=== PATIENT | female | born 1970 | race Caucasian/White ===

== ENCOUNTER → 2017-08-25 17:11 | Outpatient (CLI) | payer BC, SELFPAY ==
--- NOTE | 2017-08-25 17:19 | XR_ITS ---
XR chest 2V HISTORY: Chest pain ITS.REASON: CHEST PAIN ORDERING PHYSICIAN: Eric Tyler MD PATIENT AGE: 47 years COMPARISON: 12/02/2015 FINDINGS: The cardiomediastinal silhouette and pulmonary vascularity are within normal limits. The lungs are clear without infiltrates, suspicious nodules, or pleural effusions. No acute bony abnormalities. Mild thoracic kyphosis unchanged IMPRESSION: No change with no acute finding
== END ==
PROVIDERS: PCP Family Medicine; Visit Provider Family Medicine
DX: R07.89 Other chest pain (principal)
CPT/HCPCS: 71046

== ENCOUNTER → 2017-08-31 16:39 | Outpatient (CLI) | payer BC, SELFPAY ==
--- NOTE | 2017-08-31 | MM_ITS ---
MM Dig screening mamm BI w/CAD CAD Screening COMPARISON: Digital mammograms 02/01/2012 and 10/08/2013 INDICATION: There is a history of breast cancer in patient's cousin diagnosed before menopause. TECHNIQUE: Standard CC and MLO images were obtained. R2 CAD reviewed. FINDINGS: There is a markedly dense and heterogenic parenchymal pattern definitely lessening the sensitivity of mammography. There are 2 possible new nodular densities right breast best seen on the CC projection. These likely are summation shadows due to the dense heterogenic parenchymal pattern. However recommend the patient return for spot compression MLO and CC views and possibly ultrasound as well. There are no suspicious microcalcifications. IMPRESSION: Dense parenchymal pattern with possible new developing densities right breast BI-RADS Category: 0 Need Additional Imaging Evaluation RECOMMENDED FOLLOW-UP: IMM - IMMEDIATE FOLLOW-UP RECOMMENDED (A letter has been sent to the patient regarding results of the study.)
== END ==
PROVIDERS: Family Provider Family Medicine; PCP Family Medicine; Visit Provider Family Medicine
DX: N64.4 Mastodynia (principal); Z12.31 Encounter for screening mammogram for malignant neoplasm of breast
CPT/HCPCS: 77067

== ENCOUNTER → 2017-09-13 14:40 | Outpatient (CLI) | payer BC, SELFPAY ==
--- NOTE | 2017-09-13 14:45 | MM_ITS ---
MM Dig mamm DX unilat RT CAD, US breast RT complete COMPARISON: 08/31/2017, 10/08/2013 INDICATION: Follow-up abnormal mammogram ORDERING PHYSICIAN: Eric Tyler MD PATIENT AGE: 47 years TECHNIQUE: Problem solving views of the right breast along with right breast ultrasound FINDINGS: There is dense fibroglandular tissue which decreases the sensitivity of mammography. The areas of asymmetric density in the central aspect of the right breast seen on the previous screening mammogram appear to compress out. Asymmetric density is present in the retroareolar region probably related to fibroglandular tissue less apparent on the nipple profile view. This has been a constant feature compared to the previous mammograms only slightly more apparent on today's study which may be technical in nature. Right breast ultrasound: 4 mm cyst at 10:00. No other abnormalities are apparent. Small nodes are present in the axilla. IMPRESSION: No convincing evidence of malignancy. Asymmetric densities on the mammogram are felt to percent areas of asymmetric fibroglandular tissue. Asymmetric density is present in the right retroareolar region also felt to represent fibroglandular tissue only slightly more prominent. BI-RADS Category: 3 Benign Finding Short Term Follow-up RECOMMENDED FOLLOW-UP: 6M - 6 MONTH FOLLOW-UP Recommend follow-up right mammogram in 6 months. Also recommend correlation with physical exam in this patient with dense breast tissue. (A letter has been sent to the patient regarding results of the study.)
== END ==
PROVIDERS: Family Provider Family Medicine; PCP Family Medicine; Visit Provider Family Medicine
DX: R92.8 Other abnormal and inconclusive findings on diagnostic imaging of breast (principal); N64.4 Mastodynia
CPT/HCPCS: 76641; 77065

== ENCOUNTER → 2017-10-13 14:52 | Outpatient (CLI) | payer BC, SELFPAY ==
--- NOTE | 2017-10-13 15:01 | CT_ITS ---
CT chest w con HISTORY: ITS.REASON: LEFT SIDED CHEST PAIN ORDERING PHYSICIAN: Eric Tyler MD PATIENT AGE: 47 years TECHNIQUE: Axial images obtained following the administration of 75 mL of Isovue 370 . Sagittal, and coronal reformatted images are also generated and reviewed. All CT scans at the facility use one or more dose reduction, viz: automated exposure control; ma/kV adjustment per patient size (including targeted exams where dose is matched to indication; i.e. head); or iterative reconstruction technique. FINDINGS: No mediastinal or hilar mass or adenopathy. Normal heart size. No evidence of pericardial effusion. Scattered small nodes present in the axilla on both sides but no obvious axillary adenopathy or mass. No evidence of aortic aneurysm or central pulmonary embolus No areas of consolidation or suspicious nodules or effusions. There are mild atelectatic or fibrotic changes in the left lung base with dependent changes posteriorly. There is mild thoracic kyphosis with degenerative disc disease in the midthoracic spine. Upper abdominal images are unremarkable IMPRESSION: 1. No acute finding. 2. Minimal left basilar atelectasis or fibrosis. 3. Thoracic spine spondylosis
== END ==
PROVIDERS: Family Provider Family Medicine; PCP Family Medicine; Visit Provider Family Medicine
DX: R07.9 Chest pain, unspecified (principal); N64.4 Mastodynia
CPT/HCPCS: 71260; Q9967

== ENCOUNTER → 2018-04-10 15:32 | Outpatient (CLI) | payer BC, SELFPAY ==
--- NOTE | 2018-04-10 15:37 | CT_ITS ---
CT angio chest HISTORY: Mid chest pressure, history of colon cancer ITS.REASON: SUSPECTED PULMONARY EMBOLISM ORDERING PHYSICIAN: Jacqueline Vo MD PATIENT AGE: 47 years COMPARISON: 10/13/2017 TECHNIQUE: Axial images obtained following the administration of 75 mL of Isovue 370 . Sagittal, and coronal reformatted images are also generated and reviewed. All CT scans at the facility use one or more dose reduction, viz: automated exposure control, ma/kV adjustment per patient size (including targeted exams where dose is matched to indication, i.e. head), or iterative reconstruction technique. FINDINGS: No evidence of aortic aneurysm or dissection. No evidence of pulmonary embolus. No mediastinal or hilar mass or adenopathy. Normal heart size without evidence of pericardial effusion There are atelectatic changes in the right middle lobe. Mild fibrotic changes are present in the left lung base and minimal atelectasis noted in the right posterior costophrenic sulcus. No lobar consolidation or collapse. No effusions or infiltrates. There are degenerative changes in the thoracic spine with mild kyphosis and small endplate osteophytes anteriorly. Upper abdominal images show mild prominence of the inferior vena cava. This is nonspecific and may be seen with right heart strain. There is very minimal bowing of the intraventricular septum toward the left ventricle which may also be seen with right heart strain. There is slight increased density within the retroperitoneal fat around the aorta nonspecific. There is borderline splenomegaly at 13 cm. IMPRESSION: 1. No evidence of pulmonary embolus, aortic aneurysm, or aortic dissection. 2. Mild atelectatic and fibrotic changes in the lower lung zones 3. Prominent inferior vena cava with minimal bowing of the intraventricular septum toward the left which may be seen with right heart strain
== END ==
PROVIDERS: PCP Family Medicine; Visit Provider Emergency Medicine
DX: R09.89 Other specified symptoms and signs involving the circulatory and respiratory systems (principal)
CPT/HCPCS: 71275; Q9967

== ENCOUNTER → 2018-04-14 07:54 | Outpatient (CLI) | payer BC, SELFPAY ==
--- NOTE | 2018-04-14 | CA_ITS ---
PROCEDURE: 2-D M-mode and color Doppler study INDICATIONS FOR THE TEST: Chest pain COPD Heart Murmur Tobacco Smoking Palpitationshx Fatigue Syncope Edema Hypertension Diabetes Mellitus Rheumatic Fever SOB PATEL Obesity Hyperlipidemia Family History HD+ Additional History chest pressure, father had history of CABG and aortic aneurysm, Mother had CAD PATIENT INFORMATION HEIGHT: 70 WEIGHT: 189 GENDER: Female B/P: 110/78 2-D/M-MODE INTERPRETATION: 2-D MEASUREMENTS OBSERVED VALUES IN CMS Right Ventricular Dimension (RVDd) 2.7 Interventricular Septum (Thickness)(IVsd) 0.6 Left Ventricular Internal Dimensions(LVIDd) 4.9 Left Ventricular Posterior Wall (Thickness)(LVPWd) 0.7 Aortic Root 3.0 Aortic Cusp Separation 2.0 Left Atrial Dimensions (LAD) 3.9 2D 1. Left atrium is upper limit of the normal size, left ventricle is normal size, there is no concentric left ventricular hypertrophy, visually estimated ejection fraction of 55% with no regional wall motion abnormality. 2. The right atrium and I ventricular normal size and contractility. 3. The aortic valve is minimally thickened and fibrosed. 4. The mitral and tricuspid valvular grossly normal. 5. The pulmonic valve is poorly visualized. 6. No significant pericardial effusion noted. DOPPLER INTERROGATION: Doppler interrogation of the aortic, mitral and tricuspid valvular presence of mild mitral and tricuspid regurgitation, tricuspid regurgitation jet velocity is inadequate for calculation of the right ventricular systolic pressure, diastolic parameters are inconclusive. CONCLUSION: 1. Normal left ventricular size, preserved left ventricular systolic function, visually estimated ejection fraction 55% with no regional wall motion abnormality, diastolic parameters are inconclusive. 2. Mild mitral and tricuspid regurgitation 3. No significant pericardial effusion noted.
== END ==
PROVIDERS: Family Provider Family Medicine; PCP Family Medicine; Visit Provider Emergency Medicine
DX: R06.02 Shortness of breath (principal)
CPT/HCPCS: 93306

== ENCOUNTER → 2018-04-25 14:11 | Outpatient (CLI) | payer BC, SELFPAY ==
--- NOTE | 2018-04-25 14:20 | CA_ITS ---
PROCEDURE: Limited saline contrast study is to identify intracardiac shunt INDICATIONS FOR THE TEST: Chest pain COPD Heart Murmur Tobacco Smoking Palpitations Fatigue Syncope Edema Hypertension Diabetes Mellitus Rheumatic Fever SOB PATEL Obesity Hyperlipidemia Family History HD Additional History BUBBLE STUDY ONLY F/U FROM CT RECENT ECHO DONE PATIENT INFORMATION HEIGHT: WEIGHT: GENDER: Female B/P: 2-D/M-MODE INTERPRETATION: 2-D MEASUREMENTS OBSERVED VALUES IN CMS Right Ventricular Dimension (RVDd) Interventricular Septum (Thickness)(IVsd) Left Ventricular Internal Dimensions(LVIDd) Left Ventricular Posterior Wall (Thickness)(LVPWd) Aortic Root Aortic Cusp Separation Left Atrial Dimensions (LAD) 2D DOPPLER INTERROGATION: CONCLUSION: Agitated saline contrast study fails to identify intracardiac shunt.
== END ==
PROVIDERS: Family Provider Family Medicine; PCP Family Medicine; Visit Provider Emergency Medicine
DX: N64.4 Mastodynia (principal); R06.02 Shortness of breath
CPT/HCPCS: 93308

== ENCOUNTER → 2018-05-27 08:42 | Outpatient (CLI) | payer BC, SELFPAY ==
[2018-05-27 09:00] LABS: Basophils % 0.6 % (0.1-2.0); Eosinophils # 0.2 K/mm3 (0.0-0.4); Eosinophils % 3.4 % (0.1-12.0); Hematocrit 38.6 % (37.0-47.0); Hemoglobin 12.8 g/dL (12.2-16.2); Lymphocytes # 1.4 K/mm3 (0.7-4.5); Lymphocytes % 28.5 % (10-50); Mean Corpuscular HGB Conc 33.1 g/dL (31.8-35.4); Mean Corpuscular Hemoglobin 30.2 pg (27.0-31.2); Mean Corpuscular Volume 91.2 fl (81-99); Monocytes # 0.3 K/mm3 (0.1-1.0); Monocytes % 5.5 % (1.7-9.3); Platelet Count 220 K/mm3 (142-424); Red Blood Count 4.23 M/mm3 (4.20-5.40); Red Cell Distribution Width 13.1 % (11.5-17.5); White Blood Count 4.8 K/mm3 (4.8-10.8)
[2018-05-27 10:28] LABS: Erythrocyte Sedimentation Rate 16 mm/hr (0-20)
[2018-05-27 10:29] LABS: Alanine Aminotransferase 18 U/L (12-78); Albumin Level 3.6 gm/dL (3.4-5.0); Albumin/Globulin Ratio 1.1 (1.1-1.8); Alkaline Phosphatase 58 U/L (46-116); Anion Gap 10.4 mEq/L (5-15); Aspartate Amino Transferase 12 U/L (15-37); Bilirubin,Total 0.7 mg/dL (0.2-1.0); Blood Urea Nitrogen 10 mg/dL (7-18); C-Reactive Protein < 0.2 mg/L (0.0-0.9); Calcium 8.3 mg/dL (8.5-10.1); Carbon Dioxide 30 mmol/L (21.0-32.0); Chloride 105 mmol/L (98-107); Chol/HDL Ratio 2.2 (1-3.5); Cholesterol 148 mg/dL (140-200); Creatinine,Serum 0.59 mg/dL (0.55-1.02); Estimated Glomerular Filt Rate 109 ml/min (>60); GFR (African American) 132 ML/MIN (>60); Globulin 3.2 gm/dl (1.3-3.2); Glucose 90 mg/dL (74-106); HDL Cholesterol 67 mg/dL (29-89); LDL Cholesterol 66 mg/dL (0-130); Potassium 4.4 mmoL/L (3.5-5.1); Sodium 141 mmol/L (136-145); Thyroid Stimulating Hormone 1.87 uIU/ml (0.358-3.740); Total Protein,Serum 6.8 gm/dL (6.4-8.2); Triglycerides 77 mg/dL (30-200); Uric Acid 4.5 mg/dL (2.6-7.2); VLDL Cholesterol 15 mg/dL (0-40)
[2018-05-29 16:15] LABS: RA Latex Turbid. <10.0 IU/mL (0.0-13.9)
[2018-05-30 06:08] LABS: Antinuclear Antibodies, IFA Positive (.)
== END ==
PROVIDERS: Visit Provider Family Medicine
DX: M79.10 Myalgia, unspecified site (principal); Z85.038 Personal history of other malignant neoplasm of large intestine
CPT/HCPCS: 36415; 80053; 80061; 84443; 84550; 85025; 85651; 86038; 86140; 86431

== ENCOUNTER → 2018-10-23 16:16 | Outpatient (CLI) | payer BC, SELFPAY ==
--- NOTE | 2018-10-23 16:20 | MM_ITS ---
MM Dig screening mamm BI w/CAD CAD Screening COMPARISON: Digital mammograms with CAD 08/31/2017 and additional views right breast 09/13/2017 INDICATION: There is a history of breast cancer patient maternal cousin diagnosed at age 40 TECHNIQUE: Standard CC and MLO images were obtained. R2 CAD reviewed. FINDINGS: Prominent diffuse heterogenic fibroglandular densities are seen in both breasts somewhat lessening the sensitivity of mammography. Possible asymmetric density seen in the right breast on the previous study in August 2017 are not appreciated on today's study and were likely areas of asymmetric glandular tissue. There is a stable benign-appearing nodular density deep within the right breast. There is no suspicious lesion and there are no suspicious microcalcifications. IMPRESSION: Diffusely dense parenchymal pattern with no suspicious lesion seen BI-RADS Category: 2 Benign Finding(s) RECOMMENDED FOLLOW-UP: 1YR - 1 YEAR FOLLOW-UP (A letter has been sent to the patient regarding results of the study.)
== END ==
PROVIDERS: PCP Family Medicine; Visit Provider Family Medicine
DX: Z12.31 Encounter for screening mammogram for malignant neoplasm of breast (principal)
CPT/HCPCS: 77067

== ENCOUNTER → 2018-12-04 13:44 | Outpatient (CLI) | payer BC, SELFPAY ==
--- NOTE | 2018-12-04 13:44 | US_ITS ---
US transvaginal HISTORY: ITS.REASON: US T/V- f/u on ovarian cyst irregular periods ORDERING PHYSICIAN: Klever Medellin MD PATIENT AGE: 48 years Comparison: None FINDINGS: There are no previous exams available for comparison. The uterus measures 6 x 4 x 4 cm with a combined endometrial thickness of 3 mm. No obvious uterine mass. Right ovary is 2 x 2 cm. Left ovary is 2 x 1.3 cm. No adnexal mass. No cul-de-sac fluid. IMPRESSION: Unremarkable pelvic ultrasound
== END ==
PROVIDERS: PCP Family Medicine; Visit Provider Nurse Practitioner Obstetrics & Gynecology
DX: N83.209 Unspecified ovarian cyst, unspecified side (principal); N92.6 Irregular menstruation, unspecified
CPT/HCPCS: 76830

== ENCOUNTER → 2020-02-29 10:52 | Outpatient (CLI) | payer BC, SELFPAY ==
[2020-02-29 11:07] LABS: Basophils % 0.7 % (0.1-2.0); Eosinophils # 0.3 K/mm3 (0.0-0.4); Hematocrit 39.8 % (37.0-47.0); Hemoglobin 13.6 g/dL (12.2-16.2); Lymphocytes # 1.8 K/mm3 (0.7-4.5); Lymphocytes % 29.1 % (10-50); Mean Corpuscular HGB Conc 34.1 g/dL (31.8-35.4); Mean Corpuscular Hemoglobin 31.3 pg (27.0-31.2); Mean Corpuscular Volume 91.6 fl (81-99); Monocytes # 0.3 K/mm3 (0.1-1.0); Monocytes % 4.7 % (1.7-9.3); Neutrophils # 3.8 K/mm3 (1.8-7.8); Neutrophils % 61.5 % (37.0-80.0); Platelet Count 274 K/mm3 (142-424); Red Blood Count 4.34 M/mm3 (4.20-5.40); Red Cell Distribution Width 13.1 % (11.5-17.5); White Blood Count 6.2 K/mm3 (4.8-10.8)
[2020-02-29 11:46] LABS: Chloride 102 mmol/L (98-107); Potassium 4.5 mmoL/L (3.5-5.1); Sodium 139 mmol/L (136-145)
[2020-02-29 11:48] LABS: Blood Urea Nitrogen 13 mg/dl (7-17); Estimated Glomerular Filt Rate 106 ml/min (>60); GFR (African American) 129 ML/MIN (>60)
[2020-02-29 11:49] LABS: Alanine Aminotransferase 10 U/L (12-78); Albumin Level 4.5 g/dl (3.5-5.0); Albumin/Globulin Ratio 1.5 (1.1-1.8); Alkaline Phosphatase 73 U/L (38-126); Anion Gap 10.5 mEq/L (5-15); Aspartate Amino Transferase 21 U/L (14-36); Bilirubin,Total 0.8 mg/dl (0.2-1.3); Calcium 9.3 mg/dl (8.4-10.2); Carbon Dioxide 31 mmol/L (22.0-30.0); Chol/HDL Ratio 2.7 (1-3.5); Cholesterol 202 mg/dl (140-200); Glucose 94 mg/dl (74-100); HDL Cholesterol 76 mg/dl (40-60); Total Protein,Serum 7.5 g/dl (6.3-8.2); Triglycerides 106 mg/dl (30-150); VLDL Cholesterol 21 mg/dL (0-40)
[2020-02-29 12:00] LABS: Direct LDL Cholesterol 95.24 mg/dL (100-129)
[2020-02-29 12:20] LABS: Thyroid Stimulating Hormone 1.52 uIU/mL (0.465-4.68)
== END ==
PROVIDERS: Visit Provider Family Medicine
DX: R63.8 Other symptoms and signs concerning food and fluid intake (principal); F41.8 Other specified anxiety disorders; Z85.038 Personal history of other malignant neoplasm of large intestine
CPT/HCPCS: 36415; 80053; 80061; 84443; 85025

== ENCOUNTER → 2020-03-11 16:10 | Outpatient (CLI) | payer BC, SELFPAY ==
--- NOTE | 2020-03-11 16:24 | MM_ITS ---
PROCEDURE: MM DIG SCREENING MAMM BI W/CAD Digital Breast Tomosynthesis Included CLINICAL INDICATION: Routine Screening Mammogram There is a history of breast cancer in the patient's maternal cousin diagnosed before menopause. COMPARISON: MG [facility] MM Dig screening mamm BI w/CAD from 08/31/2017 MG DXRT MM Dig mamm DX unilat RT CAD from 09/13/2017 MG [facility] MM Dig screening mamm BI w/CAD from 10/23/2018 TECHNIQUE: Standard CC and MLO images and 3D Tomosynthesis was obtained. R2 CAD reviewed. FINDINGS: Prominent diffuse fibroglandular densities are seen in both breasts somewhat more diffuse right breast than left. There has been some fatty involution of the glandular elements since the previous exam. There is no suspicious lesion and no suspicious microcalcifications. IMPRESSION: Moderate diffuse breast density with no suspicious lesions seen BI-RAD Category: 1 Negative FOLLOW-UP: 1YR 1 Year Follow-up (A letter has been sent to the patient regarding results of the study.) Dictated by: Dr. Hay Andrade MD 03/14/2020 15:14 Dr. Hay Andrade MD in [place] 03/14/2020 15:14
== END ==
PROVIDERS: PCP Family Medicine; Visit Provider Nurse Practitioner Obstetrics & Gynecology
DX: Z12.31 Encounter for screening mammogram for malignant neoplasm of breast (principal)
CPT/HCPCS: 77063; 77067

== ENCOUNTER → 2020-06-11 07:25 | Outpatient (CLI) | payer SELFPAY ==
--- NOTE | 2020-06-11 07:34 | CT_ITS ---
PROCEDURE: CT HEART W CALCIUM SCORE CLINICAL HISTORY: DYSLIPIDEMIA,FAMILY HISTORY OF HEART DISEASE COMPARISON: No exams were available for comparison TECHNIQUE: Axial images obtained with sagittal and coronal reformats. All CT scans at the facility use one or more dose reduction, viz: automated exposure control, ma/kV adjustment per patient size (including targeted exams where dose is matched to indication, i.e. head), or iterative reconstruction technique. FINDINGS: Coronary artery calcium score is 0. No identifiable calcific atherosclerotic plaque with very low cardiovascular disease risk. Atelectatic or fibrotic changes are present in the lower lobes IMPRESSION: No identifiable calcific atherosclerotic plaque with very low cardiovascular disease risk Dictated by: Galileo Awan MD 06/11/2020 19:07 Galileo Awan MD in [place] 06/11/2020 19:07
== END ==
PROVIDERS: PCP Family Medicine; Visit Provider Family Medicine
DX: Z13.6 Encounter for screening for cardiovascular disorders (principal); E78.5 Hyperlipidemia, unspecified; Z82.49 Family history of ischemic heart disease and other diseases of the circulatory system
CPT/HCPCS: 75571

== ENCOUNTER → 2021-01-13 12:55 | Outpatient (POV) | payer SELFPAY | PROVIDERS: Visit Provider Dermatology | DX: Z00.00 Encounter for general adult medical examination without abnormal findings (principal) ==

== ENCOUNTER → 2021-02-10 14:54 | Outpatient (CLI) | payer BC, SELFPAY ==
--- NOTE | 2021-02-10 15:00 | XR_ITS ---
PROCEDURE: XR RIBS RT 2V CLINICAL INDICATION: Cough, right rib pain COMPARISON: No exams were available for comparison FINDINGS: Three views of the right ribs show no obvious fracture or dislocation. No lytic or blastic change. IMPRESSION: Negative right ribs. If pain persists, consider follow-up exam in 7-[address] with 3D reformats Dictated by: Galileo Awan MD 02/10/2021 17:29 Galileo Awan MD in [place] 02/10/2021 17:29
--- NOTE | 2021-02-10 15:00 | XR_ITS ---
PROCEDURE: XR CHEST 2V CLINICAL HISTORY: Cough,Pleurodynia COMPARISON: CR CXR CHEST(2 VIEWS-NOT PORTABLE) from 12/02/2015 CR CXR2V XR chest 2V from 08/25/[address] angio chest from 04/10/2018 FINDINGS: The cardiomediastinal silhouette and pulmonary vascularity are within normal limits. The lungs are clear without infiltrates, suspicious nodules, or pleural effusions. Mild thoracic kyphosis not significantly changed. There is wedging anteriorly T6-T7 and T8 unchanged with resultant kyphosis. IMPRESSION: No acute findings. Dictated by: Galileo Awan MD 02/10/2021 17:30 Galileo Awan MD in [place] 02/10/2021 17:30
== END ==
PROVIDERS: PCP Family Medicine; Visit Provider Family Medicine
DX: R05 Cough (principal); R07.81 Pleurodynia
CPT/HCPCS: 71046; 71100

== ENCOUNTER → 2021-07-03 15:56 | Outpatient (CLI) | payer BC, SELFPAY ==
--- NOTE | 2021-07-03 15:56 | MM_ITS ---
PROCEDURE INFORMATION: Exam: MG Bilateral Screening 3D Mammography Exam date and time: 07/03/2021 3:56 PM Age: 51 years old Clinical indication: Encounter for screening mammogram for malignant neoplasm of breast TECHNIQUE: Imaging protocol: Bilateral screening tomosynthesis and 2D mammography including computer-aided detection (CAD) when performed. COMPARISON: 1. MG MM DIG SCREENING MAMM BI W/CAD 03/11/2020 4:22 PM 2. MG [facility] MM Dig screening mamm BI w/CAD 10/23/2018 4:23 PM FINDINGS: MAMMOGRAPHY: Breast composition: The breast tissue is heterogeneously dense, which may obscure small masses. Mass: None. Architectural distortion: None. Calcifications: No suspicious calcifications. Asymmetric density: None. Skin thickening: None. Axillary adenopathy: None. IMPRESSION: No mammographic evidence of malignancy. Annual screening is recommended unless otherwise clinically indicated. ASSESSMENT: BI-RADS Category 1: Negative
== END ==
PROVIDERS: PCP Family Medicine; Visit Provider Nurse Practitioner Obstetrics & Gynecology
DX: Z12.31 Encounter for screening mammogram for malignant neoplasm of breast (principal)
CPT/HCPCS: 77063; 77067

== ENCOUNTER → 2021-07-30 15:23 | Outpatient (CLI) | payer BC, SELFPAY ==
[2021-07-30 16:44] LABS: Chloride 103 mmol/L (98-107); Potassium 4.3 mmoL/L (3.5-5.1); Sodium 141 mmol/L (136-145)
[2021-07-30 16:47] LABS: Alanine Aminotransferase 15 U/L (12-78); Albumin Level 4.8 g/dl (3.5-5.0); Albumin/Globulin Ratio 1.8 (1.1-1.8); Alkaline Phosphatase 73 U/L (38-126); Anion Gap 11.3 mEq/L (5-15); Aspartate Amino Transferase 25 U/L (14-36); Blood Urea Nitrogen 16 mg/dl (7-17); Calcium 9.3 mg/dl (8.4-10.2); Carbon Dioxide 31 mmol/L (22.0-30.0); Cholesterol 175 mg/dl (140-200); Estimated Glomerular Filt Rate 105 ml/min (>60); GFR (African American) 128 ML/MIN (>60); Globulin 2.7 g/dL (1.3-3.2); Glucose 95 mg/dl (74-100); Total Protein,Serum 7.5 g/dl (6.3-8.2); Triglycerides 104 mg/dl (30-150); VLDL Cholesterol 21 mg/dL (0-40)
[2021-07-30 16:48] LABS: Chol/HDL Ratio 2.9 (1-3.5); HDL Cholesterol 61 mg/dl (40-60)
[2021-07-30 17:17] LABS: Thyroid Stimulating Hormone 1.03 uIU/mL (0.465-4.68)
[2021-08-01 08:18] LABS: FSH 46.8 mIU/mL (.); LH 26.3 mIU/mL (.)
== END ==
PROVIDERS: Visit Provider Family Medicine
DX: F41.8 Other specified anxiety disorders (principal); E78.5 Hyperlipidemia, unspecified; N95.9 Unspecified menopausal and perimenopausal disorder
CPT/HCPCS: 36415; 80053; 80061; 83001; 83002; 84443

== ENCOUNTER → 2022-06-15 16:28 | Outpatient (CLI) | payer BC, SELFPAY ==
--- NOTE | 2022-06-15 16:35 | XR_ITS ---
PROCEDURE INFORMATION: Exam: XR Chest Exam date and time: 06/15/2022 4:37 PM Age: 52 years old Clinical indication: Pain; Right-sided; Additional info: Pain in chest down patients right side under armpit and down x 1 week, no known injury, no SOA, TECHNIQUE: Imaging protocol: Radiologic exam of the chest. Views: 2 views. COMPARISON: CR XR CHEST 2V 02/10/2021 3:04 PM FINDINGS: Lungs: Atelectasis within the left lung base. Pleural spaces: Unremarkable. No pleural effusion. No pneumothorax. Heart/Mediastinum: Unremarkable. No cardiomegaly. Bones/joints: Degenerative spondylosis and increased kyphosis of thoracic spine. IMPRESSION: Atelectasis in the left lung base.
== END ==
PROVIDERS: PCP Family Medicine; Visit Provider Family Medicine
DX: R09.1 Pleurisy (principal)
CPT/HCPCS: 71046

== ENCOUNTER → 2022-10-12 16:45 | Outpatient (CLI) | payer BC, SELFPAY ==
--- NOTE | 2022-10-12 16:48 | XR_ITS ---
FINAL REPORT CLINICAL HISTORY: PAIN, no known injury FINDINGS: Three views of the left knee reveal no evidence of fracture or dislocation. The bony alignment is normal. There is mild degenerative change. There is a small joint effusion. No localized soft tissue abnormality is seen. IMPRESSION: Mild degenerative change with a small joint effusion. Reviewed, Interpreted and Dictated by Dariel Canseco III, MD Transcribed by Elisa Morales Authenticated and [facility]
== END ==
PROVIDERS: PCP Family Medicine; Visit Provider Family Medicine
DX: M79.605 Pain in left leg (principal); M25.562 Pain in left knee
CPT/HCPCS: 73562

== ENCOUNTER 2023-11-30 10:47 | Outpatient (CLI) | payer BC, SELFPAY ==
[2023-11-30 12:32] LABS: Alanine Aminotransferase 17 U/L (12-78); Albumin Level 4.3 g/dl (3.5-5.0); Albumin/Globulin Ratio 1.7 (1.1-1.8); Alkaline Phosphatase 69 U/L (38-126); Anion Gap 12.4 mEq/L (5-15); Aspartate Amino Transferase 28 U/L (14-36); Bilirubin,Total 0.8 mg/dl (0.2-1.3); Blood Urea Nitrogen 15 mg/dl (7-17); Carbon Dioxide 30 mmol/L (22.0-30.0); Chloride 103 mmol/L (98-107); Chol/HDL Ratio 2.9 (1-3.5); Cholesterol 179 mg/dl (140-200); Estimated Glomerular Filt Rate 88 ml/min (>60); GFR (African American) 106 ML/MIN (>60); Globulin 2.6 g/dL (1.3-3.2); Glucose 91 mg/dl (74-100); HDL Cholesterol 62 mg/dl (40-60); Potassium 4.4 mmoL/L (3.5-5.1); Sodium 141 mmol/L (136-145); Total Protein,Serum 6.9 g/dl (6.3-8.2); Triglycerides 130 mg/dl (30-150); VLDL Cholesterol 26 mg/dL (0-40)
[2023-11-30 12:43] LABS: Direct LDL Cholesterol 90.43 mg/dL (100-129)
[2023-11-30 13:01] LABS: Thyroid Stimulating Hormone 1.42 uIU/mL (0.465-4.68)
== END 2023-11-30 23:59 | disposition home or self-care (01) ==
LOC: LAB 10:49
PROVIDERS: PCP Family Medicine; Visit Provider Family Medicine
DX: F41.9 Anxiety disorder, unspecified (principal); N95.9 Unspecified menopausal and perimenopausal disorder; Z13.220 Encounter for screening for lipoid disorders
CPT/HCPCS: 36415; 80053; 80061; 84443

== ENCOUNTER 2023-12-21 08:39 | Outpatient (CLI) | payer BC, SELFPAY ==
--- NOTE | 2023-12-21 08:44 | XR_ITS ---
FINAL REPORT CLINICAL HISTORY: POST MENOPAUSAL COMPARISON: None FINDINGS: Using L1-4, the bone mineral density of the spine is 0.979 g/cm2, corresponding to T-score of -0.6 which is within normal limits. Using the left hip, the bone mineral density of the femoral neck is 0.735 g/cm2, corresponding to a T-score of -1.0 which is within normal limits. Using the right hip, the bone mineral density of the femoral neck is 0.767 g/cm2, corresponding to a T-score of -0.7 which is within normal limits. FRAX 10 year fracture risk is 0.2% for a hip fracture and 4.9% for a major osteoporotic fracture. NOTE: T-score: Standard deviation compared with peak bone mass of young adult mean. *Following the recommendations of the International Society of Bone densitometry, classification of hip BMD is based on the lower of two T-scores; total hip or femoral neck. IMPRESSION: Normal bone mineral density of the lumbar spine and hips. Reviewed, Interpreted and Dictated by Supriya Vieira MD Transcribed by Izzy Betancourt Authenticated and [facility]
== END 2023-12-21 23:59 | disposition home or self-care (01) ==
LOC: RAD 08:40
PROVIDERS: PCP Family Medicine; Visit Provider Family Medicine
DX: Z78.0 Asymptomatic menopausal state (principal)
CPT/HCPCS: 77080

== ENCOUNTER 2024-12-06 09:13 | Outpatient (CLI) | payer BC, SELFPAY ==
[2024-12-06 10:00] LABS: Basophils # 0.1 K/mm3 (0-0.2); Basophils % 0.9 % (0.1-2.0); Eosinophils # 0.3 Kmm3 (0.0-0.4); Hematocrit 38.6 % (37.0-47.0); Hemoglobin 13.1 g/dL (12.2-16.2); Immature Granulocytes # 0.02 10^3uL; Immature Granulocytes % 0.3 %; Lymphocytes % 34.7 % (10-50); Mean Corpuscular HGB Conc 33.9 g/dL (31.8-35.4); Mean Corpuscular Hemoglobin 30.2 pg (27.0-31.2); Mean Corpuscular Volume 88.9 fl (81-99); Monocytes # 0.4 K/mm3 (0.1-1.0); Monocytes % 7.6 % (1.7-9.3); Neutrophils % 51.5 % (37.0-80.0); Nucleated Red Blood Cells # 0 10^3/uL; Nucleated Red Blood Cells % 0 %; Platelet Count 283 K/mm3 (142-424); Red Blood Count 4.34 M/mm3 (4.20-5.40); Red Cell Distribution Width 12.9 % (11.5-17.5); Red Cell Distribution Width-SD 42.5 fL; White Blood Count 5.8 K/mm3 (4.8-10.8)
[2024-12-06 10:18] LABS: Albumin Level 4.5 g/dl (3.5-5.0); Chloride 105 mmol/L (98-107); Potassium 4.5 mmoL/L (3.5-5.1); Sodium 139 mmol/L (136-145)
[2024-12-06 10:20] LABS: Alanine Aminotransferase 18 U/L (12-78); Blood Urea Nitrogen 18 mg/dl (7-17); Estimated Glomerular Filt Rate 87 ml/min (>60); GFR (African American) 106 ML/MIN (>60)
[2024-12-06 10:21] LABS: Albumin/Globulin Ratio 1.7 (1.1-1.8); Alkaline Phosphatase 75 U/L (38-126); Anion Gap 9.5 mEq/L (5-15); Aspartate Amino Transferase 25 U/L (14-36); Bilirubin,Total 1.1 mg/dl (0.2-1.3); Calcium 9.2 mg/dl (8.4-10.2); Carbon Dioxide 29 mmol/L (22.0-30.0); Chol/HDL Ratio 3.8 (1-3.5); Cholesterol 198 mg/dl (140-200); Globulin 2.7 g/dL (1.3-3.2); Glucose 94 mg/dl (74-100); HDL Cholesterol 52 mg/dl (40-60); Total Protein,Serum 7.2 g/dl (6.3-8.2); Triglycerides 175 mg/dl (30-150); VLDL Cholesterol 35 mg/dL (0-40)
[2024-12-06 10:33] LABS: Direct LDL Cholesterol 93.37 mg/dL (100-129)
== END 2024-12-06 23:59 | disposition home or self-care (01) ==
LOC: LAB 09:16
PROVIDERS: PCP Family Medicine; Visit Provider Family Medicine
DX: F41.9 Anxiety disorder, unspecified (principal); Z85.038 Personal history of other malignant neoplasm of large intestine; E78.5 Hyperlipidemia, unspecified
CPT/HCPCS: 36415; 80053; 80061; 85025

== ENCOUNTER 2024-12-13 15:40 | Outpatient (CLI) | payer BC, SELFPAY ==
--- OUTSIDE RECORDS SUMMARY | 2024-07-17 12:45 | XMS_ITS ---
Author Organization [facility] Address [address] [facility] [address] [id number] Care Team Providers Care Sheet [facility]anger Name Role Phone Anju Tyler Primary Care Provider Allergies Allergen (clinical drug ingredient) Drug/Non Drug Allergy documented on EMR Reaction Allergy Type Onset Date Status Substance with penicillin structure and antibacterial mechanism of action (substance) Penicillins Unknown Drug Allergy Active REASON FOR VISIT sciatic nerve Medications Medication SIG (Take, Route, Frequency, Duration) Notes Start Date End Date Status Famotidine 20 MG 1 tablet at bedtime as needed Orally Once a day Active Hyoscyamine Sulfate SL 0.125 MG 1 tablet under the tongue and allow to dissolve as needed Sublingual Three times a day, prn 02/25/2023 Not-Taking Celecoxib 200 MG 1 capsule with food Orally Once a day for 30 day(s) 07/17/2024 Active Indomethacin 50 MG 1 capsule with food or milk Orally Twice a day with food 01/18/2023 Not-Taking Meloxicam 15 MG 1 tablet Orally Once a day for 30 day(s) Not-Taking Lexapro 20 MG 1 tab(s) orally once a day Active Probiotic Formula 1-250 BILLION-MG 1 cap(s) orally once a day Active Problems Problem Type SNOMED Code ICD Code Onset Dates Problem Status W/U Status Risk Notes Problem 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) Active confirmed Vital Signs Blood pressure systolic 132 mm Hg 07/17/19 25 Blood pressure diastolic 82 mm Hg 025 Heart Rate 70 /min 07/17/2024 Height 72 in 07/17/2024 Weight 233.6 lbs 07/17/2024 BMI 31.68 kg/m2 07/17/2024 Encounters Encounter Location Date Provider Diagnosis [facility] [address] [place] [phone] 07/17/2024 Anju Tyler Sacroiliac inflammat ion M46.1 and GERD (gastroesophageal reflux disease) K21.9 Assessments Encounter Date Diagnosis (ICD Code) Assessment Notes Treatment Notes Treatment Clinical Notes Section Notes 07/17/2024 Sacroiliac inflammation (ICD-10 - M46.1) Provided written instructions for stretching exercises of low back and hamstrings 07/17/2024 GERD (gastroesophageal reflux disease) (ICD-10 - K21.9) Plan Of Treatment Medication Medication Name Sig Start Date Stop Date Notes Famotidine 20 MG 1 tablet at bedtime as needed Orally Once a day Celecoxib 200 MG 1 capsule with food Orally Once a day for 30 day(s) 07/17/2024 Treatment Notes Assessment Notes Sacroiliac inflammation Provided written instructions for stretching exercises of low back and hamstrings Next Appt Details Follow Up: 2 Weeks, 3 Weeks, prn, Reason: Progress Notes * CARLEEN HEATHERALMA DELIAOB:1970 (54 yo F)Acc No.[id number]:07/17/2024 Progress Notes Patient: MARIUM CALL Provider: Anju Tyler M.D. :1970 A ge:54 Y S ex:Female Date:07/17/2024 Address:[address] [place], [place] [id number] Subjective: * Chief Complaints: * 1 . Sciatic nerve. * HPI: L ower back: She presents with a 2 to 3-month history of intermittent dull aching right low back pain that radiates to the right buttock. She recalls no recent or remote injury. It is not related to any particular activity. It sometimes bothers her at night. No urinary complaints. G astroenterology: Acid Reflux P t sts that her GI doctor told her that she does not need to be seen by them any longer and that Dr. Tyler could take over filling her Rx of Famotidine if he is agreeable. * ROS: C ARDIOLOGY: no C hest pain. n o S hortness of breath. ? D ERMATOLOGY: no R nilsa. n o H trisha. U ROLOGY: no D ifficulty urinating. n o B lood in urine. * Medical History: C olon cancer - 2015, Clostridium difficile 2016, Anxiety disorder , GERD. * Surgical History: n one , laparoscopic resection of right and transvers colon - Dr Goldstein @ [facility] 02/17/16, C-scope/ Dr. Lyman/ normal 03/13/2019, C-scope/ Dr. Lyman/ normal 06/07/22. * Hospitalization/Major Diagno stic Procedure: C olon resection 02/2016. * Family History: F ather: , diagnosed with Cancer. M other: alive. P aternal Grand Father: . P aternal Grand Mother: alive. M aternal Grand Father: . M aternal Grand Mother: . 1 brother(s) , 1 sister(s) . . * Social History: C URRENT TOBACCO USE S moking Status: Patient does NOT smoke. C affeine: yes, frequency:. Exercise: no. Home smoke detector use: yes. Marital Status: . Occupation: yes. Past smoking status: no. Recreational drug use: no. Alcohol: no. Sexually active: yes. * Medications: T aking Famotidine 20 MG Tablet 1 tablet at bedtime as needed Orally Once a day , Taking Probiotic Formula 1-250 BILLION-MG Capsule 1 cap(s) orally once a day , Taking Lexapro 20 MG Tablet 1 tab(s) orally once a day , Not-Taking Meloxicam 15 MG Tablet 1 tablet Orally Once a day , Not-Taking Indomethacin 50 MG Capsule 1 capsule with food or milk Orally Twice a day with food , Not-Taking Hyoscyamine Sulfate SL 0.125 MG Tablet Sublingual 1 tablet under the tongue and allow to dissolve as needed Sublingual Three times a day, prn , Medication List reviewed and reconciled with the patient * Allergies: P enicillins. Objective: * Vitals: W t:233.6, Temp:98.4, BP:132/82, HR:70, Nurse:FAB, Ht: 72, BMI:31.68. * Examination: G eneral Examination: General Appearance: N AD. Back: S he moves easily from the chair to standing position. Back shows no obvious deformity. No bony tenderness of the lumbar spine. Slight increased pain with lateral bending to the right. Lumbar flexion is limited due to muscle tightness. Strength in the lower extremities is normal. Gait is normal.. ? Assessment: * Assessment: 1. S acroiliac inflammation - M46.1 (Primary) 2 . G ERD (gastroesophageal reflux disease) - K21.9 Plan: * Treatment: 2. G ERD (gastroesophageal reflux disease) Refill Famotidine Tablet, 20 MG, 1 tablet at bedtime as needed, Orally, Once a day, 90, Refills 3.? * Follow Up: 2 Weeks, 3 Weeks, prn * Billing Information: * Visit Code: 99373 Office Visit, Est Pt., Level 3. * Procedure Codes: * Electronic signature of Anju Tyler MD on 12/13/2024 at 03:43 PM EDT Sign off status: Pending * Provider: Anju Tyler M.D. Date: 0 07/17/2024 Generated for Efra devlin/Yosef/Ileanaitting on: 0 12/13/2024 03:43 PM EDT History and Physical Notes * HPI (History of Present Illness) Category Sub-Category Detail Notes Category Not es Gastroenterology Acid Reflux Pt sts that her GI doctor told her that she does not need to be seen by them any longer and that Dr. Tyler could take over filling her Rx of Famotidine if he is agreeable Examination Category Sub-Category Detail Notes Category Not es General Examination General Appearance: NAD Back: She moves easily fro m the chair to standing position. Back shows no obvious deformity. No bony tenderness of the lumbar spine. Slight increased pain with lateral bending to the right. Lumbar flexion is limited due to muscle tightness. Strength in the lower extremities is normal. Gait is normal.
--- OUTSIDE RECORDS SUMMARY | 2024-11-08 12:15 | XMS_ITS ---
Author Organization [facility] Address [address] [facility] [address] [id number] Care Team Providers Care Clerical Adjuster Name Role Phone Anju Tyler Primary Care Provider [phone] Allergies Allergen (clinical drug ingredient) Drug/Non Drug Allergy documented on EMR Reaction Allergy Type Onset Date Status Substance with penicillin structure and antibacterial mechanism of action (substance) Penicillins Unknown Drug Allergy Active REASON FOR VISIT med ckup, wart Medications Medication SIG (Take, Route, Frequency, Duration) Notes Start Date End Date Status Lexapro 20 MG 1 tab(s) orally once a day Active Probiotic Formula 1-250 BILLION-MG 1 cap(s) orally once a day Active Hyoscyamine Sulfate SL 0.125 MG 1 tablet under the tongue and allow to dissolve as needed Sublingual Three times a day, prn 02/25/2023 Not-Taking Meloxicam 15 MG 1 tablet Orally Once a day for 30 day(s) Not-Taking Indomethacin 50 MG 1 capsule with food or milk Orally Twice a day with food 01/18/2023 Not-Taking Celecoxib 200 MG 1 capsule with food Orally Once a day for 30 day(s) 07/17/2024 Active Famotidine 20 MG 1 tablet at bedtime as needed Orally Once a day Active Problems Problem Type SNOMED Code ICD Code Onset Dates Problem Status W/U Status Risk Notes Problem [id number] BMI 31.0-31.9,ad ult (Z68.31) Active confirmed Vital Signs Blood pressure systolic 120 mm Hg 11/09/19 25 Blood pressure diastolic 80 mm Hg 025 Heart Rate 88 /min 11/08/2024 Height 72 in 11/08/2024 Weight 232.6 lbs 11/08/2024 BMI 31.54 kg/m2 11/08/2024 Encounters Encounter Location Date Provider Diagnosis [facility] [address] [facility] [address] [place] [phone] 11/08/2024 Anju Tyler Anxiety F41.9 ; Wart of hand B07.9 ; Screening for lipid disorders Z13.220 and BMI 31.0-31.9,adult Z68.31 Assessments Encounter Date Diagnosis (ICD Code) Assessment Notes Treatment Notes Treatment Clinical Notes Section Notes 11/08/2024 Anxiety (ICD-10 - F41.9) 11/08/2024 Wart of hand (ICD-10 - B07.9) The wart is treated with two 30 second cycles of cryotherapy which she tolerated well. Aftercare instructions given. 11/08/2024 Screening for lipid disorders (ICD-10 - Z13.220) 11/08/2024 BMI 31.0-31.9,adul t (ICD-10 - Z68.31) Plan Of Treatment Medication Medication Name Sig Start Date Stop Date Notes Lexapro 20 MG 1 tab(s) orally once a day Treatment Notes Assessment Notes Wart of hand The wart is treated with two 30 second cycles of cryotherapy which she tolerated well. Aftercare instructions given. Pending Test Test Name Order Date H-Lipid Panel 11/08/2024 H-CMP 11/08/2024 Next Appt Details Follow Up: 6 Months, Reason: Progress Notes * HEATHER MARINRADOB:1970 (54 yo F)Acc No.[id number]:11/08/2024 Progress Notes Patient: MARIUM CALL Provider: Anju Tyler M.D. :1970 A ge:54 Y S ex:Female Date:11/08/2024 Address:[address] [place], [place] [id number] Subjective: * Chief Complaints: * 1 . Med ckup, wart. * HPI: P sychology: She comes in for follow-up on her anxiety disorder and refill of Lexapro. She reports today that Lexapro is working well and symptoms are well-controlled. She would like to continue the medication. D ermatology: She also noticed a wart on the dorsum of her right hand a few weeks ago. She has tried OTC remedies with no results. * ROS: C ARDIOLOGY: no C hest pain. n o S hortness of breath. ? D ERMATOLOGY: no R nilsa. n o H trisha. U ROLOGY: no D ifficulty urinating. n o B lood in urine. * Medical History: C olon cancer - 2015, Clostridium difficile 2015, Anxiety disorder , GERD. * Surgical History: n one , laparoscopic resection of right and transvers colon - Dr Goldstein @ [facility] 02/17/16, C-scope/ Dr. Lyman/ normal 03/13/2019, C-scope/ [...] Sexually active: yes. * Medications: T aking Probiotic Formula 1-250 BILLION-MG Capsule 1 cap(s) orally once a day , Taking Lexapro 20 MG Tablet 1 tab(s) orally once a day , Taking Celecoxib 200 MG Capsule 1 capsule with food Orally Once a day , Taking Famotidine 20 MG Tablet 1 tablet at bedtime as needed Orally Once a day , Not-Taking Meloxicam 15 MG [...] Allergies: P enicillins. Objective: * Vitals: W t: 232.6, Temp: 98.4, BP: 120/80, HR: 88, Nurse: santhosh, Ht: 72, BMI:31.54. * Examination: G eneral Examination: General Appearance: NAD. Affect is good. Heart: R SR. Lungs: c lear to auscultation. Skin: T here is a 3 mm verrucous wart on the dorsum of her right fifth MP joint.. Assessment: * Assessment: 1. A nxiety - F41.9 (Primary) 2 . W art of hand - B07.9 3 .?Screening for lipid disorders - Z13.220 4 . B NE 31.0-31.9,adult - Z68.31? Plan: * Treatment: 2. W art of hand Notes: The wart is treated with two 30 second cycles of cryotherapy which she tolerated well. Aftercare instructions given. * Labs: * L ab: H-Lipid Panel L ab: H-CMP * Procedure Codes: 1 7000 DESTRUCTION BENIGN LESION, CRYOSURGERY,ELECTROSURGERY FIRST LESION, 3074F SYST BP LT 130 MM HG, 3079F DIAST BP 80-89 MM HG * Follow Up: 6 Months * Billing Information: * Visit Code: 66629 Office Visit, Est Pt., Level 3. Modifiers: 25 * Procedure Codes: 29748 DESTRUCTION BENIGN LESION, CRYOSURGERY,ELECTROSURGERY FIRST LESION. 3074F SYST BP LT 130 MM HG. 3079F DIAST BP 80-89 MM HG. * Electronic signature of Anju Tyler MD on 12/13/2024 at 03:42 PM EDT Sign off status: Pending * Provider: Anju Tyler M.D. Date: 0 11/08/2024 Generated for Efra devlin/Yosef/Ileanaitting on: 0 12/13/2024 03:42 PM EDT History and Physical Notes * Examination Category Sub-Category Detail Notes Category Not es General Examination Heart: RSR Lungs: clear to auscultatio n General Appearance: NAD. Affect is good Skin: There is a 3 mm verr ucous wart on the dorsum of her right fifth MP joint.
--- OUTSIDE RECORDS SUMMARY | 2024-12-06 06:00 | XMS_ITS ---
Author Organization [facility] Address [facility] [facility] [address] [id number] Care Team Providers Care Caddy Master Name Role Phone Anju Tyler Primary Care Provider [phone] Allergies Allergen (clinical drug ingredient) Drug/Non Drug Allergy documented on EMR Reaction Allergy Type Onset Date Status Substance with penicillin structure and antibacterial mechanism of action (substance) Penicillins Unknown Drug Allergy Active REASON FOR VISIT look at wart Medications Medication SIG (Take, Route, Frequency, Duration) Notes Start Date End Date Status Probiotic Formula 1-250 BILLION-MG 1 cap(s) orally once a day Active Indomethacin 50 MG 1 capsule with food or milk Orally Twice a day with food 01/18/2023 Not-Taking Hyoscyamine Sulfate SL 0.125 MG 1 tablet under the tongue and allow to dissolve as needed Sublingual Three times a day, prn 02/25/2023 Not-Taking Lexapro 20 MG 1 tab(s) orally once a day Active Meloxicam 15 MG 1 tablet Orally Once a day for 30 day(s) Not-Taking Famotidine 20 MG 1 tablet at bedtime as needed Orally Once a day Active Celecoxib 200 MG 1 capsule with food Orally Once a day for 30 day(s) 07/17/2024 Active Vital Signs Blood pressure systolic 126 mm Hg 12/07/19 25 Blood pressure diastolic 82 mm Hg 025 Heart Rate 81 /min 12/06/2024 Height 72 in 12/06/2024 Weight 231.4 lbs 12/06/2024 BMI 31.38 kg/m2 12/06/2024 Encounters Encounter Location Date Provider Diagnosis [facility] [address] [facility] [address] [place] [phone] 12/06/2024 Anju Tyler Wart of hand B07.9 Assessments Encounter Date Diagnosis (ICD Code) Assessment Notes Treatment Notes Treatment Clinical Notes Section Notes 12/06/2024 Wart of hand (ICD-10 - B07.9) Wart appears to be resolved but continue to observe for recurrence Plan Of Treatment Treatment Notes Assessment Notes Wart of hand Wart appears to be r esolved but continue to observe for recurrence Next Appt Details Follow Up: prn, Reason: Progress Notes * CONNER MARINOB:1970 (54 yo F)Acc No.[id number]:12/06/2024 Progress Notes Patient: MARIUM CALL Provider: Anju Tyler M.D. :1970 A ge:54 Y S ex:Female Date:12/06/2024 Address:[address] [place], [place] [id number] Subjective: * Chief Complaints: * 1 . Look at wart. * HPI: D ermatology: She had cryotherapy on a wart last month and is not sure if it is completely gone. * ROS: C ARDIOLOGY: no C hest [...] and transvers colon - Dr Goldstein @ [facility] 02/17/16, C-scope/ Dr. Lyman/ normal [...] cap(s) orally once a day , Taking Celecoxib 200 MG Capsule 1 capsule with food Orally Once a day , Taking Famotidine 20 MG Tablet 1 tablet at bedtime as needed Orally Once a day , Taking Lexapro 20 MG [...] P enicillins. Objective: * Vitals: W t: 231.4, Temp: 98.4, BP: 126/82, HR: 81, Nurse: [facility], Ht: 72, BMI:31.38. * Examination: G eneral Examination: Skin: T here is a slight scabbed area at the site of the previous wart but no obvious wart tissue noted.. Assessment: * Assessment: 1. W art of hand - B07.9 (Primary) Plan: * Treatment: * Follow Up: p rn * Billing Information: * Visit Code: 98996 Office Visit, Est Pt., Level 2. * Procedure Codes: * Electronic signature of Anju Tyler MD on 12/13/2024 at 03:42 PM EDT Sign off status: Pending * Provider: Anju Tyler M.D. Date: 12/06/2024 Generated for Efra devlin/Yosef/David on: 12/13/2024 03:42 PM EDT History and Physical Notes * HPI (History of Present Illness) Category Sub-Category Detail Notes Category Not es Dermatology She had cryothe rapy on a wart last month and is not sure if it is completely gone. Examination Category Sub-Category Detail Notes Category Not es General Examination Skin: There is a s light scabbed area at the site of the previous wart but no obvious wart tissue noted.
--- OUTSIDE RECORDS SUMMARY | 2024-12-13 15:42 | XMS_ITS | CCD ---
Author Name Interface, [email or web address] lity Address [facility] [place] [address] Organization [facility] Address [address] [place] [address] Care Team Providers Care Leacher Name Role Phone Buddy Arguello Unavailable Unavailable Care Plan Reason for Visit Encounters Functional Status Diagnostic Results Medications Problems Procedures Social History Vital Signs
--- OUTSIDE RECORDS SUMMARY | 2024-12-13 15:42 | XMS_ITS ---
Author Name Interface, [id number] lity Address [address] [place] [address] Organization [facility] Address [address] [place] [address] Care Team Providers Care Business Unit Controller Name Role Phone Buddy Arguello Unavailable Unavailable Allergies and Adverse Reactions Medication/Group Name Reaction Severity Date Penicillins 06/07/2024 Plan Date Type Value 06/06/2025 APPOINTMENT LAB 15 MIN 06/06/2025 APPOINTMENT OV 15 MIN 06/07/2024 APPOINTMENT LAB 15 MIN 06/07/2024 APPOINTMENT OV 15 MIN 06/07/2024 APPOINTMENT CEA panel 06/07/2024 LABORDER CBC w/ auto diff 06/07/2024 LABORDER CMP - Core Lab 06/07/2024 LABORDER CEA panel 06/06/2025 LABORDER CBC w/ auto diff 06/06/2025 LABORDER CEA panel 06/06/2025 LABORDER CMP - Core Lab Reason for Visit CEA panel Encounters Date Name 06/07/2024 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) 06/07/2024 Solitary pulmonary n odule Diagnostic Results Date Type Test Units Lower Limit Upper Limit Result Flag Comments Status Ordered By Specimen Source Lab Address 06/07 CEA panel CEA ng/mL 0.53 FINAL [facility]), [address] [facility] [address] 06/07 CBC w/ auto diff WBC 10*3/u L 4.0 10.0 7.3 FINAL [facility] [address], [address] [facility] [address] 06/07 CBC w/ auto diff Ashok # (ANC) 10*3/u L 1.56 6.13 4.07 FINAL [facility] ([facility]), [address], [address] [place] [address] 06/07 CBC w/ auto diff LY # 10*3/u L 1.18 3.74 2.30 [facility]AL [facility] ([facility]), [address], [address] [place] [address] 06/07 CBC w/ auto diff MO # 10*3/u L 0.24 0.86 0.54 FINAL Buddy [facility] (T), [address], [address] [place] [address] 06/07 CBC w/ auto diff EO # 10*3/u lL 0.04 0.36 0.29 FINAL Buddy [facility] (T), [address], [address] [place] [address] 06/07 CBC w/ auto diff BA # 10*3/u L 0.01 0.08 0.05 FINAL Buddy [facility] (T), [address], [address] [place] [address] 06/07 CBC w/ auto diff Ashok % % 34.0 71.1 56.2 FINAL Buddy [facility] (T), [address], [address] [place] [address] 06/07 CBC w/ auto diff LY % % 19.3 51.7 31.7 FINAL Buddy [facility] (T), [address], [address] [place] [address] 06/07 CBC w/ auto diff MO % % 4.7 12.5 7.4 FINAL Buddy [facility] (T), [address], [address] [place] [address] 06/07 CBC w/ auto diff EO % % 0.7 5.8 4.0 FINAL Buddy [facility] (T), [address], [address] [place], [place] [id number] 06/07 CBC w/ auto diff BA % % 0.1 1.2 0.7 FINAL Buddy [facility] (T), [address], [address] [place] [address] 06/07 CBC w/ auto diff RBC 10*6/u L 3.93 5.22 4.32 FINAL [facility] (T), [address], [address] [place] [address] 06/07 CBC w/ auto diff HGB g/dL 11.2 15.7 12.8 FINAL [facility] (T), [address], [address] [place] [address] 06/07 CBC w/ auto diff HCT % 34.1 44.9 39.0 FINAL [facility] ([facility]), [address], [address] [place] [address] 06/07 CBC w/ auto diff MCV fL 79.4 94.8 90.3 FINAL [facility] ([facility]), [address], [address] [place] [address] 06/07 CBC w/ auto diff MCH pg 25.6 32.2 29.6 FINAL [facility] (T), [address], [address] [place] [address] 06/07 CBC w/ auto diff MCHC g/dL 32.2 35.5 32.8 FINAL [facility] ([facility]), [address], [address] [place] [address] 06/07 CBC w/ auto diff RDW-C V, % % 11.7 14.4 13.0 FINAL [facility] (T), [address], [address] [place] [address] 06/07 CBC w/ auto diff PLT 10*3/u L 182.0 369.0 282.0 FINAL [facility] ([facility]), [address], [address] [place] [address] 06/07 CMP - Core Lab Sodiu m mmol/L 136.0 145.0 142 FINAL [facility] ([facility]), [address] [place] [address] 06/07 CMP - Core Lab Potas sium mmol/L 3.5 5.1 4.8 FINAL [facility] ([facility]), [address] [place] [address] 06/07 CMP - Core Lab Chlor nahed mmol/L 98.0 107.0 105 FINAL [facility] ([facility]), [address] [place] [address] 06/07 CMP - Core Lab CO2 mmol/L 20.0 31.0 29.3 FINAL [facility] ([facility]), [address] [place] [address] 06/07 CMP - Core Lab Anion gap, mmol/ L mmol/L 4.0 15.0 7.7 FINAL [facility] ([facility]), [address] [place] [address] 06/07 CMP - Core Lab BUN mg/dL 9.0 23.0 18 FINAL [facility] ([facility]), [address] [place] [address] 06/07 CMP - Core Lab BUN/C reati nine ratio 0.0 25.0 24.0 FINAL [facility] ([facility]), [address] [place] [address] 06/07 CMP - Core Lab Creat inine mg/dL 0.55 1.02 0.75 FINAL [facility] ([facility]), [address] [address] 06/07 CMP - Core Lab eGFR, mL/mi n/1.7 3 mL/min /1.73m 60.0 0.0 >60.0 FINAL [facility] ([facility]), [address] [place] [address] 06/07 CMP - Core Lab Gluco se mg/dL 74.0 106.0 92 FINAL [facility] ([facility]), [address] [place] [address] 06/07 CMP - Core Lab Calci um mg/dL 8.7 10.6 10.0 FINAL [facility] ([facility]), [address] [place] [address] 06/07 CMP - Core Lab Album in g/dL 3.4 5.0 4.2 FINAL [facility] ([facility]), [address] [place] [address] [place] [address] 06/07 CMP - Core Lab Total prote in g/dL 5.7 8.2 7.6 FINAL [facility]), [address] [place] [address] 06/07 CMP - Core Lab A/G ratio 1.0 2.0 1.2 FINAL [facility]), [address] [place] [address] 06/07 CMP - Core Lab Alkal ine phosp hatas e U/L 46.0 116.0 87 FINAL [facility]), [address] [place] [address] [place] [address] 06/07 CMP - Core Lab ALT/S GPT U/L 10.0 49.0 17 FINAL [facility] ([facility]), [address] [place] [address] [place] [address] 06/07 CMP - Core Lab AST/S GOT U/L 0.0 34.0 20 FINAL [facility]), [address] [place] [address] [place] [address] 06/07 CMP - Core Lab Bilir ubin, total mg/dL 0.3 1.2 0.5 FINAL [facility]), [address] [place] [address] Medications Date Name Route Dose Frequency Instructions Start Date End Date Status Probiotics Oral orally 1.0 every day active Escitalopram Oral orally 20.0 mg daily active Famotidine Oral 20.0 mg active Problems Diagnosis Status Date of Diagnosi s Solitary pulmonary nodule Active 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 Gastroesophageal reflux dise ase without esophagitis (disorder) Active Vital Signs Date Type Value 06/07/2024 Body Temperature 98.20 06/07/2024 Heart Beat 64.00 06/07/2024 Respiratory Rate 12.00 06/07/2024 Intravascular Systolic 140 06/07/2024 Intravascular Diastolic 100 06/07/2024 Intravascular Systolic 142 06/07/2024 Intravascular Diastolic 96 06/07/2024 Weight 229.40 06/07/2024 Height 69.00 06/07/2024 BMI 33.88 06/07/2024 BSA 2.25 06/07/2024 Pain Scale 0.00 Notes Section * [facility] Follow Up Patient Name: MARIUM DURANT Patient : 1970 Patient Primary Oncologist: Buddy Arguello (Medical Oncology) Referring Physician: JAROD EMMANUEL Date of Service: 06/07/2024 Chief Complaint ? Problem List * Gastroesophageal reflux disease without esophagitis (disorder) * Malignant tumor of transverse colon (disorder) ( Stage Date: 04/13/2016, Stage IIA (Transverse colon, T3, N0, cM0)-Pathological Extent of Disease: Evidence of local disease; Disease State: Initial diagnosis; Histopathologic Type: Adenocarcinoma; Residual Tumor: R0; Completed Treatments: Subtotal colectomy; Localized Perforation at Diagnosis: Absent; Ordinal: Primary; ) * Solitary pulmonary nodule HPI Malignant neoplasm of transverse colon (HCC) ?? Staging form: Colon and Rectum, AJCC 7th Edition ? Clinical: Stage IIA (T3, N0, M0) - Signed by Buddy Arguello MD on 04/13/2016 ? Prognostic indicators: MSI-H ?? Previous Therapies LAR 03/03/16 Current Therapy ? Observation Interval History Here for annual follow up. No abdominal pain or weight loss. No bleeding symptoms. UTD c-scope.?? Review of Systems Constitutional: ??No weight loss, No fever, No chills, No night sweats. ??Energy level good. Eyes: ??No impairment or change in vision ENT / Mouth: ??No pain, abnormal ulceration, bleeding, nasal drip or change in voice or hearing Cardiovascular: ??No chest pain, palpitations, new edema, or calf discomfort Respiratory: ??No pain, hemoptysis, change to breathing Breast: ??No pain, discharge, change in appearance or texture Gastrointestinal: ??No pain, cramping, jaundice, change to eating and bowel habits Urinary: ??No pain, bleeding or change in continence Genitalia: No pain, bleeding or discharge Musculoskeletal: ??No redness, pain, edema or weakness Skin: ??No pruritus, rash, change to nodules or lesions Neurologic: ??No discomfort, change in mental status, speech, sensory or motor activity Psychiatric: ??No change in concentration or change to affect or mood Endocrine: ??No hot flashes, increased thirst, or change to urine production Hematologic: No petechiae, ecchymosis or bleeding Lymphatic: ??No lymphadenopathy or lymphedema Allergy / Immunologic: ??No eczema, hives, frequent or recurrent infections Vital Signs Blood pressure: 142/96, Pulse: 64, Temperature: 98.2 F, Respirations: 12, O2 sat: , Pain Scale: 0, Height: 69 in, Weight: 229.4 lb, BSA: 2.25, BMI: 33.88 kg/m2 Physical Exam CONSTITUTIONAL: awake, alert, cooperative, no apparent distress?? EYES: pupils equal, round and reactive to light, sclera clear and conjunctiva normal ENT: Normocephalic, without obvious abnormality, atraumatic NECK:??supple, symmetrical, no jugular venous distension and no carotid bruits?? HEMATOLOGIC/LYMPHATIC: no cervical, supraclavicular or axillary lymphadenopathy?? LUNGS: no increased work of breathing and clear to auscultation?? CARDIOVASCULAR: regular rate and rhythm, normal S1 and S2, no murmur noted ABDOMEN: normal bowel sounds x 4, soft, non-distended, non-tender, no masses palpated, no hepatosplenomegaly?? MUSCULOSKELETAL: full range of motion noted, tone is normal NEUROLOGIC: awake, alert, oriented to name, place and time. Motor skills grossly intact.?? SKIN: Normal skin color, texture, turgor and no jaundice. appears intact?? EXTREMITIES: no LE edema?? Labs CBC Lab Results 06/07/2024 05/17/2023 05/11/2022 05/06/2021 01/22/2001/12/2021 CBC WBC x 10^3/uL 7.3 6.8 6.6 7.3 8.0 RBC x 10^6/uL 4.32 4.29 4.40 4.42 4.40 HGB g/dL 12.8 12.6 13.0 13.1 13.2 HCT % 39.0 38.1 39.5 38.8 39.2 MCV fL 90.3 88.8 89.8 87.8 89.1 MCH pg 29.6 29.4 29.5 29.6 30.0 MCHC g/dL 32.8 33.1 32.9 33.8 33.7 RDW-CV, % 13.0 13.3 13.0 13.0 13.2 PLT x 10^3/uL 282.0 272.0 281.0 272.0 260.0 Ashok % 56.2 57.2 57.9 57.5 64.0 LY % 31.7 32.6 28.3 32.0 24.5 MO % 7.4 6.3 7.4 6.4 8.0 EO % 4.0 3.5 5.9 (H) 3.8 3.0 BA % 0.7 0.4 0.5 0.3 0.5 Ashok # (ANC) x 10^3/uL 4.07 3.87 3.85 4.22 5.13 LY # x 10^3/uL 2.30 2.21 1.88 2.35 1.96 MO # x 10^3/uL 0.54 0.43 0.49 0.47 0.64 EO # x 10^3/uL 0.29 0.24 0.39 (H) 0.28 0.24 BA # x 10^3/uL 0.05 0.03 0.03 0.02 0.04 CMP Lab Results 06/07/2024 05/17/2023 05/11/2022 05/06/2021 01/22/20 21 01/12/2021 Chemistries Glucose mg/dL 95 78 88 87 BUN mg/dL 19 14 13 16 Creatinine mg/dL 0.69 0.71 0.73 0.67 BUN/Creatinine ratio 27.5 (H) 19.7 17.8 23.9 Sodium mmol/L 141 142 139 141 Potassium mmol/L 4.1 4.0 4.3 4.5 Chloride mmol/L 103 105 103 106 CO2 mmol/L 31.1 (H) 29.9 27.0 29.9 Anion gap, mmol/L 6.9 7.1 9.0 5.1 Calcium mg/dL 9.6 9.4 9.4 9.6 Albumin g/dL 4.2 3.9 4.4 4.1 Total protein g/dL 7.6 6.9 7.3 7.2 A/G ratio 1.2 1.3 1.5 1.3 Bilirubin, total mg/dL 0.7 0.7 0.5 0.7 Alkaline phosphatase U/L 70 78 93 87 AST/SGOT U/L 16 14 21 17 ALT/SGPT U/L 11 9 (L) 15 10 GFR non-, estimated mL/min/1.73m2 >60.0 >60.0 >60.0 >60.0 GFR , estimated mL/min/1.73m2 >60.0 >60.0 >60.0 >60.0 Lab Results 06/07/2024 05/17/2023 05/11/2022 05/06/2021 01/22/2001/12/2021 Tumor Markers CEA ng/mL 0.50 0.64 0.50 0.64 ? Imaging CT CAP 10/2016: 1. Status post resection of the ascending colon without evidence of local recurrence or metastatic disease. 2. 1.9 x 1.cm fluid density lesion within the right aspect of the pelvic cul-de-sac, decreased in size prior.This likely represents a small postoperative hematoma. CT CAP 04/2017:??Full report scanned. 3 mm pulm nodule, suspected granulomatous changes, recommend repeat in 6 monyhs, otherwise unchaged.?? CT CAP 12/20: Stable exam of the chest, ABD, pelvis??without any evidence of metastatic disease?? CT CAP 12/2019 -??scanned into EMR - [facility] CT CAP 01/12/21:??full report scanned into EMR - new 4.5 mm LLL nodule - likely inflamm, cannot exclude met disease, o/w CHRALES CT CAP 04/16/21 -??LLL nodule less conspicuous. No further follow up needed. Likely inflammatory (full report scanned)?? OCM - Patient Care Management Pain, if applicable: ? Performance Status:??ECOG 0 Normal activity. Fully active, able to carry on all pre-disease performance without restriction. (Date: 06/07/2024) Depression Status:??Was screened; Outcome positive: No; Screening Date: 05/17/2023; Screening Tool:Patient Health Questionnaire (PHQ9); Total depression score: 0 Psycho-social PHQ-9 Follow-up Plan (if applicable): Research Would you like this patient screened for clinical trial eligibility? If yes, please enter the??order for Research: Screen for Eligibility Assessment & Plan 1. 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 12/20 did not demonstrate any evidence of recurrence of her disease?? - CT scan 01/2020 with stable pulmonary nodules since 2016 and [facility]LES - CT scan 01/2021 showed new 4.5 mm nodule LLL - did have recent URI - too small for PET/biopsy - CT chest 04/2021 showed nodule less conspicuous - no further follow up required - [facility] at appt 05/11/22, 05/17/2023 - c-scope negative 06/2022 - repeat in 3 years (06/2025) - labs stable - last CEA 0.5, pending today - FU 1 year and recheck CEA - repeat imaging prn Time Based Itemization A total of minutes??was spent on today's patient encounter. If applicable, [id number] activities: ?(?)?Preparing to see the patient and reviewing records ?(?)?Individual interpretation of??results?(?)?Discussion or coordination of care with other health home care assistant ?(?)?Ordering of unique tests, medications, or procedures ?(?)?Documentation within the EHR?? . Recent imaging and labs were reviewed and discussed with the patient. Buddy Arguello MD [facility], Medical Oncology Online: [email or web address]?? Note Recipients:? Electronically signed by Buddy Arguello MD 06/07/2024 16:11 EST
--- OUTSIDE RECORDS SUMMARY | 2024-12-13 15:42 | XMS_ITS | Encounter Summary ---
Author Organization [facility] Address [address] [place] [address] Care Team Providers Care German Professor Name Role Phone Unavailable Primary Care Provider Unavailabl e Encounter Details Date Type Department Care Team (Late st Contact Info) Description 07/10/2019 Lab Requisition [facility] Department of Laboratory Services [address] [place] [phone] Justin Henderson M.D. Clinical Labs [address] [place] [address], [address] [place], [place] [id number] Obdulia Cesar, CAR INSTALLATIONS SUPERVISOR-[facility] [address] [place] [address] Social History Tobacco Use Types Packs/Day Years Used Date Smoking Tobacco: Never Assessed Comments Unknown Sex and Gender Information Value Date Recorded Sex Assigned at Not on file Legal Sex Female 1:33 PM EST Gender Identity Not on file Sexual Orientation Not on file documented as of this encounter Plan of Treatment Not on file documented as of this encounter Procedures Procedure Name Priority Date/Time Associated Diagnosis Comments COMPREHENSIVE METABOLIC PANEL Routine 07/10/2019 1:31 PM EST CEA Routine 07/10/2019 1:31 PM EST documented in this encounter Results * Comp Metabolic Panel (BMP+Alb,TProt,AST,ALT,Alk phos,Tbili) (07/10/2019 1:31 PM EST) Potassium 4.3 3.5 - 5.1 mmol/L 07/10/2019 9:13 PM EST [facility] Chloride 106 98 - 107 mmol/L 07/10/2019 9:[address] [facility] Carbon Dioxide 28 20 - 31 mmol/L 07/10/2019 9:[address] [facility] Anion Gap 7 4 - 15 mmol/L 07/10/2019 9:[address] [facility] Blood Urea Nitrogen 13 9 - 23 mg/dL 07/10/2019 9:[address] [facility] Creatinine 0.63 0.50 - 0.80 mg/dL 07/10/2019 9:[address] [facility] Bun/Creatinine Ratio 20.63 <=25.00 01/2020 9:[address] [facility] Glucose 88 65 - 106 mg/dL 07/10/2019 9:[address] [facility] Calcium 9.2 8.3 - 10.6 mg/dL 07/10/2019 9:[address] [facility] Albumin 4.3 3.4 - 5.0 gm/dL 07/10/2019 9:[address] [facility] Alkaline Phosphatase 70 46 - 116 unit/L 07/10/2019 9:[address] [facility] Alanine Aminotransferase 15 <=49 unit/L 07/10/2019 9:[address] [facility] Aspartate Aminotransferase 19 <=33 unit/L 07/10/2019 9:[address] [facility] Bilirubin Total 1.1 0.1 - 1.2 mg/dL 07/10/2019 9:[address] [facility] Globulin 2.4 gm/dl 07/10/2019 9:[address] [facility] Albumin/Globulin Ratio 2 1 - 2 07/10/2019 9:[address] [facility] Estimated Gfr Non >60 >=60 mL/min/1. 73m2 07/10/2019 9:[address] [facility] Comment: Estimated GFR calculated using MDRD study equation. Sodium 141 136 - 145 mmol/L 07/10/2019 9:[address] [facility] TOTAL PROTEIN LEVEL 6.7 5.7 - 8.2 gm/dL 07/10/2019 9:[address] [facility] Blood specimen (specimen) 07/10/2019 1:31 PM EST 07/10/2019 8:29 PM EST us Obdulia Cesar CAR INSTALLATIONS SUPERVISOR-[employer] CHEMISTRY ORDERABLES Fin al Result [facility] [address] [place] [address], [place] * CEA (07/10/2019 1:31 PM EST) Carcinoembryonic Antigen 1.27 <=2.50 ng/mL 07/10/2019 9:11 PM EST [facility] Blood specimen (specimen) 07/10/2019 1:31 PM EST 07/10/2019 8:29 PM EST Narrative [facility] - 07/10/2019 9:11 PM EST A new method is in use, effective 14 September 2018; results vary between patients, but on average, the new assay results are approximately 31% lower than results from assays prior to 14 September 2018. us Obdulia Cesar CAR INSTALLATIONS SUPERVISOR-[employer] W[employer]ER CHEMISTRY ORDERABLES Fin al Result [facility] [address] [place] [address], [place] documented in this encounter Visit Diagnoses Not on filedocumented in this encounter
--- OUTSIDE RECORDS SUMMARY | 2024-12-13 15:42 | XMS_ITS | Clinical Summary ---
Author Organization [facility] Address [address] [place] [address] Care Team Providers Care Truer Pinion And Wheel Name Role Phone Unavailable Primary Care Provider Unavailabl e Source Comments [facility] is fully rolled out with thefollowing exceptions:General Clinical Research [facility] Social History Tobacco Use Types Packs/Day Years Used Date Smoking Tobacco: Never Assessed Comments Unknown Sex and Gender Information Value Date Recorded Sex Assigned at Not on file Legal Sex Female 1:33 PM EST Gender Identity Not on file Sexual Orientation Not on file Plan of Treatment Health Maintenance Due Date Last Done Comments MMR IMMUNIZATION (1 of 1 - S tandard series) 1971 DTAP/Tdap/Td IMMUNIZATION (1 - Tdap) 1977 VARICELLA IMMUNIZATION (1 of 2 - 13+ 2-dose series) 1983 HEPATITIS B IMMUNIZATION (1 of 3 - 19+ 3-dose series) 1989 COVID-19 Vaccine ( - 2023-2 5 season) 2024 AMB SEASONAL FLU VACCINE (Se ason Ended) 2025 HIB IMMUNIZATION Aged Out No longer e ligible based on patient's age to complete this topic HPV IMMUNIZATION Aged Out No longer e ligible based on patient's age to complete this topic IPV IMMUNIZATION Aged Out No longer e ligible based on patient's age to complete this topic MCV4 IMMUNIZATION Aged Out No longer eligible based on patient's age to complete this topic MENINGOCOCCAL B VACCINE Aged Out No l onger eligible based on patient's age to complete this topic Respiratory Syncytial Virus (RSV) <20mo Aged Out No longer eligible b ased on patient's age to complete this topic Insurance [employer] NON-TRADITIONAL
--- OUTSIDE RECORDS SUMMARY | 2024-12-13 15:42 | XMS_ITS ---
Author Name Interface, [id number] lity Address [address] [place] [address] Organization [facility] Address [address] [place] [address] Care Team Providers Care Traveling Auditor Name Role Phone Obdulia Cesar Unavailable Unavailable Allergies and Adverse Reactions Medication/Group Name Reaction Severity Date Penicillins 06/07/2024 Plan Date Type Value 06/06/2025 APPOINTMENT LAB 15 MIN 06/06/2025 APPOINTMENT OV 15 MIN 06/07/2024 APPOINTMENT LAB 15 MIN 06/07/2024 APPOINTMENT OV 15 MIN 06/07/2024 APPOINTMENT CEA panel 05/17/2024 APPOINTMENT LAB 15 MIN 05/17/2024 APPOINTMENT OV 15 MIN 05/17/2023 APPOINTMENT Lab 05/17/2023 APPOINTMENT LAB 15 MIN 05/17/2023 APPOINTMENT OV 15 MIN 05/11/2023 APPOINTMENT LAB 15 MIN 05/11/2023 APPOINTMENT OV 15 MIN 05/13/2022 APPOINTMENT OV 15 MIN 05/13/2022 APPOINTMENT LAB 15 MIN 05/11/2022 APPOINTMENT LAB 15 MIN 05/11/2022 APPOINTMENT OV 15 MIN 05/11/2022 APPOINTMENT Lab 05/06/2021 APPOINTMENT OV 15 MIN 05/06/2021 APPOINTMENT LAB 15 MIN 05/01/2021 APPOINTMENT OV 15 MIN 05/01/2021 APPOINTMENT LAB 15 MIN 01/21/2021 APPOINTMENT OV 15 MIN 01/21/2021 APPOINTMENT LAB 15 MIN 01/21/2021 APPOINTMENT Lab 01/14/2021 APPOINTMENT LAB 15 MIN 01/14/2021 APPOINTMENT OV 15 MIN 07/15/2020 APPOINTMENT CMP 07/15/2020 APPOINTMENT 6 month md and l abs 07/15/2020 APPOINTMENT 6 month md and l abs 07/15/2020 LABORDER CBC w/ auto diff 07/15/2020 LABORDER CEA panel 07/15/2020 LABORDER CMP 07/15/[address] chest/abdomen /pelvis w/ contrast 01/21/2021 LABORDER CMP - Core Lab 01/21/2021 LABORDER CBC w/ auto diff 01/21/2021 LABORDER CEA panel 01/21/[address] chest w/ IV c ontrast 05/06/2021 LABORDER CEA panel 05/06/2021 LABORDER CBC w/ auto diff 05/06/2021 LABORDER CMP - Core Lab 05/11/2022 LABORDER CEA panel 05/11/2022 LABORDER CMP - Core Lab 05/11/2022 LABORDER CBC w/ auto diff 05/17/2023 LABORDER CBC w/ auto diff 05/17/2023 LABORDER CMP - Core Lab 05/17/2023 LABORDER CEA panel 06/07/2024 LABORDER CBC w/ auto diff 06/07/2024 LABORDER CMP - Core Lab 06/07/2024 LABORDER CEA panel 06/06/2025 LABORDER CBC w/ auto diff 06/06/2025 LABORDER CEA panel 06/06/2025 LABORDER CMP - Core Lab Reason for Visit CEA panel Encounters Date Name 07/15/2020 Gastroesophageal ref lux disease without esophagitis (disorder) 07/15/2020 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) 07/15/2020 Solitary pulmonary n odule Diagnostic Results Date Type Test Units Lower Limit Upper Limit Result Flag Comments Status Ordered By Specimen Source Lab Address 07/15 CMP - Core Lab Album in g/dL 3.4 5.0 4.4 FINAL [facility] S[facility]Serum [facility] [place] ([facility]), [address] [place] [address] 07/15 CMP - Core Lab Alkal ine phosp hatas e U/L 46.0 116.0 78 FINAL [facility] S[facility]um [facility] [place] ([facility]), [address] [place] [address] 07/15 CMP - Core Lab ALT/S GPT U/L 10.0 49.0 10 FINAL [facility] S&Serum [facility] [place] ([facility]), [address] [place] [address] 07/15 CMP - Core Lab AST/S GOT U/L 0.0 34.0 14 FINAL Buddy Romos S&Serum [facility] [place] ([facility]), [address] [place] [address] [place] [address] 07/15 CMP - Core Lab Calci um mg/dL 8.7 10.4 9.9 FINAL Buddy Romo S&Serum [facility] [place] ([facility]), [address] [place] [address] [place] [address] 07/15 CMP - Core Lab Chlor nahed mmol/L 98.0 107.[address] [facility] S&Serum [facility] [place] ([facility]), [address] [place] [address] [place] [address] 07/15 CMP - Core Lab CO2 mmol/L 20.0 31.0 30.0 FINAL [facility] S&Serum [facility] [place] ([facility]), [address] [place] [address] [place] [address] 07/15 CMP - Core Lab Creat inine mg/dL 0.5 0.8 0.75 FINAL [facility] S&Serum [facility] [place] ([facility]), [address] [place] [address] [place] [address] 07/15 CMP - Core Lab GFR non-A frica n Ameri can, estim ated mL/min /1.73m >60.0 FINAL [facility] S&Serum [facility] [place] ([facility]), [address] [place] [address] [place] [address] 07/15 CMP - Core Lab GFR Afric an Ameri can, estim ated mL/min /1.73m >60.0 FINAL [facility] S&Serum [facility] [place] ([facility]), [address] [place] [address] [place] [address] 07/15 CMP - Core Lab Gluco se mg/dL 74.0 106.0 89 FINAL [facility] S&Serum [facility] [place] ([facility]), [address] [place] [address] [place] [address] 07/15 CMP - Core Lab Potas sium mmol/L 3.5 5.1 5.1 FINAL [facility] S&Serum [facility] [place] ([facility]), [address] [place] [address] [place] [address] 01/12 /2021 CMP - Core Lab Sodiu m mmol/L 136.0 145.0 137 FINAL [facility] S&Serum [facility] [place] ([facility]), [address] [place] [address] [place] [address] 07/15 CMP - Core Lab Anion gap, mmol/ L mmol/L 4.0 15.0 4.0 FINAL [facility] S&Serum [facility] [place] ([facility]), [address] [place] [address] [place] [address] 07/15 CMP - Core Lab Bilir ubin, total mg/dL 0.3 1.2 0.7 FINAL [facility] S&Serum [place] ([facility]), [address] [place] [address] [place] [address] 07/15 CMP - Core Lab Total prote in g/dL 5.7 8.2 7.1 FINAL [facility] S&Serum [facility] [place] ([facility]), [address] [place] [address] [place] [address] 07/15 CMP - Core Lab A/G ratio 1.0 2.0 1.6 FINAL [facility] S&Serum [facility] [place] ([facility]), [address] [place] [address] [place] [address] 07/15 CMP - Core Lab BUN mg/dL 9.0 23.0 16 FINAL [facility] S&Serum [facility] [place] ([facility]), [address] [place] [address] [place] [address] 07/15 CMP - Core Lab BUN/C reati nine ratio 0.0 25.0 21.3 FINAL [facility] S&Serum [facility] [place] ([facility]), [address] [place] [address] [place] [address] 07/15 CEA panel CEA ng/mL 0.73 FINAL [facility] S&Serum [facility] [place] ([facility]), [address] [place] [address] [place] [address] 07/15 CBC w/ auto diff WBC 10*3/u L 4.0 10.0 6.9 FINAL [facility] B&Whole Blood Former[facility] (EGT), [address], [address] [facility] [place] [address] 07/15 CBC w/ auto diff Ashok # (ANC) 10*3/u L 1.56 6.13 3.98 FINAL Buddy Romos [facility]), [address], [address] [facility] [address] 07/15 CBC w/ auto diff LY # 10*3/u L 1.18 3.74 1.89 FINAL Buddy Romos B&Whole Blood [facility] (T), [address], [address] [facility] [address] 07/15 CBC w/ auto diff MO # 10*3/u L 0.24 0.86 0.47 FINAL Buddy Romos B&Whole Blood [facility] (T), [address], [address] [facility] [address] 07/15 CBC w/ auto diff EO # 10*3/u lL 0.04 0.36 0.51 High FINAL Buddy Romos B&Whole Blood [facility] (T), [address], [address] [place], [place] [id number] 07/15 CBC w/ auto diff BA # 10*3/u L 0.01 0.08 0.05 FINAL Buddy Romos B&[facility] (T), [address], [address] [place], [place] [id number] 07/15 CBC w/ auto diff Ashok % % 34.0 71.1 57.7 FINAL Buddy Romos B&Whole Blood [facility] (T), [address], [address] [place] [address] 07/15 CBC w/ auto diff LY % % 19.3 51.7 27.4 FINAL Buddy Romos B&[facility] (T), [address], [address] [facility] [address] 07/15 CBC w/ auto diff MO % % 4.7 12.5 6.8 FINAL Buddy Romos B&[facility] Blood [facility] (T), [address], [address] [facility] [address] 07/15 CBC w/ auto diff EO % % 0.7 5.8 7.4 High FINAL Buddy Herms B&[facility] Blood [facility] (T), [address], [address] [place] [address] 07/15 CBC w/ auto diff BA % % 0.1 1.2 0.7 FINAL Buddy Arguello B&Whole Blood [facility] ([facility]), [address], [address] [place] [address] 07/15 CBC w/ auto diff RBC 10*6/u L 3.93 5.22 4.45 FINAL Buddy Arguello B&Whole Blood [facility] ([facility]), [address], [address] [place] [address] 07/15 CBC w/ auto diff HGB g/dL 11.2 15.7 13.5 FINAL Buddy Arguello B&Whole Blood [facility] ([facility]), [address], [address] [place] [address] 07/15 CBC w/ auto diff HCT % 34.1 44.9 40.2 FINAL Buddy Arguello B&Whole Blood [facility] ([facility]), [address], [address] [place] [address] 07/15 CBC w/ auto diff MCV fL 79.4 94.8 90.3 FINAL Buddy Arguello B&Whole Blood [facility] ([facility]), [address], [address] [place] [address] 07/15 CBC w/ auto diff MCH pg 25.6 32.2 30.3 FINAL Budyd Arguello B&Whole Blood [facility] ([facility]), [address], [address] [place] [address] 07/15 CBC w/ auto diff MCHC g/dL 32.2 35.5 33.6 FINAL Buddy Arguello B&Whole Blood [facility] ([facility]), [address], [address] [place] [address] 07/15 CBC w/ auto diff RDW-C V, % % 11.7 14.4 12.9 FINAL Buddy Arguello B&Whole Blood [facility] ([facility]), [address], [address] [place] [address] 07/15 CBC w/ auto diff PLT 10*3/u L 182.0 369.0 283.0 FINAL Buddy Saundra B&Whole Blood [facility] (T), [address], [address] [place] [address] 01/12 Lab Repor t See industrial servicer d 01/21 CBC w/ auto diff EO % % 0.7 5.8 3.0 FINAL Obdulia Ovesen [facility] (T), [address], [address] [place] [address] 01/21 CBC w/ auto diff BA % % 0.1 1.2 0.5 FINAL Obdulia Ovesen [facility] (T), [address], [address] [place] [address] 01/21 CBC w/ auto diff RBC 10*6/u L 3.93 5.22 4.40 FINAL Obdulia Ovesen [facility] (T), [address], [address] [place] [address] 01/21 CBC w/ auto diff HGB g/dL 11.2 15.7 13.2 FINAL Obdulia Ovesen [facility] (T), [address], [address] [place] [address] 01/21 CBC w/ auto diff HCT % 34.1 44.9 39.2 FINAL Obdulia Ovesen [facility] (T), [address], [address] [place] [address] 01/21 CBC w/ auto diff MCV fL 79.4 94.8 89.1 FINAL Obdulia Ovesen [facility] (T), [address], [address] [place] [address] 01/21 CBC w/ auto diff MCH pg 25.6 32.2 30.0 FINAL Obdulia [facility]vesen [facility] ([facility]), [address], [address] [place] [address] 01/21 CBC w/ auto diff MCHC g/dL 32.2 35.5 33.7 FINAL Obdulia Ovesen [facility] (T), [address], [address] [place] [address] 01/21 CBC w/ auto diff RDW-C V, % % 11.7 14.4 13.2 FINAL Obdulia Ovwinsomen [facility] (T), [address], [address] [place] [address] 01/21 CBC w/ auto diff WBC 10*3/u L 4.0 10.0 8.0 [facility]AL [facility] ([facility]), [address], [address] [place] [address] 01/21 CBC w/ auto diff Ashok # (ANC) 10*3/u L 1.56 6.13 5.13 FINAL [facility] (T), [address], [address] [place] [address] 01/21 CBC w/ auto diff LY # 10*3/u L 1.18 3.74 1.96 FINAL [facility] ([facility]), [address], [address] [place] [address] 01/21 CBC w/ auto diff MO # 10*3/u L 0.24 0.86 0.64 [facility] [address], [address] [place] [address] 01/21 CBC w/ auto diff EO # 10*3/u lL 0.04 0.36 0.24 FINAL [facility] (T), [address], [address] [place] [address] 01/21 CBC w/ auto diff BA # 10*3/u L 0.01 0.08 0.04 FINAL [facility] (T), [address], [address] [place] [address] 01/21 CBC w/ auto diff Ashok % % 34.0 71.1 64.0 FINAL Obdulia Ovesen [facility] (T), [address], [address] [place] [address] 01/21 CBC w/ auto diff LY % % 19.3 51.7 24.5 FINAL Obdulia Ovesen [facility] (T), [address], [address] [facility] [address] 01/21 CBC w/ auto diff MO % % 4.7 12.5 8.0 FINAL [facility] [address], [address] [facility] [address] 01/21 CBC w/ auto diff PLT 10*3/u L 182.0 369.0 260.0 FINAL Obdulia [facility] (T), [address], [address] [facility] [address] 01/21 CMP - Core Lab Total prote in g/dL 5.7 8.2 7.2 FINAL [facility] ([facility]), [address] [place] [address] 01/21 CMP - Core Lab A/G ratio 1.0 2.0 1.3 FINAL [facility] ([facility]), [address] [place] [address] 01/21 CMP - Core Lab Alkal ine phosp hatas e U/L 46.0 116.0 87 FINAL [facility] ([facility]), [address] [place] [address] 01/21 CMP - Core Lab ALT/S GPT U/L 10.0 49.0 10 FINAL [facility] ([facility]), [address] [place] [address] 01/21 CMP - Core Lab AST/S GOT U/L 0.0 34.0 17 FINAL [facility] ([facility]), [address] [place] [address] 01/21 CMP - Core Lab Bilir ubin, total mg/dL 0.3 1.2 0.7 FINAL [facility] ([facility]), [address] [place] [address] 01/21 CMP - Core Lab CO2 mmol/L 20.0 31.0 29.9 FINAL [facility] ([facility]), [address] [place] [address] [place] [address] 01/21 CMP - Core Lab Sodiu m mmol/L 136.0 145.0 141 FINAL [facility] ([facility]), [address] [place] [address] [place] [address] 01/21 CMP - Core Lab Potas sium mmol/L 3.5 5.1 4.5 FINAL [facility] ([facility]), [address] [place] [address] [place] [address] 01/21 CMP - Core Lab Chlor nahed mmol/L 98.0 107.0 106 FINAL [facility] ([facility]), [address] [place] [address] 01/21 CMP - Core Lab Anion gap, mmol/ L mmol/L 4.0 15.0 5.1 FINAL [facility] ([facility]), [address] [place] [address] [place] [address] 01/21 CMP - Core Lab BUN mg/dL 9.0 23.0 16 FINAL [facility] ([facility]), [address] [place] [address] [place] [address] 01/21 CMP - Core Lab BUN/C reati nine ratio 0.0 25.0 23.9 FINAL [facility] ([facility]), [address] [place] [address] [place] [address] 01/21 CMP - Core Lab Creat inine mg/dL 0.5 0.8 0.67 FINAL [facility] ([facility]), [address] [place] [address] [place] [address] 01/21 CMP - Core Lab GFR non-A frica n Ameri can, estim ated mL/min /1.73m >60.0 FINAL [facility] [place] ([facility]), [address] [place] [address] [place] [address] 01/21 CMP - Core Lab GFR Afric an Ameri can, estim ated mL/min /1.73m >60.0 FINAL [facility] [place] ([facility]), [address] [place] [address] [place] [address] 01/21 CMP - Core Lab Gluco se mg/dL 74.0 106.0 87 FINAL Obdulia Cesar [facility] [place] ([facility]), [address] [place] [address] [place] [address] 01/21 CMP - Core Lab Calci um mg/dL 8.7 10.6 9.6 FINAL Obdulia Rockn [facility] [place] ([facility]), [address] [place] [address] [place] [address] 01/21 CMP - Core Lab Album in g/dL 3.4 5.0 4.1 FINAL [facility] [place] ([facility]), [address] [place] [address] [place] [address] 01/21 CEA panel CEA ng/mL 0.64 FINAL [facility] [place] ([facility]), [address] [place] [address] [place] [address] 05/06 CMP - Core Lab Sodiu m mmol/L 136.0 145.0 139 FINAL Buddy [facility] [place] ([facility]), [address] [place] [address] [place] [address] 05/06 CMP - Core Lab Potas sium mmol/L 3.5 5.1 4.3 FINAL Buddy [facility] [place] ([facility]), [address] [place] [address] [place] [address] 05/06 CMP - Core Lab Chlor nahed mmol/L 98.0 107.0 103 FINAL Buddy [facility] [place] ([facility]), [address] [place] [address] [place] [address] 05/06 CMP - Core Lab CO2 mmol/L 20.0 31.0 27.0 FINAL Buddy [facility] [place] ([facility]), [address] [place] [address] [place] [address] 05/06 CMP - Core Lab Anion gap, mmol/ L mmol/L 4.0 15.0 9.0 FINAL Buddy [facility] [place] ([facility]), [address] [place] [address] [place] [address] 05/06 CMP - Core Lab BUN mg/dL 9.0 23.0 13 FINAL Buddy [facility] [place] ([facility]), [address] [place] [address] 05/06 CMP - Core Lab BUN/C reati nine ratio 0.0 25.0 17.8 FINAL [facility] ([facility]), [address] [place] [address] 05/06 CMP - Core Lab Creat inine mg/dL 0.5 0.8 0.73 FINAL [facility] ([facility]), [address] [place] [address] 05/06 CMP - Core Lab GFR non-A frica n Ameri can, estim ated mL/min /1.73m >60.0 FINAL [facility] ([facility]), [address] [place] [address] 05/06 CMP - Core Lab GFR Afric an Ameri can, estim ated mL/min /1.73m >60.0 FINAL [facility] ([facility]), [address] [place] [address] 05/06 CMP - Core Lab Gluco se mg/dL 74.0 106.0 88 FINAL [facility] ([facility]), [address] [place] [address] 05/06 CMP - Core Lab Calci um mg/dL 8.7 10.6 9.4 FINAL [facility] ([facility]), [address] [place] [address] 05/06 CMP - Core Lab Album in g/dL 3.4 5.0 4.4 FINAL [facility] ([facility]), [address] [place] [address] 05/06 CMP - Core Lab Total prote in g/dL 5.7 8.2 7.3 FINAL [facility] ([facility]), [address] [place] [address] 05/06 CMP - Core Lab A/G ratio 1.0 2.0 1.5 FINAL [facility] ([facility]), [address] [place] [address] 05/06 CMP - Core Lab Alkal ine phosp hatas e U/L 46.0 116.0 93 FINAL [facility] ([facility]), [address] [place] [address] 05/06 CMP - Core Lab ALT/S GPT U/L 10.0 49.0 15 FINAL [facility] ([facility]), [address] [place] [address] 05/06 CMP - Core Lab AST/S GOT U/L 0.0 34.0 21 FINAL [facility] ([facility]), [address] [place] [address] 05/06 CMP - Core Lab Bilir ubin, total mg/dL 0.3 1.2 0.5 FINAL [facility] ([facility]), [address] [place] [address] 05/06 CEA panel CEA ng/mL 0.50 FINAL [facility] ([facility]), [address] [place] [address] 05/06 CBC w/ auto diff WBC 10*3/u L 4.0 10.0 7.3 FINAL [facility] ([facility]), [address], [address] [place] [address] 05/06 CBC w/ auto diff Asohk # (ANC) 10*3/u L 1.56 6.13 4.22 FINAL [facility] ([facility]), [address], [address] [place] [address] 05/06 CBC w/ auto diff LY # 10*3/u L 1.18 3.74 2.35 FINAL [facility] (T), [address], [address] [facility] [address] 05/06 CBC w/ auto diff MO # 10*3/u L 0.24 0.86 0.47 FINAL [facility] ([facility]), [address], [address] [facility] [address] 05/06 CBC w/ auto diff EO # 10*3/u lL 0.04 0.36 0.28 FINAL [facility] [address], [address] [place] [address] 05/06 CBC w/ auto diff BA # 10*3/u L 0.01 0.08 0.02 FINAL Buddy [facility] (T), [address], [address] [place] [address] 05/06 CBC w/ auto diff Ashok % % 34.0 71.1 57.5 FINAL Buddy [facility] (T), [address], [address] [place] [address] 05/06 CBC w/ auto diff LY % % 19.3 51.7 32.0 FINAL [facility] (T), [address], [address] [place] [address] 05/06 CBC w/ auto diff MO % % 4.7 12.5 6.4 FINAL [facility] (T), [address], [address] [place] [address] 05/06 CBC w/ auto diff EO % % 0.7 5.8 3.8 FINAL [facility] (T), [address], [address] [place] [address] 05/06 CBC w/ auto diff BA % % 0.1 1.2 0.3 FINAL [facility] (T), [address], [address] [place] [address] 05/06 CBC w/ auto diff RBC 10*6/u L 3.93 5.22 4.42 FINAL [facility] (T), [address], [address] [place] [address] 05/06 CBC w/ auto diff HGB g/dL 11.2 15.7 13.1 FINAL [facility] (T), [address], [address] [place] [address] 05/06 CBC w/ auto diff HCT % 34.1 44.9 38.8 FINAL [facility] (T), [address], [address] [facility] [address] 05/06 CBC w/ auto diff MCV fL 79.4 94.8 87.8 FINAL [facility] ([facility]), [address], [address] [place] [address] 05/06 CBC w/ auto diff MCH pg 25.6 32.2 29.6 FINAL [facility] (T), [address], [address] [place] [address] 05/06 CBC w/ auto diff MCHC g/dL 32.2 35.5 33.8 FINAL [facility] (T), [address], [address] [place] [address] 05/06 CBC w/ auto diff RDW-C V, % % 11.7 14.4 13.0 FINAL [facility] (T), [address], [address] [place] [id number] 05/06 CBC w/ auto diff PLT 10*3/u L 182.0 369.0 272.0 FINAL [facility] (T), [address] [facility], [address] [place] [id number] 05/11 CMP - Core Lab Sodiu m mmol/L 136.0 145.0 142 FINAL [facility] ([facility]), [address] [place], [place] [id number] 05/11 CMP - Core Lab Potas sium mmol/L 3.5 5.1 4.0 FINAL [facility] ([facility]), [address] [place] [address] 05/11 CMP - Core Lab Chlor nahed mmol/L 98.0 107.0 105 FINAL [facility] ([facility]), [address] [place] [address] 24372 05/11 CMP - Core Lab CO2 mmol/L 20.0 31.0 29.9 FINAL [facility] ([facility]), [address] [place] [address] 57789 05/11 CMP - Core Lab Anion gap, mmol/ L mmol/L 4.0 15.0 7.1 FINAL [facility] ([facility]), [address] [place] [address] 67566 05/11 CMP - Core Lab BUN mg/dL 9.0 23.0 14 FINAL [facility] ([facility]), [address] [place] [address] 46032 05/11 CMP - Core Lab BUN/C reati nine ratio 0.0 25.0 19.7 FINAL [facility] ([facility]), [address] [place] [address] 28356 05/11 CMP - Core Lab Creat inine mg/dL 0.5 0.8 0.71 FINAL [facility] ([facility]), [address] [place] [address] 16277 05/11 CMP - Core Lab GFR non-A frica n Ameri can, estim ated mL/min /1.73m >60.0 FINAL [facility] ([facility]), [address] [place] [address]38 05/11 CMP - Core Lab GFR Afric an Ameri can, estim ated mL/min /1.73m >60.0 FINAL [facility] ([facility]), [address] [place] [address] 46940 05/11 CMP - Core Lab Gluco se mg/dL 74.0 106.0 78 FINAL [facility] ([facility]), [address] [place] [address] 33948 05/11 CMP - Core Lab Calci um mg/dL 8.7 10.6 9.4 FINAL [facility] ([facility]), [address] [place] [address] 66310 05/11 CMP - Core Lab Album in g/dL 3.4 5.0 3.9 FINAL [facility] ([facility]), [address] [place] [address] 75702 05/11 CMP - Core Lab Total prote in g/dL 5.7 8.2 6.9 FINAL [facility] ([facility]), [address] [place] [address] 66993 05/11 CMP - Core Lab A/G ratio 1.0 2.0 1.3 FINAL [facility] ([facility]), [address] [place] [address] 69289 05/11 CMP - Core Lab Alkal ine phosp hatas e U/L 46.0 116.0 78 FINAL [facility] ([facility]), [address] [place] [address] 70183 05/11 CMP - Core Lab ALT/S GPT U/L 10.0 49.0 9 Low FINAL [facility] ([facility]), [address] [place] [address] 35123 05/11 CMP - Core Lab AST/S GOT U/L 0.0 34.0 14 FINAL [facility] ([facility]), [address] [place] [address] 22311 05/11 CMP - Core Lab Bilir ubin, total mg/dL 0.3 1.2 0.7 FINAL [facility] ([facility]), [address] [place] [address] 95305 05/11 CBC w/ auto diff WBC 10*3/u L 4.0 10.0 6.6 FINAL [facility] ([facility]), [address], [address] [place], [place] [address] 05/11 CBC w/ auto diff Ashok # (ANC) 10*3/u L 1.56 6.13 3.85 FINAL [facility] ([facility]), [address], [address] [place] [address] 05/11 CBC w/ auto diff LY # 10*3/u L 1.18 3.74 1.88 FINAL [facility] ([facility]), [address], [address] [place] [address] 05/11 CBC w/ auto diff MO # 10*3/u L 0.24 0.86 0.49 FINAL [facility] ([facility]), [address], [address] [place], [place] [address] 05/11 CBC w/ auto diff EO # 10*3/u lL 0.04 0.36 0.39 High FINAL [facility] ([facility]), [address], [address] [place] [address] 05/11 CBC w/ auto diff BA # 10*3/u L 0.01 0.08 0.03 FINAL [facility] ([facility]), [address], [address] [place] [address] 05/11 CBC w/ auto diff Ashok % % 34.0 71.1 57.9 FINAL [facility] (T), [address], [address] [place] [address] 05/11 CBC w/ auto diff LY % % 19.3 51.7 28.3 FINAL [facility] (T), [address], [address] [place] [address] 05/11 CBC w/ auto diff MO % % 4.7 12.5 7.4 FINAL [facility] (T), [address], [address] [place] [address] 05/11 CBC w/ auto diff EO % % 0.7 5.8 5.9 High FINAL [facility] ([facility]), [address], [address] [place] [address] 05/11 CBC w/ auto diff BA % % 0.1 1.2 0.5 FINAL [facility] (T), [address], [address] [place] [address] 05/11 CBC w/ auto diff RBC 10*6/u L 3.93 5.22 4.40 FINAL [facility] (T), [address], [address] [place] [address] 05/11 CBC w/ auto diff HGB g/dL 11.2 15.7 13.0 FINAL [facility] (T), [address], [address] [place] [address] 05/11 CBC w/ auto diff HCT % 34.1 44.9 39.5 FINAL [facility] (T), [address], [address] [facility] [address] 05/11 CBC w/ auto diff MCV fL 79.4 94.8 89.8 FINAL [facility] (T), [address], [address] [place] [address] 05/11 CBC w/ auto diff MCH pg 25.6 32.2 29.5 FINAL [facility] (T), [address], [address] [place] [address] 05/11 CBC w/ auto diff MCHC g/dL 32.2 35.5 32.9 FINAL [facility] (T), [address], [address] [place] [address] 05/11 CBC w/ auto diff RDW-C V, % % 11.7 14.4 13.0 FINAL [facility] (T), [address], [address] [place] [id number] 05/11 CBC w/ auto diff PLT 10*3/u L 182.0 369.0 281.0 FINAL [facility] (T), [address], [address] [facility] [address] 05/11 CEA panel CEA ng/mL 0.64 FINAL [facility] ([facility]), [address] [facility] [address] 05/17 CEA panel CEA ng/mL 0.50 FINAL [facility] ([facility]), [facility] [address] 05/17 CBC w/ auto diff WBC 10*3/u L 4.0 10.0 6.8 FINAL [facility] (T), [address], [address] [facility] [address] 05/17 CBC w/ auto diff Ashok # (ANC) 10*3/u L 1.56 6.13 3.87 FINAL [facility] ([facility]), [address], [address] [facility] [address] 05/17 CBC w/ auto diff LY # 10*3/u L 1.18 3.74 2.21 FINAL [facility] (T), [address], [address] [facility] [address] 05/17 CBC w/ auto diff MO # 10*3/u L 0.24 0.86 0.43 FINAL [facility] (T), [address], [address] [facility] [address] 05/17 CBC w/ auto diff EO # 10*3/u lL 0.04 0.36 0.24 FINAL [facility] (T), [address], [address] [place] [address] 05/17 CBC w/ auto diff BA # 10*3/u L 0.01 0.08 0.03 FINAL [facility] (T), [address], [address] [place] [address] 05/17 CBC w/ auto diff Ashok % % 34.0 71.1 57.2 FINAL [facility] (T), [address], [address] [place] [address] 05/17 CBC w/ auto diff LY % % 19.3 51.7 32.6 FINAL [facility] (T), [address], [address] [place] [address] 05/17 CBC w/ auto diff MO % % 4.7 12.5 6.3 FINAL [facility] (T), [address], [address] [place] [address] 05/17 CBC w/ auto diff EO % % 0.7 5.8 3.5 FINAL [facility] (T), [address], [address] [place] [address]87[address] 05/17 CBC w/ auto diff BA % % 0.1 1.2 0.4 FINAL [facility] (T), [address], [address] [place] [address] 05/17 CBC w/ auto diff RBC 10*6/u L 3.93 5.22 4.29 FINAL [facility] (T), [address], [address] [place] [address] 05/17 CBC w/ auto diff HGB g/dL 11.2 15.7 12.6 FINAL [facility] (T), [address], [address] [place] [address] 05/17 CBC w/ auto diff HCT % 34.1 44.9 38.1 FINAL [facility] ([facility]), [address], [address] [place] [address] 05/17 CBC w/ auto diff MCV fL 79.4 94.8 88.8 FINAL [facility] ([facility]), [address], [address] [place] [address] 05/17 CBC w/ auto diff MCH pg 25.6 32.2 29.4 FINAL [facility] (T), [address], [address] [place] [address] 05/17 CBC w/ auto diff MCHC g/dL 32.2 35.5 33.1 FINAL [facility] (T), [address], [address] [place] [address] 05/17 CBC w/ auto diff RDW-C V, % % 11.7 14.4 13.3 FINAL [facility] (T), [address], [address] [place] [address] 05/17 CBC w/ auto diff PLT 10*3/u L 182.0 369.0 272.0 FINAL [facility] ([facility]), [address], [address] [place] [address] 05/17 CMP - Core Lab Sodiu m mmol/L 136.0 145.0 141 FINAL [facility] ([facility]), [address] [place] [address] 08172 05/17 CMP - Core Lab Potas sium mmol/L 3.5 5.1 4.1 FINAL [facility] ([facility]), [address] [place] [address] [place] [address] 05/17 CMP - Core Lab Chlor nahed mmol/L 98.0 107.0 103 FINAL [facility] ([facility]), [address] [place] [address] 55884 05/17 CMP - Core Lab CO2 mmol/L 20.0 31.0 31.1 High FINAL [facility] ([facility]), [address] [place] [address] 90137 05/17 CMP - Core Lab Anion gap, mmol/ L mmol/L 4.0 15.0 6.9 FINAL [facility] ([facility]), [address] [place] [address] 42838 05/17 CMP - Core Lab BUN mg/dL 9.0 23.0 19 FINAL [facility] ([facility]), [address] [place] [address] 69863 05/17 CMP - Core Lab BUN/C reati nine ratio 0.0 25.0 27.5 High FINAL [facility] ([facility]), [address] [place] [address] 94269 05/17 CMP - Core Lab Creat inine mg/dL 0.55 1.02 0.69 FINAL [facility] ([facility]), [address] [place] [address] 19050 05/17 CMP - Core Lab GFR non-A frica n Ameri can, estim ated mL/min /1.73m >60.0 FINAL [facility] ([facility]), [address] [place] [address] 28134 05/17 CMP - Core Lab GFR Afric an Ameri can, estim ated mL/min /1.73m >60.0 FINAL [facility] ([facility]), [address] [place] [address] 71647 05/17 CMP - Core Lab Gluco se mg/dL 74.0 106.0 95 FINAL [facility] ([facility]), [address] [place] [address] [place] [address] 05/17 CMP - Core Lab Calci um mg/dL 8.7 10.6 9.6 FINAL [facility] ([facility]), [address] [place] [address] [place] [address] 05/17 CMP - Core Lab Album in g/dL 3.4 5.0 4.2 FINAL [facility] ([facility]), [address] [place] [address] [place] [address] 05/17 CMP - Core Lab Total prote in g/dL 5.7 8.2 7.6 FINAL [facility] ([facility]), [address] [place] [address] [place] [address] 05/17 CMP - Core Lab A/G ratio 1.0 2.0 1.2 FINAL [facility] ([facility]), [address] [place] [address] [place] [address] 05/17 CMP - Core Lab Alkal ine phosp hatas e U/L 46.0 116.0 70 FINAL [facility] ([facility]), [address] [place] [address] [place] [address] 05/17 CMP - Core Lab ALT/S GPT U/L 10.0 49.0 11 FINAL [facility] ([facility]), [address] [place] [address] [place] [address] 05/17 CMP - Core Lab AST/S GOT U/L 0.0 34.0 16 FINAL [facility] ([facility]), [address] [place] [address] [place] [address] 05/17 CMP - Core Lab Bilir ubin, total mg/dL 0.3 1.2 0.7 FINAL [facility] ([facility]), [address] [place] [address] [place] [address] 06/07 CBC w/ auto diff WBC 10*3/u L 4.0 10.0 7.3 FINAL [facility] ([facility]), [address], [address] [facility] [place] [address] 06/07 CBC w/ auto diff Ashok # (ANC) 10*3/u L 1.56 6.13 4.07 FINAL [facility] ([facility]), [address], [address] [place] [address] 06/07 CBC w/ auto diff LY # 10*3/u L 1.18 3.74 2.30 FINAL [facility] ([facility]), [address], [address] [place] [address] 06/07 CBC w/ auto diff MO # 10*3/u L 0.24 0.86 0.54 FINAL [facility] ([facility]), [address], [address] [place] [address] 06/07 CBC w/ auto diff EO # 10*3/u lL 0.04 0.36 0.29 FINAL [facility] ([facility]), [address], [address] [place] [address] 06/07 CBC w/ auto diff BA # 10*3/u L 0.01 0.08 0.05 FINAL [facility] (T), [address], [address] [place] [address] 06/07 CBC w/ auto diff Ashok % % 34.0 71.1 56.2 FINAL [facility] ([facility]), [address], [address] [place] [address] 06/07 CBC w/ auto diff LY % % 19.3 51.7 31.7 FINAL [facility] (T), [address], [address] [place] [address] 06/07 CBC w/ auto diff MO % % 4.7 12.5 7.4 FINAL [facility] ([facility]), [address], [address] [place] [address] 06/07 CBC w/ auto diff EO % % 0.7 5.8 4.0 FINAL [facility] ([facility]), [address], [address] [place] [address] 06/07 CBC w/ auto diff BA % % 0.1 1.2 0.7 FINAL [facility] ([facility]), [address], [address] [place] [address] 06/07 CBC w/ auto diff RBC 10*6/u L 3.93 5.22 4.32 FINAL [facility] ([facility]), [address], [address] [place] [address] 06/07 CBC w/ auto diff HGB g/dL 11.2 15.7 12.8 FINAL [facility] ([facility]), [address], [address] [place] [address] 06/07 CBC w/ auto diff HCT % 34.1 44.9 39.0 FINAL [facility] ([facility]), [address], [address] [place] [address] 06/07 CBC w/ auto diff MCV fL 79.4 94.8 90.3 FINAL [facility] ([facility]), [address], [address] [place] [address] 06/07 CBC w/ auto diff MCH pg 25.6 32.2 29.6 FINAL [facility] ([facility]), [address], [address] [place] [address] 06/07 CBC w/ auto diff MCHC g/dL 32.2 35.5 32.8 FINAL [facility] ([facility]), [address], [address] [place] [address] 06/07 CBC w/ auto diff PLT 10*3/u L 182.0 369.0 282.0 FINAL [facility] ([facility]), [address], [address] [place] [address] 06/07 CBC w/ auto diff RDW-C V, % % 11.7 14.4 13.0 FINAL [facility] ([facility]), [address], [address] [place] [address] 06/07 CEA panel CEA ng/mL 0.53 FINAL [facility] ([facility]), [address] [place] [address] 06/07 CMP - Core Lab Sodiu m mmol/L 136.0 145.0 142 FINAL [facility] ([facility]), [address] [place] [address] 06/07 CMP - Core Lab Potas sium mmol/L 3.5 5.1 4.8 FINAL [facility] ([facility]), [address] [place] [address] 06/07 CMP - Core Lab Chlor nahed mmol/L 98.0 107.0 105 FINAL [facility] ([facility]), [address] [place] [address]11 06/07 CMP - Core Lab CO2 mmol/L 20.0 31.0 29.3 FINAL [facility] ([facility]), [address] [place] [address] 06/07 CMP - Core Lab Anion gap, mmol/ L mmol/L 4.0 15.0 7.7 FINAL [facility] ([facility]), [address] [place] [address] 06/07 CMP - Core Lab BUN mg/dL 9.0 23.0 18 FINAL [facility] ([facility]), [address] [place] [address] 06/07 CMP - Core Lab BUN/C reati nine ratio 0.0 25.0 24.0 FINAL [facility] ([facility]), [address] [place] [address] 06/07 CMP - Core Lab Creat inine mg/dL 0.55 1.02 0.75 FINAL [facility] ([facility]), [address] [place] [address] 06/07 CMP - Core Lab eGFR, mL/mi n/1.7 3 mL/min /1.73m 60.0 0.0 >60.0 FINAL [facility] ([facility]), [address] [place] [address] [place] [address] 06/07 CMP - Core Lab Gluco se mg/dL 74.0 106.0 92 FINAL [facility] ([facility]), [address] [place] [address] [place] [address] 06/07 CMP - Core Lab Calci um mg/dL 8.7 10.6 10.0 FINAL [facility] ([facility]), [address] [place] [address] [place] [address] 06/07 CMP - Core Lab Album in g/dL 3.4 5.0 4.2 FINAL [facility] ([facility]), [address] [place] [address] 9[address]13 06/07 CMP - Core Lab Total prote in g/dL 5.7 8.2 7.6 FINAL [facility] ([facility]), [address] [place] [address] 06/07 CMP - Core Lab A/G ratio 1.0 2.0 1.2 FINAL [facility] ([facility]), [address] [place] [address] [place] [address] 06/07 CMP - Core Lab Alkal ine phosp hatas e U/L 46.0 116.0 87 FINAL [facility] ([facility]), [address] [place] [address] [place] [address] 06/07 CMP - Core Lab ALT/S GPT U/L 10.0 49.0 17 FINAL [facility] ([facility]), [address] [place] [address] [place] [address] 06/07 CMP - Core Lab AST/S GOT U/L 0.0 34.0 20 FINAL [facility] ([facility]), [address] [place] [address]75 06/07 CMP - Core Lab Bilir ubin, total mg/dL 0.3 1.2 0.5 FINAL [facility] ([facility]), [address] [place] [address] Medications Date Name Route Dose Frequency Instructions Start Date End Date Status Probiotics Oral orally 1.0 every day active Escitalopram Oral orally 20.0 mg daily active Famotidine Oral 20.0 mg active Problems Diagnosis Status Date of Diagnosi s Solitary pulmonary nodule Active 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 Gastroesophageal reflux dise ase without esophagitis (disorder) Active Vital Signs Date Type Value 07/15/2020 Body Temperature 97.90 07/15/2020 Heart Beat 66.00 07/15/2020 Respiratory Rate 12.00 07/15/2020 Intravascular Systolic 132 07/15/2020 Intravascular Diastolic 88 07/15/2020 BSA 2.23 07/15/2020 Weight 226.20 07/15/2020 Height 69.00 07/15/2020 BMI 33.40 07/15/2020 Pain Scale 0.00 01/21/2021 BMI 34.64 01/21/2021 BSA 2.28 01/21/2021 Height 69.00 01/21/2021 Weight 234.60 01/21/2021 Pain Scale 0.00 01/21/2021 Intravascular Systolic 110 01/21/2021 Intravascular Diastolic 70 01/21/2021 Respiratory Rate 10.00 01/21/2021 Heart Beat 72.00 01/21/2021 Body Temperature 97.20 05/06/2021 Body Temperature 97.20 05/06/2021 Heart Beat 72.00 05/06/2021 Respiratory Rate 10.00 05/06/2021 Intravascular Systolic 118 05/06/2021 Intravascular Diastolic 70 05/06/2021 BSA 2.25 05/06/2021 Weight 230.00 05/06/2021 Height 69.00 05/06/2021 BMI 33.96 05/06/2021 Pain Scale 0.00 05/11/2022 Respiratory Rate 15.00 05/11/2022 Intravascular Systolic 148 05/11/2022 Intravascular Diastolic 88 05/11/2022 Heart Beat 72.00 05/11/2022 Body Temperature 98.20 05/11/2022 BSA 2.26 05/11/2022 BMI 34.23 05/11/2022 Height 69.00 05/11/2022 Weight 231.80 05/11/2022 Pain Scale 0.00 05/17/2023 BSA 2.27 05/17/2023 Body Temperature 98.20 05/17/2023 Heart Beat 76.00 05/17/2023 Respiratory Rate 16.00 05/17/2023 Intravascular Systolic 140 05/17/2023 Intravascular Diastolic 92 05/17/2023 Pain Scale 0.00 05/17/2023 Weight 233.60 05/17/2023 Height 69.00 05/17/2023 BMI 34.50 06/07/2024 Heart Beat 64.00 06/07/2024 Respiratory Rate 12.00 06/07/2024 Intravascular Systolic 140 06/07/2024 Intravascular Diastolic 100 06/07/2024 Pain Scale 0.00 06/07/2024 Intravascular Systolic 142 06/07/2024 Intravascular Diastolic 96 06/07/2024 Height 69.00 06/07/2024 BMI 33.88 06/07/2024 BSA 2.25 06/07/2024 Body Temperature 98.20 06/07/2024 Weight 229.40
--- OUTSIDE RECORDS SUMMARY | 2024-12-13 15:42 | XMS_ITS | Encounter Summary ---
Author Organization [facility] Address [address] [place] [address] Care Team Providers Care Interactive Media Specialist Name Role Phone Unavailable Primary Care Provider Unavailabl e Encounter Details Date Type Department Care Team (Late st Contact Info) Description 01/08/2020 Lab Requisition [facility] Department of Laboratory Services [address] [place] [phone] Justin Henderson M.D. Clinical Labs [address] [place] [address], [address] [place], [place] [id number] Buddy Arguello M.D. [address], [facility]. [address] [place] [address] Social History Tobacco Use Types Packs/Day Years [...] Procedure Name Priority Date/Time Associated Diagnosis Comments CEA Routine 01/08/2020 12:10 PM EDT documented in this encounter Results * CEA (01/08/2020 12:10 PM EDT) Carcinoembryonic Antigen 0.75 <=2.50 ng/mL 01/09/2020 12:32 AM EDT [facility] Blood 01/08/2020 12:1 0 PM EDT 01/08/2020 4:25 PM EDT Narrative [facility] - 01/09/2020 12:32 AM EDT A new method is in use, effective 14 September 2018; results vary between patients, but on average, the new assay results are approximately 31% lower than results from assays prior to 14 September 2018. us Buddy Arguello M.D. CHEMISTRY ORDERABLES Cande clayton Result [facility] [address] [place] [id number], [place] documented in this encounter Visit Diagnoses Not on filedocumented in this encounter
--- OUTSIDE RECORDS SUMMARY | 2024-12-13 15:42 | XMS_ITS | Data Portability ---
Author Organization [facility] Address [address] [place] [address] Care Team Providers Care Foam Cutting Supervisor Name Role Phone SALTY KELLEY Primary Care Provider Assessment No assessment recorded. Plan of Treatment Reminders Order Date Submit Date Provider Last Modified By Organization Details Last Modified Time Details Appointments None recorded. Lab None recorded. Referral None recorded. Procedures colonoscop y procedure (PROC) - PHYSICIAN ORDERS1. Ensure patient is NPO and bowel prep complete.0 .9% normal saline @kvo preferably in right arm; IV patent to gravity.3. Verify consent. Colonoscop y with possible biopsy with possible polypectom y.4. On-Call to Endoscopy. 5. If prep not clear, give large volume enema and report results.6. Draw pt/inr if patient on Coumadin Hold 2023 025 [email or web address] [facility]), [address], [place], [address], 4 16:33:14 colonoscop y procedure (PROC) - PHYSICIAN ORDERS1. Ensure patient is NPO and bowel prep complete.0 .9% normal saline @kvo preferably in right arm; IV patent to gravity.3. Verify consent. Colonoscop y with possible biopsy with possible polypectom y.4. On-Call to Endoscopy. 5. If prep not clear, give large volume enema and report results.6. Draw pt/inr if patient on Coumadin Hold 2021 022 [email or web address] [facility] ([facility]), [address], [place], [address], 2 14:25:49 Surgeries None recorded. Imaging None recorded. Medication Orders Pepcid 20 mg tablet [address] [facility], [address] [place] [address], [id number], 4 16:27:32 Pepcid 20 mg tablet [address] [facility], [address] [place] [address], [id number], 3 16:12:37 Pepcid 40 mg tablet 2021 022 [email or web address] [facility], [address] [place] [address], [address], 3 16:12:35 Suprep Bowel Prep Kit 17.5 gram-3.13 gram-1.6 gram oral solution 2021 022 ivan [facility], [address] [place] [address], [id number], 3 15:46:24 Patient TargetsNo targets recorded. Patient Instructions Encounter Date Encounter Id Patient Instructions Last Modified By Organization Details Last Modified Time 05/14/2022 [id number] The indications, technique, alternatives, and potential risks and complications of planned procedure were discussed with the patient including, but not limited to bleeding, perforation, missed lesions, and anesthesia complications. The patient understands and wishes to proceed and has given informed consent. Written information provided to the patient. [email or web address] Not available 05/14/2022 15:46:11 07/19/2023 [id number] f/u pcp [email or web address] Not available 07/19 16:27:07 Reason for Referral None Reported. Results Created Date Observation Date Name Description Value Unit Range Abnormal Flag Note LastModifiedBy Organization Detail LastModifiedTime 11/12/19 23 10/12/2022 XR, knee No observ ation record ed. [email or web address] Family [facility] [address] [place] [address] [address], [place], [address], 11/15/2022 10:30:59 Result Notes None recorded. Problems Name Problem SNOMED Code Status Onset Date Resolution Date Notes Provider Name and Address Organization Details Recorded Time Gastroesophage al reflux disease without esophagitis 064193793 Active 2021 Robert Lyman MD [address] [place] [address],[address], [address] [facility] [place] - [facility] - [place] & [place] 2 08:46:26 Problem Notes None recorded. Procedures Surgical History Date Name Laterality Status Provider Name and Address Organization Details Recorded Time 2 completed Josiah Taylor [place] - [facility] - [place] & [place] 05/14/2022 15:11:55 2 Date of Last Pap Smear completed Josiah Dominguezeri [place] - [facility] - [place] & [place] 05/14/2022 15:11:55 9 Colonoscopy completed Josiah Barbozagieri [place] - [facility] - [place] & [place] 05/14/2022 15:18:19 9 Date of Last Colonoscopy completed Josiah Taylor [place] - [facility] - [place] & [place] 05/14/2022 15:11:55 7 Colonoscopy completed Josiah Taylor [place] - [facility] - [place] 05/14/2022 15:19:[address] of abdomen completed Josiah Dominguezeri [place] - [facility] - [place] 05/14/2022 15:20:12 6 Colonoscopy completed Josiah Taylor [place] - [facility] - [place] & [place] 05/14/2022 15:19:39 6 EGD/Endoscopy completed Josiah Barbozagieri [place] - [facility] - [place] & [place] 05/14/2022 15:19:49 6 Cancer Surgery completed Josiah Taylor [place] - [facility] - [place] 05/14/2022 15:11:56 Imaging Results None recorded. Procedure Notes None recorded. Medical Equipment None Reported. Allergies Allergen ID Allergen Name Allergen Category Reaction Reaction Severity Criticality Documentation Date Start Date Code Code System Note Provider Name and Address Organization Details Recorded Time 78866 Product containin g penicilli n (product) medicatio n Not available Not available Not available 05/14/2022 47169 8001 SNOMED Josiah Vazquez [facility], [place] - [facility] - [place] & [place] 2 15:12:12 Medications Name Sig Start Date Stop Date Status Note LastModified by Organization Details LastModified Time hydrocodone 5 mg-acetamin ophen 325 mg tablet 05/14 completed Not Available Not Available Not Available meloxicam 15 mg tablet 07/19 completed Not Available Not Available Not Available famotidine 40 mg tablet Take 1 tablet every day by oral route. 07/19 completed Not Available Not Available Not Available clindamycin HCl 150 mg capsule 05/14 completed Not Available Not Available Not Available ciprofloxac in 500 mg tablet 07/19 completed Not Available Not Available Not Available sulfamethox azole 800 mg-trimetho prim 160 mg tablet 05/14 completed Not Available Not Available Not Available famotidine 20 mg tablet Take 1 tablet every day by oral route for 90 days. active Not Available Not Available No t Available hyoscyamine 0.125 mg disintegrat ing tablet 07/19 completed Not Available Not Available Not Available indomethaci n 50 mg capsule 07/19 completed Not Available Not Available Not Available diclofenac sodium 75 mg tablet,amara yed release 05/14 completed Not Available Not Available Not Available etodolac 400 mg tablet active Not Available Not Available Not Available levofloxaci n 500 mg tablet 05/14 completed Not Available Not Available Not Available methylpredn isolone 4 mg tablets in a dose pack 07/19 completed Not Available Not Available Not Available escitalopra m 20 mg tablet Take 1 tablet every day by oral route for 30 days. active Not Available Not Available No t Available Probiotic 1 PO QD active Not Available Not Av ailable Not Available sodium,pota ssium,mag sulfates 17.5 gram-3.13 gram-1.6 gram oral soln take per instructe d by office 07/19 completed Not Available Not Available Not Available Vitals Date Recorded Body height Body mass index (BMI) Body weight Body temperature Heart rate Respiratory rate Systolic blood pressure Diastolic blood pressure Provider Name and Address Organization Details Last Updated DateTime 3 177.8 cm 33.1 kg/m2 207189. 68 g 98.1 [degF] 71 /min 18 /min 152 mm[Hg] 98 mm[Hg] Josiah DUNN [facility] & [place] 3 15:48:40 Date Recorded Body height Body mass index (BMI) Body weight Body temperature Heart rate Systolic blood pressure Diastolic blood pressure Provider Name and Address Organization Details Last Updated DateTime 4 177.8 cm 33.5 kg/m2 089672. 46 g 98.2 [degF] 76 /min 171 mm[Hg] 96 mm[Hg] Efrain DUNN [facility] & [place] 4 16:04:21 Date Recorded Body height Body mass index (BMI) Body weight Body temperature Heart rate Respiratory rate Systolic blood pressure Diastolic blood pressure Provider Name and Address Organization Details Last Updated DateTime 2 177.8 cm 33 kg/m2 516675. 25 g 98 [degF] 86 /min 18 /min 152 mm[Hg] 98 mm[Hg] Josiah DUNN [facility] & [place] 2 15:11:07 Social History Question Answer Notes LastModified by [employer] ion Details LastModified Time Tobacco Smoking Status Never Smoker Josiah Vazquez [facility] & [place] 05/14/2022 15:11:55 Do You Have An Advance Directive? No Information not available 05/14/2022 Are You Blind Or Do You Have Difficulty Seeing? No Information not available 05/14/2022 What Is Your Level Of Caffeine Consumption? Moderate [email or web address] Information not available 07/19/2023 What Type Of Diet Are You Following? REGULAR [email or web address] Information not available 07/19/2023 How Many Children Do You Have? 2 [email or web address] Information not available 07/19/2023 What Is Your Relationship Status? [email or web address] Information not available 07/19/2023 Are You Passively Exposed To Smoke? No Information no t available 05/14/2022 Sex: Female Functional Status Question Answer Note LastModified by Organizat ion Details LastModified Time Do you use any illicit or recreational drugs? No Information not available 05/14/2022 What is your level of alcohol consumption? None Information not available 05/14/2022 What is your exercise level? Occasional Information not available 05/14/2022 Mental Status Question Answer Note LastModified by Organization D etails LastModified Time Do you feel stressed (tense, restless, nervous, or anxious, or unable to sleep at night)? [id number] Information not available 05/14/2022 Family History Relationship Description Onset Age of this Age Resolved Age Notes LastModified by Organization Details LastModified Time Mother Myocardial infarction pt. added direct ly (05/12) [email or web address] Not available 05/12/2022 20:41:20 Father Myocardial infarction pt. added direct ly (05/12) [email or web address] Not available 05/12/2022 20:41:20 Father Cerebrovascu lar accident pt. added direct ly (05/12) [email or web address] Not available 05/12/2022 20:41:35 Father Primary malignant neoplasm of colon [email or web address] Not available 07/19 15:47:01 Medical History Condition Response Coronary Artery Disease N Gout N Colon Cancer Y Kidney Stones N Hyperthyroidism N Depression N COPD N Hypothyroidism N Acne Y Osteoporosis/Osteopenia N Diverticulitis/Diverticulosis N Colon Polyps Y Anxiety Disorder N Diabetes N Bleeding Disorder N Arthritis N Seizures/Epilepsy N Tuberculosis N Hyperlipidemia N Cancer Y Stroke N Asthma N Reflux/GERD Y Sleep Apnea N GERD/Reflux Y Hepatitis N Cirrhosis N Liver Disease N Heart Disease N Hypertension N Kidney Disease N Gynecological History Statement/Question Response Abnormal Pap N 10/04/2021 Date of Last Colonoscopy 01/04/2019 Sexually Active? Y Menses Monthly N Date of Last Pap Smear 10/04/2021 Current Control Method None Obstetrics History GPAL:G 0 P 0 0 0 0 Immunizations Vaccine Type Date Status Note Provider Nam e and Address Organization Details Recorded Time influenza, unspecified formulation 04/30/2022 completed MONA Barakat [facility] & [place] 05/14/2022 15:13:43 SARS-COV-2 (COVID-19) vaccine, UNSPECIFIED 11/07/2020 MONA Carreno [place] & [place] 05/14/2022 15:14:24 Past Encounters Encounter ID Performer Location Encounter Start Date Encounter Closed Date Diagnosis/Indication Diagnosis SNOMED-CT Code Diagnosis ICD10 Code Diagnosis Note [id number] Robert Lyman MD [facility] [address] [place] [address],[address] [address] 05/14/2022 14:52:51 05/14/2022 16:31:29 History of malignant neoplasm of colon 243198221 Z85.038 Due for surveillan ce colonoscop y schedule at this time Gastroesop hageal reflux disease without esophagitis 215995225 K21.9 relatively mild gastroesop hageal reflux symptomato logy, untreated. Discussed anti-reflu x precaution s including choice of foods, minimizing caffeine, avoiding eating near bedtime, and start the patient at this time on Pepcid 1 tablet daily. Will assess response to this at follow-up in 2 months [id number] [facility] [address] [place] [address],[address] [address] 07/19/2022 15:20:14 07/19/2022 16:14:26 Gastroesophageal reflux disease without esophagitis 099621264 K21.9 Will controlled on Pepcid 40 mg today, will reduce this to 20 mg a day follow-up in 1 year History of malignant neoplasm of colon 736165418 Z85.038 recent surveillan ce demonstrat es no recurrent polyps or recurrent tumor. Follow-up colonoscop y 05/2025 [id number] Robert Lyman MD [facility] [address] [place] [address],[place] [address] [address] 07/19/2023 15:35:39 07/19/2023 16:36:17 Gastroesophageal reflux disease without esophagitis 777378809 K21.9 Will controlled on Pepcid 40 mg today, will reduce this to 20 mg a day follow-up in 1 year History of malignant neoplasm of colon 896091033 Z85.038 recent surveillan ce demonstrat es no recurrent polyps or recurrent tumor. Follow-up colonoscop y 05/2025 Health Concerns Section Related Observation LastModified by Organization Detai ls LastModified Time None Recorded Concern Status LastModified by Organization Details LastModified Time None Recorded Advance Directives Directive N: Payers Insurance Date Sequence Insurance Name Policy Number Policy Singh Covered Member ID Singh Member ID Guarantor Name 07/19/2023 1 [place] [id number] Oneida Westfall Tomas [id number] Oneida B Tomas Notes Date Note Type Note Provider Name and Address Organization Details Recorded Time 05/14/2022 text/html this is a 51-yea r-old female with a prior medical history notable for colon cancer status post resection in 2016 who presents today to discuss a colonoscopy for surveillance, but also because of some new issues related to gastroesophageal reflux disease. The patient notes that recently she has had more problems heartburn, she may have this several times a week sometimes it is related to food intake sometimes when she goes to bed at night. The patient at this time is on no therapy, the patient has had no dysphagia, no chest pain no vomiting. The patient does note that certain foods make it worse, she drinks a moderate amount of caffeine. Patient is a nonsmoker. Robert Lyman MD [address] [place] [address] Drive,[address], [place], [address], [facility] - [facility] & [place] 05/14/2022 15:46:44 07/19/2022 text/html Is a routine fol low-up on this 52-year-old female with a history of colon cancer status post resection, recent colonoscopy demonstrated no recurrence or new polyps. Follow-up colonoscopy recommended in 3 years. Denies any rectal bleeding or black tarry bowel movements, no diarrhea or constipation. The patient also recently was started on Pepcid 40 mg a day for acid reflux, and has had excellent response, has rare heartburn. No dysphagia no nausea or vomiting. Robert Lyman MD [address] [place] [address] Drive,[address], [place], [address], [facility] - [facility] & [place] 07/19/2022 16:22:54 07/19/2023 text/html This is a pleasa nt 53-year-old female presents in follow-up. We follow this patient for gastroesophageal reflux disease, and she presents today reporting that her heartburn is overall well controlled she takes Pepcid once a day she notes she may have a little heartburn if she eats something like chili or something else it is very hot. The patient however notes no dysphagia no nausea or vomiting. The patient has no lower GI tract symptoms. no melena no bright red blood per rectum change in stool caliber. Robert Lyman MD [address] [place] [address],[address], [place], [address], [facility] - [facility] - [place] & [place] 07/19/2023 16:33:47 OBGyn Episode No OBEpisode recorded.
--- OUTSIDE RECORDS SUMMARY | 2024-12-13 15:42 | XMS_ITS | Clinical Summary ---
Author Organization [facility] Address [address] [place] [address] Phone Care Team Providers Care Cook Frozen Dessert Name Role Phone Unavailable Primary Care Provider Unavailabl e Allergies Active Allergy Reactions Criticality Noted Date Comments Penicillins Hives 12/06/2022 Medications meloxicam (MOBIC) 15 mg Oral TabletIndications:O steoarthritis of left patellofemoral joint,Hamstring tightness of left lower extremity Take 1 Tablet by mouth daily. 30 Tablet 2 Active Social History Tobacco Use Types Packs/Day Years Used Date Smoking Tobacco: Never Smokeless Tobacco: Never Tobacco Cessation:Counseling Given: Not Answered Comments Unknown Sex and Gender Information Value Date Recorded Sex Assigned at Not on file Legal Sex Female 4:37 PM EDT Gender Identity Not on file Sexual Orientation Not on file Obstetrics History Last Filed Vital Signs Vital Sign Reading Time Taken Comments Blood Pressure - - Pulse - - Temperature - - Respiratory Rate - - Oxygen Saturation - - Inhaled Oxygen Concentration - - Weight 106.6 kg (235 lb) 12/10/2022 10:31 AM EDT Height 177.8 cm (5' 10 ) 12/10/2022 10:31 AM EDT Body Mass Index 33.72 12/10/2022 10:31 AM EDT Plan of Treatment Health Maintenance Due Date Last Done Comments Annual Wellness Exam 1973 Hepatitis B Vaccine (1 of 3 - 19+ 3-dose series) 1989 Cervical Cancer Screening 1991 Pap Smear 1991 HPV/Pap Cotest 2000 Breast Cancer Screening 2010 Cologuard 2015 Colon Cancer Screening 2015 Colonoscopy 2015 FIT 2015 Sigmoidoscopy 2015 Virtual Colonography 2015 Pneumococcal Vaccine 50+ (1 of 1 - PCV) 2020 Zoster (1 of 2) 2020 COVID-19 Vaccine (4 - 2023-2 5 season) 2024 05/15/2021, 08/29/2020, 07/30/2020 Influenza Vaccine (Season Ended) 2025 04/02/2019, 03/15/2018 DTaP/TDaP/Td (3 - Td or Tdap) 03/21/2030, 03/11/2009 Meningococcal B Vaccine Aged Out No l onger eligible based on patient's age to complete this topic Insurance ANTHEM PPO ANTHEM PPO
--- OUTSIDE RECORDS SUMMARY | 2024-12-13 15:42 | XMS_ITS | Clinical Summary ---
Author Organization [facility] Address [address] [facility] [facility] [address] [place] [address] Phone Care Team Providers Care Demo Specialist Name Role Phone Dariel Alas MD [ ] Conditions or Problems Problem Name Problem Code Onset Date Status Entry Date Provider Comment Standard Description Annotate Back pain 235324712 (SNOMED CT) 03/24 Active 03/24 Dariel Alas MD Backache UTI 77828920 (SNOMED CT) 03/24 Active 03/24 Dariel Alas MD Urinary tract infectious disease Hyperbilirubinemia 10315452 (SNOMED CT) 03/23 Active 03/23 Angelika Abdelrahman Bilirubin level above reference range Neutrophilic leukemoid reaction D72.823 (ICD-10-CM ) 03/23 Active 03/23 Angelika Abdelrahman Leukemoid reaction Malignant neoplasm of colon 449182159 (SNOMED CT) 03/23 Active 03/23 Angelika Abdelrahman Malignant tumor of colon Infection following a procedure, subsequent encounter T81.4xxD (ICD-10-CM ) 03/23 Active 03/23 Angelika Abdelrahman Infection following a procedure, subsequent encounter Abscess, intra-abdominal K65.1 (ICD-10-CM ) 03/23 Active 03/23 Angelika Abdelrahman Peritoneal abscess C. Difficile colitis 961856965 (SNOMED CT) 03/23 Active 03/23 Angelika Abdelrahman Clostridium difficile colitis Medications Medication Instructions Start Date Stop Date Generic Name NDC Provider TYLENOL EXTRA STRENGTH 500 MG TABS one tab as needed by mouth every 6 hours ACETAMINOPHEN [id number] Di Zamora RN PROMETHAZINE-C ODEINE SYRP 5mL as needed by mouth every four hours PROMETHAZINE-COD EINE SYRP [id number] Di Zamora RN FIRST-VANCOMYC IN 50 50 MG/ML ORAL SOLUTION 5mL by mouth every six hours VANCOMYCIN HCL [id number] Jose P TYLENOL EXTRA STRENGTH 500 MG TABS one tab as needed by mouth every 6 hours ACETAMINOPHEN [id number] Jose P PROMETHAZINE-C ODEINE SYRP 5mL as needed by mouth every four hours PROMETHAZINE-COD EINE SYRP [id number] Jose P Medications Administered No information available. Allergies, Adverse Reactions, Alerts Allergy Name Reaction Description Start Date Severity Statu s Provider PENICILLIN Moderate Active Jose P Results Date Name Value Unit Range Flag Description Lab Report: URINALYSIS WITHO UT MICROSOPIC UROBILINOGEN 0.2 E.U./dL 0.2 E.U./d U robilinogen [Presence] in Urine by Test strip NITRITE URN Negative Negative Nitrite [Presence] in Urine by Test strip WBC DIPSTK U Small (1+) Negative A Leuk ocyte esterase [Presence] in Urine by Test strip PROTEIN, URN Negative Negative protei n, urine, semiquantitative (dipstick) [id number] Negative Negative GE use on ly - for Link[employer] import when terms are not otherwise specified BILIRUBIN UR Negative Negative Biliru bin.total [Presence] in Urine by Test strip KETONES URN Negative Negative Ketones [Mass/volume] in Urine by Test strip GLUCOSE, URN Negative Negative Glucos e [Mass/volume] in Urine by Test strip SPEC GR URIN 1.010 1.005-1.03 Speci fic gravity of Urine by Test strip PH URINE 5.5 5.0-8.0 pH of Urine by Test strip APPEARANCE U Clear Clear Appearan ce of Urine UA COLOR Yellow Yellow, St Color of Urine Lab Report: URINALYSIS, MICR OSCOPIC ONLY HYAL CAST UR 0-6 /[LPF] 0-6 Hyaline casts [#/area] in Urine sediment by Microscopy low power field Office Visit: rm 8 MEDS REVIEW Done Documenta tion of current medications (procedure) SMOK STATUS Never smoker Toba revenue accountant smoking status Plan of Care Type Date Detail Pending order Urinalysis Pending order Urine Culture & Sensitivity Pending order Urinalysis with microscopic exam Procedures Code Procedure Name Date Entry Date C901101, [id number] Urinalysis CPT-35821 Urine Culture & Sensitivity CPT-16269 Urinalysis with microscopic exam Vital Signs Date Name Value Unit Description BMI (Body Mass Index) 28.12 kg/m2 Bod y Mass Index (Ratio) Body Temperature 98.3 [degF] temperat ure E&M BP Diastolic 78 mm[Hg] blood pressu re, diastolic BP Systolic 110 mm[Hg] blood pressur e, systolic Heart Rate 84 /min pulse rate Height 70 [in_us] height E&M Respiratory Rate 16 /min respirat ory rate E&M Weight Measured 196 [lb_av] weight E& M Weight Measured 196 [lb_av] weight E& M Immunizations No information available. Advance Directives Directive Description Start Date NO ADVANCED DIRECTIVE
--- OUTSIDE RECORDS SUMMARY | 2024-12-13 15:42 | XMS_ITS | Clinical Summary ---
Author Organization [facility] Address [address] [place] [address] Care Team Providers Care Patient Registrar Name Role Phone Eric Tyler MD Primary Care Provider [phone] Allergies Active Allergy Reactions Criticality Noted Date Comments Penicillins 04/13/2016 Medications Probiotic Product (PROBIOTIC DAILY PO) Take by mouth Active Active Problems Problem Noted Date Diagnosed Date Malignant neoplasm of transverse colon 6 Cancer Staging:Clinical:Stage IIA(T3, N0, M0) - Signed by Buddy Arguello MD on 04/13/2016 Gastroesophageal reflux disease without esophagi tis 04/13/2016 Social History Tobacco Use Types Packs/Day Years Used Date Smoking Tobacco: Never Comments Unknown Sex and Gender Information Value Date Recorded Sex Assigned at Not on file Legal Sex Female 3:43 PM EDT Gender Identity Not on file Sexual Orientation Not on file Last Filed Vital Signs Vital Sign Reading Time Taken Comments Blood Pressure 124/72 01/18/2017 10:48 AM EDT Pulse 76 01/18/2017 10:48 AM EDT Temperature 36.8 C (98.3 F) 01/18/2017 10:48 AM EDT Respiratory Rate 18 01/18/2017 10:48 AM EDT Oxygen Saturation - - Inhaled Oxygen Concentration - - Weight 87.5 kg (193 lb) 01/18/2017 10:48 AM EDT Height 177.8 cm (5' 10 ) 01/18/2017 10:48 AM EDT Body Mass Index 27.69 01/18/2017 10:48 AM EDT Plan of Treatment Not on file Insurance BCBS Care Teams Patient Registrar Relationship Specialty Start Date End Date Eric Tyler MD [facility] [place] [address] [address] [facility] [address] [place] [address] PCP - General 03/09/16
--- OUTSIDE RECORDS SUMMARY | 2024-12-13 15:43 | XMS_ITS | Patient Health Record ---
Author Organization [facility] Address [address] [facility] [address] [id number] Care Team Providers Care Graduate Teaching Associate Name Role Phone Anju Tyler Primary Care Provider Allergies Allergen (clinical drug ingredient) Drug/Non Drug Allergy documented on EMR Reaction Allergy Type Onset Date Status Substance with penicillin structure and antibacterial mechanism of action (substance) Penicillins Unknown Drug Allergy Active Results Component Value Reference Range Notes H-CBC Reviewed date:12/10/2024 10:32:19 PM Interpretation: Performing Lab: Notes/Report: WBC 5.8 4.8-10.8 K/mm3 RBC 4.34 4.20-5.40 M/mm3 HGB 13.1 12.2-16.2 g/dL HCT 38.6 37.0-47.0 % MCV 88.9 81-99 fl MCH 30.2 27.0-31.2 pg MCHC 33.9 31.8-35.4 g/dL RDW-SD 42.5 RDW 12.9 11.5-17.5 % PLT 283 142-424 K/mm3 MPV 10.0 7.4-10.4 fl NE% 51.5 37.0-80.0 % LY% 34.7 10-50 % MO% 7.6 1.7-9.3 % EO% 5.0 0.1-12.0 % BA% 0.9 0.1-2.0 % NRBC% 0 IG% 0.3 NE# 3.0 1.8-7.8 K/mm3 LY# 2.0 0.7-4.5 K/mm3 MO# 0.4 0.1-1.0 K/mm3 EO# 0.3 0.0-0.4 Kmm3 BA# 0.1 0-0.2 K/mm3 NRBC# 0 IG# 0.02 H-Lipid Panel Reviewed date:12/10/2024 10:32:19 PM Interpretation: Performing Lab: Notes/Report: Patient Fasting? Y TRIG 175 30-150 mg/dl CHOL 198 140-200 mg/dl DLDL 93.37 100-129 mg/dL VLDL 35 0-40 mg/dL HDL 52 40-60 mg/dl CHLHDL 3.8 1-3.5 H-CMP Reviewed date:12/10/2024 10:32:19 PM Interpretation: Performing Lab: Notes/Report: NA 139 136-145 mmol/L K 4.5 3.5-5.1 mmoL/L CL 105 98-107 mmol/L CO2 29 22.0-30.0 mmol/L GAP 9.5 5-15 mEq/L BUN 18 7-17 mg/dl CREATT 0.70 0.52-1.04 mg/dl GFRAA 106 >60 ML/MIN EGFR 87 >60 ml/min GLU 94 74-100 mg/dl CA 9.2 8.4-10.2 mg/dl BILIT 1.1 0.2-1.3 mg/dl AST 25 14-36 U/L ALT 18 12-78 U/L TP 7.2 6.3-8.2 g/dl ALB 4.5 3.5-5.0 g/dl GLOB 2.7 1.3-3.2 g/dL AGRATIO 1.7 1.1-1.8 ALP 75 38-126 U/L Reason For Referral No Information Medications Medication SIG (Take, Route, Frequency, Duration) Notes Start Date End Date Status Famotidine 20 MG 1 tablet at bedtime as needed Orally Once a day Active Probiotic Formula 1-250 BILLION-MG 1 cap(s) orally once a day Active Celecoxib 200 MG 1 [...] Once a day for 30 day(s) Not-Taking Immunizations Vaccine Route Administration Date Status Comme nts xFlu shot-36 months and older IM Intramuscular 05/31/2008 Administered xFlu shot-36 months and older IM Intramuscular 06/02/2010 Administered xFlu shot- 6months-36 months of jvg-ORZK-FGUW-trivalent IM Intramuscular 05/13/2010 Administered Tetanus Tdap-Adacel (over 7yrs) Unknown 03/11/2009 Administered Tetanus Tdap-Adacel (over 7yrs) Unknown 03/21/2020 Administered Hepatitis A (adult) Unknown 07/19/2018 Administered Hepatitis A (adult) Unknown 02/01/2019 Administered H1N1 flu vaccine IM Intramuscular 05/01/2009 Administered Fluzone Quad (6months&older) Unknown 03/15/2018 Administered Fluzone Quad (6months&older) Unknown 04/02/2019 Administered Fluzone Intradermal Quad private(18-64yrs) ID Intradermal 06/25/2016 Administered COVID 19 Moderna Unknown 07/30/2020 Administered COVID 19 Moderna Unknown 08/29/2020 Administered COVID 19 Moderna Unknown 05/15/2021 Administered Problems Problem Type SNOMED Code ICD Code Onset Dates Problem Status W/U Status Risk Notes Problem Gastroesophageal reflux disease (953362033) GERD (gastroesophageal reflux disease) (K21.9) Active confirmed Problem 915015368 Menopausal and perimenopausal disorder (N95.9) Active confirmed Problem Anxiety (65773990) Anxiety (F41.9) Active confi rmed Problem 83527276 Situational anxiety (F41.8) Active confirmed Problem 617529825 Hx of malignant neoplasm of colon (Z85.038) Active confirmed Problem 323667378 Anxiety disorder , unspecified type (F41.9) Active confirmed Problem 843184961 BMI 31.0-31.9,adult (Z68.31) Active confirmed Problem 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) Active confirmed Problem 100567178 Dyslipidemia (E78.5) Active confirmed Problem 076368245 Abnormal mammogram of right breast (R92.8) Active confirmed Problem 95622513 Globus sensation (F45.8) Active confirmed Problem 58627176 PVCs (premature ventricular contractions) (I49.3) Active confirmed Vital Signs Heart Rate 81 /min 12/06/2024 Blood pressure diastolic 82 mm Hg 12/06/2024 Height 72 in 12/06/2024 Blood pressure systolic 126 mm Hg 12/06/2024 Weight 231.4 lbs 12/06/2024 BMI 31.38 kg/m2 12/06/2024 Encounters Encounter Location Date Provider [facility] [address] [place] [address] [place] [id number] 07/17/2024 Anju Tyler Sacroiliac inflammat ion M46.1 and GERD (gastroesophageal reflux disease) K21.9 [facility] [address] [place] [id number] 11/08/2024 Anju Tyler Anxiety F41.9 ; Wart of hand B07.9 ; Screening for lipid disorders Z13.220 and BMI 31.0-31.9,adult Z68.31 [facility] [address] [place] [address] [place] [id number] 12/06/2024 Anju Tyler Wart of hand B07.9 [facility] [address] [place] [address] [place] [id number] 12/10/2024 Anju Tyler Assessments Encounter Date Diagnosis (ICD Code) Assessment Notes Treatment Notes Treatment Clinical Notes Section Notes 07/17/2024 GERD (gastroesophageal reflux disease) (ICD-10 - K21.9) 07/17/2024 Sacroiliac inflammation (ICD-10 - M46.1) Provided written instructions for stretching exercises of low back and hamstrings 11/08/2024 Anxiety (ICD-10 - F41.9) 11/08/2024 Wart of hand (ICD-10 - B07.9) The wart is treated with two 30 second cycles of cryotherapy which she tolerated well. Aftercare instructions given. 12/06/2024 Wart of hand (ICD-10 - B07.9) Wart appears to be resolved but continue to observe for recurrence 11/08/2024 Screening for lipid disorders (ICD-10 - Z13.220) 11/08/2024 BMI 31.0-31.9,adult (ICD-10 - Z68.31) Plan Of Treatment Pending Test Test Name Order Date H-FACTORIIDNA 07/24/2021 H-Lipid Panel 11/08/2024 H-CMP 11/08/2024 Insurance Providers Payer Name Payer Address Payer Phone Subscriber Number Group Number Insured Name Patient Relationship to Insured Coverage Start Date Coverage End Date [facility] [address] [place] [address] [id number] MARIUM MARIN Self - patient is the insured Medical (General) History Medical History History ICD Code Colon cancer - 2016 Clostridium difficile 2016 Anxiety disorder GERD Surgical History Surgery Date(Month/Year) none laparoscopic resection of ri ght and transvers colon - Dr Goldstein @ [facility] 02/17/16 C-scope/ Dr. Lyman/ normal 03/13/2019 C-scope/ Dr. Lyman/ normal 06/07/22 Hospitalization History Reason Date(Month/Year) Colon resection 02/2016
--- NOTE | 2024-12-13 16:00 | MM_ITS ---
PROCEDURE INFORMATION: Exam: MG Bilateral Screening 3D Mammography Exam date and time: 12/13/2024 3:49 PM Age: 54 years old Clinical indication: Screening. A maternal cousin had breast cancer. TECHNIQUE: Imaging protocol: Bilateral Screening tomosynthesis and 2D mammography including computer-aided detection (CAD) when performed. COMPARISON: 1. MG MM DIG SCREENING MAMM BI W/CAD 07/03/2021 4:08 PM 2. MG MM DIG SCREENING MAMM BI W/CAD 03/11/2020 4:22 PM 3. MG SCBI MM Dig screening mamm BI w/CAD 10/23/2018 4:23 PM 4. MG DXRT MM Dig mamm DX unilat RT CAD 09/13/2017 2:56 PM FINDINGS: MAMMOGRAPHY: Breast composition: The breasts are heterogeneously dense, which may obscure small masses. Mass: None. Architectural distortion: None. Calcifications: No suspicious calcifications. Asymmetric density: No developing asymmetry. Skin thickening: None. Axillary adenopathy: None. IMPRESSION: No mammographic evidence of malignancy. Annual screening is recommended unless otherwise clinically indicated. ASSESSMENT: BI-RADS Category 1: Negative.
== END 2024-12-13 23:59 | disposition home or self-care (01) ==
LOC: RAD 15:40
PROVIDERS: PCP Family Medicine; Visit Provider Nurse Practitioner Obstetrics & Gynecology
DX: Z12.31 Encounter for screening mammogram for malignant neoplasm of breast (principal); R92.333 Mammographic heterogeneous density, bilateral breasts; Z80.3 Family history of malignant neoplasm of breast
CPT/HCPCS: 77063; 77067

== ENCOUNTER 2025-07-02 14:12 | Outpatient (CLI) | payer BC, SELFPAY ==
--- OUTSIDE RECORDS SUMMARY | 2025-07-02 14:21 | XMS_ITS | Clinical Summary ---
Author Organization [facility] Address [address] [place] [address] Phone Care Team Providers Care Access Nurse Name Role Phone Dariel Alas MD [ ] Conditions or Problems Problem Name Problem Code Onset Date Status Entry Date Provider Comment Standard Description Annotate Back pain 527369802 (SNOMED CT) 03/24 Active 03/24 Dariel Alas MD Backache UTI 56990469 (SNOMED CT) 03/24 Active 03/24 Dariel Alas MD Urinary tract infectious disease Hyperbilirubinemia 49726878 (SNOMED CT) 03/23 Active 03/23 Angelika Abdelrahman Bilirubin level above reference range Neutrophilic leukemoid reaction D72.823 (ICD-10-CM ) 03/23 Active 03/23 Angelika Abdelrahman Leukemoid reaction Malignant neoplasm of colon 306619750 (SNOMED CT) 03/23 Active 03/23 Angelika Abdelrahman Malignant neoplasm of colon Infection following a procedure, subsequent encounter T81.4xxD (ICD-10-CM ) 03/23 Active 03/23 Angelika Abdelrahman Infection following a procedure, subsequent encounter Abscess, intra-abdominal K65.1 (ICD-10-CM ) 03/23 Active 03/23 Angelika Abdelrahman Peritoneal abscess C. Difficile colitis 169890217 (SNOMED CT) 03/23 Active 03/23 Angelika Abdelrahman Clostridium difficile colitis Medications Medication Instructions Start Date Stop Date Generic Name NDC Provider TYLENOL EXTRA STRENGTH 500 MG TABS one tab as needed by mouth every 6 hours ACETAMINOPHEN [id number] Di Zamora RN PROMETHAZINE-C ODEINE SYRP 5mL as needed by mouth every four hours PROMETHAZINE-COD EINE SYRP [id number] Di Zamora RN FIRST-VANCOMYC IN 50 50 MG/ML ORAL SOLUTION 5mL by mouth every six hours VANCOMYCIN HCL [id number] Jose P TYLENOL EXTRA STRENGTH 500 MG TABS one tab as needed by mouth every 6 hours ACETAMINOPHEN [id number] Jose P PROMETHAZINE-C ODEINE SYRP 5mL as needed by mouth every four hours PROMETHAZINE-COD EINE SYRP [id number] Jose P Medications Administered No information available. [...] Procedures Code Procedure Name Date Entry Date [id number], [id number] Urinalysis CPT-54118 Urine Culture & Sensitivity CPT-62878 Urinalysis with microscopic exam Vital Signs Date [...]
--- OUTSIDE RECORDS SUMMARY | 2025-07-02 14:24 | XMS_ITS | Clinical Summary ---
Author Organization [facility] Address [address] [facility], [address] [place] [address] Care Team Providers Care Spindraw Operator Name Role Phone Eric Tyler MD Primary Care Provider [phone]- [phone] Allergies Active Allergy Reactions Criticality Noted Date [...] Not on file Insurance BCBS Care Teams Spindraw Operator Relationship Specialty Start Date End Date Eric Tyler MD [facility] [address] [address] [facility] [address] [place] [address] PCP - General 03/09/16
--- OUTSIDE RECORDS SUMMARY | 2025-07-02 14:24 | XMS_ITS ---
Author Name Interface, [facility] Address [address] [id number] Organization [facility] Address [address] [place] [address] Allergies and Adverse Reactions Medication/Group Name Reaction Severity Date Penicillins 06/06/2025 Plan Date Type Value 06/06/2025 APPOINTMENT LAB 15 MIN 06/06/2025 APPOINTMENT OV 15 MIN 06/06/2025 LAB_ORDER CBC w/ auto diff 06/06/2025 LAB_ORDER CEA panel 06/06/2025 LAB_ORDER CMP - Core Lab Reason for Visit OV 15 MIN Encounters Date Name 06/06/2025 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) Diagnostic Results Date Type Test Units Lower Limit Upper Limit Result Flag Comments Status Ordered By Specimen Source Lab Address 06/06 CBC w/ auto diff WBC 10*3/u L 4.0 10.0 7.6 FINAL [facility] ([facility]), [address], [address] [facility] [address] 06/06 CBC w/ auto diff Ashok # (ANC) 10*3/u L 1.56 6.13 4.53 FINAL [facility] ([facility]), [address], [address] [facility] [address] 06/06 CBC w/ auto diff LY # 10*3/u L 1.18 3.74 2.30 FINAL [facility] ([facility]), [address], [address] [facility] [address] 06/06 CBC w/ auto diff MO # 10*3/u L 0.24 0.86 0.54 FINAL [facility] ([facility]), [address], [address] [place] [address] 06/06 CBC w/ auto diff EO # 10*3/u lL 0.04 0.36 0.20 [facility] ([facility] [address], [address] [place] [address] 06/06 CBC w/ auto diff BA # 10*3/u L 0.01 0.08 0.04 FINAL [facility] ([facility]), [address], [address] [place] [address] 06/06 CBC w/ auto diff IG # 10*3/u L 0.0 0.2 0.00 FINAL [facility] (T), [address], [address] [place] [address] 06/06 CBC w/ auto diff Ashok % % 34.0 71.1 59.6 FINAL [facility] (T), [address], [address] [place] [address] 06/06 CBC w/ auto diff LY % % 19.3 51.7 30.2 FINAL [facility] (T), [address], [address] [place] [address] 06/06 CBC w/ auto diff MO % % 4.7 12.5 7.1 FINAL [facility] (T), [address], [address] [place] [address] 06/06 CBC w/ auto diff EO % % 0.7 5.8 2.6 FINAL [facility] (T), [address], [address] [place] [address] 06/06 CBC w/ auto diff BA % % 0.1 1.2 0.5 FINAL [facility] (T), [address], [address] [place] [address] 06/06 CBC w/ auto diff IG % % 0.0 2.0 0.0 FINAL [facility] (T), [address], [address] [place] [address] 06/06 CBC w/ auto diff RBC 10*6/u L 3.93 5.22 4.35 FINAL [facility] (T), [address], [address] [place] [address] 06/06 CBC w/ auto diff HGB g/dL 11.2 15.7 13.0 FINAL [facility] (T), [address], [address] [place] [address] 06/06 CBC w/ auto diff HCT % 34.1 44.9 39.0 FINAL [facility] (T), [address], [address] [place] [address] 06/06 CBC w/ auto diff MCV fL 79.4 94.8 89.7 FINAL [facility] (T), [address], [address] [place] [address] 06/06 CBC w/ auto diff MCH pg 25.6 32.2 29.9 FINAL [facility] (T), [address], [address] [place] [address] 06/06 CBC w/ auto diff MCHC g/dL 32.2 35.5 33.3 FINAL [facility] (T), [address], [address] [place] [address] 06/06 CBC w/ auto diff RDW-C V, % % 11.7 14.4 12.6 FINAL [facility] ([facility]), [address], [address] [place] [address] 06/06 CBC w/ auto diff PLT 10*3/u L 182.0 369.0 279 FINAL [facility] ([facility]), [address], [address] [place] [address] 06/06 CEA panel CEA ng/mL < 2 FINAL [facility] Rena Lara ([facility]), [address] [place] [id number] 06/06 CMP - Core Lab Sodiu m mmol/L 136.0 145.0 141 FINAL [facility] Rena [facility]ara ([facility]), [address] [place] [address] [place] [address] 06/06 CMP - Core Lab Potas sium mmol/L 3.4 5.1 4.8 FINAL [facility] Rena Lara ([facility]), [address] [place] [address] [place] [address] 06/06 CMP - Core Lab Chlor nahed mmol/L 98.0 107.0 104 FINAL [facility] ([facility]), [address] [place] [address] [place] [address] 06/06 CMP - Core Lab CO2 mmol/L 20.0 31.0 28.0 FINAL [facility] ([facility]), [address] [place] [address] 06/06 CMP - Core Lab Anion gap, mmol/ L mmol/L 4.0 15.0 9.0 FINAL [facility] ([facility]), [address] [place] [address] [place] [address] 06/06 CMP - Core Lab BUN mg/dL 9.0 23.0 19 FINAL [facility] ([facility]), [address] [place] [address] [place] [address] 06/06 CMP - Core Lab Creat inine mg/dL 0.55 1.02 0.75 FINAL [facility] ([facility]), [address] [place] [address] [place] [address] 06/06 CMP - Core Lab BUN/C reati nine ratio 0.0 25.0 25.3% High FINAL [facility] ([facility]), [address] [place] [address] [place] [address] 06/06 CMP - Core Lab eGFR, mL/mi n/1.7 3 mL/min /1.73m >60.0 FINAL [facility] ([facility]), [address] [place] [address] [place] [address] 06/06 CMP - Core Lab Gluco se mg/dL 74.0 106.0 92 FINAL [facility] ([facility]), [address] [place] [address] [place] [address] 06/06 CMP - Core Lab Calci um mg/dL 8.7 10.6 9.6 FINAL [facility] ([facility]), [address] [place] [address] [place] [address] 06/06 CMP - Core Lab Album in g/dL 3.4 5.0 4.5 FINAL [facility] ([facility]), [address] [place] [address] [place] [address] 06/06 CMP - Core Lab Total prote in g/dL 5.7 8.2 7.3 FINAL [facility] ([facility]), [address] [place] [address] [place] [address] 06/06 CMP - Core Lab A/G ratio 1.0 2.0 1.6% FINAL [facility] ([facility]), [address] [place] [address] [place] [address] 06/06 CMP - Core Lab Alkal ine phosp hatas e U/L 46.0 116.0 77 FINAL [facility] ([facility]), [address] [place] [address] [place] [address] 06/06 CMP - Core Lab ALT/S GPT U/L 10.0 49.0 11 FINAL [facility] ([facility]), [address] [place] [address] [place] [address] 06/06 CMP - Core Lab AST/S GOT U/L 0.0 34.0 17 FINAL [facility] ([facility]), [address] [place] [address] [place] [address] 06/06 CMP - Core Lab Bilir ubin, total mg/dL 0.3 1.2 0.6 FINAL [facility] ([facility]), [address] [place] [address] [place] [address] Medications Date Name Route Dose Frequency Instructions Start Date End Date Status Fill Status Indication 07/10 escital opram Oral Tablet orally 20.0 mg daily active 06/06 Choleca lcifero l Oral orally 50.0 daily active 06/06 Magnesi um Oxide Oral orally 1.0 tablet 2 times per day quantity sufficient for 15 days; 1 refills active 05/10 Probiot ics Oral orally 1.0 every day active 05/17 Famotid ine Oral 20.0 mg active 06/06 Biotin Oral orally 1.0 capsule daily quantity sufficient for 90 days; 3 refills active Problems Diagnosis Status Date of Diagnosis Resolution Date Solitary pulmonary nodule Active Malignant tumor of transvers e colon (disorder) Active Gastroesophageal reflux dise ase without esophagitis (disorder) Active Notes Section * [facility] Follow Up Patient Name: MARIUM DURANT Patient : 1970 Patient Primary Oncologist: Buddy Arguello (Medical Oncology) Referring Physician: JAROD EMMANUEL Date of Service: 06/06/2025 Chief Complaint ? Problem List * Gastroesophageal [...] Previous Therapies LAR 03/03/16 Current Therapy ? Observation?? Interval History Here for annual follow up. [...] or recurrent infections Vital Signs Blood pressure: 144/87, Pulse: 72, Temperature: 98.2 F, Respirations: 16, O2 sat: , Pain Scale: 0, Height: 69 in, Weight: 232.6 lb, BSA: 2.27, BMI: 34.35 kg/m2 Physical Exam CONSTITUTIONAL: awake, alert, cooperative, [...] no LE edema?? Labs CBC Lab Results 06/06/2025 06/07/2024 05/17/2023 05/11/2022 05/06/2001/21/2021 CBC WBC x 10^3/uL 7.6 7.3 6.8 6.6 7.3 8.0 RBC x 10^6/uL 4.35 4.32 4.29 4.40 4.42 4.40 HGB g/dL 13.0 12.8 12.6 13.0 13.1 13.2 HCT % 39.0 39.0 38.1 39.5 38.8 39.2 MCV fL 89.7 90.3 88.8 89.8 87.8 89.1 MCH pg 29.9 29.6 29.4 29.5 29.6 30.0 MCHC g/dL 33.3 32.8 33.1 32.9 33.8 33.7 RDW-CV, % 12.6 13.0 13.3 13.0 13.0 13.2 PLT x 10^3/uL 279 282.0 272.0 281.0 272.0 260.0 Ashok % 59.6 56.2 57.2 57.9 57.5 64.0 LY % 30.2 31.7 32.6 28.3 32.0 24.5 MO % 7.1 7.4 6.3 7.4 6.4 8.0 EO % 2.6 4.0 3.5 5.9 (H) 3.8 3.0 BA % 0.5 0.7 0.4 0.5 0.3 0.5 IG % 0.0 Ashok # (ANC) x 10^3/uL 4.53 4.07 3.87 3.85 4.22 5.13 LY # x 10^3/uL 2.30 2.30 2.21 1.88 2.35 1.96 MO # x 10^3/uL 0.54 0.54 0.43 0.49 0.47 0.64 EO # x 10^3/uL 0.20 0.29 0.24 0.39 (H) 0.28 0.24 BA # x 10^3/uL 0.04 0.05 0.03 0.03 0.02 0.04 IG # x 10^3/uL 0.00 CMP Lab Results 06/06/2025 06/07/2024 05/17/2023 05/11/2022 05/06/20 21 01/21/2021 Chemistries Glucose mg/dL 92 95 78 88 87 BUN mg/dL 18 19 14 13 16 Creatinine mg/dL 0.75 0.69 0.71 0.73 0.67 BUN/Creatinine ratio 24.0 27.5 (H) 19.7 17.8 23.9 Sodium mmol/L 142 141 142 139 141 Potassium mmol/L 4.8 4.1 4.0 4.3 4.5 Chloride mmol/L 105 103 105 103 106 CO2 mmol/L 29.3 31.1 (H) 29.9 27.0 29.9 Anion gap, mmol/L 7.7 6.9 7.1 9.0 5.1 Calcium mg/dL 10.0 9.6 9.4 9.4 9.6 Albumin g/dL 4.2 4.2 3.9 4.4 4.1 Total protein g/dL 7.6 7.6 6.9 7.3 7.2 A/G ratio 1.2 1.2 1.3 1.5 1.3 Bilirubin, total mg/dL 0.5 0.7 0.7 0.5 0.7 Alkaline phosphatase U/L 87 70 78 93 87 AST/SGOT U/L 20 16 14 21 17 ALT/SGPT U/L 17 11 9 (L) 15 10 GFR non-, estimated mL/min/1.73m2 >60.0 >60.0 >60.0 >60.0 GFR , estimated mL/min/1.73m2 >60.0 >60.0 >60.0 >60.0 eGFR, mL/min/1.73 >60.0 Lab Results 06/06/2025 06/07/2024 05/17/2023 05/11/2022 05/06/20 21 01/21/2021 Tumor Markers CEA ng/mL 0.53 0.50 0.64 0.50 0.64 ? Imaging CT [...] likely inflamm, cannot exclude met disease, o/w CHARLES CT CAP 04/16/21 -??LLL nodule less conspicuous. No further follow up needed. Likely inflammatory (full report scanned)?? OCM - Patient Care Management Pain, if applicable: ? Performance Status:??ECOG 0 Normal activity. Fully active, able to carry on all pre-disease performance without restriction. (Date: 06/06/2025) Depression Status:??Was screened; Outcome positive: No; Screening [...] 05/17/2023 - c-scope negative 06/2022 - repeat due this year (06/2025) - she is working to schedule - labs stable - last CEA 0.5, pending today - FU 1 year and recheck CEA - repeat imaging prn Time Based Itemization A total of minutes??was spent on today's patient encounter. If applicable, qsg-ojbielo-cxoauu activities: ?(?)?Preparing to see the patient and reviewing records ?(?)?Individual interpretation of??results?(?)?Discussion or coordination of care with other health physician primary care sports medicine ?(?)?Ordering of unique tests, medications, or procedures ?(?)?Documentation within the EHR?? . Recent imaging and labs were reviewed and discussed with the patient. Buddy Arguello MD [facility], Medical Oncology Online: [email or web address]?? Note Recipients:? Electronically signed by Buddy Arguello MD 06/06/2025 16:43 EST
--- OUTSIDE RECORDS SUMMARY | 2025-07-02 14:24 | XMS_ITS ---
Author Name Interface, [id number] lity Address [address] [place] [address] Organization [facility] Address [address] [place] [address] Allergies and Adverse Reactions Medication/Group Name Reaction Severity Date Penicillins 06/06/2025 Plan Date Type Value 06/06/2025 APPOINTMENT LAB 15 MIN 06/06/2025 APPOINTMENT OV 15 MIN 06/07/2024 APPOINTMENT LAB 15 MIN 06/07/2024 APPOINTMENT OV 15 MIN 06/07/2024 APPOINTMENT CEA panel 06/07/2024 LAB_ORDER CBC w/ auto diff 06/07/2024 LAB_ORDER CMP - Core Lab 06/07/2024 LAB_ORDER CEA panel 06/06/2025 LAB_ORDER CBC w/ auto diff 06/06/2025 LAB_ORDER CEA panel 06/06/2025 LAB_ORDER CMP - Core Lab Reason for Visit OV 15 MIN Encounters Date Name 06/07/2024 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) 06/07/2024 Solitary pulmonary n odule Diagnostic Results Date Type Test Units Lower Limit Upper Limit Result Flag Comments Status Ordered By Specimen Source Lab Address 06/07 CEA panel CEA ng/mL 0.53 FINAL [facility] ([facility]), [address] [place] [address] 06/07 CMP - Core Lab Sodiu m mmol/L 136.0 145.0 142 FINAL [facility] ([facility]), [address] [place] [address] 72016 06/07 CMP - Core Lab Potas sium mmol/L 3.5 5.1 4.8 FINAL [facility] ([facility]), [address] [place] [address] 65[address] 06/07 CMP - Core Lab Chlor nahed mmol/L 98.0 107.0 105 FINAL [facility] ([facility]), [address] [place] [address] 57917 06/07 CMP - Core Lab CO2 mmol/L 20.0 31.0 29.3 FINAL [facility] ([facility]), [address] [place] [address] 04482 06/07 CMP - Core Lab Anion gap, mmol/ L mmol/L 4.0 15.0 7.7 FINAL [facility] ([facility]), [address] [place] [address] 60022 06/07 CMP - Core Lab BUN mg/dL 9.0 23.0 18 FINAL [facility] ([facility]), [address] [place] [address] 09980 06/07 CMP - Core Lab BUN/C reati nine ratio 0.0 25.0 24.0% FINAL [facility] ([facility]), [address] [place] [address] 05347 06/07 CMP - Core Lab Creat inine mg/dL 0.55 1.02 0.75 FINAL [facility] ([facility]), [address] [place] [address] 01137 06/07 CMP - Core Lab eGFR, mL/mi n/1.7 3 mL/min /1.73m 60.0 0.0 >60.0 FINAL [facility] ([facility]), [address] [place] [address] 50796 06/07 CMP - Core Lab Gluco se mg/dL 74.0 106.0 92 FINAL [facility] ([facility]), [address] [place] [address] 75818 06/07 CMP - Core Lab Calci um mg/dL 8.7 10.6 10.0 FINAL [facility] ([facility]), [address] [place] [address] 72100 06/07 CMP - Core Lab Album in g/dL 3.4 5.0 4.2 FINAL [facility] ([facility]), [address] [place] [address] 91497 06/07 CMP - Core Lab Total prote in g/dL 5.7 8.2 7.6 FINAL [facility] ([facility]), [address] [place] [address] 29267 06/07 CMP - Core Lab A/G ratio 1.0 2.0 1.2% FINAL [facility] ([facility]), [address] [place] [address] 24864 06/07 CMP - Core Lab Alkal ine phosp hatas e U/L 46.0 116.0 87 FINAL [facility] ([facility]), [address] [place] [address] 09683 06/07 CMP - Core Lab ALT/S GPT U/L 10.0 49.0 17 FINAL [facility] ([facility]), [address] [place] [address] 91955 06/07 CMP - Core Lab AST/S GOT U/L 0.0 34.0 20 FINAL [facility] ([facility]), [address] [place] [address] 77541 06/07 CMP - Core Lab Bilir ubin, total mg/dL 0.3 1.2 0.5 FINAL [facility] ([facility]), [address] [place] [address] 24257 06/07 CBC w/ auto diff WBC 10*3/u L 4.0 10.0 7.3 FINAL [facility] ([facility]), [address], [address] [place], [place] [id number] 06/07 CBC w/ auto diff Ashok # (ANC) 10*3/u L 1.56 6.13 4.07 FINAL [facility] ([facility]), [address], [address] [place], [place] [phone] 06/07 CBC w/ auto diff LY # 10*3/u L 1.18 3.74 2.30 FINAL [facility] ([facility]), [address], [address] [place], [place] [address] 06/07 CBC w/ auto diff MO # 10*3/u L 0.[address] [facility] ([facility]), [address], [address] [place] [address] 06/07 CBC w/ auto diff EO # 10*3/u lL 0.04 0.36 0.29 FINAL [facility] (T), [address], [address] [place] [address] 06/07 CBC w/ auto diff BA # 10*3/u L 0.01 0.08 0.05 FINAL [facility] ([facility]), [address], [address] [place] [address] 06/07 CBC w/ auto diff Ashok % % 34.0 71.1 56.2 FINAL [facility] ([facility]), [address], [address] [place] [address] 06/07 CBC w/ auto diff LY % % 19.3 51.7 31.7 FINAL [facility] ([facility]), [address], [address] [place] [address] 06/07 CBC w/ auto diff MO % % 4.7 12.5 7.4 FINAL [facility] ([facility]), [address], [address] [place] [address] 06/07 CBC w/ auto diff EO % % 0.7 5.8 4.0 FINAL [facility] ([facility]), [address], [address] [place] [address] 06/07 CBC w/ auto diff BA % % 0.1 1.2 0.7 FINAL [facility] ([facility]), [address], [address] [place] [address] 06/07 CBC w/ auto diff RBC 10*6/u L 3.93 5.22 4.32 FINAL [facility] ([facility]), [address], [address] [place] [address] 06/07 CBC w/ auto diff HGB g/dL 11.2 15.7 12.8 FINAL [facility] ([facility]), [address], [address] [place] [address] 06/07 CBC w/ auto diff HCT % 34.1 44.9 39.0 FINAL [facility] ([facility]), [address], [address] [place] [address] 06/07 CBC w/ auto diff MCV fL 79.4 94.8 90.3 FINAL [facility] ([facility]), [address], [address] [place] [address] 06/07 CBC w/ auto diff MCH pg 25.6 32.2 29.6 FINAL [facility] ([facility]), [address], [address] [place] [address] 06/07 CBC w/ auto diff MCHC g/dL 32.2 35.5 32.8 FINAL [facility] ([facility]), [address], [address] [place] [address] 06/07 CBC w/ auto diff RDW-C V, % % 11.7 14.4 13.0 FINAL [facility] ([facility]), [address], [address] [place] [address] 06/07 CBC w/ auto diff PLT 10*3/u L 182.0 369.0 282.0 FINAL [facility] ([facility]), [address], [address] [place] [address] 06/06 CBC w/ auto diff WBC 10*3/u L 4.0 10.0 7.6 FINAL [facility] ([facility]), [address], [address] [place] [address] 06/06 CBC w/ auto diff Ashok # (ANC) 10*3/u L 1.56 6.13 4.53 FINAL [facility] ([facility]), [address], [address] [place] [address] 06/06 CBC w/ auto diff LY # 10*3/u L 1.18 3.[address] [facility] ([facility]), [address], [address] [place] [address] 06/06 CBC w/ auto diff MO # 10*3/u L 0.[address] [facility] ([facility]), [address], [address] [place] [address] 06/06 CBC w/ auto diff EO # 10*3/u lL 0.04 0.[address] [facility] ([facility]), [address], [address] [place] [address] 06/06 CBC w/ auto diff BA # 10*3/u L 0.01 0[address] [facility] ([facility]), [address], [address] [place] [address] 06/06 CBC w/ auto diff IG # 10*3/u L 0.0 0.[address] [facility] ([facility]), [address], [address] [place] [address] 06/06 CBC w/ auto diff Ashok % % 34.0 71[address] [facility] ([facility]), [address], [address] [place] [address] 06/06 CBC w/ auto diff LY % % 19.3 51.[address] [facility] ([facility]), [address], [address] [place] [address] 06/06 CBC w/ auto diff MO % % 4.7 12.[address] [facility] ([facility]), [address], [address] [place] [address] 06/06 CBC w/ auto diff EO % % 0.7 5.[address] [facility] ([facility]), [address], [address] [place] [address] 06/06 CBC w/ auto diff BA % % 0.1 1.2 0.5 FINAL [facility] ([facility]), [address], [address] [place] [address] 06/06 CBC w/ auto diff IG % % 0.0 2.0 0.0 FINAL [facility] ([facility]), [address], [address] [place] [address] 06/06 CBC w/ auto diff RBC 10*6/u L 3.93 5.22 4.35 FINAL [facility] ([facility]), [address], [address] [place] [address] 06/06 CBC w/ auto diff HGB g/dL 11.2 15.7 13.0 FINAL [facility] ([facility]), [address], [address] [place] [address] 06/06 CBC w/ auto diff HCT % 34.1 44.9 39.0 FINAL [facility] ([facility]), [address], [address] [place] [address] 06/06 CBC w/ auto diff MCV fL 79.4 94.8 89.7 FINAL [facility] ([facility]), [address], [address] [place] [address] 06/06 CBC w/ auto diff MCH pg 25.6 32.2 29.9 FINAL [facility] ([facility]), [address], [address] [place] [address] 06/06 CBC w/ auto diff MCHC g/dL 32.2 35.5 33.3 FINAL [facility] ([facility]), [address], [address] [place] [address] 06/06 CBC w/ auto diff RDW-C V, % % 11.7 14.4 12.6 FINAL [facility] ([facility]), [address], [address] [place] [address] 06/06 CBC w/ auto diff PLT 10*3/u L 182.0 369.0 279 FINAL [facility] [address], [address] [facility] [address] 06/06 CEA panel CEA ng/mL < 2 FINAL [facility] ([facility]), [address] [place] [address] 19172 06/06 CMP - Core Lab Sodiu m mmol/L 136.0 145.0 141 FINAL [facility] ([facility]), [address] [place] [address] 82152 06/06 CMP - Core Lab Potas sium mmol/L 3.4 5.1 4.8 FINAL [facility] ([facility]), [address] [place] [address] 07298 06/06 CMP - Core Lab Chlor nahed mmol/L 98.0 107.0 104 FINAL [facility] ([facility]), [address] [place] [address] 07389 06/06 CMP - Core Lab CO2 mmol/L 20.0 31.0 28.0 FINAL [facility] ([facility]), [address] [place] [address] 85140 06/06 CMP - Core Lab Anion gap, mmol/ L mmol/L 4.0 15.0 9.0 FINAL [facility] ([facility]), [address] [place] [address] 18759 06/06 CMP - Core Lab BUN mg/dL 9.0 23.0 19 FINAL [facility] ([facility]), [address] [place] [address] [place] [address] 06/06 CMP - Core Lab Creat inine mg/dL 0.55 1.02 0.75 FINAL [facility] ([facility]), [address] [place] [address] 41611 06/06 CMP - Core Lab BUN/C reati nine ratio 0.0 25.0 25.3% High FINAL [facility] ([facility]), [address] [place] [address] 38017 12/04 /2025 CMP - Core Lab eGFR, mL/mi n/1.7 3 mL/min /1.73m >60.0 FINAL [facility] ([facility]), [address] [place] [address] [place] [address] 06/06 CMP - Core Lab Gluco se mg/dL 74.0 106.0 92 FINAL [facility] ([facility]), [address] [place] [address] 50260 06/06 CMP - Core Lab Calci um mg/dL 8.7 10.6 9.6 FINAL [facility] ([facility]), [address] [place] [address] 04414 06/06 CMP - Core Lab Album in g/dL 3.4 5.0 4.5 FINAL [facility] ([facility]), [address] [place] [address] [place] [address] 06/06 CMP - Core Lab Total prote in g/dL 5.7 8.2 7.3 FINAL [facility] ([facility]), [address] [place] [address] 74028 06/06 CMP - Core Lab A/G ratio 1.0 2.0 1.6% FINAL [facility] ([facility]), [address] [place] [address] [place] [address] 06/06 CMP - Core Lab Alkal ine phosp hatas e U/L 46.0 116.0 77 FINAL [facility] ([facility]), [address] [place] [address] [place] [address] 06/06 CMP - Core Lab ALT/S GPT U/L 10.0 49.0 11 FINAL [facility] ([facility]), [address] [place] [address] [place] [address] 06/06 CMP - Core Lab AST/S GOT U/L 0.0 34.0 17 FINAL [facility] ([facility]), [address] [place] [address] [place] [address] 06/06 CMP - Core Lab Bilir ubin, total mg/dL 0.3 1.2 0.6 FINAL [facility] ([facility]), [address] [facility] [address] Medications Date Name Route Dose Frequency Instructions [...] 06/07/2024 Pain Scale 0.00 Notes Section * [facility] Follow Up Patient Name: MARIUM DURANT Patient [...] CMP Lab Results 06/06/2025 06/07/2024 05/17/2023 05/11/2022 05/06/2001/21/2021 Chemistries Glucose mg/dL 92 95 78 88 [...] >60.0 Lab Results 06/06/2025 06/07/2024 05/17/2023 05/11/2022 05/06/2001/21/2021 Tumor Markers CEA ng/mL 0.53 0.50 0.64 [...] spent on today's patient encounter. If applicable, [id number] activities: ?(?)?Preparing to see the patient and reviewing records ?(?)?Individual interpretation of??results?(?)?Discussion or coordination of care with other health gericare aide teacher ?(?)?Ordering of unique tests, medications, or procedures ?(?)?Documentation within the EHR?? . Recent imaging and labs were reviewed and discussed with the patient. Buddy Arguello MD [facility], Medical Oncology Online: [email or web address] Note Recipients:? Electronically signed by Buddy Arguello MD 06/06/2025 16:43 EST * [facility] Follow Up Patient Name: MARIUM DURANT Patient [...] CMP Lab Results 06/07/2024 05/17/2023 05/11/2022 05/06/2021 01/22/2001/12/2021 Chemistries Glucose mg/dL 95 78 88 87 [...] spent on today's patient encounter. If applicable, [id number] activities: ?(?)?Preparing to see the patient and reviewing records ?(?)?Individual interpretation of??results?(?)?Discussion or coordination of care with other health gericare aide teacher ?(?)?Ordering of unique tests, medications, or procedures ?(?)?Documentation within the EHR?? . Recent imaging and labs were reviewed and discussed with the patient. Buddy Arguello MD [facility], Medical Oncology Online: [email or web address] Note Recipients:? Electronically signed by Buddy Arguello MD 06/07/2024 16:11 EST
--- OUTSIDE RECORDS SUMMARY | 2025-07-02 14:24 | XMS_ITS ---
Author Name Interface, [id number] lity Address [address] [place] [address] Organization [facility] Address [address] [place] [address] Allergies and Adverse Reactions Medication/Group Name Reaction Severity Date Penicillins 06/06/2025 Plan Date Type Value 06/19/2026 APPOINTMENT LAB 15 MIN 06/19/2026 APPOINTMENT OV 15 MIN 06/06/2025 APPOINTMENT LAB 15 MIN 06/06/2025 APPOINTMENT [...] 6 month md and l abs 07/15/2020 LAB_ORDER CBC w/ auto diff 07/15/2020 LAB_ORDER CEA panel 07/15/2020 LAB_ORDER CMP 07/15/2020 LAB_ORDER CT chest/abdomen /pelvis w/ contrast 01/21/2021 LAB_ORDER CMP - Core Lab 01/21/2021 LAB_ORDER CBC w/ auto diff 01/21/2021 LAB_ORDER CEA panel 01/21/2021 LAB_ORDER CT chest w/ IV c ontrast 05/06/2021 LAB_ORDER CEA panel 05/06/2021 LAB_ORDER CBC w/ auto diff 05/06/2021 LAB_ORDER CMP - Core Lab 05/11/2022 LAB_ORDER CEA panel 05/11/2022 LAB_ORDER CMP - Core Lab 05/11/2022 LAB_ORDER CBC w/ auto diff 05/17/2023 LAB_ORDER CBC w/ auto diff 05/17/2023 LAB_ORDER CMP - Core Lab 05/17/2023 LAB_ORDER CEA panel 06/07/2024 LAB_ORDER CBC w/ auto diff 06/07/2024 LAB_ORDER CMP - Core Lab 06/07/2024 LAB_ORDER CEA panel 06/06/2025 LAB_ORDER CBC w/ auto diff 06/06/2025 LAB_ORDER CEA panel 06/06/2025 LAB_ORDER CMP - Core Lab 06/19/2026 LAB_ORDER CMP - Core Lab 06/19/2026 LAB_ORDER CEA panel 06/19/2026 LAB_ORDER CBC w/ auto diff Reason for Visit OV 15 MIN Encounters Date Name 07/15/2020 Gastroesophageal ref lux disease without esophagitis (disorder) 07/15/2020 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) 07/15/2020 Solitary pulmonary n odule Diagnostic Results Date Type Test Units Lower Limit Upper Limit Result Flag Comments Status Ordered By Specimen Source Lab Address 07/15 CMP - Core Lab Album in g/dL 3.4 5.0 4.4 FINAL Buddy Arguello S&Serum [facility] [place] ([facility]), [address] [place] [address] 07/15 CMP - Core Lab Alkal ine phosp hatas e U/L 46.0 116.0 78 FINAL Buddy Romo S&Serum [facility] [place] ([facility]), [address] [place] [address] 07/15 CMP - Core Lab ALT/S GPT U/L 10.0 49.0 10 FINAL Buddy Romos S&Serum [facility] [place] ([facility]), [address] [place] [address] [place] [address] 07/15 CMP - Core Lab AST/S GOT U/L 0.0 34.0 14 FINAL Buddy Romo S&Serum [facility] [place] ([facility]), [address] [place] [address] [place] [address] 07/15 CMP - Core Lab Calci um mg/dL 8.7 10.4 9.9 FINAL Buddy Romo S&Serum [facility] [place] ([facility]), [address] [place] [address] [place] [address] 07/15 CMP - Core Lab Chlor nahed mmol/L 98.0 107.0 103 FINAL Buddy Romo S&Serum [facility] [place] ([facility]), [address] [place] [address] [place] [address] 07/15 CMP - Core Lab CO2 mmol/L 20.0 31.0 30.0 FINAL Buddy [facility] S&Serum [facility] [place] ([facility]), [address] [place] [address] [place] [address] 07/15 CMP - Core Lab Creat inine mg/dL 0.5 0.8 0.75 FINAL Buddy Romo S&Serum [facility] [place] ([facility]), [address] [place] [address] [place] [address] 07/15 CMP - Core Lab GFR non-A frica n Ameri can, estim ated mL/min /1.73m >60.0 FINAL Buddy Romo S&Serum [facility] [place] ([facility]), [address] [place] [address] [place] [address] 07/15 CMP - Core Lab GFR Afric an Ameri can, estim ated mL/min /1.73m >60.0 FINAL Buddy [facility] S&Serum [facility] [place] ([facility]), [address] [place] [address] [place] [address] 07/15 CMP - Core Lab Gluco se mg/dL 74.0 106.0 89 FINAL Buddy [facility] S&Serum [facility] [place] ([facility]), [address] [place] [address] [place] [address] 07/15 CMP - Core Lab Potas sium mmol/L 3.5 5.1 5.1 FINAL Buddy [facility] S&Serum [facility] [place] ([facility]), [address] [place] [address] [place] [address] 07/15 CMP - Core Lab Sodiu m mmol/L 136.0 145.0 137 FINAL Buddy [facility] S&Serum [facility] [place] ([facility]), [address] [place] [address] [place] [address] 07/15 CMP - Core Lab Anion gap, mmol/ L mmol/L 4.0 15.0 4.0 FINAL Buddy [facility] S&Serum [facility] [place] ([facility]), [address] [place] [address] [place] [address] 07/15 CMP - Core Lab Bilir ubin, total mg/dL 0.3 1.2 0.7 FINAL [facility] S&Serum [facility] [place] ([facility]), [address] [place] [address] [place] [address] 07/15 CMP - Core Lab Total prote in g/dL 5.7 8.2 7.1 FINAL [facility] S&Serum [facility] [place] ([facility]), [address] [place] [address] [place] [address] 07/15 CMP - Core Lab A/G ratio 1.0 2.0 1.6% FINAL Buddy [facility] S&Serum [facility] [place] ([facility]), [address] [place] [address] [place] [address] 07/15 CMP - Core Lab BUN mg/dL 9.0 23.0 16 FINAL [facility] S&Serum [facility] [place] ([facility]), [address] [place] [address] [place] [address] 07/15 CMP - Core Lab BUN/C reati nine ratio 0.0 25.0 21.3% FINAL [facility] S&Serum [facility] [place] ([facility]), [address] [place] [address] [place] [address] 07/15 CEA panel CEA ng/mL 0.73 FINAL [facility] S&Serum [facility] [place] ([facility]), [address] [place] [address] [place] [address] 07/15 CBC w/ auto diff WBC 10*3/u L 4.0 10.0 6.9 FINAL Buddy Romos B&Whole Blood [facility] (T), [address] [place], [address] [place] [address] 07/15 CBC w/ auto diff Ashok # (ANC) 10*3/u L 1.56 6.13 3.98 FINAL Buddy Romos B&Whole Blood [facility] (T), [address] [place], [address] [place] [address] 07/15 CBC w/ auto diff LY # 10*3/u L 1.18 3.74 1.89 FINAL Buddy Romos B&Whole Blood [facility] (T), [address] [place], [address] [place] [address] 07/15 CBC w/ auto diff MO # 10*3/u L 0.24 0.86 0.47 FINAL Buddy Romos B&Whole Blood [facility] (T), [address] [place], [address] [place] [address] 07/15 CBC w/ auto diff EO # 10*3/u lL 0.04 0.36 0.51 High FINAL Buddy Arguello B&Whole Blood [facility] (T), [address] [place], [address] [place] [address] 07/15 CBC w/ auto diff BA # 10*3/u L 0.01 0.08 0.05 FINAL Buddy Arguello B&Whole Blood [facility] (T), [address] [place], [address] [place] [address] 07/15 CBC w/ auto diff Ashok % % 34.0 71.1 57.7 FINAL Buddy Romos B&Whole Blood [facility] (T), [address] [place], [address] [place] [address] 07/15 CBC w/ auto diff LY % % 19.3 51.7 27.4 FINAL Buddy Romos B&Whole Blood [facility] (T), [address] [place], [address] [place] [address] 07/15 CBC w/ auto diff MO % % 4.7 12.5 6.8 FINAL Buddy Romos B&Whole Blood [facility] ([facility]), [address] [place], [address] [facility] [address] 07/15 CBC w/ auto diff EO % % 0.7 5.8 7.4 High FINAL Buddy Arguello B&Whole Blood [facility] ([facility]), [address] [place], [address] [facility] [address] 07/15 CBC w/ auto diff BA % % 0.1 1.2 0.7 FINAL Buddy Arguello B&Whole Blood [facility] ([facility]), [address] [place], [address] [facility] [address] 07/15 CBC w/ auto diff RBC 10*6/u L 3.93 5.22 4.45 FINAL Buddy Romonakia B&Whole Blood [facility] ([facility]), [address] [place], [address] [place] [address] 07/15 CBC w/ auto diff HGB g/dL 11.2 15.7 13.5 FINAL Buddy Romonakia B&Whole Blood [facility] ([facility]), [address] [place], [address] [place] [address] 07/15 CBC w/ auto diff HCT % 34.1 44.9 40.2 FINAL Buddy Arguello B&Whole Blood [facility] ([facility]), [address] [place], [address] [place] [address] 07/15 CBC w/ auto diff MCV fL 79.4 94.8 90.3 FINAL Buddy Arguello B&Whole Blood [facility] ([facility]), [address] [place], [address] [place] [address] 07/15 CBC w/ auto diff MCH pg 25.6 32.2 30.3 FINAL Buddy Arguello B&Whole Blood [facility] ([facility]), [address] [place], [address] [place], [place] [address] 07/15 CBC w/ auto diff MCHC g/dL 32.2 35.5 33.6 FINAL Buddy Arguello B&Whole Blood [facility] ([facility]), [address] [place], [address] [place] [address] 07/15 CBC w/ auto diff RDW-C V, % % 11.7 14.4 12.9 FINAL Buddy Romonakia B&Whole Blood [facility] (T), [address] [place], [address] [place], [place] [address] 07/15 CBC w/ auto diff PLT 10*3/u L 182.0 369.0 283.0 FINAL Buddy Arguello B&Whole Blood [facility] (T), [address] [place], [address] [place] [address] 01/12 Lab Repor t See heat regulator d 01/21 CBC w/ auto diff EO % % 0.7 5.8 3.0 FINAL Obdulia Ovesen [facility] (T), [address] [place], [address] [place] [address] 01/21 CBC w/ auto diff BA % % 0.1 1.2 0.5 FINAL Obdulia Ovesen [facility] (T), [address] [place], [address] [place] [address] 01/21 CBC w/ auto diff RBC 10*6/u L 3.93 5.22 4.40 FINAL Obdulia Ovesen [facility] (T), [address] [place], [address] [place] [address] 01/21 CBC w/ auto diff HGB g/dL 11.2 15.7 13.2 FINAL Obdulia Ovesen [facility] (T), [address] [place], [address] [place] [address] 01/21 CBC w/ auto diff HCT % 34.1 44.9 39.2 FINAL Obdulia Ovesen [facility] (T), [address] [place], [address] [place] [address] 01/21 CBC w/ auto diff MCV fL 79.4 94.8 89.1 FINAL Obdulia Ovesen [facility] (T), [address] [place], [address] [place] [address] 01/21 CBC w/ auto diff MCH pg 25.6 32.2 30.0 FINAL Obdulia Ovesen [facility] (T), [address] [place], [address] [place] [address] 01/21 CBC w/ auto diff MCHC g/dL 32.2 35.5 33.7 FINAL Obdulia Cesar [facility] (T), [address] [place], [address] [place] [address] 01/21 CBC w/ auto diff RDW-C V, % % 11.7 14.4 13.2 FINAL [facility] ([facility]), [address] [place], [address] [place] [address] 01/21 CBC w/ auto diff WBC 10*3/u L 4.0 10.0 8.0 FINAL [facility] ([facility]), [address] [place], [address] [place] [address] 01/21 CBC w/ auto diff Ashok # (ANC) 10*3/u L 1.56 6.13 5.13 FINAL [facility]), [address] [place], [address] [place] [address] 01/21 CBC w/ auto diff LY # 10*3/u L 1.18 3.74 1.96 FINAL [facility] ([facility]), [address] [place], [address] [place] [address] 01/21 CBC w/ auto diff MO # 10*3/u L 0.24 0.86 0.64 FINAL [facility] ([facility]), [address] [place], [address] [place] [address] 01/21 CBC w/ auto diff EO # 10*3/u lL 0.04 0.36 0.24 FINAL [facility] ([facility] [address] [place], [address] [place] [address] 01/21 CBC w/ auto diff BA # 10*3/u L 0.01 0.08 0.04 FINAL [facility] ([facility]), [address] [place], [address] [place] [address] 07/21 /2021 CBC w/ auto diff Ashok % % 34.0 71.1 64.0 FINAL [facility] [address] [place], [address] [facility] [address] 01/21 CBC w/ auto diff LY % % 19.3 51.7 24.5 FINAL [facility] [address] [place], [address] [facility] [address] 01/21 CBC w/ auto diff MO % % 4.7 12.5 8.0 FINAL [facility] ([facility] [address] [place], [address] [facility] [address] 01/21 CBC w/ auto diff PLT 10*3/u L 182.0 369.0 260.0 FINAL [facility] ([facility] [address] [place], [address] [facility] [address] 01/21 CMP - Core Lab Total prote in g/dL 5.7 8.2 7.2 FINAL [facility] ([facility]), [address] [place] [address] 01/21 CMP - Core Lab A/G ratio 1.0 2.0 1.3% FINAL [facility] ([facility]), [address] [place] [address] 01/21 CMP - Core Lab Alkal ine phosp hatas e U/L 46.0 116.0 87 FINAL [facility] ([facility]), [address] [place] [address] 01/21 CMP - Core Lab ALT/S GPT U/L 10.0 49.0 10 FINAL [facility] ([facility]), [address] [place] [address] 01/21 CMP - Core Lab AST/S GOT U/L 0.0 34.0 17 FINAL [facility] ([facility]), [address] [place] [address] 01/21 CMP - Core Lab Bilir ubin, total mg/dL 0.3 1.2 0.7 FINAL Obdulia Ovesen [facility] ([facility]), [address] [place] [address] [place] [address] 01/21 CMP - Core Lab CO2 mmol/L 20.0 31.0 29.9 FINAL Obdulia Ovesen [facility] ([facility]), [address] [place] [address] [place] [address] 01/21 CMP - Core Lab Sodiu m mmol/L 136.0 145.0 141 FINAL Obdulia Ovesen [facility] ([facility]), [address] [place] [address] [place] [address] 01/21 CMP - Core Lab Potas sium mmol/L 3.5 5.1 4.5 FINAL Obdulia Ovesen [facility] ([facility]), [address] [place] [address] [place] [address] 01/21 CMP - Core Lab Chlor nahed mmol/L 98.0 107.0 106 FINAL [facility]dulia [facility] ([facility]), [address] [place] [address] [place] [address] 01/21 CMP - Core Lab Anion gap, mmol/ L mmol/L 4.0 15.0 5.1 FINAL Obdulia [facility] ([facility]), [address] [place] [address] [place] [address] 01/21 CMP - Core Lab BUN mg/dL 9.0 23.0 16 FINAL [facility]dulia [facility] ([facility]), [address] [place] [address] [place] [address] 01/21 CMP - Core Lab BUN/C reati nine ratio 0.0 25.0 23.9% FINAL Obdulia Ovesen [facility] ([facility]), [address] [place] [address] [place] [address] 01/21 CMP - Core Lab Creat inine mg/dL 0.5 0.8 0.67 FINAL Obdulia Ovesen [facility] ([facility]), [address] [place] [address] [place] [address] 01/21 CMP - Core Lab GFR non-A frica n Ameri can, estim ated mL/min /1.73m >60.0 FINAL Obdulia Ovesen [facility] ([facility]), [facility] [place] [address] 01/21 CMP - Core Lab GFR Afric an Ameri can, estim ated mL/min /1.73m >60.0 FINAL [facility]), [address] [place] [address] [place] [address] 01/21 CMP - Core Lab Gluco se mg/dL 74.0 106.0 87 FINAL [facility] ([facility]), [address] [place] [address] [place] [address] 01/21 CMP - Core Lab Calci um mg/dL 8.7 10.6 9.6 FINAL [facility] ([facility]), [address] [place] [address] [place] [address] 01/21 CMP - Core Lab Album in g/dL 3.4 5.0 4.1 FINAL [facility] ([facility]), [address] [place] [address] 01/21 CEA panel CEA ng/mL 0.64 FINAL [facility] ([facility]), [address] [place] [address] [place] [address] 05/06 CBC w/ auto diff WBC 10*3/u L 4.0 10.0 7.3 FINAL [facility] ([facility]), [address] [place], [address] [facility] [address] 05/06 CBC w/ auto diff Ashok # (ANC) 10*3/u L 1.56 6.13 4.22 FINAL [facility] ([facility]), [address] [place], [address] [facility] [address] 05/06 CBC w/ auto diff LY # 10*3/u L 1.18 3.74 2.35 FINAL [facility] ([facility]), [address] [place], [address] [facility] [address] 05/06 CBC w/ auto diff MO # 10*3/u L 0.24 0.86 0.47 FINAL [facility] ([facility]), [address] [place], [address] [place] [address] 05/06 CBC w/ auto diff EO # 10*3/u lL 0.04 0.36 0.28 FINAL Buddy [facility] ([facility]), [address] [place], [address] [place] [address] 05/06 CBC w/ auto diff BA # 10*3/u L 0.01 0.08 0.02 FINAL Buddy [facility] ([facility]), [address] [place], [address] [place] [address] 05/06 CBC w/ auto diff Ashok % % 34.0 71.1 57.5 FINAL Buddy [facility] (T), [address] [place], [address] [place] [address] 05/06 CBC w/ auto diff LY % % 19.3 51.7 32.0 FINAL Buddy [facility] (T), [address] [place], [address] [place] [address] 05/06 CBC w/ auto diff MO % % 4.7 12.5 6.4 FINAL Buddy [facility] ([facility]), [address] [place], [address] [place] [address] 05/06 CBC w/ auto diff EO % % 0.7 5.8 3.8 FINAL [facility] ([facility]), [address] [place], [address] [place] [address] 05/06 CBC w/ auto diff BA % % 0.1 1.2 0.3 FINAL Buddy [facility] (T), [address] [place], [address] [place] [address] 05/06 CBC w/ auto diff RBC 10*6/u L 3.93 5.22 4.42 FINAL [facility] (T), [address] [place], [address] [place] [address] 05/06 CBC w/ auto diff HGB g/dL 11.2 15.7 13.1 FINAL [facility] (T), [address] [place], [address] [place], [place] [id number] 05/06 CBC w/ auto diff HCT % 34.1 44.9 38.8 FINAL [facility] (T), [address] [place], [address] [place] [address] 05/06 CBC w/ auto diff MCV fL 79.4 94.8 87.8 FINAL [facility] (T), [address] [place], [address] [place], [place] [address] 05/06 CBC w/ auto diff MCH pg 25.6 32.2 29.6 FINAL [facility] ([facility]), [address] [place], [address] [place] [address] 05/06 CBC w/ auto diff MCHC g/dL 32.2 35.5 33.8 FINAL [facility] (T), [address] [place], [address] [place] [address] 05/06 CBC w/ auto diff RDW-C V, % % 11.7 14.4 13.0 FINAL [facility] (T), [address] [place], [address] [place] [address] 05/06 CBC w/ auto diff PLT 10*3/u L 182.0 369.0 272.0 FINAL [facility] ([facility]), [address] [place], [address] [place] [address] 05/06 CMP - Core Lab Sodiu m mmol/L 136.0 145.0 139 FINAL [facility] ([facility]), [address] [place] [address] 05/06 CMP - Core Lab Potas sium mmol/L 3.5 5.1 4.3 FINAL [facility] ([facility]), [address] [place] [address] 05/06 CMP - Core Lab Chlor nahed mmol/L 98.0 107.0 103 FINAL [facility] ([facility]), [address] [place] [address] 05/06 CMP - Core Lab CO2 mmol/L 20.0 31.0 27.0 FINAL Buddy [facility] ([facility]), [address] [place] [address] [place] [address] 05/06 CMP - Core Lab Anion gap, mmol/ L mmol/L 4.0 15.0 9.0 FINAL Buddy [facility] ([facility]), [address] [place] [address] [place] [address] 05/06 CMP - Core Lab BUN mg/dL 9.0 23.0 13 FINAL [facility] ([facility]), [address] [place] [address] [place] [address] 05/06 CMP - Core Lab BUN/C reati nine ratio 0.0 25.0 17.8% FINAL [facility] ([facility]), [address] [place] [address] [place] [address] 05/06 CMP - Core Lab Creat inine mg/dL 0.5 0.8 0.73 FINAL Buddy [facility] ([facility]), [address] [place] [address] [place] [address] 05/06 CMP - Core Lab GFR non-A frica n Ameri can, estim ated mL/min /1.73m >60.0 FINAL Buddy [facility] ([facility]), [address] [place] [address] [place] [address] 05/06 CMP - Core Lab GFR Afric an Ameri can, estim ated mL/min /1.73m >60.0 FINAL [facility] ([facility]), [address] [place] [address] [place] [address] 05/06 CMP - Core Lab Gluco se mg/dL 74.0 106.0 88 FINAL [facility] ([facility]), [address] [place] [address] [place] [address] 05/06 CMP - Core Lab Calci um mg/dL 8.7 10.6 9.4 FINAL [facility] ([facility]), [address] [place] [address] [place] [address] 05/06 CMP - Core Lab Album in g/dL 3.4 5.0 4.4 FINAL [facility] ([facility]), [address] [place] [address] [place] [address] 05/06 CMP - Core Lab Total prote in g/dL 5.7 8.2 7.3 FINAL [facility] ([facility]), [address] [place] [address] [place] [address] 05/06 CMP - Core Lab A/G ratio 1.0 2.0 1.5% FINAL [facility] ([facility]), [address] [place] [address] [place] [address] 05/06 CMP - Core Lab Alkal ine phosp hatas e U/L 46.0 116.0 93 FINAL [facility] ([facility]), [address] [place] [address] [place] [address] 05/06 CMP - Core Lab ALT/S GPT U/L 10.0 49.0 15 FINAL [facility] ([facility]), [address] [place] [address] [place] [address] 05/06 CMP - Core Lab AST/S GOT U/L 0.0 34.0 21 FINAL [facility] ([facility]), [address] [place] [address] [place] [address] 05/06 CMP - Core Lab Bilir ubin, total mg/dL 0.3 1.2 0.5 FINAL [facility] ([facility]), [address] [place] [address] [place] [address] 05/06 CEA panel CEA ng/mL 0.50 FINAL [facility] ([facility]), [address] [place] [address] [place] [address] 05/11 CMP - Core Lab Sodiu m mmol/L 136.0 145.0 142 FINAL [facility] ([facility]), [address] [place] [address] [place] [address] 05/11 CMP - Core Lab Potas sium mmol/L 3.5 5.1 4.0 FINAL [facility] ([facility]), [address] [place] [address] [place] [address] 05/11 CMP - Core Lab Chlor nahed mmol/L 98.0 107.0 105 FINAL [facility] ([facility]), [address] [place] [address] 05/11 CMP - Core Lab CO2 mmol/L 20.0 31.0 29.9 FINAL [facility] ([facility]), [address] [place] [address] 05/11 CMP - Core Lab Anion gap, mmol/ L mmol/L 4.0 15.0 7.1 FINAL [facility] ([facility]), [address] [place] [address] 05/11 CMP - Core Lab BUN mg/dL 9.0 23.0 14 FINAL [facility] ([facility]), [address] [place] [address] 269[address] 05/11 CMP - Core Lab BUN/C reati nine ratio 0.0 25.0 19.7% FINAL [facility] ([facility]), [address] [place] [address] 85818 05/11 CMP - Core Lab Creat inine mg/dL 0.5 0.8 0.71 FINAL [facility] ([facility]), [address] [place] [address] 46587 05/11 CMP - Core Lab GFR non-A frica n Ameri can, estim ated mL/min /1.73m >60.0 FINAL [facility] ([facility]), [address] [place] [address] 10693 05/11 CMP - Core Lab GFR Afric an Ameri can, estim ated mL/min /1.73m >60.0 FINAL [facility] ([facility]), [address] [place] [address] [place] [address] 05/11 CMP - Core Lab Gluco se mg/dL 74.0 106.0 78 FINAL [facility] ([facility]), [address] [place] [address] 15965 05/11 CMP - Core Lab Calci um mg/dL 8.7 10.6 9.4 FINAL [facility] ([facility]), [address] [place] [address] [place] [address] 05/11 CMP - Core Lab Album in g/dL 3.4 5.0 3.9 FINAL [facility] ([facility]), [address] [place] [address] 83367 05/11 CMP - Core Lab Total prote in g/dL 5.7 8.2 6.9 FINAL [facility] ([facility]), [address] [place] [address] 05900 05/11 CMP - Core Lab A/G ratio 1.0 2.0 1.3% [facility] ([facility]), [address] [place] [address] 77311 05/11 CMP - Core Lab Alkal ine phosp hatas e U/L 46.0 116.0 78 FINAL [facility] ([facility]), [address] [place] [address] 94263 05/11 CMP - Core Lab ALT/S GPT U/L 10.0 49.0 9 Low [facility]AL [facility] ([facility]), [address] [place] [address] 98357 05/11 CMP - Core Lab AST/S GOT U/L 0.0 34.0 14 [facility] ([facility]), [address] [place] [address] 54976 05/11 CMP - Core Lab Bilir ubin, total mg/dL 0.3 1.2 0.7 FINAL [facility] ([facility]), [address] [place] [address] 29771 05/11 CBC w/ auto diff WBC 10*3/u L 4.0 10.0 6.6 [facility]AL [facility] ([facility]), [address] [place], [address] [facility] [address] 05/11 CBC w/ auto diff Ashok # (ANC) 10*3/u L 1.56 6.13 3.85 FINAL [facility] ([facility]), [address] [place], [address] [facility] [address] 05/11 CBC w/ auto diff LY # 10*3/u L 1.18 3.74 1.88 FINAL [facility] ([facility]), [address] [place], [address] [place] [address] 05/11 CBC w/ auto diff MO # 10*3/u L 0.24 0.86 0.49 FINAL [facility] ([facility]), [address] [place], [address] [place] [address] 05/11 CBC w/ auto diff EO # 10*3/u lL 0.04 0.36 0.39 High FINAL [facility] ([facility]), [address] [place], [address] [place] [address] 05/11 CBC w/ auto diff BA # 10*3/u L 0.01 0.08 0.03 FINAL [facility] (T), [address] [place], [address] [place] [address] 05/11 CBC w/ auto diff Ashok % % 34.0 71.1 57.9 FINAL [facility] (T), [address] [place], [address] [place] [address] 05/11 CBC w/ auto diff LY % % 19.3 51.7 28.3 FINAL [facility] (T), [address] [place], [address] [place] [address] 05/11 CBC w/ auto diff MO % % 4.7 12.5 7.4 FINAL [facility] (T), [address] [place], [address] [place] [address] 05/11 CBC w/ auto diff EO % % 0.7 5.8 5.9 High FINAL [facility] ([facility]), [address] [place], [address] [place] [address] 05/11 CBC w/ auto diff BA % % 0.1 1.2 0.5 FINAL [facility] (T), [address] [place], [address] [place] [address] 05/11 CBC w/ auto diff RBC 10*6/u L 3.93 5.22 4.40 FINAL [facility] ([facility]), [address] [place], [address] [place] [id number] 05/11 CBC w/ auto diff HGB g/dL 11.2 15.7 13.0 FINAL [facility] ([facility]), [address] [place], [address] [place] [address] 05/11 CBC w/ auto diff HCT % 34.1 44.9 39.5 FINAL [facility] ([facility]), [address] [place], [address] [place] [address] 05/11 CBC w/ auto diff MCV fL 79.4 94.8 89.8 FINAL [facility] ([facility]), [address] [place], [address] [place] [address] 05/11 CBC w/ auto diff MCH pg 25.6 32.2 29.5 FINAL [facility] ([facility]), [address] [place], [address] [place] [address] 05/11 CBC w/ auto diff MCHC g/dL 32.2 35.5 32.9 FINAL [facility] ([facility]), [address] [place], [address] [place] [address] 05/11 CBC w/ auto diff RDW-C V, % % 11.7 14.4 13.0 FINAL [facility] ([facility]), [address] [place], [address] [place] [address] 05/11 CBC w/ auto diff PLT 10*3/u L 182.0 369.0 281.0 FINAL [facility] ([facility]), [address] [place], [address] [place] [id number] 05/11 CEA panel CEA ng/mL 0.64 FINAL [facility] ([facility]), [address] [id number] 05/17 CBC w/ auto diff WBC 10*3/u L 4.0 10.0 6.8 FINAL [facility] ([facility]), [address] [place], [address] [place] [address] 05/17 CBC w/ auto diff Ashok # (ANC) 10*3/u L 1.56 6.13 3.87 FINAL [facility] (T), [address] [place], [address] [place] [address] 05/17 CBC w/ auto diff LY # 10*3/u L 1.18 3.74 2.21 FINAL [facility] (T), [address] [place], [address] [place] [address] 05/17 CBC w/ auto diff MO # 10*3/u L 0.24 0.86 0.43 FINAL [facility] (T), [address] [place], [address] [place] [address] 05/17 CBC w/ auto diff EO # 10*3/u lL 0.04 0.36 0.24 FINAL [facility] (T), [address] [place], [address] [place] [address] 05/17 CBC w/ auto diff BA # 10*3/u L 0.01 0.08 0.03 FINAL [facility] (T), [address] [place], [address] [place] [address] 05/17 CBC w/ auto diff Ashok % % 34.0 71.1 57.2 FINAL [facility] (T), [address] [place], [address] [place] [address] 05/17 CBC w/ auto diff LY % % 19.3 51.7 32.6 FINAL [facility] (T), [address] [place], [address] [place] [address] 05/17 CBC w/ auto diff MO % % 4.7 12.5 6.3 FINAL [facility] (T), [address] [place], [address] [place] [address] 05/17 CBC w/ auto diff EO % % 0.7 5.8 3.5 FINAL [facility] (T), [address] [place], [address] [place] [address] 05/17 CBC w/ auto diff BA % % 0.1 1.2 0.4 FINAL [facility] (T), [address] [place], [address] [place], [place] [address] 05/17 CBC w/ auto diff RBC 10*6/u L 3.93 5.22 4.29 FINAL [facility] (T), [address] [place], [address] [place] [address] 05/17 CBC w/ auto diff HGB g/dL 11.2 15.7 12.6 FINAL [facility] (T), [address] [place], [address] [place] [address] 05/17 CBC w/ auto diff HCT % 34.1 44.9 38.1 FINAL [facility] (T), [address] [place], [address] [place] [address] 05/17 CBC w/ auto diff MCV fL 79.4 94.8 88.8 FINAL [facility] (T), [address] [place], [address] [place] [address] 05/17 CBC w/ auto diff MCH pg 25.6 32.2 29.4 FINAL [facility] (T), [address] [place], [address] [place] [address] 05/17 CBC w/ auto diff MCHC g/dL 32.2 35.5 33.1 FINAL [facility] (T), [address] [place], [address] [place] [address] 05/17 CBC w/ auto diff RDW-C V, % % 11.7 14.4 13.3 FINAL [facility] (T), [address] [place], [address] [place], [place] [address] 05/17 CBC w/ auto diff PLT 10*3/u L 182.0 369.0 272.0 FINAL [facility] (T), [address] [place], [address] [place] [address] 05/17 CEA panel CEA ng/mL 0.50 FINAL [facility] ([facility]), [address] [place] [address] 97254 05/17 CMP - Core Lab Sodiu m mmol/L 136.0 145.0 141 FINAL [facility] ([facility]), [address] [place] [address] 33666 05/17 CMP - Core Lab Potas sium mmol/L 3.5 5.1 4.1 FINAL [facility] ([facility]), [address] [place] [address] 81885 05/17 CMP - Core Lab Chlor nahed mmol/L 98.0 107.0 103 FINAL [facility] ([facility]), [address] [place] [address] 48956 05/17 CMP - Core Lab CO2 mmol/L 20.0 31.0 31.1 High FINAL [facility] ([facility]), [address] [place] [address] 44463 05/17 CMP - Core Lab Anion gap, mmol/ L mmol/L 4.0 15.0 6.9 FINAL [facility] ([facility]), [address] [place] [address] 05185 05/17 CMP - Core Lab BUN mg/dL 9.0 23.0 19 [facility]AL [facility] ([facility]), [address] [place] [address] 14101 05/17 CMP - Core Lab BUN/C reati nine ratio 0.0 25.0 27.5% High [facility] ([facility]), [address] [place] [address] 19847 05/17 CMP - Core Lab Creat inine mg/dL 0.55 1.02 0.69 FINAL [facility] ([facility]), [address] [place] [address] 40096 05/17 CMP - Core Lab GFR non-A frica n Ameri can, estim ated mL/min /1.73m >60.0 [facility] ([facility]), [address] [place] [address] 16471 05/17 CMP - Core Lab GFR Afric an Ameri can, estim ated mL/min /1.73m >60.0 [facility] ([facility]), [address] [place] [address] [place] [address] 05/17 CMP - Core Lab Gluco se mg/dL 74.0 106.0 95 FINAL [facility] ([facility]), [address] [place] [address] 70553 05/17 CMP - Core Lab Calci um mg/dL 8.7 10.6 9.6 FINAL [facility] ([facility]), [address] [place] [address] 46907 05/17 CMP - Core Lab Album in g/dL 3.4 5.0 4.2 FINAL [facility] ([facility]), [address] [place] [address] 63500 05/17 CMP - Core Lab Total prote in g/dL 5.7 8.2 7.6 [facility] ([facility]), [address] [place] [address] [place] [address] 05/17 CMP - Core Lab A/G ratio 1.0 2.0 1.2% [facility] ([facility]), [address] [place] [address] [place] [address] 05/17 CMP - Core Lab Alkal ine phosp hatas e U/L 46.0 116.0 70 FINAL [facility] ([facility]), [address] [place] [address] [place] [address] 05/17 CMP - Core Lab ALT/S GPT U/L 10.0 49.0 11 [facility] ([facility]), [address] [place] [address] [place] [address] 05/17 CMP - Core Lab AST/S GOT U/L 0.0 34.0 16 [facility] ([facility]), [address] [place] [address] [place] [address] 05/17 CMP - Core Lab Bilir ubin, total mg/dL 0.3 1.2 0.7 [facility]AL [facility] ([facility]), [address] [place] [address] 32133 06/07 CMP - Core Lab Sodiu m mmol/L 136.0 145.0 142 [facility]AL [facility] ([facility]), [address] [place] [address] 56820 06/07 CMP - Core Lab Potas sium mmol/L 3.5 5.1 4.8 FINAL [facility] ([facility]), [address] [place] [address] 31766 06/07 CMP - Core Lab Chlor nahed mmol/L 98.0 107.0 105 [facility]AL [facility] ([facility]), [address] [place] [address] 13116 06/07 CMP - Core Lab CO2 mmol/L 20.0 31.0 29.3 FINAL [facility] ([facility]), [address] [place], [place] [id number] 06/07 CMP - Core Lab Anion gap, mmol/ L mmol/L 4.0 15.0 7.7 [facility]AL [facility] ([facility]), [address] [place] [address] 69197 06/07 CMP - Core Lab BUN mg/dL 9.0 23.0 18 [facility] ([facility]), [address] [place] [address] 29644 06/07 CMP - Core Lab BUN/C reati nine ratio 0.0 25.0 24.0% [facility] ([facility]), [address] [place] [address] 79358 06/07 CMP - Core Lab Creat inine mg/dL 0.55 1.02 0.75 [facility] ([facility]), [address] [place] [address] 24191 06/07 CMP - Core Lab eGFR, mL/mi n/1.7 3 mL/min /1.73m 60.0 0.0 >60.0 [facility] ([facility]), [address] [place] [address] 14820 06/07 CMP - Core Lab Gluco se mg/dL 74.0 106.0 92 [facility] ([facility]), [address] [place] [address] [place] [address] 06/07 CMP - Core Lab Calci um mg/dL 8.7 10.6 10.0 [facility] ([facility]), [address] [place] [address] [place] [address] 06/07 CMP - Core Lab Album in g/dL 3.4 5.0 4.2 [facility]AL [facility] ([facility]), [address] [place] [address] [place] [address] 06/07 CMP - Core Lab Total prote in g/dL 5.7 8.2 7.6 [facility] ([facility]), [address] [place] [address] 74235 06/07 CMP - Core Lab A/G ratio 1.0 2.0 1.2% [facility] ([facility]), [address] [place] [address] [place] [address] 06/07 CMP - Core Lab Alkal ine phosp hatas e U/L 46.0 116.0 87 [facility] ([facility]), [address] [place] [address] 66830 06/07 CMP - Core Lab ALT/S GPT U/L 10.0 49.0 17 [facility] ([facility]), [address] [place] [address] [place] [address] 06/07 CMP - Core Lab AST/S GOT U/L 0.0 34.0 20 [facility] ([facility]), [address] [place] [address] [place] [address] 06/07 CMP - Core Lab Bilir ubin, total mg/dL 0.3 1.2 0.5 [facility]AL [facility] ([facility]), [address] [place] [address] [place] [address] 06/07 CEA panel CEA ng/mL 0.53 [facility] ([facility]), [address] [place] [address] 54495 06/07 CBC w/ auto diff WBC 10*3/u L 4.0 10.0 7.3 FINAL [facility] ([facility]), [address] [place], [address] [place] [address] 06/07 CBC w/ auto diff Ashok # (ANC) 10*3/u L 1.56 6.13 4.07 FINAL [facility] (T), [address] [place], [address] [place] [address] 06/07 CBC w/ auto diff LY # 10*3/u L 1.18 3.74 2.30 FINAL [facility] (T), [address] [place], [address] [place] [address] 06/07 CBC w/ auto diff MO # 10*3/u L 0.24 0.86 0.54 FINAL [facility] (T), [address] [place], [address] [place] [address] 06/07 CBC w/ auto diff EO # 10*3/u lL 0.04 0.36 0.29 FINAL [facility] (T), [address] [place], [address] [place] [address] 06/07 CBC w/ auto diff BA # 10*3/u L 0.01 0.08 0.05 FINAL [facility] (T), [address] [place], [address] [place] [address] 06/07 CBC w/ auto diff Ashok % % 34.0 71.1 56.2 FINAL [facility] (T), [address] [place], [address] [place] [address] 06/07 CBC w/ auto diff LY % % 19.3 51.7 31.7 FINAL [facility] (T), [address] [place], [address] [place] [address] 06/07 CBC w/ auto diff MO % % 4.7 12.5 7.4 FINAL [facility] ([facility]), [address] [place], [address] [place] [address] 06/07 CBC w/ auto diff EO % % 0.7 5.8 4.0 FINAL [facility] (T), [address] [place], [address] [place] [address] 06/07 CBC w/ auto diff BA % % 0.1 1.2 0.7 FINAL [facility] ([facility]), [address] [place], [address] [place] [address] 06/07 CBC w/ auto diff RBC 10*6/u L 3.93 5.22 4.32 FINAL [facility] ([facility]), [address] [place], [address] [place] [address] 06/07 CBC w/ auto diff HGB g/dL 11.2 15.7 12.8 FINAL [facility] ([facility]), [address] [place], [address] [place] [address] 06/07 CBC w/ auto diff HCT % 34.1 44.9 39.0 FINAL [facility] ([facility]), [address] [place], [address] [place] [address] 06/07 CBC w/ auto diff MCV fL 79.4 94.8 90.3 FINAL [facility] ([facility]), [address] [place], [address] [place] [address] 06/07 CBC w/ auto diff MCH pg 25.6 32.2 29.6 FINAL [facility] (T), [address] [place], [address] [place] [address] 06/07 CBC w/ auto diff MCHC g/dL 32.2 35.5 32.8 FINAL [facility] (T), [address] [place], [address] [place] [address] 06/07 CBC w/ auto diff PLT 10*3/u L 182.0 369.0 282.0 FINAL [facility] ([facility]), [address] [place], [address] [place] [address] 06/07 CBC w/ auto diff RDW-C V, % % 11.7 14.4 13.0 FINAL [facility] ([facility]), [address] [place], [address] [place], [place] [id number] 06/06 CEA panel CEA ng/mL < 2 FINAL [facility] ([facility]), [address] [facility] [address] 06/06 CBC w/ auto diff WBC 10*3/u L 4.0 10.0 7.6 FINAL [facility] ([facility]), [address] [place], [address] [place] [address] 06/06 CBC w/ auto diff Ashok # (ANC) 10*3/u L 1.56 6.13 4.53 FINAL [facility] ([facility]), [address] [place], [address] [place] [address] 06/06 CBC w/ auto diff LY # 10*3/u L 1.18 3.74 2.30 FINAL [facility] (T), [address] [place], [address] [place] [address] 06/06 CBC w/ auto diff MO # 10*3/u L 0.24 0.86 0.54 FINAL [facility] ([facility]), [address] [place], [address] [place] [id number] 06/06 CBC w/ auto diff EO # 10*3/u lL 0.04 0.36 0.20 FINAL [facility] (T), [address] [place], [address] [place], [place] [id number] 06/06 CBC w/ auto diff BA # 10*3/u L 0.01 0.08 0.04 FINAL [facility] ([facility]), [address] [place], [address] [place], [place] [id number] 06/06 CBC w/ auto diff IG # 10*3/u L 0.0 0.2 0.00 FINAL [facility] (T), [address] [place], [address] [place], [place] [id number] 06/06 CBC w/ auto diff Ashok % % 34.0 71.1 59.6 FINAL [facility] ([facility]), [address] [place], [address] [place] [address] 06/06 CBC w/ auto diff LY % % 19.3 51.7 30.2 FINAL [facility] (T), [address] [place], [address] [place] [address] 06/06 CBC w/ auto diff MO % % 4.7 12.5 7.1 FINAL [facility] (T), [address] [place], [address] [place] [address] 06/06 CBC w/ auto diff EO % % 0.7 5.8 2.6 FINAL [facility] ([facility]), [address] [place], [address] [place] [address] 06/06 CBC w/ auto diff BA % % 0.1 1.2 0.5 FINAL [facility] (T), [address] [place], [address] [place] [address] 06/06 CBC w/ auto diff IG % % 0.0 2.0 0.0 FINAL [facility] ([facility]), [address] [place], [address] [place] [address] 06/06 CBC w/ auto diff RBC 10*6/u L 3.93 5.22 4.35 FINAL [facility] (T), [address] [place], [address] [place] [address] 06/06 CBC w/ auto diff HGB g/dL 11.2 15.7 13.0 FINAL [facility] (T), [address] [place], [address] [place] [address] 06/06 CBC w/ auto diff HCT % 34.1 44.9 39.0 FINAL [facility] (T), [address] [place], [address] [place] [address] 06/06 CBC w/ auto diff MCV fL 79.4 94.8 89.7 FINAL [facility] (T), [address] [place], [address] [place] [address] 06/06 CBC w/ auto diff MCH pg 25.6 32.2 29.9 FINAL [facility] (T), [address] [place], [address] [place], [place] [id number] 06/06 CBC w/ auto diff MCHC g/dL 32.2 35.5 33.3 FINAL [facility] ([facility]), [address] [place], [address] [place], [place] [address] 06/06 CBC w/ auto diff RDW-C V, % % 11.7 14.4 12.6 FINAL [facility] ([facility]), [address] [place], [address] [place], [place] [address] 06/06 CBC w/ auto diff PLT 10*3/u L 182.0 369.0 279 FINAL [facility] ([facility]), [address] [facility], [address] [place], [place] [id number] 06/06 CMP - Core Lab Sodiu m mmol/L 136.0 145.0 141 FINAL [facility] ([facility]), [address] [place], [place] [id number] 06/06 CMP - Core Lab Potas sium mmol/L 3.4 5.1 4.8 FINAL [facility] ([facility]), [address] [place], [place] [id number] 06/06 CMP - Core Lab Chlor nahed mmol/L 98.0 107.0 104 FINAL [facility] ([facility]), [address] [place], [place] [id number] 06/06 CMP - Core Lab CO2 mmol/L 20.0 31.0 28.0 FINAL [facility] ([facility]), [address] [place] [address] 85885 06/06 CMP - Core Lab Anion gap, mmol/ L mmol/L 4.0 15.0 9.0 FINAL [facility] ([facility]), [address] [place] [address] 36013 06/06 CMP - Core Lab BUN mg/dL 9.0 23.0 19 FINAL [facility] ([facility]), [address] [place] [address] [place] [address] 06/06 CMP - Core Lab Creat inine mg/dL 0.55 1.02 0.75 FINAL [facility] ([facility]), [address] [place] [address] [place] [address] 06/06 CMP - Core Lab BUN/C reati nine ratio 0.0 25.0 25.3% High [facility]AL [facility] ([facility]), [address] [place] [address] [place] [address] 06/06 CMP - Core Lab eGFR, mL/mi n/1.7 3 mL/min /1.73m >60.0 FINAL [facility] ([facility]), [address] [place] [address] 40744 06/06 CMP - Core Lab Gluco se mg/dL 74.0 106.0 92 [facility]AL [facility] ([facility]), [address] [place] [address] [place] [address] 06/06 CMP - Core Lab Calci um mg/dL 8.7 10.6 9.6 FINAL [facility] ([facility]), [address] [place] [address] [place] [address] 06/06 CMP - Core Lab Album in g/dL 3.4 5.0 4.5 FINAL [facility] ([facility]), [address] [place] [address] [place] [address] 06/06 CMP - Core Lab Total prote in g/dL 5.7 8.2 7.3 FINAL [facility] ([facility]), [address] [place] [address] [place] [address] 06/06 CMP - Core Lab A/G ratio 1.0 2.0 1.6% FINAL [facility] ([facility]), [address] [place] [address] [place] [address] 06/06 CMP - Core Lab Alkal ine phosp hatas e U/L 46.0 116.0 77 FINAL [facility] ([facility]), [address] [facility] [address] 06/06 CMP - Core Lab ALT/S GPT U/L 10.0 49.0 11 FINAL [facility] [place] [facility] ([facility]), [address] [place] [address] 6[address]16 06/06 CMP - Core Lab AST/S GOT U/L 0.0 34.0 17 FINAL [facility] ([facility]), [address] [place] [address] 58171 06/06 CMP - Core Lab Bilir ubin, total mg/dL 0.3 1.2 0.6 FINAL [facility] ([facility]), [address] [place] [address] Medications Date Name Route Dose Frequency Instructions [...] Temperature 97.90 07/15/2020 Heart Beat 66.00 07/15/2020 BSA 2.23 07/15/2020 BMI 33.40 07/15/2020 Height 69.00 07/15/2020 Weight 226.20 07/15/2020 Pain Scale 0.00 07/15/2020 Intravascular Systolic 132 07/15/2020 Intravascular Diastolic 88 07/15/2020 Respiratory Rate 12.00 01/21/2021 BSA 2.28 01/21/2021 Body Temperature 97.20 01/21/2021 Heart Beat 72.00 01/21/2021 Respiratory Rate 10.00 01/21/2021 Pain Scale 0.00 01/21/2021 Weight 234.60 01/21/2021 Height 69.00 01/21/2021 BMI 34.64 01/21/2021 Intravascular Systolic 110 01/21/2021 Intravascular Diastolic 70 05/06/2021 Intravascular Systolic 118 05/06/2021 Intravascular Diastolic 70 05/06/2021 BSA 2.25 05/06/2021 BMI 33.96 05/06/2021 Height 69.00 05/06/2021 Weight 230.00 05/06/2021 Respiratory Rate 10.00 05/06/2021 Heart Beat 72.00 05/06/2021 Body Temperature 97.20 05/06/2021 Pain Scale 0.00 05/11/2022 BMI 34.23 05/11/2022 Pain Scale 0.00 05/11/2022 Weight 231.80 05/11/2022 Height 69.00 05/11/2022 Heart Beat 72.00 05/11/2022 BSA 2.26 05/11/2022 Intravascular Systolic 148 05/11/2022 Intravascular Diastolic 88 05/11/2022 Body Temperature 98.20 05/11/2022 Respiratory Rate 15.00 05/17/2023 BMI 34.50 05/17/2023 BSA 2.27 05/17/2023 Height 69.00 05/17/2023 Weight 233.60 05/17/2023 Pain Scale 0.00 05/17/2023 Intravascular Systolic 140 05/17/2023 Intravascular Diastolic 92 05/17/2023 Respiratory Rate 16.00 05/17/2023 Heart Beat 76.00 05/17/2023 Body Temperature 98.20 06/07/2024 Intravascular Systolic 142 06/07/2024 Intravascular Diastolic 96 06/07/2024 Body Temperature 98.20 06/07/2024 Heart Beat 64.00 06/07/2024 Respiratory Rate 12.00 06/07/2024 Pain Scale 0.00 06/07/2024 Weight 229.40 06/07/2024 Height 69.00 06/07/2024 BMI 33.88 06/07/2024 BSA 2.25 06/07/2024 Intravascular Systolic 140 06/07/2024 Intravascular Diastolic 100 06/06/2025 Height 69.00 06/06/2025 Weight 232.60 06/06/2025 Pain Scale 0.00 06/06/2025 Intravascular Systolic 144 06/06/2025 Intravascular Diastolic 87 06/06/2025 BMI 34.35 06/06/2025 Heart Beat 72.00 06/06/2025 Body Temperature 98.20 06/06/2025 BSA 2.27 06/06/2025 Respiratory Rate 16.00
--- OUTSIDE RECORDS SUMMARY | 2025-07-02 14:24 | XMS_ITS | Encounter Summary ---
Author Organization [facility] Address [address] [place] [address] Care Team Providers Care Wheat Grower Name Role Phone Unavailable Primary Care Provider Unavailabl e Encounter Details Date Type Department Care Team (Late st Contact Info) Description 07/10/2019 Lab Requisition [facility] Department of Laboratory Services [address] [place] [phone] Justin Henderson MD Clinical Labs [facility][Note 3], [address] [place], [place] [id number] Obdulia Cesar, HIMS CLERK[facility] [facility] [address] [place] [address] Social History Tobacco Use Types Packs/Day Years [...] 98 - 107 mmol/L 07/10/2019 9:13 PM [facility] Carbon Dioxide 28 20 - 31 mmol/L 07/10/2019 9:13 PM [facility] Anion Gap 7 4 - 15 mmol/L 07/10/2019 9:13 PM [facility] Blood Urea Nitrogen 13 9 - 23 mg/dL 07/10/2019 9:13 PM [facility] Creatinine 0.63 0.50 - 0.80 mg/dL 07/10/2019 9:13 PM [facility] Bun/Creatinine Ratio 20.63 <=25.00 01/2020 9:13 PM [facility] Glucose 88 65 - 106 mg/dL 07/10/2019 9:13 PM [facility] Calcium 9.2 8.3 - 10.6 mg/dL 07/10/2019 9:13 PM [facility] Albumin 4.3 3.4 - 5.0 gm/dL 07/10/2019 9:13 PM [facility] Alkaline Phosphatase 70 46 - 116 unit/L 07/10/2019 9:13 PM [facility] Alanine Aminotransferase 15 <=49 unit/L 07/10/2019 9:13 PM [facility] Aspartate Aminotransferase 19 <=33 unit/L 07/10/2019 9:13 PM [facility] Bilirubin Total 1.1 0.1 - 1.2 mg/dL 07/10/2019 9:13 PM [facility] Globulin 2.4 gm/dl 07/10/2019 9:13 PM [facility] Albumin/Globulin Ratio 2 1 - 2 07/10/2019 9:13 PM [facility] Estimated Gfr Non >60 >=60 mL/min/1. 73m2 07/10/2019 9:13 PM [facility] Comment: Estimated GFR calculated using MDRD study equation. Sodium 141 136 - 145 mmol/L 07/10/2019 9:13 PM [facility] TOTAL PROTEIN LEVEL 6.7 5.7 - 8.2 gm/dL 07/10/2019 9:13 PM [facility] Blood specimen (specimen) 07/10/2019 1:31 PM EST 07/10/2019 8:29 PM EST us Obdulia Cesar HIMS CLERK-STEEL TESTER CHEMISTRY ORDERABLES Fin al Result [facility] [address] [place] [address], [place] * CEA (07/10/2019 1:31 PM EST) Carcinoembryonic Antigen 1.27 <=2.50 ng/mL 07/10/2019 9:11 PM EST [facility] Blood specimen (specimen) 07/10/2019 1:31 PM EST 07/10/2019 8:29 PM EST Narrative [facility] - 07/10/2019 9:11 PM EST A new method is in use, effective 14 September 2018; results vary between patients, but on average, the new assay results are approximately 31% lower than results from assays prior to 14 September 2018. us Obdulia Cesar HIMS CLERK-STEEL TESTER CHEMISTRY ORDERABLES Fin al Result [facility] [address] [place] [address], [place] documented in this encounter Visit Diagnoses Not on filedocumented in this encounter
--- OUTSIDE RECORDS SUMMARY | 2025-07-02 14:24 | XMS_ITS | Clinical Summary ---
Author Organization [facility] Address [address] [place] [address] Phone Care Team Providers Care Box Blank Machine Operator Name Role Phone Unavailable Primary Care Provider Unavailabl e Allergies Active Allergy Reactions Criticality Noted Date Comments Penicillins Hives 12/06/2022 Medications meloxicam (MOBIC) 15 mg Oral TabletIndications:O steoarthritis of left patellofemoral joint,Hamstring tightness of left lower extremity Take 1 Tablet by mouth daily. 30 Tablet 2 3 Active Social History Tobacco Use Types Packs/Day [...] of 2) 2020 COVID-19 Vaccine (4 - 2024-2 6 season) 2025 05/15/2021, 08/29/2020, 07/30/2020 Influenza Vaccine (#1) 2025 9, 03/15/2018 DTaP/TDaP/Td (3 - Td or Tdap) 03/21/2030, 03/11/2009 Meningococcal B Vaccine Aged Out No l onger eligible based on patient's age to complete this topic Insurance AN[employer]M PPO AN[employer]M PPO
--- OUTSIDE RECORDS SUMMARY | 2025-07-02 14:24 | XMS_ITS | Encounter Summary ---
Author Organization [facility] Address [address] [place] [address] Care Team Providers Care Processing Inspector Name Role Phone Unavailable Primary Care Provider Unavailabl e Encounter Details Date Type Department Care Team (Late st Contact Info) Description 01/08/2020 Lab Requisition [facility] Department of Laboratory Services [address] [place] [phone] Justin Henderson MD Clinical Labs [address] [facility], [address] [place], [place] [id number] Buddy Arguello MD [address], [facility] [place] [address] Social History Tobacco Use Types Packs/Day Years [...] 0.75 <=2.50 ng/mL 01/09/2020 12:32 AM EDT [facility] Blood 01/08/2020 12:1 0 PM EDT 01/08/2020 4:25 PM EDT Narrative [facility] - 01/09/2020 12:32 AM EDT A new method is in use, effective 14 September 2018; results vary between patients, but on average, the new assay results are approximately 31% lower than results from assays prior to 14 September 2018. us Buddy Arguello MD CHEMISTRY ORDERABLES Final Result [facility] [address] [place] [address], [place] documented in this encounter Visit Diagnoses Not on filedocumented in this encounter
--- OUTSIDE RECORDS SUMMARY | 2025-07-02 14:24 | XMS_ITS | Clinical Summary ---
Author Organization [facility] Address [address] [place] [address] Care Team Providers Care Fbi Field Agent Name Role Phone Eric Tyler MD Primary Care Provider Allergies Active Allergy Reactions Criticality Noted Date Comments Penicillins Hives 02/16/2016 Medications Dexlansoprazole (DEXILANT PO) Take 60 mg by mouth daily. Active Active Problems Problem Noted Date Diagnosed Date Colon cancer 02/17/2016 Family History Medical History Relation Name Comments Cancer Father Heart disease Father Stroke Father Relation Name Status Comments Father Social History Tobacco Use Types Packs/Day Years Used Date Smoking Tobacco: Never Alcohol Use Standard Drinks/Week Comments No 0 (1 standard drink = 0.6 oz pur e alcohol) Abuse Screen Answer Date Recorded Unsafe at Home or Work/School Not on file Feels Threatened by Someone? Not on file 05/2023 Does Anyone Keep You from Co ntacting Others or Doint Things Outside the Home? Not on file 04/13/2023 Physical Sign of Abuse Present Not on file 1 Housing Stability Answer Date Recorded Current Living Arrangements Not on file 04/03 Potentially Unsafe Housing Conditions Not on valorie e 04/13/2023 Family and Community Support Answer Pierce e Recorded Help with Day-to-Day Activities Not on file 04/13/2023 Lonely or Isolated Not on file 04/13/2023 Employment Answer Date Recorded Do you want help finding or keeping work or a sherrill b? Not on file 04/13/2023 Disabilities Answer Date Recorded Concentrating, Remembering, or Making Decisions Difficulty Not on file 04/13/2023 Doing Errands Independently Difficulty Not on fi le 04/13/2023 Education Answer Date Recorded Help with school or training? Not on file Preferred Language Not on file 04/13/2023 Comments No Sex and Gender Information Value Date Recorded Sex Assigned at Not on file Legal Sex Female 10:23 AM EDT Gender Identity Not on file Sexual Orientation Not on file Last Filed Vital Signs Vital Sign Reading Time Taken Comments Blood Pressure 127/84 02/21/2016 8:50 AM EDT Pulse 90 02/21/2016 8:50 AM EDT Temperature 36.7 C (98.1 F) 02/21/2016 5:14 AM EDT Respiratory Rate 16 02/21/2016 8:50 AM EDT Oxygen Saturation 95% 02/21/2016 8:50 AM EDT Inhaled Oxygen Concentration - - Weight 93.4 kg (206 lb) 02/16/2016 12:23 PM EDT Height 172.7 cm (5' 8 ) 02/16/2016 12:23 PM EDT Body Mass Index 31.32 02/16/2016 12:23 PM EDT Plan of Treatment Health Maintenance Due Date Last Done Comments ANNUAL PHYSICAL 1970 Annual Gynecologic Pelvic and Breast Exam 1970 HEPATITIS C SCREENING 1970 TDAP/TD VACCINES (1 - Tdap) 1989 MAMMOGRAM 2010 COLOGUARD 2015 COLON CANCER SCREENING 5 YEAR SIGMOIDOSCOPY 2015 COLONOSCOPY 2015 [address] CANCER SCREENING 2015 CT COLONOGRAPHY 2015 FECAL OCCULT BLOOD TEST 2015 FIT Testing (1 year) 2015 Pneumococcal Vaccine 50+ (1 of 1 - PCV) 2020 ZOSTER VACCINE (1 of 2) 2020 INFLUENZA VACCINE 02/01/2025 Insurance EMPLOYEE Member Subscriber Plan / Payer (Ef fective 2014-Present) Name:Oneida Marin Relation to Subscriber:Self Name:Oneida Marin Payer ID:[id number] ([facility]) Type:Not on file Address: [facility] [id number] [phone] Advance Directives * Full Code (Latest Code Status on File) Date Activated Date Inactivated Comments 02/17/2016 5:11 PM 02/21/2016 2:55 PM Question Answer Comments Level Of Support Discussed With: Patient Care Teams Fbi Field Agent Relationship Specialty Start Date End Date Eric Tyler MD [address] [facility] [address] [facility] [address] [place] [address] PCP - General Family Medicine 02/15/16
--- OUTSIDE RECORDS SUMMARY | 2025-07-02 14:24 | XMS_ITS ---
Author Name Interface, [id number] lity Address [address] [place] [address] Organization [facility] Address [address] [place] [address] Allergies and Adverse Reactions Medication/Group Name Reaction [...] 06/07 CEA panel CEA ng/mL 0.53 FINAL [facility] ([facility]), [address] [place] [address] 39958 06/07 CMP - Core Lab Sodiu m mmol/L 136.0 145.0 142 FINAL [facility] ([facility]), [address] [place] [address] 44880 06/07 CMP - Core Lab Potas sium mmol/L 3.5 5.1 4.8 FINAL [facility] ([facility]), [address] [place] [address] 35009 06/07 CMP - Core Lab Chlor nahed mmol/L 98.0 107.0 105 FINAL [facility] ([facility]), [address] [place] [address] 31401 06/07 CMP - Core Lab CO2 mmol/L 20.0 31.0 29.3 FINAL [facility] ([facility]), [address] [place] [address] 32297 06/07 CMP - Core Lab Anion gap, mmol/ L mmol/L 4.0 15.0 7.7 FINAL [facility] ([facility]), [address] [place] [address] 90438 06/07 CMP - Core Lab BUN mg/dL 9.0 23.0 18 FINAL [facility] ([facility]), [address] [place] [address] 86505 06/07 CMP - Core Lab BUN/C reati nine ratio 0.0 25.0 24.0% FINAL [facility] ([facility]), [address] [place] [address] 44210 06/07 CMP - Core Lab Creat inine mg/dL 0.55 1.02 0.75 FINAL [facility] ([facility]), [address] [place] [address] 44749 06/07 CMP - Core Lab eGFR, mL/mi n/1.7 3 mL/min /1.73m 60.0 0.0 >60.0 FINAL [facility] ([facility]), [address] [place] [address] 61339 06/07 CMP - Core Lab Gluco se mg/dL 74.0 106.0 92 FINAL [facility] ([facility]), [address] [place] [address] 65298 06/07 CMP - Core Lab Calci um mg/dL 8.7 10.6 10.0 FINAL [facility] ([facility]), [address] [place] [address] 51551 06/07 CMP - Core Lab Album in g/dL 3.4 5.0 4.2 FINAL [facility] ([facility]), [address] [place] [address] 72506 06/07 CMP - Core Lab Total prote in g/dL 5.7 8.2 7.6 FINAL [facility] ([facility]), [address] [place] [address] 32477 06/07 CMP - Core Lab A/G ratio 1.0 2.0 1.2% FINAL [facility] ([facility]), [address] [place] [address] 26090 06/07 CMP - Core Lab Alkal ine phosp hatas e U/L 46.0 116.0 87 FINAL [facility] ([facility]), [address] [place] [address] 38355 06/07 CMP - Core Lab ALT/S GPT U/L 10.0 49.0 17 FINAL [facility] ([facility]), [address] [place] [address] 71484 06/07 CMP - Core Lab AST/S GOT U/L 0.0 34.0 20 FINAL [facility] ([facility]), [address] [place] [address] 99127 06/07 CMP - Core Lab Bilir ubin, total mg/dL 0.3 1.2 0.5 FINAL [facility] ([facility]), [address] [place] [address] 67267 06/07 CBC w/ auto diff WBC 10*3/u L 4.0 10.0 7.3 FINAL [facility] ([facility]), [address], [address] [place], [place] [id number] 06/07 CBC w/ auto diff Ashok # (ANC) 10*3/u L 1.56 6.13 4.07 FINAL [facility] ([facility]), [address], [address] [place], [place] [id number] 06/07 CBC w/ auto diff LY # 10*3/u L 1.18 3.74 2.30 FINAL [facility] ([facility]), [address], [address] [place], [place] [address] 06/07 CBC w/ auto diff MO # 10*3/u L 0.24 0.86 0.54 FINAL [facility] ([facility]), [address], [address] [place] [address] 06/07 CBC w/ auto diff EO # 10*3/u lL 0.04 0.36 0.29 FINAL [facility] ([facility]), [address], [address] [place] [address] 06/07 CBC w/ auto diff BA # 10*3/u L 0.01 0.08 0.05 FINAL [facility] ([facility]), [address], [address] [place] [address] 06/07 CBC w/ auto diff Ashok % % 34.0 71.1 56.2 FINAL [facility] ([facility]), [address], [address] [place] [address] 06/07 CBC w/ auto diff LY % % 19.3 51.7 31.7 FINAL [facility] ([facility]), [address], [address] [place] [address] 06/07 CBC w/ auto diff MO % % 4.7 12.5 7.4 FINAL [facility] ([facility]), [address], [address] [place] [address] 06/07 CBC w/ auto diff EO % % 0.7 5.8 4.0 FINAL [facility] ([facility]), [address], [address] [place] [address] 06/07 CBC w/ auto diff BA % % 0.1 1.2 0.7 FINAL [facility] ([facility]), [address], [address] [place] [address] 06/07 CBC w/ auto diff RBC 10*6/u L 3.93 5.22 4.32 FINAL [facility] ([facility]), [address], [address] [place] [address] 06/07 CBC w/ auto diff HGB g/dL 11.2 15.7 12.8 FINAL [facility] ([facility]), [address], [address] [place] [address] 06/07 CBC w/ auto diff HCT % 34.1 44.9 39.0 FINAL [facility] ([facility]), [address], [address] [place] [address] 06/07 CBC w/ auto diff MCV fL 79.4 94.8 90.3 FINAL [facility] ([facility]), [address], [address] [place] [address] 06/07 CBC w/ auto diff MCH pg 25.6 32.2 29.6 FINAL [facility] ([facility]), [address], [address] [place] [address] 06/07 CBC w/ auto diff MCHC g/dL 32.2 35.5 32.8 FINAL [facility] ([facility]), [address], [address] [place] [address] 06/07 CBC w/ auto diff RDW-C V, % % 11.7 14.4 13.0 FINAL [facility] ([facility]), [address], [address] [place] [address] 06/07 CBC w/ auto diff PLT 10*3/u L 182.0 369.0 282.0 FINAL [facility] ([facility]), [address], [address] [place] [address] 06/06 CBC w/ auto diff WBC 10*3/u L 4.0 10.0 7.6 FINAL [facility] ([facility]), [address], [address] [place] [address] 06/06 CBC w/ auto diff Ashok # (ANC) 10*3/u L 1.56 6.13 4.53 FINAL [facility] ([facility]), [address], [address] [place] [address] 06/06 CBC w/ auto diff LY # 10*3/u L 1.18 3.74 2.30 FINAL [facility] ([facility]), [address], [address] [place] [address] 06/06 CBC w/ auto diff MO # 10*3/u L 0.24 0.86 0.54 FINAL [facility] ([facility]), [address], [address] [place] [address] 06/06 CBC w/ auto diff EO # 10*3/u lL 0.04 0.36 0.20 FINAL [facility] ([facility]), [address], [address] [place] [address] 06/06 CBC w/ auto diff BA # 10*3/u L 0.01 0.08 0.04 FINAL [facility] ([facility]), [address], [address] [place] [address] 06/06 CBC w/ auto diff IG # 10*3/u L 0.0 0.2 0.00 FINAL [facility] ([facility]), [address], [address] [place] [address] 06/06 CBC w/ auto diff Ashok % % 34.0 71.1 59.6 FINAL [facility] ([facility]), [address], [address] [place] [address] 06/06 CBC w/ auto diff LY % % 19.3 51.7 30.2 FINAL [facility] ([facility]), [address], [address] [place] [address] 06/06 CBC w/ auto diff MO % % 4.7 12.5 7.1 FINAL [facility] ([facility]), [address], [address] [place] [address] 06/06 CBC w/ auto diff EO % % 0.7 5.8 2.6 FINAL [facility] ([facility]), [address], [address] [place] [address] 06/06 CBC w/ auto diff BA % % 0.1 1.2 0.5 FINAL [facility] ([facility]), [address], [address] [place] [address] 06/06 CBC w/ auto diff IG % % 0.0 2.0 0.0 FINAL [facility] ([facility]), [address], [address] [place] [address] 06/06 CBC w/ auto diff RBC 10*6/u L 3.93 5.22 4.35 FINAL [facility] ([facility]), [address], [address] [place] [address] 06/06 CBC w/ auto diff HGB g/dL 11.2 15.7 13.0 FINAL [facility] ([facility]), [address], [address] [place] [address] 06/06 CBC w/ auto diff HCT % 34.1 44.9 39.0 FINAL [facility] ([facility]), [address], [address] [place] [address] 06/06 CBC w/ auto diff MCV fL 79.4 94.8 89.7 FINAL [facility] ([facility]), [address], [address] [place] [address] 06/06 CBC w/ auto diff MCH pg 25.6 32.2 29.9 FINAL [facility] ([facility]), [address], [address] [place] [address] 06/06 CBC w/ auto diff MCHC g/dL 32.2 35.5 33.3 FINAL [facility] ([facility]), [address], [address] [place] [address] 06/06 CBC w/ auto diff RDW-C V, % % 11.7 14.4 12.6 FINAL [facility] ([facility]), [address], [address] [place] [address] 06/06 CBC w/ auto diff PLT 10*3/u L 182.0 369.0 279 FINAL [facility]), [address], [address] [facility] [address] 06/06 CEA panel CEA ng/mL < 2 FINAL [facility] ([facility]), [address] [place] [address] 26584 06/06 CMP - Core Lab Sodiu m mmol/L 136.0 145.0 141 FINAL [facility] ([facility]), [address] [place] [address] 91354 06/06 CMP - Core Lab Potas sium mmol/L 3.4 5.1 4.8 FINAL [facility] ([facility]), [address] [place] [address] 99411 06/06 CMP - Core Lab Chlor nahed mmol/L 98.0 107.0 104 FINAL [facility] ([facility]), [address] [place] [address] 18325 06/06 CMP - Core Lab CO2 mmol/L 20.0 31.0 28.0 FINAL [facility] ([facility]), [address] [place] [address] 99091 06/06 CMP - Core Lab Anion gap, mmol/ L mmol/L 4.0 15.0 9.0 FINAL [facility] ([facility]), [address] [place] [address] 62763 06/06 CMP - Core Lab BUN mg/dL 9.0 23.0 19 FINAL [facility] ([facility]), [address] [place] [address] [place] [address] 06/06 CMP - Core Lab Creat inine mg/dL 0.55 1.02 0.75 FINAL [facility] ([facility]), [address] [place] [address] 64652 06/06 CMP - Core Lab BUN/C reati nine ratio 0.0 25.0 25.3% High FINAL [facility] ([facility]), [address] [place] [address] 78807 12/04 /2025 CMP - Core Lab eGFR, mL/mi n/1.7 3 mL/min /1.73m >60.0 FINAL [facility] ([facility]), [address] [place] [address] [place] [address] 06/06 CMP - Core Lab Gluco se mg/dL 74.0 106.0 92 FINAL [facility] ([facility]), [address] [place] [address] 46972 06/06 CMP - Core Lab Calci um mg/dL 8.7 10.6 9.6 FINAL [facility] ([facility]), [address] [place] [address] 17805 06/06 CMP - Core Lab Album in g/dL 3.4 5.0 4.5 FINAL [facility] ([facility]), [address] [place] [address] [place] [address] 06/06 CMP - Core Lab Total prote in g/dL 5.7 8.2 7.3 FINAL [facility] ([facility]), [address] [place] [address] 91875 06/06 CMP - Core Lab A/G ratio 1.0 2.0 1.6% FINAL [facility] ([facility]), [address] [place] [address] [place] [address] 06/06 CMP - Core Lab Alkal ine phosp hatas e U/L 46.0 116.0 77 FINAL [facility] ([facility]), [address] [place] [address] [place] [address] 06/06 CMP - Core Lab ALT/S GPT U/L 10.0 49.0 11 FINAL [facility] ([facility]), [address] [place] [address] [place] [address] 06/06 CMP - Core Lab AST/S GOT U/L 0.0 34.0 17 FINAL [facility] ([facility]), [address] [place] [address] [place] [address] 06/06 CMP - Core Lab Bilir ubin, total mg/dL 0.3 1.2 0.6 FINAL [facility] ([facility]), [address] [facility] [address] Medications Date Name Route Dose Frequency Instructions [...] 06/07/2024 Pain Scale 0.00 Notes Section * [facility] Follow Up Patient Name: MARIUM DURANT [...] spent on today's patient encounter. If applicable, [id number] activities: ?(?)?Preparing to see the patient and reviewing records ?(?)?Individual interpretation of??results?(?)?Discussion or coordination of care with other health career coach ?(?)?Ordering of unique tests, medications, or procedures ?(?)?Documentation within the EHR?? . Recent imaging and labs were reviewed and discussed with the patient. Buddy Arguello MD [facility], Medical Oncology Online: [email or web address] Note Recipients:? Electronically signed by Buddy Arguello MD 06/06/2025 16:43 EST * [facility] Follow Up Patient Name: MARIUM DURANT [...] spent on today's patient encounter. If applicable, [id number] activities: ?(?)?Preparing to see the patient and reviewing records ?(?)?Individual interpretation of??results?(?)?Discussion or coordination of care with other health career coach ?(?)?Ordering of unique tests, medications, or procedures ?(?)?Documentation within the EHR?? . Recent imaging and labs were reviewed and discussed with the patient. Buddy Arguello MD [facility], Medical Oncology Online: [email or web address] Note Recipients:? Electronically signed by Buddy Arguello MD 06/07/2024 16:11 EST
--- OUTSIDE RECORDS SUMMARY | 2025-07-02 14:24 | XMS_ITS | CCD ---
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) 06/06/2025 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) 06/19/2026 LAB 15 MIN 06/19/2026 OV 15 MIN 06/06/2025 LAB 15 MIN 06/06/2025 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) Functional Status Date Name/Question Score/Answer 08/09/2017 ECOG performance status - grade 0 0 05/10/2017 ECOG performance status - grade 0 0 05/11/2022 ECOG performance status - grade 0 0 05/17/2023 ECOG performance status - grade 0 0 06/07/2024 ECOG performance status - grade 0 0 01/09/2019 ECOG performance status - grade 0 0 05/06/2021 ECOG performance status - grade 0 0 01/08/2020 ECOG performance status - grade 0 0 06/13/2018 ECOG performance status - grade 0 0 07/15/2020 ECOG performance status - grade 0 0 01/21/2021 ECOG performance status - grade 1 1 06/06/2025 ECOG performance status - grade 0 0 07/10/2019 ECOG performance status - grade 0 0 11/08/2017 ECOG performance status - grade 0 0 Health Insurance Date Start Date End Coverage Status Coverage Type Relationship to Subscriber Member Identifier Subscriber Identifier Group Identifier Payer Identifier 2014 Active BLUE CROSS/CARLY E SHIELD [id number] Inactive BLUE CROSS/CARLY E SHIELD Diagnostic Results Date Type Test Units Lower Limit Upper Limit Result Flag Comments Status Ordered By Specimen Source Lab Address 06/06 CMP - Core Lab Alkal ine phosp hatas e U/L 46.0 116.0 77 FINAL [facility] ([facility]), [address] [place] [address] 06/06 CMP - Core Lab Calci um mg/dL 8.7 10.6 9.6 FINAL [facility] ([facility]), [address] [place] [address] 06/06 CMP - Core Lab ALT/S GPT U/L 10.0 49.0 11 FINAL [facility] ([facility]), [address] [place] [address] 06/06 CMP - Core Lab A/G ratio 1.0 2.0 1.6% FINAL [facility] ([facility]), [address] [place] [address] 06/06 CMP - Core Lab CO2 mmol/L 20.0 31.0 28.0 FINAL [facility] ([facility]), [address] [place] [address] 06/06 CMP - Core Lab Gluco se mg/dL 74.0 106.0 92 FINAL [facility] ([facility]), [address] [place] [address] 06/06 CMP - Core Lab Anion gap, mmol/ L mmol/L 4.0 15.0 9.0 FINAL [facility] ([facility]), [address] [place] [address] [place] [address] 06/06 CMP - Core Lab eGFR, mL/mi n/1.7 3 mL/min /1.73m >60.0 FINAL [facility] ([facility]), [address] [place] [address] [place] [address] 06/06 CMP - Core Lab Chlor nahed mmol/L 98.0 107.0 104 FINAL [facility] ([facility]), [address] [place] [address] 06/06 CMP - Core Lab Total prote in g/dL 5.7 8.2 7.3 FINAL [facility] ([facility]), [address] [place] [address] [place] [address] 06/06 CMP - Core Lab BUN mg/dL 9.0 23.0 19 FINAL [facility] ([facility]), [address] [place] [address] [place] [address] 06/06 CMP - Core Lab Creat inine mg/dL 0.55 1.02 0.75 FINAL [facility] ([facility]), [address] [place] [address] [place] [address] 06/06 CMP - Core Lab AST/S GOT U/L 0.0 34.0 17 FINAL [facility] ([facility]), [address] [place] [address] [place] [address] 06/06 CMP - Core Lab Album in g/dL 3.4 5.0 4.5 FINAL [facility] ([facility]), [address] [place] [address] [place] [address] 06/06 CMP - Core Lab Bilir ubin, total mg/dL 0.3 1.2 0.6 FINAL [facility] ([facility]), [address] [place] [address] [place] [address] 06/06 CMP - Core Lab Sodiu m mmol/L 136.0 145.0 141 FINAL [facility] ([facility]), [address] [place] [address] [place] [address] 06/06 CMP - Core Lab BUN/C reati nine ratio 0.0 25.0 25.3% High FINAL [facility] ([facility]), [address] [facility] [address] 06/06 CMP - Core Lab Potas sium mmol/L 3.4 5.1 4.8 FINAL [facility] ([facility]), [address] [facility] [address] 06/06 CBC w/ auto diff Ashok # (ANC) 10*3/u L 1.56 6.13 4.53 FINAL [facility] ([facility]), [address], [address] [place] [address] 06/06 CBC w/ auto diff MO # 10*3/u L 0.24 0.86 0.54 FINAL [facility] (T), [address], [address] [place] [address] 06/06 CBC w/ auto diff IG % % 0.0 2.0 0.0 FINAL [facility] (T), [address], [address] [place] [address] 06/06 CBC w/ auto diff MCV fL 79.4 94.8 89.7 FINAL [facility] (T), [address], [address] [place] [address] 06/06 CBC w/ auto diff IG # 10*3/u L 0.0 0.2 0.00 FINAL [facility] (T), [address], [address] [place] [address] 06/06 CBC w/ auto diff MO % % 4.7 12.5 7.1 FINAL [facility] (T), [address], [address] [place] [address] 06/06 CBC w/ auto diff EO # 10*3/u lL 0.04 0.36 0.20 FINAL [facility] ([facility]), [address], [address] [place] [address] 06/06 CBC w/ auto diff EO % % 0.7 5.8 2.6 FINAL [facility] (T), [address], [address] [place] [address] 06/06 CBC w/ auto diff RBC 10*6/u L 3.93 5.22 4.35 FINAL [facility] ([facility]), [address], [address] [place] [address] 06/06 CBC w/ auto diff WBC 10*3/u L 4.0 10.0 7.6 FINAL [facility] (T), [address], [address] [place] [address] 06/06 CBC w/ auto diff PLT 10*3/u L 182.0 369.0 279 FINAL [facility] ([facility]), [address], [address] [place] [address] 06/06 CBC w/ auto diff BA % % 0.1 1.2 0.5 FINAL [facility] (T), [address], [address] [place] [address] 06/06 CBC w/ auto diff BA # 10*3/u L 0.01 0.08 0.04 FINAL [facility] (T), [address], [address] [place] [address] 06/06 CBC w/ auto diff HGB g/dL 11.2 15.7 13.0 FINAL [facility] ([facility]), [address], [address] [place] [address] 06/06 CBC w/ auto diff RDW-C V, % % 11.7 14.4 12.6 FINAL [facility] (T), [address], [address] [place] [address] 06/06 CBC w/ auto diff LY % % 19.3 51.7 30.2 FINAL [facility] ([facility]), [address], [address] [place] [address] 06/06 CBC w/ auto diff LY # 10*3/u L 1.18 3.74 2.30 FINAL [facility] (T), [address], [address] [facility] [address] 06/06 CBC w/ auto diff MCH pg 25.6 32.2 29.9 FINAL [facility] ([facility]), [address], [address] [facility] [address] 06/06 CBC w/ auto diff MCHC g/dL 32.2 35.5 33.3 FINAL [facility] ([facility]), [address], [address] [facility] [address] 06/06 CBC w/ auto diff HCT % 34.1 44.9 39.0 FINAL [facility] ([facility]), [address], [address] [facility] [address] 06/06 CBC w/ auto diff Ashok % % 34.0 71.1 59.6 FINAL [facility] ([facility]), [address], [address] [facility] [address] 06/06 CEA panel CEA ng/mL < 2 FINAL [facility] ([facility]), [address] [facility] [address] Medications Date Name Route Dose Frequency Instructions Start Date End Date Status Fill Status Indication 06/06 Biotin Oral orally 1.0 capsule daily quantity sufficient for 90 days; 3 refills active 05/17 Famotid ine Oral 20.0 mg active 07/10 escital opram Oral Tablet orally 20.0 mg daily active 05/10 Probiot ics Oral orally 1.0 every day active 06/06 Choleca lcifero l Oral orally 50.0 daily active 06/06 Magnesi um Oxide Oral orally 1.0 tablet 2 times per day quantity sufficient for 15 days; 1 refills active Problems Diagnosis Status Date of Diagnosis Resolution Date Solitary pulmonary nodule Active Malignant tumor of transvers e colon (disorder) Active Gastroesophageal reflux dise ase without esophagitis (disorder) Active Procedures Date Category Name Instructions Status 06/26/2025 Physician Order RTC OPERATIONS REPRESENTATIVE/PA Ordered 06/06/2026 Physician Order RTC OPERATIONS REPRESENTATIVE/PA Ordered Social History Date Name Value 11/22/2016 Sex Female Visits Date Type Value 06/19/2026 LAB 15 MIN 06/19/2026 OV 15 MIN Vital Signs Date Type Value 06/06/2025 Body Temperature 98.20 06/06/2025 Heart Beat 72.00 06/06/2025 Respiratory Rate 16.00 06/06/2025 Intravascular Systolic 144 06/06/2025 Intravascular Diastolic 87 06/06/2025 BSA 2.27 06/06/2025 Weight 232.60 06/06/2025 Height 69.00 06/06/2025 BMI 34.35 06/06/2025 Pain Scale 0.00 Notes Section * MedOnc Follow Up <html><head></head><body><div style= text-align:center ><div style= text- align:center ><span class= clinicalNoteMacroHighlighted i d= [id number] macroname= PracticeLetterhead spantype= macro" title= #PracticeLetterhead ><img src= data:image/jpeg;base64,/9j/4AAQSkZJR gABAQEAYABgAAD/4YAoABikFeGFNZ6IWuQUEQmOFEB1OOBHCOENVNZRKkvzTCGKAXBACIHVXElnENQZE GQfRWCX4SjsRMeKZTlEW XDXAzZPCIGr2vQNNSeAOBSQJUCWIWOFXBRYXDVTKGHXWCDANLVRKQGSWEXURKTGTKXEZJNCURDUOUEAK AAAAAAAAAAAAAAAAAAAA AAAAAAAAAAAAAAAAAAAAAAAAAAAAAAAAAAAAAAAAAAAAAAAAAAAAAAAAAAAAAAAAAAAAAAAAAAAAAAAA AAAAAAAAAAAAAAAAAAAA AAAAAAAAAAAAAAAAAAAAAAAAAAAAAAAAAAAAAAAAAAAAAAAAAAAAAAAAAAAAAAAAAAAAAAAAAAAAAAAA AAAAAAAAAAAAAAAAAAAA AAAAAAAAAAAAAAAAAAAAAAAAAAAAAAAAAAAAAAAAAAAAAAAAAAAAAAAAAAAAAAAAAAAAAAAAAAAAAAAA AAAAAAAAAAAAAAAAAAAA AAAAAAAAAAAAAAAAAAAAAAAAAAAAAAAAAAAAAAAAAAAAAAAAAAAAAAAAAAAAAAAAAAAAAAAAAAAAAAAA AAAAAAAAAAAAAAAAAAAA AAAAAAAAAAAAAAAAAAAAAAAAAAAAAAAAAAAAAAAAAAAAAAAAAAAAAAAAAAAAAAAAAAAAAAAAAAAAAAAA AAAAAAAAAAAAAAAAAAAA AAAAAAAAAAAAAAAAAAAAAAAAAAAAAAAAAAAAAAAAAAAAAAAAAAAAAAAAAAAAAAAAAAAAAAAAAAAAAAAA AAAAAAAAAAAAAAAAAAAA AAAAAAAAAAAAAAAAAAAAAAAAAAAAAAAAAAAAAAAAAAAAAAAAAAAAAAAAAAAAAAAAAAAAAAAAAAAAAAAA AAAAAAAAAAAAAAAAAAAA AAAAAAAAAAAAAAAAAAAAAAAAAAAAAAAAAAAAAAAAAAAAAAAAAAAAAAAAAAAAAAAAAAAAAAAAAAAAAAAA AAAAAAAAAAAAAAAAAAAA AAAAAAAAAAAAAAAAAAAAAAAAAAAAAAAAAAAAAAAAAAAAAAAAAAAAAAAAAAAAAAAAAAAAAAAAAAAAAAAA AAAAAAAAAAAAAAAAAAAA AAAAAAAAAAAAAAAAAAAAAAAAAAAAAAAAAAAAAAAAAAAAAAAAAAAAAAAAAAAAAAAAAAAAAAAAAAAAAAAA AAAAAAAAAAAAAAAAAAAA AAAAAAAAAAAAAAAAAAAAAAAAAAAAAAAAAAAAAAAAAAAAAAAAAAAAAAAAAAAAAAAAAAAAAAAAAAAAAAAA AAAAAAAAAAAAAAAAAAAA AAAAAAAAAAAAAAAAAAAAAAAAAAAAAAAAAAAAAAAAAAAAAAAAAAAAAAAAAAAAAAAAAAAAAAAAAAAAAAAA AAAAAAAAAAAAAAAAAAAA AAAAAAAAAAAAAAAAAAAAAAAAAAAAAAAAAAAAAAAAAAAAAAAAAAAAAAAAAAAAAAAAAAAAAAAAAAAAAAAA AAAAAAAAAAAAAAAAAAAA AAAAAAAAAAAAAAAAAAAAAAAAAAAAAAAAAAAAAAAAAAAAAAAAAAAAAAAAAAAAAAAAAAAAAAAAAAAAAAAA AAAAAAAAAAAAAAAAAAAA AAAAAAAAAAAAAAAAAAAAAAAAAAAAAAAAAAAAAAAAAAAAAAAAAAAAAAAAAAAAAAAAAAAAAAAAAAAAAAAA AAAAAAAAAAAAAAAAAAAA AAAAAAAAAAAAAAAAAAAAAAAAAAAAAAAAAAAAAAAAAAAAAAAAAAAAAAAAAAAAAAAAAAAAAAAAAAAAAAAA AAAAAAAAAAAAAAAAAAAA AAAAAAAAAAAAAAAAAAAAAAAAAAAAAAAAAAAAAAAAAAAAAAAAAAAAAAAAAAAAAAAAAAAAAAAAAAAAAAAA AAAAAAAAAAAAAAAAAAAA AAAAAAAAAAAAAAAAAAAAAAAAAAAAAAAAAAAAAAAAAAAAAAAAAAAAAAAAAAAAAAAAAAAAAAAAAAAAAAAA AAAAAAAAAAAAAAAAAAAA AAAAAAAAAAAAAAAAAAAAAAAAAAAAAAAAAAAAAAAAAAAAAAAAAAAAAAAAAAAAAAAAAAAAAAAAAAAAAAAA AAAAAAAAAAAAAAAAAAAA AAAAAAAAAAAAAAAAAAAAAAAAAAAAAAAAAAAAAAAAAAAAAAAAAAAAAAAAAAAAAAAAAAAAAAAAAAAAAAAA AAAAAAAAAAAAAAAAAAAA AAAAAAAAAAAAAAAAAAAAAAAAAAAAAAAAAAAAAAAAAAAAAAAAAAAAAAAAAAAAAAAAAAAAAAAAAAAAAAAA AAAAAAAAAAAAAAAAAAAA AAAAAAAAAAAAAAAAAAAAAAAAAAAAAAAAAAAAAAAAAAAAAAAAAAAAAAAAAAAAAAAAAAAAAAAAAAAAAAAA AAAAAAAAAAAAAAAAAAAA AAAAAAAAAAAAAAAAAAAAAAAAAAAAAAAAAAAAAAAAAAAAAAAAAAAAAAAAAAAAAAAAAAAAAAAAAAAAAAAA AAAAAAAAAAAAAAAAAAAA AAAAAAAAAAAAAAAAAAAAAAAAAAAAAAAAAAAAAAAAAAAAAAAAAAAAAAAAAAAAAAAAAAAAAAAAAAAAAAAA AAAAAAAAAAAAAAAAAAAA AAAAAAAAAAAAAAAAAAAAAAAAAAAAAAAAAAAAAAAAAAAAAAAAAAAAAAAAAAAAAAAAAAAAAAAAAAAAAAAA AAAAAAAAAAAAAAAAAAAA AAAAAAAAAAAAAAAAAAAAAAAAAAAAAAAAAAAAAAAAAAAAAAAAAAAAAAAAAAAAAAAAAAAAAAAAAAAAAAAA AAAAAAAAAAAAAAAAAAAA XRKEWTQCWJKCLMDBAXSCUXSYRJRVTOZQHZWPAGHQLRVQZQTMYTRVCUDXO2bykoeXRbjrWgjAPCCDXTPO wACAAAAFAAAEKaQBAACA MXIXPJAJAhPkKEURDFOWxO9OYWFmvBKELIMRfO9MRQdALDSNIQQTTPKGOsPMBVOTUpONDURNBEAPZNYR AAAAAAAAAAAAAAAAAAAA AAAAAAAAAAAAAAAAAAAAAAAAAAAAAAAAAAAAAAAAAAAAAAAAAAAAAAAAAAAAAAAAAAAAAAAAAAAAAAAA AAAAAAAAAAAAAAAAAAAA AAAAAAAAAAAAAAAAAAAAAAAAAAAAAAAAAAAAAAAAAAAAAAAAAAAAAAAAAAAAAAAAAAAAAAAAAAAAAAAA AAAAAAAAAAAAAAAAAAAA AAAAAAAAAAAAAAAAAAAAAAAAAAAAAAAAAAAAAAAAAAAAAAAAAAAAAAAAAAAAAAAAAAAAAAAAAAAAAAAA AAAAAAAAAAAAAAAAAAAA AAAAAAAAAAAAAAAAAAAAAAAAAAAAAAAAAAAAAAAAAAAAAAAAAAAAAAAAAAAAAAAAAAAAAAAAAAAAAAAA AAAAAAAAAAAAAAAAAAAA AAAAAAAAAAAAAAAAAAAAAAAAAAAAAAAAAAAAAAAAAAAAAAAAAAAAAAAAAAAAAAAAAAAAAAAAAAAAAAAA AAAAAAAAAAAAAAAAAAAA AAAAAAAAAAAAAAAAAAAAAAAAAAAAAAAAAAAAAAAAAAAAAAAAAAAAAAAAAAAAAAAAAAAAAAAAAAAAAAAA AAAAAAAAAAAAAAAAAAAA AAAAAAAAAAAAAAAAAAAAAAAAAAAAAAAAAAAAAAAAAAAAAAAAAAAAAAAAAAAAAAAAAAAAAAAAAAAAAAAA AAAAAAAAAAAAAAAAAAAA AAAAAAAAAAAAAAAAAAAAAAAAAAAAAAAAAAAAAAAAAAAAAAAAAAAAAAAAAAAAAAAAAAAAAAAAAAAAAAAA AAAAAAAAAAAAAAAAAAAA AAAAAAAAAAAAAAAAAAAAAAAAAAAAAAAAAAAAAAAAAAAAAAAAAAAAAAAAAAAAAAAAAAAAAAAAAAAAAAAA AAAAAAAAAAAAAAAAAAAA AAAAAAAAAAAAAAAAAAAAAAAAAAAAAAAAAAAAAAAAAAAAAAAAAAAAAAAAAAAAAAAAAAAAAAAAAAAAAAAA AAAAAAAAAAAAAAAAAAAA AAAAAAAAAAAAAAAAAAAAAAAAAAAAAAAAAAAAAAAAAAAAAAAAAAAAAAAAAAAAAAAAAAAAAAAAAAAAAAAA AAAAAAAAAAAAAAAAAAAA AAAAAAAAAAAAAAAAAAAAAAAAAAAAAAAAAAAAAAAAAAAAAAAAAAAAAAAAAAAAAAAAAAAAAAAAAAAAAAAA AAAAAAAAAAAAAAAAAAAA AAAAAAAAAAAAAAAAAAAAAAAAAAAAAAAAAAAAAAAAAAAAAAAAAAAAAAAAAAAAAAAAAAAAAAAAAAAAAAAA AAAAAAAAAAAAAAAAAAAA AAAAAAAAAAAAAAAAAAAAAAAAAAAAAAAAAAAAAAAAAAAAAAAAAAAAAAAAAAAAAAAAAAAAAAAAAAAAAAAA AAAAAAAAAAAAAAAAAAAA AAAAAAAAAAAAAAAAAAAAAAAAAAAAAAAAAAAAAAAAAAAAAAAAAAAAAAAAAAAAAAAAAAAAAAAAAAAAAAAA AAAAAAAAAAAAAAAAAAAA AAAAAAAAAAAAAAAAAAAAAAAAAAAAAAAAAAAAAAAAAAAAAAAAAAAAAAAAAAAAAAAAAAAAAAAAAAAAAAAA AAAAAAAAAAAAAAAAAAAA AAAAAAAAAAAAAAAAAAAAAAAAAAAAAAAAAAAAAAAAAAAAAAAAAAAAAAAAAAAAAAAAAAAAAAAAAAAAAAAA AAAAAAAAAAAAAAAAAAAA AAAAAAAAAAAAAAAAAAAAAAAAAAAAAAAAAAAAAAAAAAAAAAAAAAAAAAAAAAAAAAAAAAAAAAAAAAAAAAAA AAAAAAAAAAAAAAAAAAAA AAAAAAAAAAAAAAAAAAAAAAAAAAAAAAAAAAAAAAAAAAAAAAAAAAAAAAAAAAAAAAAAAAAAAAAAAAAAAAAA AAAAAAAAAAAAAAAAAAAA AAAAAAAAAAAAAAAAAAAAAAAAAAAAAAAAAAAAAAAAAAAAAAAAAAAAAAAAAAAAAAAAAAAAAAAAAAAAAAAA AAAAAAAAAAAAAAAAAAAA AAAAAAAAAAAAAAAAAAAAAAAAAAAAAAAAAAAAAAAAAAAAAAAAAAAAAAAAAAAAAAAAAAAAAAAAAAAAAAAA AAAAAAAAAAAAAAAAAAAA AAAAAAAAAAAAAAAAAAAAAAAAAAAAAAAAAAAAAAAAAAAAAAAAAAAAAAAAAAAAAAAAAAAAAAAAAAAAAAAA AAAAAAAAAAAAAAAAAAAA AAAAAAAAAAAAAAAAAAAAAAAAAAAAAAAAAAAAAAAAAAAAAAAAAAAAAAAAAAAAAAAAAAAAAAAAAAAAAAAA AAAAAAAAAAAAAAAAAAAA AAAAAAAAAAAAAAAAAAAAAAAAAAAAAAAAAAAAAAAAAAAAAAAAAAAAAAAAAAAAAAAAAAAAAAAAAAAAAAAA AAAAAAAAAAAAAAAAAAAA AAAAAAAAAAAAAAAAAAAAAAAAAAAAAAAAAAAAAAAAAAAAAAAAAAAAAAAAAAAAAAAAAAAAAAAAAAAAAAAA AAAAAAAAAAAAAAAAAAAA AAAAAAAAAAAAAAAAAAAAAAAAAAAAAAAAAAAAAAAAAAAAAAAAAAAAAAAAAAAAAAAAAAAAAAAAAAAAAAAA AAAAAAAAAAAAAAAAAAAA AAAAAAAAAAAAAAAAAAAAAAAAAAAAAAAAAAAAAAAAAAAAAAAAAAAAAAAAAAAAAAAAAAAAAAAAAAAAAAAA AAAAAAAAAAAAAAAAAAAA FRNNMDKEFAaNYDrXvDrOrO5VAFdEzGbQqOsDSSdObC9FMT6OdreDCT1AUY8YVYGKABSNYsBzoUfLZyMX ABIAGEAaQBsAGUAZQAAA P/lGk1mzKYfWs7jsdQoEVDpRdInW42cE8pjnX1vOcBnLCh/kGRjW1wenHRdMFehxl3v56s/ApVmTA8jX hCFXB9tP3OttGb9aaCLn u8BH4axDjjvRm1+CNs4dWl2iVEhYNKgZRxztB8zWfp4YcPrh5SkLr2bGf1vnHTrGt14hsSxIeNQHwM9s RcemimoORK2Svq8wFZ7V r49s5vznjFjg8OpDrT8GSovEHUkQrJmyhMcKBQ3abErrN6kkjMnXunwWUU0UVPoG6QcsGMfh68umqTbS zUly2S7ZAO0xWeiQlGxW kHnCVT9YGZjX7AeHQLsCW5mLYHbUMMqY4M2OWZ3DvNaMqUeqK3emuJ5LDS4Yzq6mYS3Kq9vqDZcTj0bI k0xLp2qnGCvPA25je1pG jEvIi8+BAJwQptQWIOkedrocEsgadIxQYX3DJXmkIY0JzV9fCJ8OcZsFFXsSVAsEcMoDO7hEJBjMLKbA gZkYCClVYw5HXysQjZpZ eS7lIhxayv3wIO6Hwv8iZU2Bs7jsm9fKD4xOH3kb35ipQFiWjLvBM5pTyg3dGL8Q3PwEYOtPCV8HT6sJ XYaIEXsJDV8QUFqFrMmL lJjHxK9XghrfD6tLkPtLWB3WBXseTU+DP3sPIK5JJFrF3XzmYRjv61+PHJkZjpEZXNjcmlwdGlvbiByZ WY0NMWgfYM7TsU7qID1H nAoWMHmJLXyNeXpMP2lMHTrJOCoVrUfDZUeSRe9PPoiBpSnPeW9sJpxvbosNq6byGZ9bVzcP7C9flzfh 2UfC6HuQ7HyKF1mydRqK dSnWJ7bLzwaUbggajUntV4lVaycKKA3H0WbLKzyrW1sYgTbMg6tdFH4aKoeB6n0qo53Ms0nutffVJa7F J3aUj2oEk7vBNImd9dqd DI1AC8cKaD+JZVzHixyvD1RiO6oNPNCXRdxWDO4O4UlIrjmxF32T4XgUpbDMHY+UQfDPIc4G1VaFeNuH WF0b3I+PX9sOEK4QLVdV 0OtyNDpr79+SM9wXQZ5EwWEDpdsgRc6jADeCVRgUm3HXEQhTLZsMQFwSFCtVKOkUOCaLLHiDFXqPEPyD CAgICAgICAgICAgICAgI CAgICAgICAgICAgICAgICAgICAgICAgICAgICAgICAgICAgICAgICAgICAgICAgICAgICAgICAgIAogI CAgICAgICAgICAgICAgI CAgICAgICAgICAgICAgICAgICAgICAgICAgICAgICAgICAgICAgICAgICAgICAgICAgICAgICAgICAgI CAgICAgICAgICAgICAgI CAgICAgICAgCiAgICAgICAgICAgICAgICAgICAgICAgICAgICAgICAgICAgICAgICAgICAgICAgICAgI CAgICAgICAgICAgICAgI CAgICAgICAgICAgICAgICAgICAgICAgICAgICAgICAgICAKICAgICAgICAgICAgICAgICAgICAgICAgI CAgICAgICAgICAgICAgI CAgICAgICAgICAgICAgICAgICAgICAgICAgICAgICAgICAgICAgICAgICAgICAgICAgICAgICAgICAgI AogICAgICAgICAgICAgI CAgICAgICAgICAgICAgICAgICAgICAgICAgICAgICAgICAgICAgICAgICAgICAgICAgICAgICAgICAgI CAgICAgICAgICAgICAgI CAgICAgICAgICAgCiAgICAgICAgICAgICAgICAgICAgICAgICAgICAgICAgICAgICAgICAgICAgICAgI CAgICAgICAgICAgICAgI CAgICAgICAgICAgICAgICAgICAgICAgICAgICAgICAgICAgICAKICAgICAgICAgICAgICAgICAgICAgI CAgICAgICAgICAgICAgI CAgICAgICAgICAgICAgICAgICAgICAgICAgICAgICAgICAgICAgICAgICAgICAgICAgICAgICAgICAgI CAgIAogICAgICAgICAgI CAgICAgICAgICAgICAgICAgICAgICAgICAgICAgICAgICAgICAgICAgICAgICAgICAgICAgICAgICAgI CAgICAgICAgICAgICAgI CAgICAgICAgICAgICAgCiAgICAgICAgICAgICAgICAgICAgICAgICAgICAgICAgICAgICAgICAgICAgI CAgICAgICAgICAgICAgI CAgICAgICAgICAgICAgICAgICAgICAgICAgICAgICAgICAgICAgICAKICAgICAgICAgICAgICAgICAgI CAgICAgICAgICAgICAgI CAgICAgICAgICAgICAgICAgICAgICAgICAgICAgICAgICAgICAgICAgICAgICAgICAgICAgICAgICAgI CAgICAgIAogICAgICAgI CAgICAgICAgICAgICAgICAgICAgICAgICAgICAgICAgICAgICAgICAgICAgICAgICAgICAgICAgICAgI CAgICAgICAgICAgICAgI CAgICAgICAgICAgICAgICAgCiAgICAgICAgICAgICAgICAgICAgICAgICAgICAgICAgICAgICAgICAgI CAgICAgICAgICAgICAgI CAgICAgICAgICAgICAgICAgICAgICAgICAgICAgICAgICAgICAgICAgICAKICAgICAgICAgICAgICAgI CAgICAgICAgICAgICAgI CAgICAgICAgICAgICAgICAgICAgICAgICAgICAgICAgICAgICAgICAgICAgICAgICAgICAgICAgICAgI CAgICAgICAgIAogICAgI CAgICAgICAgICAgICAgICAgICAgICAgICAgICAgICAgICAgICAgICAgICAgICAgICAgICAgICAgICAgI CAgICAgICAgICAgICAgI CAgICAgICAgICAgICAgICAgICAgCiAgICAgICAgICAgICAgICAgICAgICAgICAgICAgICAgICAgICAgI CAgICAgICAgICAgICAgI CAgICAgICAgICAgICAgICAgICAgICAgICAgICAgICAgICAgICAgICAgICAgICAKICAgICAgICAgICAgI CAgICAgICAgICAgICAgI CAgICAgICAgICAgICAgICAgICAgICAgICAgICAgICAgICAgICAgICAgICAgICAgICAgICAgICAgICAgI CAgICAgICAgICAgIAogI CAgICAgICAgICAgICAgICAgICAgICAgICAgICAgICAgICAgICAgICAgICAgICAgICAgICAgICAgICAgI CAgICAgICAgICAgICAgI CAgICAgICAgICAgICAgICAgICAgICAgCiAgICAgICAgICAgICAgICAgICAgICAgICAgICAgICAgICAgI CAgICAgICAgICAgICAgI CAgICAgICAgICAgICAgICAgICAgICAgICAgICAgICAgICAgICAgICAgICAgICAgICAKICAgICAgICAgI CAgICAgICAgICAgICAgI CAgICAgICAgICAgICAgICAgICAgICAgICAgICAgICAgICAgICAgICAgICAgICAgICAgICAgICAgICAgI CAgICAgICAgICAgICAgI AogICAgICAgICAgICAgICAgICAgICAgICAgICAgICAgICAgICAgICAgICAgICAgICAgICAgICAgICAgI CAgICAgICAgICAgICAgI FAqOJLsXHIyDXDfRWSaBKQnHIXoPHYxJGYhRmRiYJLlDRLaRNQcQQSsQLWnLDGmBBTbBAAhAPG4V0puZ EOgXPKlYB5pPFx4Pt4+/ 7tMVqNRVIYAJGSGVoQNIViPWWfLAwmHFJjRAmVFRRsCQigCVSgDFk6tWFmvHW5XWQIbNnLmTAhqWwbzQ zMvKjInKisq/9sAQwEHC AgKCQoUCwsUKhwYHCoqKioqKioqKioqKioqKioqKioqKioqKioqKioqKioqKioqKioqKioqKioqKioqK ioq/8AAEQgAhgDRAwEiA AIRAQMRAf/QBG1MIBTQNFRZGGTUAXKBEJGIXYDGWzKATDJVQCxRK//EALUQAAIBAwMCBAMFBQQEAAABf QECAwAEEQUSITFBBhNRY EyzyKKbsGEcFRDXeuDWGfKcFLFzovAHTtAOYXduOLAiSGxrEMS1Qnv3DaTFMOAWENzPP5OGSotEZDloT WHdQ0qcvyM7dYA7qMj3j 4CWedfXjSdFy1MXialTdBkbv2Hexmuzndfsg4H5hcf4jtiWg5AMheuOqenW42OE2ocQ1fus5hOq3rpe5 Ldf0yYw6JM89/j5+v/EA D4EPPQHCSNFCOANSQIKNNIHVYVADrCNOQRFSJiND//EALURAAIBAgQEAwQHBQQEAAECdwABAgMRBAUhM QYSQVEHYXETIjKBCBRCk rLsrDijP9PxZQJk2IuNSKZsKtHIYAmaVipcFLg4Lcz1FMjFNSOYG0tMVlDHAZVFLBxiN0RqQygrhIrfs VX2f7e8bpSSnNELi8kAy wLKpLXTd3iPppCffHJbd0bfcnAmuDR2x5f8zaQBsNOUv7ePdcIU9RAB48qE9gUo5XIu5+wp5zPh4US13 /j5+v/aAAwDAQACEQMRA D8A+kaKKKACiiigAooooAKKKKACiiigAooooAKKKKACiiigAooooAKKKKACiiigAooooAKKKKACiiigA ooooAKKKKACiijNABRVK 15mR7Onh3rZxnd9Qfax/D0I1mwAxmwh4Sl0ydBFiZC7Qt1MDgHt7hY5qBcCB8DAZJKFiYX4GtjDNfXDY J8ATWDRPZtYIhWWddWQ1 CD+BLL9PSZVDPAMUqWlFdp6/j0zJ1gyf3bS/wDdkuUU/vWMACQCStgMU2XUbborf8qQ5/Hlf2tz/wBcZ lf+Md2M59zjfHhkwPGPU SbfuxyAURLBTLvkacFyzbTEdRD4iUmQMiLtfbUq3Ob5X1rrsV7bgQlJclJ5mYBPmbzsom+qrYasdY6Ou bqaT4g+JH1/vUZAV8Atd LYjR9Gm2pgfnlbMaCveXUXgShhEMxu0/Xs6blv5L5uhqZFr6NNin7wj/lBdfnV7kQEfVM9gO5/r8DjQC 0LFIF5fMpmufmwKgeWoY GcWre2NvrpfjJK8DFVxJjVQR01nHBcF7tSZDjw4LOSQ0vCVV6H5pz5sI4iPPu8DYj+W/PqeL+LxzDp5l ruGhHofVXsARG1IYr8TO lJ1Ox9yJmbvtRvxzD3qF/cl1ynnk7E8b+JC2NSly8HkHRdhlzDzVd/un+iysw13McpCoAWUCCxbcLHiv k8KT0b/FU2g4oALaNK5l R3/AK/MDMyBaK2dRE6kv/8U1mPpGco8sJ6kkrkWyhdw8FlnVwJ68P+ffHn/FHCVbt2HVM+pgozaX0bwe wonDzjC5t4E+Eckkvha6 aV2c/a2GWYn+Fa72uA+D/8AyKt1/yIlhg5UpY459joJ/qG7j6atanrVD9DHZd5WTF9atiEVZyIagThv+ Kn/RNrgcx7eSOTCY9Dcu AzE/wAVQfGH/kZLL/r1/wDZjUnwc/5Dmo/9e6/+hV6zS/s6/l+p4yb/ALTt5/ayo6xfubklTnWvYMJ++ upB+0e9QG8m2KxnYg4JQ dWzM26RV1Nv8ndY+ziT9u69sKe9RtYEEFsjPdk7Pjseg6RdQdHhj6D3AE426qZHUrXd0zmtbUeNNvqx9 6QnpBCdqAfTv+NYiozfc Tu7AtkEeNxl7cpbEDZyrWiAOG2VvlXh2F1+Xod60h8RrCL5P4gqNS8gIpK6IZT8hO/A5j1ugPOh2urK1 SrK1/ft8wBhNVNOnKjDK 4Irr/DciG8tVMUepVR3P9ocfYkre7s/xr2DU/UqstmB8c/YQSZ/iCAMPoRzXluv/YiFSXPDs7YOrwQwn Bc4MH+15o6CSQb4YbKef a95BoKtTAzEXp/T/F1E4AQhIEbXT469QzYt8f/eU+nME5chY3ReEXGtgwE4e2Lcxtg78e/shubham+grcrwKi wevk9XjdLf1Y5V+oUUUV BoFFFFABRRRQAVn6/pth3Z8orM55X7pyavqLeSXmvI4o54D2edi/vngNRQ3bTFqpbX7OK/O1od3c2CsV Pc+fgSTk9I06S1K7HyTA LHCufckZJ/Ghp4IaRA339XiCyT72gAxiTluPAgB/yIxHiivy1Josmppky67YnOJUgTgQhN1m11JEsEm0 GYmKWHfur8YASA9NUtRs Nqvb5T2VfM4r7acg0Gl7yyqsMRHiolgBvUs4dKjNc0Isig6Sfa0gopk8UeaCDn2pg5KmJwd79HS7mWHa F+PP+R61T/rr/KG2x8ey qsfOlLgfrfvuHkuIo4ts/ketU/66/2EY0lg2lW9t5UqFt/DoY9g8kqscBIG8CDR0mrHLXY2gkCQMBShX f0rT/4Wp4m/57W//fgVN 3F0N76wwM9rkb7sb7stTVHEOVDYf6/Wuj/2K9Rc9JX0/wC/j09Vm5DHKys84WixEqiYpdOau0WIjfZqO N/6bz44yG6RtO73FRZgc tYsl5HC+Q5qH/Xuv/tDp8087Uj+UyNpeDDi1kSzgOWuBEs2ajRP/Bz/AJDmo/8AXuv/CFVI2jlmzp2a2 /BIwsakcelV+K+v3HWfF R8p89QMWqTJkRuEeWfpP/lXj/h2wTU/Jne6Ph7Uu4As6yqZ+bhavna/So5qqyMMK/7T5VZwizS495E2Aj6x IEurNY7GX5J4s4W8/rWG S1etdDqH9vmLgpbGP12/M+jUUHqMFwNWVEsOaGn4F43aHLJvkqaCriboNSGWPIVcerqUiuciPZUnaJKs R8zuLCZptdo8jx6ByYB0 VuSeZboskbJZ8ipzZ0A4y+SH6GeYf7o7C1XDml1+UT2Pt/KvSfE/ju64H6DkG2+EOxjeaNKGyH8fubr3 X/C+amCXsj7iB3b3+SdB zSK27vN20ZAvMtUD6fH4/rU+XxFCtga/tqXw/5ho7FbfZpzJNjtCUT1ABsFZRD7YFOKUfTfUzOhLShnj o9PQ1LQjZbcsjLOrcU2p T9xrdOie/kaLvU76/r2tsiv0W7NPCfy+dYf2TK/xaG/0hM8ku93Fq/jB78n4uw1Q4lh5wcNrm8boT0H6 h+ex34B5WetZmMpOHCb9 mRRoi1Ou1Xn9QFfAseQDZh3U7MDsAo353sKMXj1+ts6Cye5Ho/CLzo9eUuui2uxpOIP/vFYjo40avz5K sqW/wHRzEJDMq26b4wz3 I8JYrGoXMlXVG+ffHn/PTZIya4TRX+mh1Zx837kG/iutU/66/0FcmU/fw5GqxE0DDw+h6L8H/8AkVbr/ r8b/wBBWu/rgPg//wAir df9fjf+ywSv3y8v/eJ+p3YD/cKkd232Pn2CbSKK/r1/9mNSfBz/AJDmo/8AXuv/AKFUfxh/5GWy/wCvX /2Y1J8G/wDkOaj/ANe6/ wDoVes/+Az3m7UIG/I0+o1QrUt5OIeKmERyx9RbNlWcV9r+cmYF2Vh4zirBa5aInJfcj+kz0aCqZ673E x+JF+22BWLUUXHPCzAdA ff3rhy/RXyPlliw4nshuw1ILWoJx+RkgDz3zvIhpugqYpVvIk2eyuj1MNN/hs1UQTXMGFJVhekjSHYxu Rjat8RtvWwEF690ng8Xx Y2mRnIn6tCaSHq6I8JQDhcbdXRbQc7PR95YCbaUQjtwISLGsf07n6wh6RWnS127AzNDMXOUmOE5RJmyy pQxE7yCXnlAco1G/fSOM uaLYhGc8fV9faMc+iX3rj1MSGhAH9ZobU4H+GrA9DVWVuyPFO+e4kGEX/E+tpv0pWrugur9FpxaE3mKP 2/T397tLVYRaIfkhLrTm Gj7n5BvFkuF+bfbm1gy/IPmugmwxlVyCI0JEiR/VHeEcJfW4yO6qh8SX07Qp+/WPHGOv3DkazqLgeuoY CXCdfxnIw2IzJjHW7P3w vfw4rjY0WFXxSCBZXI7YKITu33nIABrlXyKkvp/is5wjYkaO1W2aHSuK0BqU9lgDGvD7+21JJKK0Jfkq Fg9ctBM9VEfzsTAXqK9v GR6PQ02mmFGbMEMA856E1O7wDbdFaAujTVLk3aYr7IxGUAr7QnQrUXerDo+BlD2Aesdduu9aGGDl9jrw BO2MhJwUaftJBvem2H09 uuapkq7kIp1WvY3q30aGGuC/a2+vvWvtqtrcz+8w+x5h92G9s3LLNgBlceDgRj1PeUpB5DjfrFTftJt2 lPBpw7PUA8Vl5q2zmQCw n5U2Wiy/ExjtMyoBjkSeGg8sztb73nNZhZGMcAVaUYmvsfXSDaEF5osx3c5kbMoNHm7bNEublcQwX+px UWR7qghm8vibXk4fjevP MRf7wsADG8mH7WiLy8hd7ym89tkGyuPC0ZqeYv5iEVDmL3KLMB32vfTVa7WuavI9q6zVmrrmAQSJWYhd 26KOG7rTjtFGOSKlfM9u 3KyYFRaXBt9LUZmnU4fB73O8tuJkQ0O7x9QPIrDMzVvovn6UcA6YV73lzWOYakNjsrN7cgs5y8tt0YD3 fOZfewKr0aWOZC3kAtC6 FPRoSjbt5FyQdIa9nMByY0Y0PcAFKrcsHqYuwqp1og1FoqyN6Noqd6oR4HY7HQJDtlNyTVBZzQIV1Bl1 20+X8xgHDW04I0ofmhxO z5Jsq2aB7PjdiXTpylI5tGi9I3RAo6rS5vRzJSlRhF8yTtiYaogfsdUGiaRE2pe+b7y2Cjcl++KRR1F5 RMehSqFlE3Qwk00FJ3HZ n0TnF0b6idfjD94WCd+fL1n1xCvR1Cq4hmXhpOagZ1WojXsIQsN+7sBH5R42xyuTHJ9Prn2CnVPK2dUI yxL02fnmS/SpwEyifD6G w+ArMQ3UBgkGTJZPjE4bokC5CKhFrlUmn/557387bYFBpihnXXFzNvx6tHmzYqsjYMmkCgp6wdEccvHw J1k10Wznim5J0v57oEN1 nZzhN9zqRaDLoOi3x9WhXWWZManl7ZuIHaQLwQZK5pxN2NoWK+fCgYYIUz2oQhdTdkcDtBHAqoA9b9Ii sKKKKACiiigAooooAKiu rEV5hNa0kWZSHIVIz4V7Wr8TEyHbIOs44KCY7H9LEWC53cR2xMkmHidplmNWff06jOBWnbS68RwOyQ6d Rnf8o8AoEGasyLCtrGXS zM9a6tbynVXeBEV8uVsm4rAONmYYW+78vy/PLl6EieF2X/LDK1O7q7G7ns0C/T/AHD+p4yGK6SquUY1/ vhSNNqJeVUm4zD2MHpz7 Xer8bGMSBsJycEDD85tAnL76W7IqOaZ2igeB2o4Sz+3FmYxSNG7hardJbX6aedAac2yt1H+C/6xbFxt5 1dEmAc3m1kkxhQBFJZaE PMzJOMQ3ZvPfDCvxedOzYbzmhLFGBdPhVoVsahQBTNGFziM7QaFmvSdX6a2EeoiVuBIL+Bgo6tD6OuMm E4zFmeSMbYW0A8RGUcF8 FN+998H6h1715OFTA64JQYzL8eVb1wonuNQAUElkHQlINqreFcJI2lGfqjs1sEJvx4cMwqJcuBwDvaMp aerQzVolFWKgb5RbHZJx d88Fpl4Dx0/GXherZfH1N70rY+V5X+lxWbcOWhAe3k+xanFqi4UjwCz+cbox2mIrBIwN2Q16IS0FYbVi 061doW8gQIV9ouIXfgNg y/xwCO8RBcul+W5VUJpMjkmjtmpjyxp87g+IKW3tfypYIiRfwXaw2Nd6A0c2zsxB3fAMmL9Hp74EV2cC kbA4itYXMRvRQs0rCC/A CHkh3e6N8AUFne1wsFqmgcynvLc7m+Wry5uw9wK1rTDAHBT5iukhmxaPTf2xlQz9PcWfpCLT456akzuB WpiZkcgJFxn1j75DFzK4 nfDuGrh6bwaEhJE34sLHyl/xIRdn0XHpY7lc6cXqUQJ0Jjp4cnRDyPMc0ImBXuLCYYDwFTr4kpu3tw7p hiLpHosSVlWwFMDu2kv8 bLPHgWXPHufUdh5oO/5Xa40lrmvzL3W20v9MMyQp5fmZrCKiP7FzklneTBQdNEia24NG55DJV5IfimoI 4vbrY3RrnvHHEQjrwq5t m/CUgT4p3ckzaNCZ06zVeZMlCKuYOsF1in8GwyJaMysU9KWVdG1R2sQMQRMsDPon1Gl7I9Um49kIHpZi 4dmsXtVltniVvPcrcZbc ON5bOe/Jk9N26M5kJ0gHHSWfooQlv2sLpWPyabuAQnIu+IGZS70qcArkHE/edF+9/VxMYsp0j2sNmaqI ei1Iu1AImST8emiLJ1x4 L9WWJVFagHwV5tbSwdc4LKRMbZ5fHg+MWtpvT1uxkYHoUgT7hkruTNFa1NOR1NqZ7y2BAOSCJMDNFNHD DVKHEYoiCkXzWudc4rga N1x6JTMVIg4AObracZXCofhxwgFJTyq0kXbSDNYrVeuvKc3SILU0mPnuZpXOQhHj3GleQngrogqJHRsS eFiNMYZdYJQCKq5aaqeh igsbaKOUbZESFQHHoQBzRFplhbwSQwWVvFFJ9+ANeAs5HUtNewiHoL4jRvbgNWAkims0OSZMEb+Qpr6T o5n7ErTmnFlJytWoLFq/ zRV1nusDkQZgWQ7NHzehl69BMG7mJmLFXAWFSHNOFfXqNwBKMDAHBAXKRaDpvOnH5CwngD8gTClSq0rh MNeMByabDO6mquhHOFNx jRuHT8DEPdsa5UFJXJCzdDrdjz1ayzDGFPzdsFWgA7hUtNbeqot7RrXLv/39fbAK5miJeovQPouvmvYF y6ebEglY7beksSiTe2Tj o59jD9lMjluRYI57jutEx/cJzgrTnRt3uLzrN593h0JowJTbsHC3RQjo8bK5hKPCc3gaUq3CKdFvxkzt 4AY2QSXkdhd6cPl4wWcG Q9GDMzUM3PVxfctZXHRAJRitlgSvxejJFKTVSOimprPzgyyXQSKXHRuaqgFbicoGCXIBZRewbgBxvujM KKKKACiiigAooooAKKKKAP/2Q== ></span></div><div style= text-align:left >
&lt ;/div><div style= text-align:left >Patient Name: <span class= clinicalNot eMacroHighlighted id= [id number] macroname= PatientName sp antype= macro title= #PatientName LEWIS DURANT</span></div><div style= text- align:left >Patient : <span class= clinicalNoteMacroHighlighted id= [id number] macroname= PatientDateOfBirth spantype=& quot;macro title= #PatientDateOfBirth >1970</span></div><div style= text- align:left >Patient MRN: <span class= clinicalNoteMacroHighlighted id= [id number] macroname= PatientMRN spantype= macro" title= #PatientMRN >[id number]</span></div><div style= text-align :left >
</div><div style= text-align:left >Primary Oncologist: <span class= clinicalNoteMacroHighlighted id= [id number] macr oname= AttendingPhysician spantype= macro title= #AttendingPhysician&quot ;>Buddy Arguello (Medical Oncology)</span></div><div style= text-align:left >Referring Physician: <span class= clinicalNoteMacroHighlighted id= macr [id number] macroname= ReferringPhysician spantype= macro title=& quot;#ReferringPhysician >JAROD EMMANUEL</span></div><div style= text-ali gn:left >
</div><div style= text-align:left >Date of Service: 06/06/2025</div><div style= text-align:left >
</div><div style= text- align:left >
</div><div style= text-align:left ><span class= clinicalNoteSectionShowSeparators clinicalNoteSectionVisible id= s [id number] internalbreaksection= false originalname= Chief Complai nt recognizeconcepts= true spantype= section suppressempty= false">Chief Complaint</span>
<span class= clinicalNoteMacroHighlighted" id= [id number] macroname= Problems parameters= InitialCap:Y es,ListType:Bulleted,PrincipalOnly:Yes spantype= macro title= #Problems(Initia lCap:Yes,ListType:Bulleted,PrincipalOnly:Yes) > </span>&l t;br></div><div style= text-align:left >
</div><div style= text- align:left ><span class= clinicalNoteSectionShowSeparators clinicalNoteS ectionVisible id= [id number] internalbreaksection= false o riginalname= Problem List recognizeconcepts= true spantype= section suppressempty= false >Problem List</span>
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
Extent of Disease: Evidence of local disease; Disease State: Initial diagnosis; Histopathologic Type: Adenocarcinoma; Residual Tumor: R0; Completed Treatments: Subtotal colectomy; Localized Perforation at Diagnosis: Absent; Ordinal: Primary; )</li> <li>Solitary pulmonary nodule</li></ul>& lt;/span></div><div style= text-align:left >
<span class= clinicalNoteSectionShowSeparators clinicalNoteSectionVisible id= [id number] internalbreaksection= false originalname= HPI recognizeconcepts= true spantype= section suppressempty= false >HPI</span>
Malignant neoplasm of transverse colon (HCC)
Staging form: Colon and Rectum, AJCC 7th Edition
Clinical: Stage IIA (T3, N0, M0) - Signed by Cinthia Arguello MD on 04/13/2016
Prognostic indicators: MSI-H< br> </div><div style= text-align:left ><span class= clinic alNoteSectionShowSeparators clinicalNoteSectionVisible id= [id number] internalbreaksection= false originalname= Previous Therapies recognizeconcepts= true spantype= section suppressempty= false >Previous Therapies</span>
<div style= text- align:left >
LAR 03/03/16

</div></div><div style= text-align:left >
</div><div style= text-align:left ><span class= clinicalNoteSectionShowSeparators clinicalNoteSectionVisible id= [id number] internalbreaksection="false originalname= Current Therapy recognizeconcepts= true spantype="section suppressempty= false >Current Therapy</span></div><div style= text- align:left ><span class= clinicalNoteMacroHighlighted id=&qu ot;[id number] macroname= Regimens parameters= ShowPRNMedications: No,ShowPreMedications:No,RegimenFormat:Bulleted spantype= macro title= #Regime ns(ShowPRNMedications:No,ShowPreMedications:No,RegimenFormat:Bulleted) > &n bsp; </span>
</div><div style= text-align:left >Observatio n

</div><div style= text-align:left ><span cla ss= clinicalNoteSectionShowSeparators clinicalNoteSectionVisible id= [id number] internalbreaksection= false originalname= Interval History recognizeconcepts= true spantype= section suppressempty= false >Interval History</span></div><div style= text- align:left >
Here for annual follow up. No abdominal pain or weight loss. No bleeding symptoms. UTD c-scope.
</div><div style= text- align:left >
</div><div style= text-align:left ><span [facility]= [facility]NoteSeTrans[facility] HospitalowSarators clinicalNoteSectionVisible id= [id number] internalbreaksection= false originalname= Review of Systems recognizeconcepts= true spantype= section suppressempty= false >Review of Systems</span><span style= font-fa kulwant:[place],Helvetica,sans-serif ><span style= font-size:12px >
< strong>Constitutional: </strong> No weight loss, No fever, No chills, No night sweats. Energy level good.
<strong>Eyes: </strong> No impairment or change in vision
<strong>ENT / Mouth:</strong> No pain, abnormal ulceration, bleeding, nasal drip or change in voice or hearing
<strong>Cardiovascular:</strong> No chest pain, palpitations, new edema, or calf discomfort
<strong>Respiratory:</strong> No pain, hemoptysis, change to breathing
<strong>Breast:</strong> No pain, discharge, change in appearance or texture
<strong>Gastrointestinal:</strong> No pain, cramping, jaundice, change to eating and bowel habits
<strong>Urinary:</strong> No pain, bleeding or change in continence
<strong>Genitalia: </strong>No pain, bleeding or disch arge
<strong>Musculoskeletal:</strong> No redness, pain, edema or wea kness
<strong>Skin:</strong> No pruritus, rash, change to nodules or lesions
<strong>Neurologic: </strong> No discomfort, change in mental status, speech, sensory or motor activity
<strong>Psychiatric: </strong>&nb sp;No change in concentration or change to affect or mood
<strong>Endocrine:</strong> No hot flashes, increased thirst, or change to urine production
<strong>Hematologic:</strong> No petechiae, ecchymosis or bleeding
<strong>Lymphatic:</strong> No lymphadenopathy or lymphedema
<strong>Allergy / Immunologic:</strong> No eczema, hives, frequent or recurrent infections</span></span>

</div><div style= text-align:left ><div><span class= clinicalNoteSectionShowSeparators clinicalNoteSectionVisible id="[id number] internalbreaksection= false originalname= Vital Signs recognizeconcepts= true spantype= section suppressempty= false">Vital Signs</span>
<span class= clinicalNoteMacroHighlighted id= [id number] macroname= PatientVitalSigns parameters= LookBackDays:0 spantype= macro title= #PatientVitalSigns(LookBackDays:0) >Blood pressure: 144/87, Pulse: 72, Temperature: 98.2 F, Respirations: 16, O2 sat: , Pain Scale: 0, Height: 69 in, Weight: 232.6 lb, BSA: 2.27, BMI: 34.35 kg/m2</span></div></div><div style= text-align:left >
</div><div style= text-align:left"><span class= clinicalNoteSectionShowSeparators clinicalNoteSectionVisible id=&qu ot;[id number] internalbreaksection= false originalname= Physical Exam recognizeconcepts= true spantype= section suppressempty= false >Physical Exam</span></div><div style= text-align:left >
</div><div style= text- align:left ><div style= text-align:left"><div style= text-align:left ><div style= text-align:left ><div style= text-align:left ><div style= text- align:left ><div style= text-align:left ><div style= text-align:left ><div style= text-align:left ><div style= text-align:left ><strong>CONSTITUTIONAL: < /strong>awake, alert, cooperative, no apparent distress </div><div style= text-align:left ><strong>EYES</strong>: pupils equal, round and reactive to ligh t, sclera clear and conjunctiva normal</div><div style= text-align:left ><s virgen>ENT</strong>: Normocephalic, without obvious abnormality, atraumatic</div><div style= text-align:left ><strong>NECK:</strong> supple, symmetrical, no jugular venous distension and no carotid bruits </div><div style= text-align:left ><strong>HEMATOLOGIC/LYMPHATIC</strong>: no cervical, supraclavicular or axillary lymphadenopathy </div><div style= text-align:left ><strong>LUNGS</strong>: no increased work of breathing and clear to auscultation </div><div style= text-align:left ><strong>CARDIOVASCULAR</strong>: regular rate and rhythm, normal S1 and S2, no murmur noted</div><div style= text-alig n:left ><strong>ABDOMEN</strong>: normal bowel sounds x 4, soft, non-distended, non-tender, no masses palpated, no hepatosplenomegaly </div><div style= text-align:left ><strong>MUSCULOSKELETAL</strong>: full range of motion noted, tone is normal</div><div style= text-align:left ><strong>NEUROLOGIC: </strong>awake, alert, oriented to name, place and time. Motor skills grossly intact. </div><div style= text-align:left ><strong>SKIN</strong>: Normal skin color, texture, turgor and no jaundice. appears intact </div><div style= text-align:left ><strong>EXTREMITIES: </strong>no LE edema </div></div></div></div></div></div></div>
</div></div>&l t;br>
</div><div style= text-align:left >
</div><div style= text- align:left ><span class= clinicalNoteSectionShowSeparators cli nicalNoteSectionVisible id= [id number] internalbreaksection= fal se originalname= Labs recognizeconcepts= true spantype= section" suppressempty= false >Labs</span>
<span class= clinicalNoteMacroHighlighted id= [id number] macroname= RecentLabResultsTable" parameters= OptionalFlowsheetCategory:CBC,Label:CBC spantype= macro title=& quot;#RecentLabResultsTable(OptionalFlowsheetCategory:CBC,Label:CBC) >CBC<table border="1 style= width:100% > <tbody> <tr> <th align= left >Lab Results</th> <td>06/06/2025</td> <td>06/07/2024</td> <td>05/17/2023</td> <td>05/11/2022</td> <td>05/06/2021</td> <td>01/21/2021</td> </tr> <tr> <th align= left > CBC</th> <td>
</td> <td>
</td> <td>
< /td> <td>
</td> <td>
</td> <td>
</td> </tr> <tr> <td> WBC x 10^3/uL</td> <td>7.6</td> <td>7.3</td> <td>6.8</td> <td>6.6</td> <td>7.3</td> <td>8.0</td> </tr> <tr> <td> &a mp;nbsp; RBC x 10^6/uL</td> <td>4.35</td> <td>4.32</td> <td>4.29</td> <td>4.40</td> <td>4.42</td> <td>4.40</td> </tr> <tr> <td> HGB g/dL</td> <td>13.0</td> <td>12.8</td> <td>12.6</td> <td>13.0</td> <td>13.1</td> <td>13.2</td> </tr> <tr> <td>&nbs p; HCT %</td> <td>39.0</td> <td>39.0</td> <td>38.1</td> <td>39.5</td> <td>38.8</td> <td>39.2</td> </tr> <tr> <td> MCV fL</td> <td>89.7</td> <td>90.3</td> <td>88.8</td> <td>89.8</td><td>87.8</td> <td>89.1</td> </tr> <tr> <td> & nbsp; MCH pg</td> <td>29.9</td> <td>29.6</td> <td>29.4</td> <td>29.5</td> <td>29.6</td> <td>30.0</td> </tr> <tr> <td> MCHC g/dL</td> <td>33.3</td> <td>32.8</td> <td>33.1</td> <td>32.9</td> <td>33.8</td> <td>33.7</td> </tr> <tr> <td> RDW-CV, %</td> <td>12.6</td> <td>13.0</td> <t d>13.3</td> <td>13.0</td> <td>13.0</td> <td>13.2</td> </tr> <tr> <td> PLT x 10^3/uL</td> <td>279</td> <td>282.0</td> <td>272.0</td> <td>281.0</td> <td>272.0</td> <td>260.0</td> </tr> <tr> <td> Ashok %</td> <td>59.6</td> <td>56.2</td> & lt;td>57.2</td> <td>57.9</td> <td>57.5</td> <td>64.0</td> </tr> <tr> <td> LY %</td> <td>30.2</td> <td>31.7</td> <td>32.6</td> <td>28.3</td> <td>32.0</td> <td>24.5</td> </tr> <tr> <td> MO %</td> <td>7.1</td> <td>7.4</td> <td>6.3</td> <td>7.4</td> <td>6.4</td> <td>8.0</td> </tr> <tr> <td> EO %</td> <td>2.6</td> <td>4.0</td> <td>3.5</td> <td>5.9 (H)</td> <td>3.8</td> <td>3.0</td> </tr> <tr> <td> &nb sp;BA %</td> <td>0.5</td> <td>0.7</td> <td>0.4</td> <td>0.5</td> <td>0.3</td> <td>0.5</td> </tr> <tr> <td> IG %</td> <td>0.0</td> <td>
</td> <td>
</td> <td>
</td> <td>
</td> <td>
</td> </tr> <tr> <td> Ashok # (ANC) x 10^3/uL</td> <td>4.53</td> <td>4.07</td> <td>3.87</td> <td>3.85</td> <td>4.22</td> <td>5.13</td> </tr> <tr> <td> LY # x 10^3/uL</td> <td>2.30</td> <td>2.30</td> <td>2.21</td> <td>1.88</td> <td>2.35</td> <td>1.96</td> </tr> <tr> <td> MO # x 10^3/uL</td> <td>0.54</td> <td>0.54</td> <td>0.43</td> <td>0.49</td> <td>0.47</td> <td>0.64</td> </tr> <tr> <td> EO # x10^3/uL</td> <td>0.20</td> <td>0.29</td> <td>0.24</td> <td>0.39 (H)</td> <td>0.28</td> <td>0.24</td> </tr> <tr> <td> BA # x 10^3/uL</td> <td>0.04</td> <td>0.05</td> <td>0.03</td> <td>0.03</td> <td>0.02</td> <td>0.04</td> </tr> <tr> <td> IG # x 10^3/uL</td> <td>0.00</td> <td>
</td> <td>
</td> <td>
</td> <td>
</td> <td>
</td> </tr> </tbody></table></span></div><div style= text-align:left ><span class= clinicalNoteMacroHighlighted id= [id number] macroname= RecentLabResultsTable parameters= OptionalFlo wsheetCategory:Chemistries,Label:CMP spantype= macro title= #RecentLabResultsT able(OptionalFlowsheetCategory:Chemistries,Label:CMP) >CMP<table border= 1 sty le= width:100% > <tbody> <tr> <th align= left >Lab Results</th> <td>06/06/2025</td> <td>06/07/2024</td> <td>05/17/2023</td> <td>05/11/2022</td> <td>05/06/2021</td> <td>01/21/2021</td> </tr> <tr> <th align= left > Chemistries</th> <td>
</td> <td>
</td> <td>
</td> <td>
</td> <td>
</td> <td>
</td></tr> <tr> <td> Glucose mg/dL</td> <td>
</td> <td>92</td> <td>95</td> <td>78</td> <td>88</td> <td>87</td> </tr> <tr> <td> &n bsp; BUN mg/dL</td> <td>
</td> <td>18</td> <td>19</td> <td>14</td> <td>13</td> <td>16</td> </tr> <tr> <td> Creatinine mg/dL</td> <td>
</td> <td>0.75</td> <td>0.69</td> <td>0.71</td> <td>0.73</td> <td>0.67</td> </tr> <tr> <td> BUN/Creatinine ratio</td> <td>
</td> <td>24.0</td> <td>27.5 (H)</td> <td>19.7</td> <td>17.8</td> <td>23.9</td> </tr> <tr> <td> Sodium mmol/L</td> <td>
</td> <td>142</td> <td>141</td> <td>142</td> <td>139</td> <td>141</td> </tr> <tr> <td> Potassium mmol/L</td> <td>
</td> <td>4.8</td> <td>4.1</td> <td>4.0</td><td>4.3</td> <td>4.5</td> </tr> <tr> <td> Chloride mmol/L</td> <td>
</td> <td>105</td> <td>103</td> <td>105</td> <td>103</td> <td>106</td> </tr> <tr> <td> CO2 mmol/L</td> <td>
</td> <td>29.3</td> <td>31.1 (H)</td> <td>29.9</td> <td>27.0</td> <td>29.9</td> </tr> <tr> <td& gt; Anion gap, mmol/L</td> <td>
</td> <td>7.7</td> <td>6.9</td> <td>7.1</td> <td>9.0</td> <td>5.1</td> </tr> <tr> <td> Calcium mg/dL</td> <td>
</td> <td>10.0</td> <td>9.6</td> <td>9.4</td> <td>9.4</td> <td>9.6</td> </tr> <tr> <td> Albumin g/dL</td> <td>
</td> <td>4.2</td> <td>4.2</td> <td>3.9</td> <td>4.4</td> <td>4.1</td> </tr> <tr> <td> Total protein g/dL</td> <td>
</td> <td>7.6</td&g t; <td>7.6</td> <td>6.9</td> <td>7.3</td> <td>7.2</td> </tr> <tr> <td> A/G ratio</td> <td>
</td> <td>1.2</td> <td>1.2</td> <td>1.3</td> <td>1.5</td> <td>1.3</td> </tr> <tr> <td> &a mp;nbsp; Bilirubin, total mg/dL</td> <td>
</td> <td>0.5</td> <td>0.7</td> <td>0.7</td> <td>0.5</td> <td>0.7</td> </tr> <tr> <td> Alkaline phosphatase U/L</td> <td>
</td> <td>87</td> <td>70</td> <td>78</td> <td>93</td> <td>87</td> </tr> <tr> <td> AST/SGOT U/L</td> <td>
</td> <td>20</td> <td>16</td> <td>14</td> <td>21</td> <td>17</td> </tr> <tr> <td> ALT/SGPT U/L</td> <td>
</td> <td>17</td> <td>11</td> <td>9 (L)</td> <td>15</td> <td>10</td> </tr> <tr> <td> GFR non-, estimated mL/mi n/1.73m2</td> <td>
</td> <td>
</td> <td>>60.0</td> <td>>60.0</td> <td>>60.0</td> <td>>60.0</td> </tr> <tr> <td> GFR , estimated mL/min/1.73m2</td> <td>
</td> <td>
</td> <td>>60.0</td> <td>>60.0</td> <td>>60.0</td> <td>>60.0</td> </tr> <tr> <td> eGFR, mL/min/1.73</td> <td>
</td> <td>& amp;gt;60.0</td> <td>
</td> <td>
</td> <td>
</td> <td>
</td> </tr> </tbody></table></span></div><div style= text-align:left ><span class= clinicalNoteMacroHighlighted id= [id number] macroname= RecentLabResultsTable" parameters= OptionalFlowsheetCategory:Tumor Markers spantype= macro title = #RecentLabResultsTable(OptionalFlowsheetCategory:Tumor Markers) ><table border="1 style= width:100% > <tbody> <tr> <th align= left >Lab Results</th> <td>06/06/2025</td> <td>06/07/2024</td> <td>05/17/2023</td> <td>05/11/2022</td> <td>05/06/2021</td> <td>01/21/2021</td> </tr> <tr> <th align= left > Tumor Markers</th> <td>
</td> <td>
</td> <td>
</td> <td>
</td> <td>
</td> <td>
</td> </tr> <tr> <td> CEA ng/mL</td> <td>
</td> <td>0.53</td> <td>0.50</td> <td>0.64</td> <td>0.50</td> <td>0.64</td> </tr> </tbody>& lt;/table></span></div><div style= text-align:left ><span class=&q uot;clinicalNoteMacroHighlighted id= [id number] macroname= RecentL abResultsTable parameters= OptionalFlowsheetCategory:Coags spantype= macro&quo t; title= #RecentLabResultsTable(OptionalFlowsheetCategory:Coags) > </span></div><div style= text-align:left ><span class=&quot ;clinicalNoteMacroHighlighted id= [id number] macroname= RecentLabR esultsTable parameters= OptionalFlowsheetCategory:Immunohematology spantype= m acro title= #RecentLabResultsTable(OptionalFlowsheetCategory:Immunohematology) >& amp;nbsp; </span></div><div style= text-align:left ><span class= clinicalNoteMacroHighlighted id= [id number] macrona me= RecentLabResultsTable parameters= OptionalFlowsheetCategory:Anemia Labs sp antype= macro title= #RecentLabResultsTable(OptionalFlowsheetCategory:Anemia Labs)"> </span></div><div style= text-align:left&q uot;>
</div><div style= text-align:left ><span class= clin icalNoteSectionShowSeparators clinicalNoteSectionVisible id= [id number]" internalbreaksection= false originalname= Imaging recognizeconcepts= true spantype= section suppressempty= false >Imaging</span>
<div style= text- align:left >
<strong>CT CAP 10/2016:</strong>
1. Status post resection of the ascending colon without evidence of local recurrence ormetastatic disease.
2. 1.9 x 1.cm fluid density lesion within the right aspect of the pelvic cul-de-sac, decreased in size prior.This likely represents a small postoperative hematoma.

<strong>CT CAP 04/2017: </strong>Full report scanned. 3 mm pulm nodule, suspected granulomatous changes, recommend repeat in 6 monyhs, otherwise unchaged.
</div><div style= text- align:left >
<strong>CT CAP 12/20:</strong>
Stable exam of the chest, ABD, pelvis without any evidence of metastatic disease
</div>
<div style= text-align:left ><strong>CT CAP 12/2019 - </strong>scanned into EMR - [facility]

<strong>CT CAP 01/12/21: </strong>full report scanned into EMR - new 4.5 mm LLL nodule - likely inflamm, cannot exclude met disease, o/w [facility]

<strong>CT CAP 04/16/21 - </strong>LLL nodule less conspicuous. No further follow up needed. Likely inflammatory (full report scanned)
</div></div><div style= text-align:left >
</div><div style= text-align:left >
</div><div style= text-align:left ><span class= clinicalNoteSectionShowSeparators clinicalNoteSectionVisible id= [id number] internalbreaksection= false originalname= Pain Care Plan recognizeconcepts= true spantype= section suppressempty= false >[facility] - Patient Care Management</span>

<strong>Pain, if applicable:</strong> <span class= clinicalNoteMacroHighlighted id= [id number] macroname= PatientPainCarePlan parameters= LookBackDays:0,ShowComments:Yes spantype= macro title=&qu ot;#PatientPainCarePlan(LookBackDays:0,ShowComments:Yes) > < /span>

<strong>Performance Status: </strong><span clas s= clinicalNoteMacroHighlighted id= [id number] macroname= ECO GStatus parameters= Label:ECOG spantype= macro title= #ECOGStatus(L rachelle:ECOG) >ECOG 0 Normal activity. Fully active, able to carry on all pre- disease performance without restriction. (Date: 06/06/2025)</span> <span class= clinicalNoteMacroHighlighted id= [id number] macroname= KarnofskyStatus parameters="Label:Karnofsky spantype= macro title= #KarnofskyStatus(Label:Karnofsky)"></span>

<strong>Depression Status: </strong><span class= clinicalNoteMacroHighlighted id= [id number] macroname= DepressionStatus spantype= macro title= #DepressionStatus >Was screened; Outcome positive: No; Screening Date: 05/17/2023; Screening Tool: Patient Health Questionnaire (PHQ9); Total depression score: 0</span>
</div><div style= text-align:left >
</div><div style= text-align:left ><strong>Psycho-social PHQ-9 Follow-up Plan (if applicable):</strong>
</div><divstyle= text-align:left >
<span class= clinicalNoteSectionShowSeparators clinicalNoteSectionVisible id= [id number] internalbreaksection="false originalname= Research recognizeconcepts= true spantype= section suppressempty= false >Research</span>

Would you like this patient screened for clinical trial eligibility? If yes, please enter the order for Research: Screen for Eligibility

</div><div style= text- align:left ><span class= clinicalNoteSectionShowSeparators clinicalNoteSectionVisible id= [id number] internalbreaksection= false originalname= Assessment & Plan recognizeconcepts= true spantype= section" suppressempty= false >Assessment & Plan</span>
<strong>1. Stage IIA Colon Cancer (T3N0)</strong>

- s/p LAR 03/03/16
- per NCCN guidelines, no role for chemotherapy with MSI-H stage II tumor
- will plan to monitor CBC, CMP, CEA q 3 months x 2 years then q 6 months
- concern raised for Umanzor syndrome with MSI-H tumor and family history --Tested negative via genetics
- CT scan 12/20 did not demonstrate any evidence of recurrence of her disease
- CT scan 01/2020 with stable pulmonary nodules since 2016 and CHARLES
- CT scan 01/2021 showed new 4.5 mm nodule LLL - did have recent URI
- too small for PET/biopsy
- CT chest 04/2021 showed nodule less conspicuous - no further follow up required
- [facility] at appt 05/11/22, 05/17/2023
- c- scope negative 06/2022 - repeat due this year (06/2025) - she is working to schedule
- labs stable
- last CEA 0.5, pending today
- FU 1 year and recheck CEA
- repeat imaging prn</div><div style= text-align:left >
</div><div style= text-align:left >
<span class= clinicalNoteSectionShowSeparators clinicalNoteSectionVisible id= [id number] internalbreaksection= false originalname= Time Based Itemization recognizeconcepts= true" spantype= section suppressempty= false >Time Based Itemization</span>

A total of minutes was spent on today's patient encounter.
If applicable, koc-tzxankl-ciayal activities:
( ) Preparing to see the patient and reviewing records
& amp;nbsp;( ) Individual interpretation of results&a mp;nbsp;
( ) Discussion or coordination of care with other health hearing healthcare practitioner
( &am p;nbsp;) Ordering of unique tests, medications, or procedures
( ) Documentation within the EHR
</div><div style= text-align:left ><span class= clinicalNoteSectio nShowSeparators clinicalNoteSectionVisible id= [id number] internalbreaksection= false originalname= . recognizeconcepts= true spantype="section suppressempty= false >.</span>
Recent imaging and lab s were reviewed and discussed with the patient.

<strong>Buddy Argulelo MD
[facility], Medical Oncology</strong>

Online: [email or web address]

Note Recipients: <br&g t;<span class= clinicalNoteMacroHighlighted id= [id number] macr oname= NoteRecipients spantype= macro title= #NoteRecipients >&am p;nbsp; </span>
</div><div style= text-align:left"><span style= font-size:12px ><span style= font-family:[place],Helvetica ,sans-serif ></span></span></div></div>

<div><span class= eSignSignature >Electronically signed by Buddy Arguello MD 06/06/2025 16:43 EST</span></div></body></html>
--- OUTSIDE RECORDS SUMMARY | 2025-07-02 14:24 | XMS_ITS | CCD ---
Author Name Interface, [id number] lity Address [address] [place] [address] Organization [facility] Address [address] [place] [address] Care Team Providers [employer] Supervisor Name Role Phone Saundra PATEL, Buddy Barber [...] ECOG performance status - grade 1 1 01/09/2019 ECOG performance status - grade 0 0 05/06/2021 ECOG performance status - grade 0 0 01/08/2020 ECOG performance status - grade 0 0 06/13/2018 ECOG performance status - grade 0 0 06/06/2025 ECOG performance status - grade 0 [...] hatas e U/L 46.0 116.0 77 FINAL [facility] ([facility]), [address] [place] [address] 06/06 CMP - Core Lab Calci um mg/dL 8.7 10.6 9.6 FINAL [facility] ([facility]), [address] [place] [address] 06/06 CMP - Core Lab ALT/S GPT U/L 10.0 49.0 11 FINAL [facility] ([facility]), [address] [place] [address] 06/06 CMP - Core Lab A/G ratio 1.0 2.0 1.6% FINAL [facility] ([facility]), [address] [place] [address] 06/06 CMP - Core Lab CO2 mmol/L 20.0 31.0 28.0 FINAL [facility] ([facility]), [address] [place] [address] 06/06 CMP - Core Lab Gluco se mg/dL 74.0 106.0 92 FINAL [facility] ([facility]), [address] [place] [address] 19446 06/06 CMP - Core Lab Anion gap, mmol/ L mmol/L 4.0 15.0 9.0 FINAL [facility] ([facility]), [address] [place] [address] [place] [address] 06/06 CMP - Core Lab eGFR, mL/mi n/1.7 3 mL/min /1.73m >60.0 FINAL [facility] ([facility]), [address] [place] [address] [place] [address] 06/06 CMP - Core Lab Chlor nahed mmol/L 98.0 107.0 104 FINAL [facility] ([facility]), [address] [place] [address] 06/06 CMP - Core Lab Total prote in g/dL 5.7 8.2 7.3 FINAL [facility] ([facility]), [address] [place] [address] [place] [address] 06/06 CMP - Core Lab BUN mg/dL 9.0 23.0 19 FINAL [facility] ([facility]), [address] [place] [address] [place] [address] 06/06 CMP - Core Lab Creat inine mg/dL 0.55 1.02 0.75 FINAL [facility] ([facility]), [address] [place] [address] [place] [address] 06/06 CMP - Core Lab AST/S GOT U/L 0.0 34.0 17 FINAL [facility] ([facility]), [address] [place] [address] [place] [address] 06/06 CMP - Core Lab Album in g/dL 3.4 5.0 4.5 FINAL [facility] ([facility]), [address] [place] [address] [place] [address] 06/06 CMP - Core Lab Bilir ubin, total mg/dL 0.3 1.2 0.6 FINAL [facility] ([facility]), [address] [place] [address] [place] [address] 06/06 CMP - Core Lab Sodiu m mmol/L 136.0 145.0 141 FINAL [facility] ([facility]), [address] [place] [address] [place] [address] 06/06 CMP - Core Lab BUN/C reati nine ratio 0.0 25.0 25.3% High FINAL [facility] ([facility]), [address] [facility] [address] 06/06 CMP - Core Lab Potas sium mmol/L 3.4 5.1 4.8 FINAL [facility] ([facility]), [address] [facility] [address] 06/06 CBC w/ auto diff Ashok # (ANC) 10*3/u L 1.56 6.13 4.53 FINAL [facility] ([facility]), [address], [address] [place] [address] 06/06 CBC w/ auto diff MO # 10*3/u L 0.24 0.86 0.54 FINAL [facility] ([facility]), [address], [address] [place] [address] 06/06 CBC w/ auto diff IG % % 0.0 2.0 0.0 FINAL [facility] ([facility]), [address], [address] [place] [address] 06/06 CBC w/ auto diff MCV fL 79.4 94.8 89.7 FINAL [facility] ([facility]), [address], [address] [place] [address] 06/06 CBC w/ auto diff IG # 10*3/u L 0.0 0.2 0.00 FINAL [facility] ([facility]), [address], [address] [place] [address] 06/06 CBC w/ auto diff MO % % 4.7 12.5 7.1 FINAL [facility] ([facility]), [address], [address] [place] [address] 06/06 CBC w/ auto diff EO # 10*3/u lL 0.04 0.36 0.20 FINAL [facility] ([facility]), [address], [address] [place] [address] 06/06 CBC w/ auto diff EO % % 0.7 5.8 2.6 FINAL [facility] ([facility]), [address], [address] [place] [address] 06/06 CBC w/ auto diff RBC 10*6/u L 3.93 5.22 4.35 FINAL [facility] ([facility]), [address], [address] [place] [address] 06/06 CBC w/ auto diff WBC 10*3/u L 4.0 10.0 7.6 FINAL [facility] ([facility]), [address], [address] [place] [address] 06/06 CBC w/ auto diff PLT 10*3/u L 182.0 369.0 279 FINAL [facility] ([facility]), [address], [address] [place] [address] 06/06 CBC w/ auto diff BA % % 0.1 1.2 0.5 FINAL [facility] ([facility]), [address], [address] [place] [address] 06/06 CBC w/ auto diff BA # 10*3/u L 0.01 0.08 0.04 FINAL [facility] ([facility]), [address], [address] [place] [address] 06/06 CBC w/ auto diff HGB g/dL 11.2 15.7 13.0 FINAL [facility] ([facility]), [address], [address] [place] [address] 06/06 CBC w/ auto diff RDW-C V, % % 11.7 14.4 12.6 FINAL [facility] ([facility]), [address], [address] [place] [address] 06/06 CBC w/ auto diff LY % % 19.3 51.7 30.2 FINAL [facility] ([facility]), [address], [address] [place] [address] 06/06 CBC w/ auto diff LY # 10*3/u L 1.18 3.74 2.30 FINAL [facility] ([facility]), [address], [address] [facility] [address] 06/06 CBC w/ auto diff MCH pg 25.6 32.2 29.9 FINAL [facility] ([facility]), [address], [address] [facility] [address] 06/06 CBC w/ auto diff MCHC g/dL 32.2 35.5 33.3 FINAL [facility] ([facility]), [address], [address] [facility] [address] 06/06 CBC w/ auto diff HCT % 34.1 44.9 39.0 FINAL [facility] ([facility]), [address], [address] [facility] [address] 06/06 CBC w/ auto diff Ashok % % 34.0 71.1 59.6 FINAL [facility] ([facility]), [address], [address] [facility] [address] 06/06 CEA panel CEA ng/mL < 2 FINAL [facility] ([facility]), [address] [facility] [address] Medications Date Name Route Dose Frequency Instructions [...] Name Instructions Status 06/26/2025 Physician Order RTC SPECIAL PROCEDURES TECH/PA Ordered 06/06/2026 Physician Order RTC SPECIAL PROCEDURES TECH/PA Ordered Social History Date Name Value 11/22/2016 [...] spantype= macro" title= #PracticeLetterhead ><img src= data:image/jpeg;base64,/[email or web address]/4AAQSkZJR gABAQEAYABgAAD/2LYqKSoxMvKPPE6NNfRBTDsOVYG7VKRKOZSXOVWTGdtxJSCAAESMKBEWDMcwEWGOA HOyWNWK4AyoBEcGBCqMD AASEaOJXLDp8tPDLDbOUFLKSYPBGBOXREJXLXQFYIPZQWHKZNDKSCGPUZIYUCFIWJHJFIJLLQOFKMKMD AAAAAAAAAAAAAAAAAAAA AAAAAAAAAAAAAAAAAAAAAAAAAAAAAAAAAAAAAAAAAAAAAAAAAAAAAAAAAAAAAAAAAAAAAAAAAAAAAAAA AAAAAAAAAAAAAAAAAAAA AAAAAAAAAAAAAAAAAAAAAAAAAAAAAAAAAAAAAAAAAAAAAAAAAAAAAAAAAAAAAAAAAAAAAAAAAAAAAAAA AAAAAAAAAAAAAAAAAAAA AAAAAAAAAAAAAAAAAAAAAAAAAAAAAAAAAAAAAAAAAAAAAAAAAAAAAAAAAAAAAAAAAAAAAAAAAAAAAAAA AAAAAAAAAAAAAAAAAAAA AAAAAAAAAAAAAAAAAAAAAAAAAAAAAAAAAAAAAAAAAAAAAAAAAAAAAAAAAAAAAAAAAAAAAAAAAAAAAAAA AAAAAAAAAAAAAAAAAAAA AAAAAAAAAAAAAAAAAAAAAAAAAAAAAAAAAAAAAAAAAAAAAAAAAAAAAAAAAAAAAAAAAAAAAAAAAAAAAAAA AAAAAAAAAAAAAAAAAAAA AAAAAAAAAAAAAAAAAAAAAAAAAAAAAAAAAAAAAAAAAAAAAAAAAAAAAAAAAAAAAAAAAAAAAAAAAAAAAAAA AAAAAAAAAAAAAAAAAAAA AAAAAAAAAAAAAAAAAAAAAAAAAAAAAAAAAAAAAAAAAAAAAAAAAAAAAAAAAAAAAAAAAAAAAAAAAAAAAAAA AAAAAAAAAAAAAAAAAAAA AAAAAAAAAAAAAAAAAAAAAAAAAAAAAAAAAAAAAAAAAAAAAAAAAAAAAAAAAAAAAAAAAAAAAAAAAAAAAAAA AAAAAAAAAAAAAAAAAAAA AAAAAAAAAAAAAAAAAAAAAAAAAAAAAAAAAAAAAAAAAAAAAAAAAAAAAAAAAAAAAAAAAAAAAAAAAAAAAAAA AAAAAAAAAAAAAAAAAAAA AAAAAAAAAAAAAAAAAAAAAAAAAAAAAAAAAAAAAAAAAAAAAAAAAAAAAAAAAAAAAAAAAAAAAAAAAAAAAAAA AAAAAAAAAAAAAAAAAAAA AAAAAAAAAAAAAAAAAAAAAAAAAAAAAAAAAAAAAAAAAAAAAAAAAAAAAAAAAAAAAAAAAAAAAAAAAAAAAAAA AAAAAAAAAAAAAAAAAAAA AAAAAAAAAAAAAAAAAAAAAAAAAAAAAAAAAAAAAAAAAAAAAAAAAAAAAAAAAAAAAAAAAAAAAAAAAAAAAAAA AAAAAAAAAAAAAAAAAAAA AAAAAAAAAAAAAAAAAAAAAAAAAAAAAAAAAAAAAAAAAAAAAAAAAAAAAAAAAAAAAAAAAAAAAAAAAAAAAAAA AAAAAAAAAAAAAAAAAAAA AAAAAAAAAAAAAAAAAAAAAAAAAAAAAAAAAAAAAAAAAAAAAAAAAAAAAAAAAAAAAAAAAAAAAAAAAAAAAAAA AAAAAAAAAAAAAAAAAAAA AAAAAAAAAAAAAAAAAAAAAAAAAAAAAAAAAAAAAAAAAAAAAAAAAAAAAAAAAAAAAAAAAAAAAAAAAAAAAAAA AAAAAAAAAAAAAAAAAAAA AAAAAAAAAAAAAAAAAAAAAAAAAAAAAAAAAAAAAAAAAAAAAAAAAAAAAAAAAAAAAAAAAAAAAAAAAAAAAAAA AAAAAAAAAAAAAAAAAAAA AAAAAAAAAAAAAAAAAAAAAAAAAAAAAAAAAAAAAAAAAAAAAAAAAAAAAAAAAAAAAAAAAAAAAAAAAAAAAAAA AAAAAAAAAAAAAAAAAAAA AAAAAAAAAAAAAAAAAAAAAAAAAAAAAAAAAAAAAAAAAAAAAAAAAAAAAAAAAAAAAAAAAAAAAAAAAAAAAAAA AAAAAAAAAAAAAAAAAAAA AAAAAAAAAAAAAAAAAAAAAAAAAAAAAAAAAAAAAAAAAAAAAAAAAAAAAAAAAAAAAAAAAAAAAAAAAAAAAAAA AAAAAAAAAAAAAAAAAAAA AAAAAAAAAAAAAAAAAAAAAAAAAAAAAAAAAAAAAAAAAAAAAAAAAAAAAAAAAAAAAAAAAAAAAAAAAAAAAAAA AAAAAAAAAAAAAAAAAAAA AAAAAAAAAAAAAAAAAAAAAAAAAAAAAAAAAAAAAAAAAAAAAAAAAAAAAAAAAAAAAAAAAAAAAAAAAAAAAAAA AAAAAAAAAAAAAAAAAAAA AAAAAAAAAAAAAAAAAAAAAAAAAAAAAAAAAAAAAAAAAAAAAAAAAAAAAAAAAAAAAAAAAAAAAAAAAAAAAAAA AAAAAAAAAAAAAAAAAAAA AAAAAAAAAAAAAAAAAAAAAAAAAAAAAAAAAAAAAAAAAAAAAAAAAAAAAAAAAAAAAAAAAAAAAAAAAAAAAAAA AAAAAAAAAAAAAAAAAAAA AAAAAAAAAAAAAAAAAAAAAAAAAAAAAAAAAAAAAAAAAAAAAAAAAAAAAAAAAAAAAAAAAAAAAAAAAAAAAAAA AAAAAAAAAAAAAAAAAAAA AAAAAAAAAAAAAAAAAAAAAAAAAAAAAAAAAAAAAAAAAAAAAAAAAAAAAAAAAAAAAAAAAAAAAAAAAAAAAAAA AAAAAAAAAAAAAAAAAAAA AAAAAAAAAAAAAAAAAAAAAAAAAAAAAAAAAAAAAAAAAAAAAAAAAAAAAAAAAAAAAAAAAAAAAAAAAAAAAAAA AAAAAAAAAAAAAAAAAAAA VQVKTAXXYRNLHHJBPPOSFOTKGERBUDMETTHINWEGHBMEUWPVHQQVXBFOR0garohDRkgkKwyOAZNUMQEH wACAAAAFAAAEKaQBAACA JPEBXMDQIcVeHWXDSYAGqX7ZYWPdrTDOXHKDrV7OOYtJEBCVYBIDUOQTBtTPOASYEzPNUIBQTXQVJMGO AAAAAAAAAAAAAAAAAAAA AAAAAAAAAAAAAAAAAAAAAAAAAAAAAAAAAAAAAAAAAAAAAAAAAAAAAAAAAAAAAAAAAAAAAAAAAAAAAAAA AAAAAAAAAAAAAAAAAAAA AAAAAAAAAAAAAAAAAAAAAAAAAAAAAAAAAAAAAAAAAAAAAAAAAAAAAAAAAAAAAAAAAAAAAAAAAAAAAAAA AAAAAAAAAAAAAAAAAAAA AAAAAAAAAAAAAAAAAAAAAAAAAAAAAAAAAAAAAAAAAAAAAAAAAAAAAAAAAAAAAAAAAAAAAAAAAAAAAAAA AAAAAAAAAAAAAAAAAAAA AAAAAAAAAAAAAAAAAAAAAAAAAAAAAAAAAAAAAAAAAAAAAAAAAAAAAAAAAAAAAAAAAAAAAAAAAAAAAAAA AAAAAAAAAAAAAAAAAAAA AAAAAAAAAAAAAAAAAAAAAAAAAAAAAAAAAAAAAAAAAAAAAAAAAAAAAAAAAAAAAAAAAAAAAAAAAAAAAAAA AAAAAAAAAAAAAAAAAAAA AAAAAAAAAAAAAAAAAAAAAAAAAAAAAAAAAAAAAAAAAAAAAAAAAAAAAAAAAAAAAAAAAAAAAAAAAAAAAAAA AAAAAAAAAAAAAAAAAAAA AAAAAAAAAAAAAAAAAAAAAAAAAAAAAAAAAAAAAAAAAAAAAAAAAAAAAAAAAAAAAAAAAAAAAAAAAAAAAAAA AAAAAAAAAAAAAAAAAAAA AAAAAAAAAAAAAAAAAAAAAAAAAAAAAAAAAAAAAAAAAAAAAAAAAAAAAAAAAAAAAAAAAAAAAAAAAAAAAAAA AAAAAAAAAAAAAAAAAAAA AAAAAAAAAAAAAAAAAAAAAAAAAAAAAAAAAAAAAAAAAAAAAAAAAAAAAAAAAAAAAAAAAAAAAAAAAAAAAAAA AAAAAAAAAAAAAAAAAAAA AAAAAAAAAAAAAAAAAAAAAAAAAAAAAAAAAAAAAAAAAAAAAAAAAAAAAAAAAAAAAAAAAAAAAAAAAAAAAAAA AAAAAAAAAAAAAAAAAAAA AAAAAAAAAAAAAAAAAAAAAAAAAAAAAAAAAAAAAAAAAAAAAAAAAAAAAAAAAAAAAAAAAAAAAAAAAAAAAAAA AAAAAAAAAAAAAAAAAAAA AAAAAAAAAAAAAAAAAAAAAAAAAAAAAAAAAAAAAAAAAAAAAAAAAAAAAAAAAAAAAAAAAAAAAAAAAAAAAAAA AAAAAAAAAAAAAAAAAAAA AAAAAAAAAAAAAAAAAAAAAAAAAAAAAAAAAAAAAAAAAAAAAAAAAAAAAAAAAAAAAAAAAAAAAAAAAAAAAAAA AAAAAAAAAAAAAAAAAAAA AAAAAAAAAAAAAAAAAAAAAAAAAAAAAAAAAAAAAAAAAAAAAAAAAAAAAAAAAAAAAAAAAAAAAAAAAAAAAAAA AAAAAAAAAAAAAAAAAAAA AAAAAAAAAAAAAAAAAAAAAAAAAAAAAAAAAAAAAAAAAAAAAAAAAAAAAAAAAAAAAAAAAAAAAAAAAAAAAAAA AAAAAAAAAAAAAAAAAAAA AAAAAAAAAAAAAAAAAAAAAAAAAAAAAAAAAAAAAAAAAAAAAAAAAAAAAAAAAAAAAAAAAAAAAAAAAAAAAAAA AAAAAAAAAAAAAAAAAAAA AAAAAAAAAAAAAAAAAAAAAAAAAAAAAAAAAAAAAAAAAAAAAAAAAAAAAAAAAAAAAAAAAAAAAAAAAAAAAAAA AAAAAAAAAAAAAAAAAAAA AAAAAAAAAAAAAAAAAAAAAAAAAAAAAAAAAAAAAAAAAAAAAAAAAAAAAAAAAAAAAAAAAAAAAAAAAAAAAAAA AAAAAAAAAAAAAAAAAAAA AAAAAAAAAAAAAAAAAAAAAAAAAAAAAAAAAAAAAAAAAAAAAAAAAAAAAAAAAAAAAAAAAAAAAAAAAAAAAAAA AAAAAAAAAAAAAAAAAAAA AAAAAAAAAAAAAAAAAAAAAAAAAAAAAAAAAAAAAAAAAAAAAAAAAAAAAAAAAAAAAAAAAAAAAAAAAAAAAAAA AAAAAAAAAAAAAAAAAAAA AAAAAAAAAAAAAAAAAAAAAAAAAAAAAAAAAAAAAAAAAAAAAAAAAAAAAAAAAAAAAAAAAAAAAAAAAAAAAAAA AAAAAAAAAAAAAAAAAAAA AAAAAAAAAAAAAAAAAAAAAAAAAAAAAAAAAAAAAAAAAAAAAAAAAAAAAAAAAAAAAAAAAAAAAAAAAAAAAAAA AAAAAAAAAAAAAAAAAAAA AAAAAAAAAAAAAAAAAAAAAAAAAAAAAAAAAAAAAAAAAAAAAAAAAAAAAAAAAAAAAAAAAAAAAAAAAAAAAAAA AAAAAAAAAAAAAAAAAAAA AAAAAAAAAAAAAAAAAAAAAAAAAAAAAAAAAAAAAAAAAAAAAAAAAAAAAAAAAAAAAAAAAAAAAAAAAAAAAAAA AAAAAAAAAAAAAAAAAAAA AAAAAAAAAAAAAAAAAAAAAAAAAAAAAAAAAAAAAAAAAAAAAAAAAAAAAAAAAAAAAAAAAAAAAAAAAAAAAAAA AAAAAAAAAAAAAAAAAAAA AAAAAAAAAAAAAAAAAAAAAAAAAAAAAAAAAAAAAAAAAAAAAAAAAAAAAAAAAAAAAAAAAAAAAAAAAAAAAAAA AAAAAAAAAAAAAAAAAAAA AAAAAAAAAAAAAAAAAAAAAAAAAAAAAAAAAAAAAAAAAAAAAAAAAAAAAAAAAAAAAAAAAAAAAAAAAAAAAAAA AAAAAAAAAAAAAAAAAAAA HEWABBVUULtJJWcEzJtShX9PPBvFnCiZhMjPHIpArP7NTO9MurnBZU8TPY6PMKUHPAKCNpGwsLwJNdJS ABIAGEAaQBsAGUAZQAAA P/hMz9yhZQfXb1xejGwHYInEqTlY75lF2onpH9kWdHnVIh/rYNtE9tbfVUzFPsmzb6j55g/NpPeDV0nX pSFXZ0pD2PkdRz1xhRJz w9CU4atGcpsUb3+GDl4mGl5cXFySRBkLRyfiQ5zMli9BiSuq8QpUg6qPk2yrCKzUr09stPyZhEXPbS2x AylfrfjDFD6Jto2lET8R z08b4cujqKis4PuSxK9CCviYIKzIkMlmyCqEUC1emNakV9rirYiRzdeNNC3MGYpB7XvvOQwd05kjuIeQ rVfa7T9MGB0wJycZgByW qDmMJH1VIRjF6QoLSEdHA2mARUjGXVtF4D3TFJ9HqHzXjJaoS0zizJ8AJK1Isn0fLI9Gh7csCBkXg6wM w7jGc2zzLBnTV44vj5xW jEvIi8+EOQhTwrBXIVpvazygKbhtwNuFPH1KKZnrSQ1WlH4pZE6RyWzSOCzZXSwOlTfLR9jBQUeXKFbW sWtCQNeIIu4IUgbZcLeG rW8wJhymdd4uVK5Owm9fIA2Mc3kcy7pIC6tBA0xd79tgYCtNhKoHW0hOpk2xUI6E2KvUYLlYFZ1ER9jQ DJnUTOgMOV8QSVlZhWxY uBjBkE9TivzwN4qLjPyOKI9MJKrrIN+IP9uJSW6MHFhV9OhaOBzt02+PHJkZjpEZXNjcmlwdGlvbiByZ SQ8JVVlsTO7HlF7mZS0G fEoBBZrHLRfVoKpQM5lNVPoBDFqHiWrMYPnUQq7ICkbOaKeMnM4dQmhbwozJg0mvYX7lCtqB9P2qbfpy 4RyA5WfB8KoLF9tqmAcC kLjLU1bXmpmJnmnkfCbnG4pXvmrTYH3D1RlEOotnJ7uNdToIn7bgMV0uJnnS3l7zj43Nx2etyazZSr6R V2wJe1vWb2cHIFmm9omd MM6RJ2cHqO+LJWyBamfaC2YzM7qUKOAFAgqGYB9A3KvWkefwM83S0NcNtyCYBE+YAfIYTz5C9TkDcUnF WF0b3I+SN4rLXK6WZIkR 1LkzKVyo80+YW7rMHA4GrNETyvkkPj6bDIyWKTyXo2WTMCpUEMcWOMrIJRvLCQhQGVtLGZcRPQiPOQiC CAgICAgICAgICAgICAgI CAgICAgICAgICAgICAgICAgICAgICAgICAgICAgICAgICAgICAgICAgICAgICAgICAgICAgICAgIAogI CAgICAgICAgICAgICAgI CAgICAgICAgICAgICAgICAgICAgICAgICAgICAgICAgICAgICAgICAgICAgICAgICAgICAgICAgICAgI CAgICAgICAgICAgICAgI CAgICAgICAgCiAgICAgICAgICAgICAgICAgICAgICAgICAgICAgICAgICAgICAgICAgICAgICAgICAgI CAgICAgICAgICAgICAgI CAgICAgICAgICAgICAgICAgICAgICAgICAgICAgICAgICAKICAgICAgICAgICAgICAgICAgICAgICAgI CAgICAgICAgICAgICAgI CAgICAgICAgICAgICAgICAgICAgICAgICAgICAgICAgICAgICAgICAgICAgICAgICAgICAgICAgICAgI AogICAgICAgICAgICAgI CAgICAgICAgICAgICAgICAgICAgICAgICAgICAgICAgICAgICAgICAgICAgICAgICAgICAgICAgICAgI CAgICAgICAgICAgICAgI CAgICAgICAgICAgCiAgICAgICAgICAgICAgICAgICAgICAgICAgICAgICAgICAgICAgICAgICAgICAgI CAgICAgICAgICAgICAgI CAgICAgICAgICAgICAgICAgICAgICAgICAgICAgICAgICAgICAKICAgICAgICAgICAgICAgICAgICAgI CAgICAgICAgICAgICAgI CAgICAgICAgICAgICAgICAgICAgICAgICAgICAgICAgICAgICAgICAgICAgICAgICAgICAgICAgICAgI CAgIAogICAgICAgICAgI CAgICAgICAgICAgICAgICAgICAgICAgICAgICAgICAgICAgICAgICAgICAgICAgICAgICAgICAgICAgI CAgICAgICAgICAgICAgI CAgICAgICAgICAgICAgCiAgICAgICAgICAgICAgICAgICAgICAgICAgICAgICAgICAgICAgICAgICAgI CAgICAgICAgICAgICAgI CAgICAgICAgICAgICAgICAgICAgICAgICAgICAgICAgICAgICAgICAKICAgICAgICAgICAgICAgICAgI CAgICAgICAgICAgICAgI CAgICAgICAgICAgICAgICAgICAgICAgICAgICAgICAgICAgICAgICAgICAgICAgICAgICAgICAgICAgI CAgICAgIAogICAgICAgI CAgICAgICAgICAgICAgICAgICAgICAgICAgICAgICAgICAgICAgICAgICAgICAgICAgICAgICAgICAgI CAgICAgICAgICAgICAgI CAgICAgICAgICAgICAgICAgCiAgICAgICAgICAgICAgICAgICAgICAgICAgICAgICAgICAgICAgICAgI CAgICAgICAgICAgICAgI CAgICAgICAgICAgICAgICAgICAgICAgICAgICAgICAgICAgICAgICAgICAKICAgICAgICAgICAgICAgI CAgICAgICAgICAgICAgI CAgICAgICAgICAgICAgICAgICAgICAgICAgICAgICAgICAgICAgICAgICAgICAgICAgICAgICAgICAgI CAgICAgICAgIAogICAgI CAgICAgICAgICAgICAgICAgICAgICAgICAgICAgICAgICAgICAgICAgICAgICAgICAgICAgICAgICAgI CAgICAgICAgICAgICAgI CAgICAgICAgICAgICAgICAgICAgCiAgICAgICAgICAgICAgICAgICAgICAgICAgICAgICAgICAgICAgI CAgICAgICAgICAgICAgI CAgICAgICAgICAgICAgICAgICAgICAgICAgICAgICAgICAgICAgICAgICAgICAKICAgICAgICAgICAgI CAgICAgICAgICAgICAgI CAgICAgICAgICAgICAgICAgICAgICAgICAgICAgICAgICAgICAgICAgICAgICAgICAgICAgICAgICAgI CAgICAgICAgICAgIAogI CAgICAgICAgICAgICAgICAgICAgICAgICAgICAgICAgICAgICAgICAgICAgICAgICAgICAgICAgICAgI CAgICAgICAgICAgICAgI CAgICAgICAgICAgICAgICAgICAgICAgCiAgICAgICAgICAgICAgICAgICAgICAgICAgICAgICAgICAgI CAgICAgICAgICAgICAgI CAgICAgICAgICAgICAgICAgICAgICAgICAgICAgICAgICAgICAgICAgICAgICAgICAKICAgICAgICAgI CAgICAgICAgICAgICAgI CAgICAgICAgICAgICAgICAgICAgICAgICAgICAgICAgICAgICAgICAgICAgICAgICAgICAgICAgICAgI CAgICAgICAgICAgICAgI AogICAgICAgICAgICAgICAgICAgICAgICAgICAgICAgICAgICAgICAgICAgICAgICAgICAgICAgICAgI CAgICAgICAgICAgICAgI HEvEZSjQNEyGEUsOZRwRJBePFHjDRVkZDYiXbMaEWDpRBUnTXDpWFCyRLFqAVJwHLHxCGEzHIX5W3eoA YJlSGCfPV1oCSp4Zp5+/ 7dJEnFUXEGQQIEKKgQLCSzNKJpNAxrUVPiDSpCZJKvDHdeYWKvGUk3eWIpxTA6HRJQlHjHhUWstByrgP zMvKjInKisq/9sAQwEHC AgKCQoUCwsUKhwYHCoqKioqKioqKioqKioqKioqKioqKioqKioqKioqKioqKioqKioqKioqKioqKioqK ioq/8AAEQgAhgDRAwEiA AIRAQMRAf/YCQ3JKHOAHZRYZWGKLUFCIYSCIZQTQlMTOFGXPBiXX//EALUQAAIBAwMCBAMFBQQEAAABf QECAwAEEQUSITFBBhNRY ZowdYLoxQKlJTYNbtKUMoTaHKOexqAYTySMIVbeDEMdJKmgBPO7Ztp5FnMVLWTNEWuJE3QSXqnUEYjcS WVbD7pnkjN4dCZ4sAq3k 4NVsqqZpFvCx2CUlyqFjDjmk7Cbsvydkqpfy8L3dew0sdoTf1KEcbuHtqcD20MD7ogZ2ejo9wBd6yah1 Eez0aJv3HQ54/j5+v/EA K9KXHXYNFMRPVCCRVJIBPCWHAXGUcZHTDTDYWuXQ//EALURAAIBAgQEAwQHBQQEAAECdwABAgMRBAUhM QYSQVEHYXETIjKBCBRCk fKqbAfiD9GbMHGd9TiQDCLoPvFIFDtcNulqEHh0Hjq9MTcDCIFPS8eVOoWFPJQYNTztQ9ItYxjzuLzmc EO2y3a0aiBDsNQOb3eBl lQFsJISe6gJacFvfAFxk9ozknKntQR6e7e2gjMPuSGTc3uXshFP2WYS48dX1sLo7MQy8+cb0bGs1WI06 /j5+v/aAAwDAQACEQMRA D8A+kaKKKACiiigAooooAKKKKACiiigAooooAKKKKACiiigAooooAKKKKACiiigAooooAKKKKACiiigA ooooAKKKKACiijNABRVK 59jQ0Dwe6vCnnz2Jvar/Z0O3biNsssg7Yn9rtFXnZJ4Fb3QMmGx3rM5nKgEF9GFCIBTyHS3RvvYTuDES J3CKRZPQCgBXdIVsnCC7 CD+IBB9SLJHCINFOoSnRzw3/y3wC6ppg8tD/wDdkuUU/cADVZWVZiqWB2PPhwdyn0rM9/Hlf2tz/wBcZ lf+Bu9G46imuBtktSLSE YdtirlVYJWWWIywthJbstWUhCA2qLhJAzZwtpKm3Cb0B3lbgF4foOmYfyL7hUBDjrdvba+oqFawjV1Vv bqaT4g+JH1/dLPMS5Iiu VVrQ7Gx4qqswhhBcHsuALLyFdmUPie0/Rk1cwa6E8rjuKNw8JJib7lo/fCgbdJ8iPViRO7hR7/r8DjQC 5HLEZ3bLzmcqksCapVmL NdHbn7TtbfzyRH9IYUtEqAJI25oRDmJ8cZEAjt0SXOJ3tIUF5X6of1pF4yOUb8UBe+W/PqeL+QpgQg1t mdQxRxjQQxBRC7RKu1KP aI1Xx7gEvzpwGrkpF2cB/qx1osjs3G0r+JP8YJyf8AlEZqdcoOuEg/un+sgjl06NfiPaFQYAFdapIEtb k8KT0b/CM7v9vWGwNJ4r R3/AK/VZFvIuV3nKC5jj/8A3mQyUes2aK4htdgJypwy6XxmQvL20K+ffHn/IVCKvc1PGW+zjvceL6plt ubiVczU5u6T+Eckkvha6 aV2c/a2GWYn+Fa72uA+D/8AyKt1/nLntv8WfW753cuU/rB3g6newdnFW3PZWa7NRW0ddeACHkNuiTfc+ Kn/YStcil6jQFUTP7Bxo AzE/wAVQfGH/kZLL/r1/wDZjUnwc/5Dmo/9e6/+hV6zS/s6/l+p4yb/ALTt5/wym6wujvoaEiEbNSK++ upB+6k1MY6x2AsqMa3ZG mQhS97OH6Rk3jiQ+lvM8k79zSi9WrMYRGznEot1Ohryh3VnBgFvy8S7CM327vRRUbKx6sequWmVVnuz0 6QnpBCdqAfTv+NYiozfc Hz9QtbXlLca2eabGOUtrByUPF8TmpWu6O4+Vow56u8RwBR8A7rzTI2bEkU6RUI1eL/R5l5wvTEx6pmX4 SrK1/fn0qStDKBNnQpXD 4Irr/XjgS0dKJCmjVI2K5gxuCcyr3k/xr2DU/SbkeqI5c/YQSZ/iCAMPoRzXluv/OuJHINDt7HVipDgy Bc4MH+77i2EXLm7JzGav f31ZiDqAJrXLv/T/C3M8PGmJDlYJ275AlOl7c/eU+jIV1wpD1CcCGZolwV9n7Mtdto78n/shubham+grcrwKi fdul2HsaUc9L8U+oUUUV BoFFFFABRRRQAVn6/fzm8J0dzQ88P0ifchaJfUIgsL5s29N5ukx/nozQQX7rOUzniY2SX/U5kd1o6RaV Pc+egSRw5V58E5K3IzAD LHCufckZJ/Vwl5CtAQ521WxKdH34jDdmCihRIdF/hCrCeruc8Ypeejakn39EfXRTeSjCjC7y50BEcQe3 KZfFIZvjx6GVQI9MNfOo Zjes8W6XiV3e6ztt3Hm3qooeRWZryygVbMq2mWbKi3Nyoh9Wro4aqcy5RylJQp8jd2CwBzu56YF4kYWv F+PP+R61T/rr/OC0a5mn sttPjOfhptnhKngHn7zy/ketU/66/1VE9ld2sY8b7JtJd/NaD4u0cwnaYZU6MQO1leSZIY0diJJSWFsC f0rT/4Wp4m/57W//fgVN 7L5D83nwD9xlc1hg4fiBBHZLTDVz0/Wuj/2S0Rm5ZR5/wC/s48De6ABCbp53OouObwOiyJjk8VKluBiF N/7di52nC1PcO19EKAfe yOfi8XS+Q5qH/Xuv/bHm7140Mv+HoJagPSe9xYocZPnILy1hkCE/Bz/AJDmo/8AXuv/QJTP6vvnil8a5 /BIwsakcelV+K+v3HWfF W0w58EBIuARbEkLpWtoZ/lXj/h2wTU/Icl2Av4Kg1Sn9etP+bhavna/Ju0iarFFJ/3H1YDyhwC714T0Vm3p GWrjSZ6TT8I0p5M9/rWG I2jmoDrY1kmAcjxFM02/M+mDFZaEFhFEHCxPbAv1C04uASJnwncQkukfXFDGFOPjxajFoigtMSTwoBBk Q1ajJXAvgqn1mg6FaJO6 GgUqHbjcqsBB7tcjD8K4j+JW7ZzDg0n9V6LFjb1+UT2Pt/KvSfE/ne51P4UfL5+FCtnmgAOGkE2zuyv2 X/C+ooXIhi1kI1n6+SdB wBV21aH80RRoEsFT0aO7/rU+XxFCtga/tqXw/7pj5QmhYgfVNvoZGE6UZyUJXY8ZWEBMeSlHdZdEFlue e5MD3XXnJshxeYLemK8a Z2tyqJyc/kaLvU76/s5ttke6U6QLUvy+dYf2TK/xaG/4mY8wt59Pg/mT35b2cw3E5yu9zuPzo4hgE0Z9 h+mo55V2HqwViHcXNHz7 uNXsn0Ry7Zs4NJnUztMLRa9Q2GWvMs011iLVDo0+yd8Vch1Sr/KOvp8zMyyo7lgfXUZ/xNEnj88pph0B sqW/jAGmLMZKy76w2he5 O8SSsMlHMkSZX+ffHn/DDRLoo8IAR+cc0Zg712gX/iutU/66/0FcmU/mr2UyuO5LXx+h6L8H/8AkVbr/ r8b/wBBWu/rgPg//wAir df9fjf+xxYa2w1i/eJ+p3YD/sWep050Fp5QmPZW/r1/9mNSfBz/AJDmo/8AXuv/AKFUfxh/5GWy/wCvX /2Y1J8G/wDkOaj/ANe6/ wDoVes/+Jd6j7BRU/I0+g4YsEn2KSrZbEZco3DqFlCrS1r+uxKK3Ld5ecsRo2aZvCabf+ad1zMmR637S x+JF+22BWLUUXHPCzAdA ff3rhy/SAkBngnn8gjrzv0UOViUm+ClzAx7drUfphzrXpOhAf4sgux4ZZH/tv7BPQDZTSYEorcrFFEwp Lrlm4FbyDbNT616dz9Pu O9dBxPn9bVvPMy6V4YYAfdnkBVdUw2KS13IZuyYBddfWAJTrt34l1nh2QTrX793VmLCYCTAfGE6JZxlf qGzF0dQYnmLrq0P/fSOM qvFEiHb3aJ9neGx+xH2ue4GWVgQP3UmmQ8F+XxO7XAXLwjCGT+e4kGEX/E+dfl3fIbhiug6EdpiZ1iKB 2/E566pVVJMbRwhiYnLo Da7w7FrDldO+agdr6hx/XZexpzrtePeQI4YExB/XCrFzYcK2xB5mf5NA45Xj+/IRUUKs2IyrxeIkahlZ KQHgohgTe6HlCrPV7Y6o coz7lxX5LIJnGSWFDU5FXWSg35nIENeqJjRpdw/vs6mcOypS6N2yJErY8CzX6xmCYaY1+04XQFY4Dmsl Tk4ogBC0NVfhySGZeS8p YY7BZ71pcPXmNCOA824W8K6cWdvWwScyRRYr6kEe9ZeSXLn3IpSjNZjwDx+CxV3Umnokhb6cHUYh7igu TD8TxPmWtjgAGrrn3F48 qpmssj4xRj0VpF5i40qIAaY/a2+vvWvtqtrcz+8w+v5w93A7h4YAWyHbggJgLt4OlEmV5UannNQosIr9 sXUsn0ZQO9Wo2m3cfCCb u9E5Lwa/BbajLedYghXjPl6dedd90wZWwTBOtUYsJTxbqqZQGqYS1low7w9ztFbBGb1cBQiyaqShT+px AID9scsm7dyrYf6pkmlY GGv2ixSIS3oL5UcZk9tw3uy01zaYpnID0NtsGl8xSKJrR5NVKB49kjZKk1BlysE3v8lXnisfOJTJGUdb 25BWF3vDbiTFYZXlgP3j 3GkTHVpRSb9JQKokN5dM11A7wfMoF0H0p7UEKkXHkVyyrd1EkV4HG25apKZRzfUnpoF1txx9w8bq9EB2 fIRlrwQo1dYFNR5fYnT8 YUXlYlec2MaBpVh4eEJnO9Z9TlFXVclrMdJeefj7jh7TgtwF9Yayh9rS5SP7VSVBheTbFBICaUDI2Eg1 20+U0kkGZF97B3zaskyN r3Igr6kG7FcclBVthiX2dAx5V0GNt4pX7xCyKAbMpF2xPtqWjcpsyvUWipHO6co+j2s5Eyld++KRR1F5 AOvcRpHhX8Thr20BQ0BW m5BfG4k3mokwI88HUw+aG3z3nRjK4Le0azBohEhpV6QjnOsJPzM+6vIW6U89kldUPZ3Mtm9ObHDQ8gRY dpH69htbU/VlhEoivR0A w+HpAU0EUzcNNXJBgO8cakI3DFaKqpIgj/431452eVIQshuhDJUuJab2kAsgPccuJPefCgf8obOtlyOk G8w64Navni4X3l57fFI2 fVcpO2juDxLBuDm8d2McZFMILhmn5PfFOwRFdGUF9dvD2ShUL+oDzCEKIu5mYxtSgvtWbFQXrbT7g1Rx sKKKKACiiigAooooAKiu iED3fTz4cXBKAPZVx2D6Pl4HJoXcRWs25SVL9V3ALWZ98hV2aNndUobcdwLLii65nOAHfuP80HgEyK2j Wmd0a6FiSDkhyJUhiLQS dZ0c2nylhBPwEZT2pTqe6nTHNnKAR+78vy/MEu6RqoD2R/VVF2X0o1Z9rw5K/T/AHD+z2jXZ2GtdTO1/ deHLFdSgRUl0nM4XPhh6 Yam8yFWLVuKoiOWX32eVfC19U5NcTuO3fmaX6f1Rs+4WxJvPKW0icymRvI0ovuPng7tw4V+C/5wkWwt4 3iZfGs9w3yjaqRWMUYqL IHrOWOP8ErEtZCireqAlLwguqIQKOmTcVjAfffAPCGDZtsF1ErVtvMhQ8s1RhwqHyVAA+Efp1lF4QyLm D8pOjkQOaFU7N4MOZbI6 FN+492Y5a0134PBUA48YBSkW6yIf2mcwpSIQSCddGOuYJcgsAkDB1hItqgr3oPRee0xJzaChlBmTmwZp zhxEsUmuBJXix1MwXECx i31Sty5Vh4/TNbsvCaU5N43hU+V5X+hhBzsRMgWq7w+mcoYkh3SvgGv+afth9sKiBFtJ1A47KI1GLcIf 995xhB9kHCT2icJCpzUz y/ffRZ6MQojp+Y0CRRlXeyqxtozezex40g+AJD8uulwVEdFrrYqz8Jj5E1g1qyuU5xVCyJ9Ji12PM2cJ tfU7nlVUHCzKYd7yFH/A EAac7k7M3VSTvu3udZmibbomiSz6q+Ivs1zf4aC9sMXZOSQ0ulexljnHYj3msHn6AdSbaQFQ455lzlfU OzvZiqhVFhb5m44SQpE7 hhZcWsq3mnyTpMV43iEVtb/zPWjl0JDvI3px6bQnBZO5Bmq1whVBlXEt7LeCLlFNDIPjPOx5kvx2qn0b qfAzUgvKXpMrXHQk8qt3 sDZYhRDLKzxIgu7iC/1Og57stgynQ2S27p3KOrMf6ptYnUWxU8RvpwjiEMYvANto51SI50TZG6XagroO 6tscZ9RvotSLWNbiuu9j m/WClH2b6vthyVJK31nCvDPrRPoROiO5os5GzbBuNbjK9ZJJgR3K4lHZPUBnQHgt4Dj9Q4Pb26aEOkKh 4dmsXtVltniVvPcrcZbc ON5bOe/Wu7J57W6yX1lZWKIyxfJja4oDjSAmiekUKiYn+SFTC13xvWulKV/edF+9/DwJPaa0g2fMawbY av8Em6SNlEE2dxgZX2r1 L6YTNHJhuIjG6bqWsfo0ERPJlB4cBl+HRgrdQ4otlOBfCwL2dalfTUFe7RBP8CsD3i7TSCHWDNVEYYQL RYIDUCorChCiYnws1nfo A6i1OQXSBi8RUstoaROEdzjbnxVRLlx9yRzWAHAqFbhqUn5OCZP8zBxsOiCGUlKc6LycSpdlkzyCKBkC aXeNPFGjPBPNVz0eiiss igsbaKOUbZESFQHHoQBzRFplhbwSQwWVvFFJ9+PFhUk6IIiMgkmQjS6jCadlXQJmpxj1FRLQOb+Qpr6T l9r7XgQleIsZvtWgTIu/ xKH7vrrVqQSqSD0ALcmmv94SBW9dUqOSXIOJROBUBaThGxSVOSYTSUSXGfUliQdH2FyyyP2aGBpGy8ey YEyUPconQW7eolbLLXGd lBwUR0ESMfdd9EJESANoaPtbpp1zqjQHLJbghBPxL9bGlAvziww3FnQYl/15xbTF4mlYbysEIsefhaCD c7jnAyvZ0rdnnPhVe0Bc [id number]/[id number]w6heXb7LHyNnxrww 3ZW0KTQxvin1fGm9vUzY Y4ESGiQC3EMdzfeDIAMYHNnzdiKkzurHOQRCTPachmBuanuLEEWRHQnaiwUefrgCPMUIZPxvccNtstwN KKKKACiiigAooooAKKKKAP/2Q== ></span></div><div style= text-align:left >
&lt ;/div><div style= text-align:left >Patient Name: <span class= clinicalNot eMacroHighlighted id= [id number] macroname= PatientName sp antype= macro title= #PatientName LEWIS DURANT</span></div><div style= text- align:left >Patient : <span class= clinicalNoteMacroHighlighted id= [id number] macroname= PatientDateOfBirth spantype=& quot;macro title= #PatientDateOfBirth >1970</span></div><div style= text- align:left >Patient MRN: <span class= clinicalNoteMacroHighlighted id= [id number] macroname= PatientMRN spantype= macro" title= #PatientMRN >[id number]</span></div><div style= text-align :left >
</div><div style= text-align:left [...] align:left >
</div><div style= text-align:left ><span class= clinicalNoteSeAt[facility] Center[facility]Sar[facility] clinicalNoteSectionVisible id= [id number] internalbreaksection= false originalname= Review of Systems recognizeconcepts= true spantype= section suppressempty= false >Review of Systems</span><span style= font-fa kulwant:Indios,Helvetica,sans-serif ><span style= font-size:12px >
< strong>Constitutional: </strong> [...] spent on today's patient encounter.
If applicable, jtk-otjywer-fugumr activities:
( ) Preparing to see the patient and reviewing records
& amp;nbsp;( ) Individual interpretation of results&a mp;nbsp;
( ) Discussion or coordination of care with other health critical care physician assistant
( &am p;nbsp;) Ordering of unique tests, medications, or procedures
( ) Documentation within the EHR
</div><div style= text-align:left ><span class= clinicalNoteSectio nShowSeparators clinicalNoteSectionVisible id= [id number] internalbreaksection= false originalname= . recognizeconcepts= true spantype="section suppressempty= false >.</span>
Recent imaging and lab s were reviewed and discussed with the patient.

<strong>Buddy Arguello MD
[facility], Medical Oncology</strong>

Online: [email or web address]

Note Recipients: <br&g t;<span class= clinicalNoteMacroHighlighted id= [id number] macr oname= NoteRecipients spantype= macro title= #NoteRecipients >&am p;nbsp; </span>
</div><div style= text-align:left"><span style= font-size:12px ><span style= font-family:Indios,Helvetica ,sans-serif ></span></span></div></div>

<div><span class= eSignSignature >Electronically signed by Buddy Arguello MD 06/06/2025 16:43 EST</span></div></body></html>
--- OUTSIDE RECORDS SUMMARY | 2025-07-02 14:24 | XMS_ITS ---
Author Name Interface, [id number] lity Address [address] [phone] Organization [facility] Address [address] [place] [address] Allergies and Adverse Reactions Medication/Group Name Reaction [...] WBC 10*3/u L 4.0 10.0 7.6 FINAL [facility] ([facility]), [address], [address] [facility] [address] 06/06 CBC w/ auto diff Ashok # (ANC) 10*3/u L 1.56 6.13 4.53 FINAL [facility] ([facility]), [address], [address] [facility] [address] 06/06 CBC w/ auto diff LY # 10*3/u L 1.18 3.74 2.30 FINAL [facility] ([facility]), [address], [address] [facility] [address] 06/06 CBC w/ auto diff MO # 10*3/u L 0.24 0.86 0.54 FINAL [facility] ([facility]), [address], [address] [place] [address] 06/06 CBC w/ auto diff EO # 10*3/u lL 0.04 0.36 0.20 [facility] ([facility]), [address], [address] [place] [address] 06/06 CBC w/ auto diff BA # 10*3/u L 0.01 0.08 0.04 FINAL [facility] ([facility]), [address], [address] [place] [address] 06/06 CBC w/ auto diff IG # 10*3/u L 0.0 0.2 0.00 FINAL [facility] ([facility]), [address], [address] [place] [address] 06/06 CBC w/ auto diff Ashok % % 34.0 71.1 59.6 FINAL [facility] ([facility]), [address], [address] [place] [address] 06/06 CBC w/ auto diff LY % % 19.3 51.7 30.2 FINAL [facility] ([facility]), [address], [address] [place] [address] 06/06 CBC w/ auto diff MO % % 4.7 12.5 7.1 FINAL [facility] ([facility]), [address], [address] [place] [address] 06/06 CBC w/ auto diff EO % % 0.7 5.8 2.6 FINAL [facility] ([facility]), [address], [address] [place] [address] 06/06 CBC w/ auto diff BA % % 0.1 1.2 0.5 FINAL [facility] ([facility]), [address], [address] [place] [address] 06/06 CBC w/ auto diff IG % % 0.0 2.0 0.0 FINAL [facility] ([facility]), [address], [address] [place] [address] 06/06 CBC w/ auto diff RBC 10*6/u L 3.93 5.22 4.35 FINAL [facility] (T), [address], [address] [place] [address] 06/06 CBC w/ auto diff HGB g/dL 11.2 15.7 13.0 FINAL [facility] (T), [address], [address] [place] [address] 06/06 CBC w/ auto diff HCT % 34.1 44.9 39.0 FINAL [facility] ([facility]), [address], [address] [place] [address] 06/06 CBC w/ auto diff MCV fL 79.4 94.8 89.7 FINAL [facility] (T), [address], [address] [place] [address] 06/06 CBC w/ auto diff MCH pg 25.6 32.2 29.9 FINAL [facility] ([facility]), [address], [address] [place] [address] 06/06 CBC w/ auto diff MCHC g/dL 32.2 35.5 33.3 FINAL [facility] ([facility]), [address], [address] [place] [address] 06/06 CBC w/ auto diff RDW-C V, % % 11.7 14.4 12.6 FINAL [facility] ([facility]), [address], [address] [place] [address] 06/06 CBC w/ auto diff PLT 10*3/u L 182.0 369.0 279 FINAL [facility] ([facility]), [address], [address] [place] [address] 06/06 CEA panel CEA ng/mL < 2 FINAL [facility] ([facility]), [address] [place] [id number] 06/06 CMP - Core Lab Sodiu m mmol/L 136.0 145.0 141 FINAL [facility] ([facility]), [address] [place] [address] [place] [address] 06/06 CMP - Core Lab Potas sium mmol/L 3.4 5.1 4.8 FINAL [facility] ([facility]), [address] [place] [address] [place] [address] 06/06 CMP - Core Lab Chlor nahed mmol/L 98.0 107.0 104 FINAL [facility] ([facility]), [address] [place] [address] [place] [address] 06/06 CMP - Core Lab CO2 mmol/L 20.0 31.0 28.0 FINAL [facility] ([facility]), [address] [place] [address] 06/06 CMP - Core Lab Anion gap, mmol/ L mmol/L 4.0 15.0 9.0 FINAL [facility] ([facility]), [address] [place] [address] [place] [address] 06/06 CMP - Core Lab BUN mg/dL 9.0 23.0 19 FINAL [facility] ([facility]), [address] [place] [address] [place] [address] 06/06 CMP - Core Lab Creat inine mg/dL 0.55 1.02 0.75 FINAL [facility] ([facility]), [address] [place] [address] [place] [address] 06/06 CMP - Core Lab BUN/C reati nine ratio 0.0 25.0 25.3% High FINAL [facility] ([facility]), [address] [place] [address] [place] [address] 06/06 CMP - Core Lab eGFR, mL/mi n/1.7 3 mL/min /1.73m >60.0 FINAL [facility] ([facility]), [address] [place] [address] [place] [address] 06/06 CMP - Core Lab Gluco se mg/dL 74.0 106.0 92 FINAL [facility] ([facility]), [address] [place] [address] [place] [address] 06/06 CMP - Core Lab Calci um mg/dL 8.7 10.6 9.6 FINAL [facility] ([facility]), [address] [place] [address] [place] [address] 06/06 CMP - Core Lab Album in g/dL 3.4 5.0 4.5 FINAL [facility] ([facility]), [address] [place] [address] [place] [address] 06/06 CMP - Core Lab Total prote in g/dL 5.7 8.2 7.3 FINAL [facility] ([facility]), [address] [place] [address] [place] [address] 06/06 CMP - Core Lab A/G ratio 1.0 2.0 1.6% FINAL [facility] ([facility]), [address] [place] [address] [place] [address] 06/06 CMP - Core Lab Alkal ine phosp hatas e U/L 46.0 116.0 77 FINAL [facility] ([facility]), [address] [place] [address] [place] [address] 06/06 CMP - Core Lab ALT/S GPT U/L 10.0 49.0 11 FINAL [facility] ([facility]), [address] [place] [address] [place] [address] 06/06 CMP - Core Lab AST/S GOT U/L 0.0 34.0 17 FINAL [facility] ([facility]), [address] [place] [address] [place] [address] 06/06 CMP - Core Lab Bilir ubin, total mg/dL 0.3 1.2 0.6 FINAL [facility] ([facility]), [address] [place] [address] [place] [address] Medications Date Name Route Dose Frequency Instructions [...] without esophagitis (disorder) Active Notes Section * [facility] Follow Up Patient Name: MARIUM DURANT Patient [...] spent on today's patient encounter. If applicable, ndi-atpeyzl-twezte activities: ?(?)?Preparing to see the patient and reviewing records ?(?)?Individual interpretation of??results?(?)?Discussion or coordination of care with other health home care giver ?(?)?Ordering of unique tests, medications, or procedures ?(?)?Documentation within the EHR?? . Recent imaging and labs were reviewed and discussed with the patient. Buddy Arguello MD [facility], Medical Oncology Online: [email or web address] Note Recipients:? Electronically signed by Buddy Arguello MD 06/06/2025 16:43 EST
--- OUTSIDE RECORDS SUMMARY | 2025-07-02 14:24 | XMS_ITS ---
Author Name Interface, [id number] lity Address [address] [place] [address] Organization [facility] Address [address] [place] [address] Allergies and Adverse Reactions Medication/Group Name Reaction [...] 3.4 5.0 4.4 FINAL Buddy Arguello S&Serum PAC [facility] ([facility]), [address] [place] [address] 07/15 CMP - Core Lab Alkal ine phosp hatas e U/L 46.0 116.0 78 FINAL Buddy Romo S&Serum [facility] ([facility]), [address] [place] [address] 07/15 CMP - Core Lab ALT/S GPT U/L 10.0 49.0 10 FINAL Buddy Romos S&Serum [facility] ([facility]), [address] [place] [address] [place] [address] 07/15 CMP - Core Lab AST/S GOT U/L 0.0 34.0 14 FINAL Buddy Romo S&Serum [facility] ([facility]), [address] [place] [address] [place] [address] 07/15 CMP - Core Lab Calci um mg/dL 8.7 10.4 9.9 FINAL Buddy Romo S&Serum [facility] ([facility]), [address] [place] [address] [place] [address] 07/15 CMP - Core Lab Chlor nahed mmol/L 98.0 107.0 103 FINAL Buddy Romo S&Serum [facility] ([facility]), [address] [place] [address] [place] [address] 07/15 CMP - Core Lab CO2 mmol/L 20.0 31.0 30.0 FINAL Buddy [facility] S&Serum [facility] ([facility]), [address] [place] [address] [place] [address] 07/15 CMP - Core Lab Creat inine mg/dL 0.5 0.8 0.75 FINAL Buddy Romo S&Serum [facility] ([facility]), [address] [place] [address] [place] [address] 07/15 CMP - Core Lab GFR non-A frica n Ameri can, estim ated mL/min /1.73m >60.0 FINAL Buddy Romo S&Serum [facility] ([facility]), [address] [place] [address] [place] [address] 07/15 CMP - Core Lab GFR Afric an Ameri can, estim ated mL/min /1.73m >60.0 FINAL Buddy [facility] S&Serum [facility] ([facility]), [address] [place] [address] [place] [address] 07/15 CMP - Core Lab Gluco se mg/dL 74.0 106.0 89 FINAL Buddy [facility] S&Serum [facility] ([facility]), [address] [place] [address] [place] [address] 07/15 CMP - Core Lab Potas sium mmol/L 3.5 5.1 5.1 FINAL Buddy [facility] S&Serum [facility] ([facility]), [address] [place] [address] [place] [address] 07/15 CMP - Core Lab Sodiu m mmol/L 136.0 145.0 137 FINAL Buddy [facility] S&Serum [facility] ([facility]), [address] [place] [address] [place] [address] 07/15 CMP - Core Lab Anion gap, mmol/ L mmol/L 4.0 15.0 4.0 FINAL Buddy [facility] S&Serum [facility] ([facility]), [address] [place] [address] [place] [address] 07/15 CMP - Core Lab Bilir ubin, total mg/dL 0.3 1.2 0.7 FINAL [facility] S&Serum [facility] ([facility]), [address] [place] [address] [place] [address] 07/15 CMP - Core Lab Total prote in g/dL 5.7 8.2 7.1 FINAL [facility] S&Serum [facility] ([facility]), [address] [place] [address] [place] [address] 07/15 CMP - Core Lab A/G ratio 1.0 2.0 1.6% FINAL Buddy [facility] S&Serum [facility] ([facility]), [address] [place] [address] [place] [address] 07/15 CMP - Core Lab BUN mg/dL 9.0 23.0 16 FINAL [facility] S&Serum [facility] ([facility]), [address] [place] [address] [place] [address] 07/15 CMP - Core Lab BUN/C reati nine ratio 0.0 25.0 21.3% FINAL [facility] S&Serum [facility] ([facility]), [address] [place] [address] [place] [address] 07/15 CEA panel CEA ng/mL 0.73 FINAL [facility] S&Serum [facility] ([facility]), [address] [place] [address] [place] [address] 07/15 CBC w/ auto diff WBC 10*3/u L 4.0 10.0 6.9 FINAL Buddy Romos B&Whole Blood PAC [facility] (T), [address], [address] [place] [address] 07/15 CBC w/ auto diff Ashok # (ANC) 10*3/u L 1.56 6.13 3.98 FINAL Buddy Romos B&Whole Blood PAC [facility] (T), [address], [address] [place] [address] 07/15 CBC w/ auto diff LY # 10*3/u L 1.18 3.74 1.89 FINAL Buddy Romos B&Whole Blood [facility] (T), [address], [address] [place] [address] 07/15 CBC w/ auto diff MO # 10*3/u L 0.24 0.86 0.47 FINAL Buddy Romos B&Whole Blood Former[facility] (T), [address], [address] [place] [address] 07/15 CBC w/ auto diff EO # 10*3/u lL 0.04 0.36 0.51 High FINAL Buddy Arguello B&Whole Blood Former[facility] (T), [address], [address] [place] [address] 07/15 CBC w/ auto diff BA # 10*3/u L 0.01 0.08 0.05 FINAL Buddy Arguello B&Whole Blood PAC [facility] (T), [address], [address] [place] [address] 07/15 CBC w/ auto diff Ashok % % 34.0 71.1 57.7 FINAL Buddy Romos B&Whole Blood PAC [facility] (T), [address], [address] [place] [address] 07/15 CBC w/ auto diff LY % % 19.3 51.7 27.4 FINAL Buddy Romos B&Whole Blood PAC [facility] (T), [address], [address] [place] [address] 07/15 CBC w/ auto diff MO % % 4.7 12.5 6.8 FINAL Buddy Romos B&Whole Blood [facility] ([facility]), [address], [address] [facility] [address] 07/15 CBC w/ auto diff EO % % 0.7 5.8 7.4 High FINAL Buddy Arguello B&Whole Blood [facility] ([facility]), [address], [address] [facility] [address] 07/15 CBC w/ auto diff BA % % 0.1 1.2 0.7 FINAL Buddy Arguello B&Whole Blood Former[facility] ([facility]), [address], [address] [facility] [address] 07/15 CBC w/ auto diff RBC 10*6/u L 3.93 5.22 4.45 FINAL Buddy Romonakia B&Whole Blood Former[facility] ([facility]), [address], [address] [place] [address] 07/15 CBC w/ auto diff HGB g/dL 11.2 15.7 13.5 FINAL Buddy Romonakia B&Whole Blood Former[facility] ([facility]), [address], [address] [place] [address] 07/15 CBC w/ auto diff HCT % 34.1 44.9 40.2 FINAL Buddy Arguello B&Whole Blood Former[facility] ([facility]), [address], [address] [place] [address] 07/15 CBC w/ auto diff MCV fL 79.4 94.8 90.3 FINAL Buddy Arguello B&Whole Blood Former[facility] ([facility]), [address], [address] [place] [address] 07/15 CBC w/ auto diff MCH pg 25.6 32.2 30.3 FINAL Buddy Arguello B&Whole Blood Former[facility] ([facility]), [address], [address] [place], [place] [address] 07/15 CBC w/ auto diff MCHC g/dL 32.2 35.5 33.6 FINAL Buddy Arguello B&Whole Blood Former[facility] ([facility]), [address], [address] [place] [address] 07/15 CBC w/ auto diff RDW-C V, % % 11.7 14.4 12.9 FINAL Buddy Romonakia B&Whole Blood [facility] (T), [address], [address] [place], [place] [address] 07/15 CBC w/ auto diff PLT 10*3/u L 182.0 369.0 283.0 FINAL Buddy Arguello B&Whole Blood Former[facility] (T), [address], [address] [place] [address] 01/12 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 01/21 CBC w/ auto diff EO % % 0.7 5.8 3.0 FINAL Obdulia Ovesen Former[facility] (T), [address], [address] [place] [address] 01/21 CBC w/ auto diff BA % % 0.1 1.2 0.5 FINAL Obdulia Ovesen [facility] (T), [address], [address] [place] [address] 01/21 CBC w/ auto diff RBC 10*6/u L 3.93 5.22 4.40 FINAL Obdulia Ovesen [facility] (T), [address], [address] [place] [address] 01/21 CBC w/ auto diff HGB g/dL 11.2 15.7 13.2 FINAL Obdulia Ovesen [facility] (T), [address], [address] [place] [address] 01/21 CBC w/ auto diff HCT % 34.1 44.9 39.2 FINAL Obdulia Ovesen [facility] (T), [address], [address] [place] [address] 01/21 CBC w/ auto diff MCV fL 79.4 94.8 89.1 FINAL Obdulia Ovesen [facility] (T), [address], [address] [place] [address] 01/21 CBC w/ auto diff MCH pg 25.6 32.2 30.0 FINAL Obdulia Ovesen [facility] (T), [address], [address] [place] [address] 01/21 CBC w/ auto diff MCHC g/dL 32.2 35.5 33.7 FINAL Obdulia Cesar Former[facility] (T), [address], [address] [place] [address] 01/21 CBC w/ auto diff RDW-C V, % % 11.7 14.4 13.2 FINAL [facility] ([facility]), [address], [address] [place] [address] 01/21 CBC w/ auto diff WBC 10*3/u L 4.0 10.0 8.0 FINAL [facility] ([facility]), [address], [address] [place] [address] 01/21 CBC w/ auto diff Ashok # (ANC) 10*3/u L 1.56 6.13 5.13 [facility]), [address], [address] [place] [address] 01/21 CBC w/ auto diff LY # 10*3/u L 1.18 3.74 1.96 [facility] ([facility]), [address], [address] [place] [address] 01/21 CBC w/ auto diff MO # 10*3/u L 0.24 0.86 0.64 FINAL [facility] ([facility]), [address], [address] [place] [address] 01/21 CBC w/ auto diff EO # 10*3/u lL 0.04 0.36 0.24 [facility] [address], [address] [place] [address] 01/21 CBC w/ auto diff BA # 10*3/u L 0.01 0.08 0.04 [facility] ([facility]), [address], [address] [place] [address] 07/21 /2021 CBC w/ auto diff Ashok % % 34.0 71.1 64.0 [facility] [address], [address] [facility] [address] 01/21 CBC w/ auto diff LY % % 19.3 51.7 24.5 [facility] [address], [address] [facility] [address] 01/21 CBC w/ auto diff MO % % 4.7 12.5 8.0 FINAL [facility] [address], [address] [facility] [address] 01/21 CBC w/ auto diff PLT 10*3/u L 182.0 369.0 260.0 [facility] [address], [address] [facility] [address] 01/21 CMP - Core Lab Total prote in g/dL 5.7 8.2 7.2 FINAL [facility] ([facility]), [address] [place] [address] 01/21 CMP - Core Lab A/G ratio 1.0 2.0 1.3% FINAL [facility] ([facility]), [address] [place] [address] 01/21 CMP - Core Lab Alkal ine phosp hatas e U/L 46.0 116.0 87 FINAL [facility] ([facility]), [address] [place] [address] 01/21 CMP - Core Lab ALT/S GPT U/L 10.0 49.0 10 FINAL [facility] ([facility]), [address] [place] [address] 01/21 CMP - Core Lab AST/S GOT U/L 0.0 34.0 17 FINAL [facility] ([facility]), [address] [place] [address] 01/21 CMP - Core Lab Bilir ubin, total mg/dL 0.3 1.2 0.7 FINAL Obdulia Ovesen [facility] ([facility]), [address] [place] [address] [place] [address] 01/21 CMP - Core Lab CO2 mmol/L 20.0 31.0 29.9 FINAL Obdulia Ovesen [facility] ([facility]), [address] [place] [address] [place] [address] 01/21 CMP - Core Lab Sodiu m mmol/L 136.0 145.0 141 FINAL Obdulia Ovesen [facility] ([facility]), [address] [place] [address] [place] [address] 01/21 CMP - Core Lab Potas sium mmol/L 3.5 5.1 4.5 FINAL Obdulia Ovesen [facility] ([facility]), [address] [place] [address] [place] [address] 01/21 CMP - Core Lab Chlor nahed mmol/L 98.0 107.0 106 FINAL [facility]ulia [facility] ([facility]), [address] [place] [address] [place] [address] 01/21 CMP - Core Lab Anion gap, mmol/ L mmol/L 4.0 15.0 5.1 FINAL Obdulia [facility] centern [facility] ([facility]), [address] [place] [address] [place] [address] 01/21 CMP - Core Lab BUN mg/dL 9.0 23.0 16 FINAL Obdulia [facility] centern [facility] ([facility]), [address] [place] [address] [place] [address] 01/21 CMP - Core Lab BUN/C reati nine ratio 0.0 25.0 23.9% FINAL Obdulia Ovesen [facility] ([facility]), [address] [place] [address] [place] [address] 01/21 CMP - Core Lab Creat inine mg/dL 0.5 0.8 0.67 FINAL Obdulia Ovesen [facility] ([facility]), [address] [place] [address] [place] [address] 01/21 CMP - Core Lab GFR non-A frica n Ameri can, estim ated mL/min /1.73m >60.0 FINAL Obdulia Ovesen [facility] ([facility]), [facility] [place] [address] 01/21 CMP - Core Lab GFR Afric an Ameri can, estim ated mL/min /1.73m >60.0 [facility]), [address] [place] [address] [place] [address] 01/21 CMP - Core Lab Gluco se mg/dL 74.0 106.0 87 [facility]), [address] [place] [address] [place] [address] 01/21 CMP - Core Lab Calci um mg/dL 8.7 10.6 9.6 FINAL [facility] ([facility]), [address] [place] [address] [place] [address] 01/21 CMP - Core Lab Album in g/dL 3.4 5.0 4.1 FINAL [facility] ([facility]), [address] [place] [address] 01/21 CEA panel CEA ng/mL 0.64 FINAL [facility] ([facility]), [address] [place] [address] [place] [address] 05/06 CBC w/ auto diff WBC 10*3/u L 4.0 10.0 7.3 FINAL [facility] ([facility]), [address], [address] [facility] [address] 05/06 CBC w/ auto diff Ashok # (ANC) 10*3/u L 1.56 6.13 4.22 FINAL [facility] ([facility]), [address], [address] [facility] [address] 05/06 CBC w/ auto diff LY # 10*3/u L 1.18 3.74 2.35 FINAL [facility] ([facility]), [address], [address] [facility] [address] 05/06 CBC w/ auto diff MO # 10*3/u L 0.24 0.86 0.47 FINAL [facility] ([facility]), [address], [address] [place] [address] 05/06 CBC w/ auto diff EO # 10*3/u lL 0.04 0.36 0.28 FINAL Buddy [facility] ([facility]), [address], [address] [place] [address] 05/06 CBC w/ auto diff BA # 10*3/u L 0.01 0.08 0.02 FINAL Buddy [facility] ([facility]), [address], [address] [place] [address] 05/06 CBC w/ auto diff Ashok % % 34.0 71.1 57.5 FINAL Buddy [facility] (T), [address], [address] [place] [address] 05/06 CBC w/ auto diff LY % % 19.3 51.7 32.0 FINAL Buddy [facility] (T), [address], [address] [place] [address] 05/06 CBC w/ auto diff MO % % 4.7 12.5 6.4 FINAL Buddy [facility] ([facility]), [address], [address] [place] [address] 05/06 CBC w/ auto diff EO % % 0.7 5.8 3.8 FINAL [facility] ([facility]), [address], [address] [place] [address] 05/06 CBC w/ auto diff BA % % 0.1 1.2 0.3 FINAL Buddy [facility] (T), [address], [address] [place] [address] 05/06 CBC w/ auto diff RBC 10*6/u L 3.93 5.22 4.42 FINAL [facility] (T), [address], [address] [place] [address] 05/06 CBC w/ auto diff HGB g/dL 11.2 15.7 13.1 FINAL [facility] (T), [address], [address] [place], [place] [id number] 05/06 CBC w/ auto diff HCT % 34.1 44.9 38.8 FINAL [facility] (T), [address], [address] [place] [address] 05/06 CBC w/ auto diff MCV fL 79.4 94.8 87.8 FINAL [facility] (T), [address], [address] [place], [place] [id number] 05/06 CBC w/ auto diff MCH pg 25.6 32.2 29.6 FINAL [facility] ([facility]), [address], [address] [place] [address] 05/06 CBC w/ auto diff MCHC g/dL 32.2 35.5 33.8 FINAL [facility] (T), [address], [address] [place] [address] 05/06 CBC w/ auto diff RDW-C V, % % 11.7 14.4 13.0 FINAL [facility] (T), [address], [address] [place] [address] 05/06 CBC w/ auto diff PLT 10*3/u L 182.0 369.0 272.0 FINAL [facility] ([facility]), [address], [address] [place] [address] 05/06 CMP - Core Lab Sodiu m mmol/L 136.0 145.0 139 FINAL [facility] ([facility]), [address] [place] [address] 05/06 CMP - Core Lab Potas sium mmol/L 3.5 5.1 4.3 FINAL [facility] ([facility]), [address] [place] [address] 05/06 CMP - Core Lab Chlor nahed mmol/L 98.0 107.0 103 FINAL [facility] ([facility]), [address] [place] [address] 05/06 CMP - Core Lab CO2 mmol/L 20.0 31.0 27.0 FINAL Buddy [facility] ([facility]), [address] [place] [address] [place] [address] 05/06 CMP - Core Lab Anion gap, mmol/ L mmol/L 4.0 15.0 9.0 FINAL Buddy [facility] ([facility]), [address] [place] [address] [place] [address] 05/06 CMP - Core Lab BUN mg/dL 9.0 23.0 13 FINAL [facility] ([facility]), [address] [place] [address] [place] [address] 05/06 CMP - Core Lab BUN/C reati nine ratio 0.0 25.0 17.8% FINAL [facility] ([facility]), [address] [place] [address] [place] [address] 05/06 CMP - Core Lab Creat inine mg/dL 0.5 0.8 0.73 FINAL Buddy [facility] ([facility]), [address] [place] [address] [place] [address] 05/06 CMP - Core Lab GFR non-A frica n Ameri can, estim ated mL/min /1.73m >60.0 FINAL Buddy [facility] ([facility]), [address] [place] [address] [place] [address] 05/06 CMP - Core Lab GFR Afric an Ameri can, estim ated mL/min /1.73m >60.0 FINAL [facility] ([facility]), [address] [place] [address] [place] [address] 05/06 CMP - Core Lab Gluco se mg/dL 74.0 106.0 88 FINAL [facility] ([facility]), [address] [place] [address] [place] [address] 05/06 CMP - Core Lab Calci um mg/dL 8.7 10.6 9.4 FINAL [facility] ([facility]), [address] [place] [address] [place] [address] 05/06 CMP - Core Lab Album in g/dL 3.4 5.0 4.4 FINAL [facility] ([facility]), [address] [place] [address] [place] [address] 05/06 CMP - Core Lab Total prote in g/dL 5.7 8.2 7.3 FINAL [facility] ([facility]), [address] [place] [address] [place] [address] 05/06 CMP - Core Lab A/G ratio 1.0 2.0 1.5% FINAL [facility] ([facility]), [address] [place] [address] [place] [address] 05/06 CMP - Core Lab Alkal ine phosp hatas e U/L 46.0 116.0 93 FINAL [facility] ([facility]), [address] [place] [address] [place] [address] 05/06 CMP - Core Lab ALT/S GPT U/L 10.0 49.0 15 FINAL [facility] ([facility]), [address] [place] [address] [place] [address] 05/06 CMP - Core Lab AST/S GOT U/L 0.0 34.0 21 FINAL [facility] ([facility]), [address] [place] [address] [place] [address] 05/06 CMP - Core Lab Bilir ubin, total mg/dL 0.3 1.2 0.5 FINAL [facility] ([facility]), [address] [place] [address] [place] [address] 05/06 CEA panel CEA ng/mL 0.50 FINAL [facility] ([facility]), [address] [place] [address] [place] [address] 05/11 CMP - Core Lab Sodiu m mmol/L 136.0 145.0 142 FINAL [facility] ([facility]), [address] [place] [address] [place] [address] 05/11 CMP - Core Lab Potas sium mmol/L 3.5 5.1 4.0 FINAL [facility] ([facility]), [address] [place] [address] [place] [address] 05/11 CMP - Core Lab Chlor nahed mmol/L 98.0 107.0 105 FINAL [facility] ([facility]), [address] [place] [address] 05/11 CMP - Core Lab CO2 mmol/L 20.0 31.0 29.9 FINAL [facility] ([facility]), [address] [place] [address] 05/11 CMP - Core Lab Anion gap, mmol/ L mmol/L 4.0 15.0 7.1 FINAL [facility] ([facility]), [address] [place] [address] 05/11 CMP - Core Lab BUN mg/dL 9.0 23.0 14 FINAL [facility] ([facility]), [address] [place] [address] 05/11 CMP - Core Lab BUN/C reati nine ratio 0.0 25.0 19.7% FINAL [facility] ([facility]), [address] [place] [address] 05/11 CMP - Core Lab Creat inine mg/dL 0.5 0.8 0.71 FINAL [facility] ([facility]), [address] [place] [address] 05/11 CMP - Core Lab GFR non-A frica n Ameri can, estim ated mL/min /1.73m >60.0 FINAL [facility] ([facility]), [address] [place] [address] 05/11 CMP - Core Lab GFR Afric an Ameri can, estim ated mL/min /1.73m >60.0 FINAL [facility] ([facility]), [address] [place] [address] [place] [address] 05/11 CMP - Core Lab Gluco se mg/dL 74.0 106.0 78 FINAL [facility] ([facility]), [address] [place] [id number] 05/11 CMP - Core Lab Calci um mg/dL 8.[address] [facility] ([facility]), [address] [place] [address] [place] [address] 05/11 CMP - Core Lab Album in g/dL 3.4 5.0 3.9 FINAL [facility] ([facility]), [address] [place] [phone] 05/11 CMP - Core Lab Total prote in g/dL 5.7 8.2 6.9 FINAL [facility] ([facility]), [address] [place] [address] 32685 05/11 CMP - Core Lab A/G ratio 1.0 2.0 1.3% FINAL [facility] ([facility]), [address] [place] [address] 03185 05/11 CMP - Core Lab Alkal ine phosp hatas e U/L 46.0 116.0 78 FINAL [facility] ([facility]), [address] [place] [address] 89202 05/11 CMP - Core Lab ALT/S GPT U/L 10.0 49.0 9 Low FINAL [facility] ([facility]), [address] [place] [address] 46286 05/11 CMP - Core Lab AST/S GOT U/L 0.0 34.0 14 FINAL [facility] ([facility]), [address] [place] [address] 96417 05/11 CMP - Core Lab Bilir ubin, total mg/dL 0.3 1.2 0.7 FINAL [facility] ([facility]), [address] [place] [address] 15235 05/11 CBC w/ auto diff WBC 10*3/u L 4.0 10.0 6.6 FINAL [facility] ([facility]), [address], [address] [facility] [address] 05/11 CBC w/ auto diff Ashok # (ANC) 10*3/u L 1.56 6.13 3.85 FINAL [facility] ([facility]), [address], [address] [facility] [address] 05/11 CBC w/ auto diff LY # 10*3/u L 1.18 3.74 1.88 FINAL Buddy [facility] ([facility]), [address], [address] [place] [address] 05/11 CBC w/ auto diff MO # 10*3/u L 0.24 0.86 0.49 FINAL Buddy Arguello [facility] ([facility]), [address], [address] [place] [address] 05/11 CBC w/ auto diff EO # 10*3/u lL 0.04 0.36 0.39 High FINAL Buddy [facility] ([facility]), [address], [address] [place] [address] 05/11 CBC w/ auto diff BA # 10*3/u L 0.01 0.08 0.03 [facility] (T), [address], [address] [place] [address] 05/11 CBC w/ auto diff Ashok % % 34.0 71.1 57.9 FINAL Buddy [facility] (T), [address], [address] [place] [address] 05/11 CBC w/ auto diff LY % % 19.3 51.7 28.3 FINAL Buddy [facility] (T), [address], [address] [place] [address] 05/11 CBC w/ auto diff MO % % 4.7 12.5 7.4 FINAL Buddy [facility] (T), [address], [address] [place] [address] 05/11 CBC w/ auto diff EO % % 0.7 5.8 5.9 High FINAL Buddy [facility] (EGT), [address], [address] [place] [address] 05/11 CBC w/ auto diff BA % % 0.1 1.2 0.5 FINAL Buddy [facility] (T), [address], [address] [place] [address] 05/11 CBC w/ auto diff RBC 10*6/u L 3.93 5.22 4.40 FINAL Buddy [facility] ([facility]GT), [address], [address] [place] [id number] 05/11 CBC w/ auto diff HGB g/dL 11.2 15.7 13.0 FINAL [facility] ([facility]GT), [address], [address] [place] [address] 05/11 CBC w/ auto diff HCT % 34.1 44.9 39.5 FINAL [facility] ([facility]), [address], [address] [place] [address] 05/11 CBC w/ auto diff MCV fL 79.4 94.8 89.8 FINAL [facility] ([facility]GT), [address], [address] [place] [address] 05/11 CBC w/ auto diff MCH pg 25.6 32.2 29.5 FINAL [facility] ([facility]GT), [address], [address] [place] [address] 05/11 CBC w/ auto diff MCHC g/dL 32.2 35.5 32.9 FINAL [facility] ([facility]GT), [address], [address] [place] [address] 05/11 CBC w/ auto diff RDW-C V, % % 11.7 14.4 13.0 FINAL [facility] ([facility]), [address], [address] [place] [address] 05/11 CBC w/ auto diff PLT 10*3/u L 182.0 369.0 281.0 FINAL [facility] ([facility]), [address], [address] [place] [phone] 05/11 CEA panel CEA ng/mL 0.64 FINAL [facility] ([facility]), [address] [id number] 05/17 CBC w/ auto diff WBC 10*3/u L 4.0 10.0 6.8 FINAL [facility] ([facility]), [address], [address] [place] [address] 05/17 CBC w/ auto diff Ashok # (ANC) 10*3/u L 1.56 6.13 3.87 FINAL Buddy [facility] (T), [address], [address] [place] [address] 05/17 CBC w/ auto diff LY # 10*3/u L 1.18 3.74 2.21 FINAL Buddy [facility] (T), [address], [address] [place] [address] 05/17 CBC w/ auto diff MO # 10*3/u L 0.24 0.86 0.43 FINAL [facility] (T), [address], [address] [place] [address] 05/17 CBC w/ auto diff EO # 10*3/u lL 0.04 0.36 0.24 FINAL [facility] (T), [address], [address] [place] [address] 05/17 CBC w/ auto diff BA # 10*3/u L 0.01 0.08 0.03 FINAL Buddy [facility] (T), [address], [address] [place] [address] 05/17 CBC w/ auto diff Ashok % % 34.0 71.1 57.2 FINAL [facility] (T), [address], [address] [place] [address] 05/17 CBC w/ auto diff LY % % 19.3 51.7 32.6 FINAL [facility] (T), [address], [address] [place] [address] 05/17 CBC w/ auto diff MO % % 4.7 12.5 6.3 FINAL [facility] (T), [address], [address] [place] [address] 05/17 CBC w/ auto diff EO % % 0.7 5.8 3.5 FINAL [facility] (T), [address], [address] [place] [address] 05/17 CBC w/ auto diff BA % % 0.1 1.2 0.4 FINAL [facility] (T), [address], [address] [place], [place] [address] 05/17 CBC w/ auto diff RBC 10*6/u L 3.93 5.22 4.29 FINAL [facility] (T), [address], [address] [place] [address] 05/17 CBC w/ auto diff HGB g/dL 11.2 15.7 12.6 FINAL [facility] (T), [address], [address] [place] [address] 05/17 CBC w/ auto diff HCT % 34.1 44.9 38.1 FINAL [facility] (T), [address], [address] [place] [address] 05/17 CBC w/ auto diff MCV fL 79.4 94.8 88.8 FINAL [facility] (T), [address], [address] [place] [address] 05/17 CBC w/ auto diff MCH pg 25.6 32.2 29.4 FINAL [facility] (T), [address], [address] [place] [address] 05/17 CBC w/ auto diff MCHC g/dL 32.2 35.5 33.1 FINAL [facility] (T), [address], [address] [place] [address] 05/17 CBC w/ auto diff RDW-C V, % % 11.7 14.4 13.3 FINAL [facility] (T), [address], [address] [place], [place] [address] 05/17 CBC w/ auto diff PLT 10*3/u L 182.0 369.0 272.0 FINAL [facility] (T), [address], [address] [place] [address] 05/17 CEA panel CEA ng/mL 0.50 FINAL Buddy [facility] ([facility]), [address] [place] [address] 37262 05/17 CMP - Core Lab Sodiu m mmol/L 136.0 145.0 141 FINAL Buddy [facility] ([facility]), [address] [place] [address] 83544 05/17 CMP - Core Lab Potas sium mmol/L 3.5 5.1 4.1 FINAL [facility] ([facility]), [address] [place] [address] 13200 05/17 CMP - Core Lab Chlor nahed mmol/L 98.0 107.0 103 FINAL Buddy [facility] ([facility]), [address] [place] [address] 03299 05/17 CMP - Core Lab CO2 mmol/L 20.0 31.0 31.1 High FINAL [facility] ([facility]), [address] [place] [address] 15423 05/17 CMP - Core Lab Anion gap, mmol/ L mmol/L 4.0 15.0 6.9 FINAL [facility] ([facility]), [address] [place] [address] 13613 05/17 CMP - Core Lab BUN mg/dL 9.0 23.0 19 FINAL [facility] ([facility]), [address] [place] [address] 92394 05/17 CMP - Core Lab BUN/C reati nine ratio 0.0 25.0 27.5% High FINAL [facility] ([facility]), [address] [place] [address] 13832 05/17 CMP - Core Lab Creat inine mg/dL 0.55 1.02 0.69 FINAL [facility] ([facility]), [address] [place] [address] 94698 05/17 CMP - Core Lab GFR non-A frica n Ameri can, estim ated mL/min /1.73m >60.0 FINAL [facility] ([facility]), [address] [place] [address] 68810 05/17 CMP - Core Lab GFR Afric an Ameri can, estim ated mL/min /1.73m >60.0 FINAL [facility] ([facility]), [address] [place] [address] [place] [address] 05/17 CMP - Core Lab Gluco se mg/dL 74.0 106.0 95 FINAL [facility] ([facility]), [address] [place] [address] 51525 05/17 CMP - Core Lab Calci um mg/dL 8.7 10.6 9.6 FINAL [facility] ([facility]), [address] [place] [address] 65813 05/17 CMP - Core Lab Album in g/dL 3.4 5.0 4.2 FINAL [facility] ([facility]), [address] [place] [address] 86286 05/17 CMP - Core Lab Total prote in g/dL 5.7 8.2 7.6 FINAL [facility] ([facility]), [address] [place] [address] [place] [address] 05/17 CMP - Core Lab A/G ratio 1.0 2.0 1.2% FINAL [facility] ([facility]), [address] [place] [address] [place] [address] 05/17 CMP - Core Lab Alkal ine phosp hatas e U/L 46.0 116.0 70 FINAL [facility] ([facility]), [address] [place] [address] [place] [address] 05/17 CMP - Core Lab ALT/S GPT U/L 10.0 49.0 11 FINAL [facility] ([facility]), [address] [place] [address] [place] [address] 05/17 CMP - Core Lab AST/S GOT U/L 0.0 34.0 16 FINAL [facility] ([facility]), [address] [place] [address] [place] [address] 05/17 CMP - Core Lab Bilir ubin, total mg/dL 0.3 1.2 0.7 FINAL [facility] ([facility]), [address] [place] [address] 02784 06/07 CMP - Core Lab Sodiu m mmol/L 136.0 145.0 142 FINAL [facility] ([facility]), [address] [place] [address] 40314 06/07 CMP - Core Lab Potas sium mmol/L 3.5 5.1 4.8 FINAL [facility] ([facility]), [address] [place] [address] 31648 06/07 CMP - Core Lab Chlor nahed mmol/L 98.0 107.0 105 FINAL [facility] ([facility]), [address] [place] [address] 70656 06/07 CMP - Core Lab CO2 mmol/L 20.0 31.0 29.3 FINAL [facility] ([facility]), [address] [place], [place] [id number] 06/07 CMP - Core Lab Anion gap, mmol/ L mmol/L 4.0 15.0 7.7 FINAL [facility] ([facility]), [address] [place] [address] 95479 06/07 CMP - Core Lab BUN mg/dL 9.0 23.0 18 FINAL [facility] ([facility]), [address] [place] [address] 29013 06/07 CMP - Core Lab BUN/C reati nine ratio 0.0 25.0 24.0% FINAL [facility] ([facility]), [address] [place] [address] 06186 06/07 CMP - Core Lab Creat inine mg/dL 0.55 1.02 0.75 FINAL [facility] ([facility]), [address] [place] [address] 32171 06/07 CMP - Core Lab eGFR, mL/mi n/1.7 3 mL/min /1.73m 60.0 0.0 >60.0 FINAL [facility] ([facility]), [address] [place] [address] 02234 06/07 CMP - Core Lab Gluco se mg/dL 74.0 106.0 92 FINAL [facility] ([facility]), [address] [place] [address] [place] [address] 06/07 CMP - Core Lab Calci um mg/dL 8.7 10.6 10.0 FINAL [facility] ([facility]), [address] [place] [address] [place] [address] 06/07 CMP - Core Lab Album in g/dL 3.4 5.0 4.2 FINAL [facility] ([facility]), [address] [place] [address] [place] [address] 06/07 CMP - Core Lab Total prote in g/dL 5.7 8.2 7.6 FINAL [facility] ([facility]), [address] [place] [address] 38152 06/07 CMP - Core Lab A/G ratio 1.0 2.0 1.2% FINAL [facility] ([facility]), [address] [place] [address] [place] [address] 06/07 CMP - Core Lab Alkal ine phosp hatas e U/L 46.0 116.0 87 FINAL [facility] ([facility]), [address] [place] [address] 10078 06/07 CMP - Core Lab ALT/S GPT U/L 10.0 49.0 17 FINAL [facility] ([facility]), [address] [place] [address] [place] [address] 06/07 CMP - Core Lab AST/S GOT U/L 0.0 34.0 20 FINAL [facility] ([facility]), [address] [place] [address] [place] [address] 06/07 CMP - Core Lab Bilir ubin, total mg/dL 0.3 1.2 0.5 FINAL [facility] ([facility]), [address] [place] [address] [place] [address] 06/07 CEA panel CEA ng/mL 0.53 FINAL [facility] ([facility]), [address] [place] [address] 52090 06/07 CBC w/ auto diff WBC 10*3/u L 4.0 10.0 7.3 FINAL Buddy [facility] ([facility]), [address], [address] [place] [address] 06/07 CBC w/ auto diff Ashok # (ANC) 10*3/u L 1.56 6.13 4.07 FINAL Buddy [facility] (T), [address], [address] [place] [address] 06/07 CBC w/ auto diff LY # 10*3/u L 1.18 3.74 2.30 FINAL [facility] (T), [address], [address] [place] [address] 06/07 CBC w/ auto diff MO # 10*3/u L 0.24 0.86 0.54 FINAL Buddy [facility] (T), [address], [address] [place] [address] 06/07 CBC w/ auto diff EO # 10*3/u lL 0.04 0.36 0.29 FINAL Buddy [facility] (T), [address], [address] [place] [address] 06/07 CBC w/ auto diff BA # 10*3/u L 0.01 0.08 0.05 FINAL Buddy [facility] (T), [address], [address] [place] [address] 06/07 CBC w/ auto diff Ashok % % 34.0 71.1 56.2 FINAL Buddy [facility] (T), [address], [address] [place] [address] 06/07 CBC w/ auto diff LY % % 19.3 51.7 31.7 FINAL Buddy [facility] (T), [address], [address] [place] [address] 06/07 CBC w/ auto diff MO % % 4.7 12.5 7.4 FINAL [facility] (T), [address], [address] [place] [address] 06/07 CBC w/ auto diff EO % % 0.7 5.8 4.0 FINAL [facility] (T), [address], [address] [place] [address] 06/07 CBC w/ auto diff BA % % 0.1 1.2 0.7 FINAL [facility] (T), [address], [address] [place] [address] 06/07 CBC w/ auto diff RBC 10*6/u L 3.93 5.22 4.32 FINAL [facility] (T), [address], [address] [place] [address] 06/07 CBC w/ auto diff HGB g/dL 11.2 15.7 12.8 FINAL [facility] (T), [address], [address] [place] [address] 06/07 CBC w/ auto diff HCT % 34.1 44.9 39.0 FINAL [facility] (T), [address], [address] [place] [address] 06/07 CBC w/ auto diff MCV fL 79.4 94.8 90.3 FINAL [facility] (T), [address], [address] [place] [address] 06/07 CBC w/ auto diff MCH pg 25.6 32.2 29.6 FINAL [facility] (T), [address], [address] [place] [address] 06/07 CBC w/ auto diff MCHC g/dL 32.2 35.5 32.8 FINAL [facility] (T), [address], [address] [place] [address] 06/07 CBC w/ auto diff RDW-C V, % % 11.7 14.4 13.0 FINAL [facility] ([facility]), [address], [address] [place] [address] 06/07 CBC w/ auto diff PLT 10*3/u L 182.0 369.0 282.0 FINAL [facility] ([facility]), [address], [address] [place], [place] [id number] 06/06 CEA panel CEA ng/mL < 2 FINAL [facility] ([facility]), [address] [facility] [address] 06/06 CBC w/ auto diff WBC 10*3/u L 4.0 10.0 7.6 FINAL [facility] ([facility]), [address], [address] [place] [phone] 06/06 CBC w/ auto diff Ashok # (ANC) 10*3/u L 1.56 6.13 4.53 FINAL [facility] (T), [address], [address] [place] [address] 06/06 CBC w/ auto diff LY # 10*3/u L 1.18 3.74 2.30 FINAL [facility] (T), [address], [address] [place] [id number] 06/06 CBC w/ auto diff MO # 10*3/u L 0.24 0.86 0.54 FINAL [facility] (T), [address], [address] [place] [id number] 06/06 CBC w/ auto diff EO # 10*3/u lL 0.04 0.36 0.20 FINAL [facility] (T), [address], [address] [place] [id number] 06/06 CBC w/ auto diff BA # 10*3/u L 0.01 0.08 0.04 FINAL [facility] (T), [address], [address] [place], [place] [id number] 06/06 CBC w/ auto diff IG # 10*3/u L 0.0 0.2 0.00 FINAL [facility] (T), [address], [address] [place], [place] [id number] 06/06 CBC w/ auto diff Ashok % % 34.0 71.1 59.6 FINAL Buddy [facility] ([facility]GT), [address], [address] [place] [address] 06/06 CBC w/ auto diff LY % % 19.3 51.7 30.2 FINAL Buddy [facility] (T), [address], [address] [place] [address] 06/06 CBC w/ auto diff MO % % 4.7 12.5 7.1 FINAL Buddy [facility] (T), [address], [address] [place] [address] 06/06 CBC w/ auto diff EO % % 0.7 5.8 2.6 FINAL [facility] (T), [address], [address] [place] [address] 06/06 CBC w/ auto diff BA % % 0.1 1.2 0.5 FINAL [facility] (T), [address], [address] [place] [address] 06/06 CBC w/ auto diff IG % % 0.0 2.0 0.0 FINAL [facility] (T), [address], [address] [place] [address] 06/06 CBC w/ auto diff RBC 10*6/u L 3.93 5.22 4.35 FINAL [facility] (T), [address], [address] [place] [address] 06/06 CBC w/ auto diff HGB g/dL 11.2 15.7 13.0 FINAL [facility] (T), [address], [address] [place] [address] 06/06 CBC w/ auto diff HCT % 34.1 44.9 39.0 FINAL [facility] (T), [address], [address] [place] [address] 06/06 CBC w/ auto diff MCV fL 79.4 94.8 89.7 FINAL [facility] (T), [address], [address] [place] [address] 06/06 CBC w/ auto diff MCH pg 25.6 32.2 29.9 FINAL [facility] (T), [address], [address] [place], [place] [id number] 06/06 CBC w/ auto diff MCHC g/dL 32.2 35.5 33.3 FINAL [facility] ([facility]), [address], [address] [place], [place] [address] 06/06 CBC w/ auto diff RDW-C V, % % 11.7 14.4 12.6 FINAL [facility] ([facility]), [address], [address] [place], [place] [address] 06/06 CBC w/ auto diff PLT 10*3/u L 182.0 369.0 279 FINAL [facility] ([facility]), [address] [facility], [address] [place], [place] [id number] 06/06 CMP - Core Lab Sodiu m mmol/L 136.0 145.0 141 FINAL [facility] ([facility]), [address] [place], [place] [id number] 06/06 CMP - Core Lab Potas sium mmol/L 3.[address] [facility] ([facility]), [address] [place], [place] [id number] 06/06 CMP - Core Lab Chlor nahed mmol/L 98.0 107.0 104 FINAL [facility] ([facility]), [address] [place], [place] [id number] 06/06 CMP - Core Lab CO2 mmol/L 20.0 31.0 28.0 FINAL [facility] ([facility]), [address] [place] [address] 50198 06/06 CMP - Core Lab Anion gap, mmol/ L mmol/L 4.0 15.0 9.0 FINAL [facility] ([facility]), [address] [place] [address] 04101 06/06 CMP - Core Lab BUN mg/dL 9.0 23.0 19 FINAL [facility] ([facility]), [address] [place] [address] [place] [address] 06/06 CMP - Core Lab Creat inine mg/dL 0.55 1.02 0.75 FINAL [facility] ([facility]), [address] [place] [address] [place] [address] 06/06 CMP - Core Lab BUN/C reati nine ratio 0.0 25.0 25.3% High FINAL [facility] ([facility]), [address] [place] [address] [place] [address] 06/06 CMP - Core Lab eGFR, mL/mi n/1.7 3 mL/min /1.73m >60.0 FINAL [facility] ([facility]), [address] [place] [address] 23989 06/06 CMP - Core Lab Gluco se mg/dL 74.0 106.0 92 FINAL [facility] ([facility]), [address] [place] [address] [place] [address] 06/06 CMP - Core Lab Calci um mg/dL 8.7 10.6 9.6 FINAL [facility] ([facility]), [address] [place] [address] [place] [address] 06/06 CMP - Core Lab Album in g/dL 3.4 5.0 4.5 FINAL [facility] ([facility]), [address] [place] [address] [place] [address] 06/06 CMP - Core Lab Total prote in g/dL 5.7 8.2 7.3 FINAL [facility] ([facility]), [address] [place] [address] [place] [address] 06/06 CMP - Core Lab A/G ratio 1.0 2.0 1.6% FINAL [facility] ([facility]), [address] [place] [address] [place] [address] 06/06 CMP - Core Lab Alkal ine phosp hatas e U/L 46.0 116.0 77 FINAL [facility] ([facility]), [address] [place] [address] 06/06 CMP - Core Lab ALT/S GPT U/L 10.0 49.0 11 [facility] ([facility]), [address] [place] [address] 06/06 CMP - Core Lab AST/S GOT U/L 0.0 34.0 17 FINAL Buddy [facility] ([facility]), [address] [place] [address] 06/06 CMP - Core Lab Bilir ubin, total mg/dL 0.3 1.2 0.6 FINAL Buddy [facility] ([facility]), [address] [place] [address] Medications Date Name Route Dose Frequency Instructions [...] Active Vital Signs Date Type Value 07/15/2020 Intravascular Systolic 132 07/15/2020 Intravascular Diastolic 88 07/15/2020 Respiratory Rate 12.00 07/15/2020 Heart Beat 66.00 07/15/2020 Body Temperature 97.90 07/15/2020 BSA 2.23 07/15/2020 Weight 226.20 07/15/2020 Height 69.00 07/15/2020 BMI 33.40 07/15/2020 Pain Scale 0.00 01/21/2021 BMI 34.64 01/21/2021 BSA 2.28 01/21/2021 Height 69.00 01/21/2021 Weight 234.60 01/21/2021 Pain Scale 0.00 01/21/2021 Respiratory Rate 10.00 01/21/2021 Heart Beat 72.00 01/21/2021 Body Temperature 97.20 01/21/2021 Intravascular Systolic 110 01/21/2021 Intravascular Diastolic 70 05/06/2021 Pain Scale 0.00 05/06/2021 Body Temperature 97.20 05/06/2021 Heart Beat 72.00 05/06/2021 Respiratory Rate 10.00 05/06/2021 BSA 2.25 05/06/2021 Weight 230.00 05/06/2021 Height 69.00 05/06/2021 BMI 33.96 05/06/2021 Intravascular Systolic 118 05/06/2021 Intravascular Diastolic 70 05/11/2022 Height 69.00 05/11/2022 Weight 231.80 05/11/2022 Pain Scale 0.00 05/11/2022 BMI 34.23 05/11/2022 BSA 2.26 05/11/2022 Respiratory Rate 15.00 05/11/2022 Heart Beat 72.00 05/11/2022 Body Temperature 98.20 05/11/2022 Intravascular Systolic 148 05/11/2022 Intravascular Diastolic 88 05/17/2023 Heart Beat 76.00 05/17/2023 Respiratory Rate 16.00 05/17/2023 Intravascular Systolic 140 05/17/2023 Intravascular Diastolic 92 05/17/2023 Pain Scale 0.00 05/17/2023 BSA 2.27 05/17/2023 Height 69.00 05/17/2023 BMI 34.50 05/17/2023 Body Temperature 98.20 05/17/2023 Weight 233.60 06/07/2024 Intravascular Systolic 142 06/07/2024 Intravascular Diastolic 96 06/07/2024 BSA 2.25 06/07/2024 BMI 33.88 06/07/2024 Height 69.00 06/07/2024 Weight 229.40 06/07/2024 Pain Scale 0.00 06/07/2024 Respiratory Rate 12.00 06/07/2024 Heart Beat 64.00 06/07/2024 Intravascular Systolic 140 06/07/2024 Intravascular Diastolic 100 06/07/2024 Body Temperature 98.20 06/06/2025 Intravascular Systolic 144 06/06/2025 Intravascular Diastolic 87 06/06/2025 Body Temperature 98.20 06/06/2025 Heart Beat 72.00 06/06/2025 Respiratory Rate 16.00 06/06/2025 BMI 34.35 06/06/2025 Weight 232.60 06/06/2025 BSA 2.27 06/06/2025 Pain Scale 0.00 06/06/2025 Height 69.00
--- OUTSIDE RECORDS SUMMARY | 2025-07-02 14:24 | XMS_ITS | Clinical Summary ---
Author Organization [facility] Address [address] [place] [id number] Care Team Providers Care Quality Control Head Name Role Phone Unavailable Primary Care Provider Unavailabl e Source Comments [facility] is fully rolled out with thefollowing exceptions:General Clinical Research [facility] Social History Tobacco Use Types Packs/Day [...] 1971 DTAP/Tdap/Td IMMUNIZATION (1 - Tdap) 1977 Yearly Physical Ages 3-18+ 1981 VARICELLA IMMUNIZATION (1 of 2 - 13+ 2-dose series) 1983 HEPATITIS B IMMUNIZATION (1 of 3 - 19+ 3-dose series) 1989 AMB SEASONAL FLU VACCINE (#1) 03/04/2025 COVID-19 Vaccine ( - 2024-2 6 season) 2025 HIB IMMUNIZATION Aged Out No longer e ligible based on patient's age to complete this topic HPV IMMUNIZATION (No Doses Required) Completed IPV IMMUNIZATION Aged Out No longer e [...] patient's age to complete this topic Insurance [employer] NON-TRADITIONAL
[2025-07-02 16:09] LABS: Hepatitis C Ab Qual. W/ RFX NEGATIVE (Negative)
[2025-07-03 06:04] LABS: Hepatitis B Surface Antigen Negative (Negative)
== END 2025-07-02 23:59 | disposition home or self-care (01) ==
LOC: LAB 14:12
PROVIDERS: PCP Family Medicine; Visit Provider Obstetrics & Gynecology
DX: Z01.419 Encounter for gynecological examination (general) (routine) without abnormal findings (principal); Z11.59 Encounter for screening for other viral diseases
CPT/HCPCS: 36415; 86803; 87340; 87389